=== PATIENT | female | born 1945 | race Caucasian/White ===

== ENCOUNTER 2017-09-08 17:39 | Emergency (ER) | payer MEDICARE, BC ==
[2017-09-08] MEDS ORDERED: Sodium Chloride 0.9% 1,000 ML IV SCH (21:00)
--- NOTE | 2017-09-10 09:19 | ER ---
DATE SEEN: 09/08/2017 TIME SEEN: 2015 hours. CHIEF COMPLAINT: Ataxia. HISTORY OF PRESENT ILLNESS: This is a 72-year-old female complaining of dizziness, weakness, and speech disturbance that started few days ago. She fell twice in the last week and today, was unable to get up by herself. The sons noted that her speech was not making sense and she had some dysarthria. She also complains of mild headache. No difficulty swallowing, shortness of breath, or chest pain. PAST MEDICAL HISTORY: Dementia, depression, type 2 diabetes, hypertension, hyperlipidemia. ALLERGIES: Please see the nurse's notes. Amoxicillin, statins, sulfa. SOCIAL HISTORY: Does not smoke. Lives in an independent living facility, [facility]. PHYSICAL EXAMINATION: VITAL SIGNS: Her blood pressure is 114/60, temperature 98.0. GENERAL: She is not in distress. NECK: Supple. CHEST: Clear. HEENT: Eyes: Normal. Speech: Dysarthria. NEUROLOGIC: No other focal findings. EXTREMITIES: Normal strength on all 4 extremities. LABORATORY DATA: Potassium 3.0. Electrolytes: The other electrolytes are normal. BNP 494. Magnesium 1.8. Urine drug screen negative. CT head showed an indeterminate age lacunar infarct. IMPRESSION: 1. Lacunar infarct. 2. Dementia. PLAN: Start IV fluids. I spoke with Neurology. The patient will be sent to [facility] for further care. /[id number] JAYDA/MELISSAL
--- NOTE | 2017-09-11 15:04 | ER ---
DATE SEEN: 09/08/2017 The patient was seen at 1755 hours. Viviana is a 72-year-old woman who lives in [facility]. The patient has past medical history of diabetes and is not on insulin, has hypertension. There has been a change in medicines. She was started on Exelon for Parkinson's which replaced Aricept. 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 Before this, she was alert and talking, went to breakfast with her son a week ago and was very alert. She has chronic pain in her lower back, and that has not changed. She has urinary tract medicine, Detrol LA, for incontinence, which was discontinued a week ago and she has been slightly dizzy today. She has documented GERD, depression, obesity, Exelon to treat Parkinson's, and discontinued Detrol for urinary incontinence. She has incontinence of urine and stool. The patient is a fair historian. REVIEW OF SYSTEMS: Poor. This was obtained secondarily through the sons. MEDICATIONS: 1. Bupropion. 2. Insulin. 3. Cyanocobalamin. 4. Simvastatin. 5. Namenda. 6. Metformin. 7. Gabapentin. 8. Rivastigmine-Exelon. 9. Aspirin. 10.Losartan/hydrochlorothiazide. 11.Insulin. 12.Sertraline. ALLERGIES: Amoxil, fluvastatin, sulfa, and trimethoprim. PHYSICAL EXAMINATION: VITAL SIGNS: Blood pressure 149/60, heart rate 81, respirations 20, oxygen saturation 95%, temperature 36.7 degrees centigrade. HEENT: Alert woman, slight slurred speech. No facial asymmetry. Eyegrounds appropriate. Hearing slightly decreased. NECK: No bruits in the neck. Pharynx negative. Gag in place. No thyromegaly. No tracheal tug. LUNGS: Clear without rales or rhonchi. HEART: S1, S2. No irregular rate and rhythm. No S3, no S4. No murmur. ABDOMEN: Soft. No guarding. No abdominal discomfort. Hypoactive bowel sounds. EXTREMITIES: Without abnormality. No pain in upper and lower extremities. NEURO: Deep tendon reflexes hypoactive, upper and lower extremities. Cranial nerves 2 through 12 intact. Oriented x3. Speech appropriate. At this point, I do not discern slurred speech, but the family feels it is different than usual and I defer to their thoughts. 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 Dorsiflexors of her ankles are good, I can pull her down the gurney with this, there is no give-way. Right lower extremity strength is good. Left lower extremity strength is good, with straight leg extension and active resistance. LABORATORY FINDINGS: Potassium is 3.0, BUN slightly elevated at 20, creatinine is 0.9, BUN and creatinine ratio is 22, slightly suggesting mild dehydration. GFR is greater than 60. Troponin is less than 0.017, and BNP is 494. Catheterized urinalysis: Few bacteria, small bilirubin, moderate occult blood in bladder from catheterization. Urine drug screen is negative. ASSESSMENT: 1. Suggestion of slurred speech. The family notes a different patient status. CAT scan is pending. 2. Hypokalemia. 3. No evidence for urinary tract infections. Blood culture was not obtained. She has not had a fever. No neutrophilic leukocytosis, and mild glucose elevations, but fairly well controlled diabetes at 7.7 hemoglobin A1c - is trace elevated, but still reasonable for her age. PLAN: Admit. Dr. Greer to write the orders. /[id number] DARY/JOANA
== END 2017-09-08 22:00 ==
LOC: FB.ED 17:39
DX: I63.9 Cerebral infarction, unspecified (principal); R47.1 Dysarthria and anarthria; G20 Parkinson's disease; F02.80 Dementia in other diseases classified elsewhere, unspecified severity, without behavioral disturbance, psychotic disturbance, mood disturbance, and anxiety; I10 Essential (primary) hypertension; F32.9 Major depressive disorder, single episode, unspecified; E11.9 Type 2 diabetes mellitus without complications; E78.5 Hyperlipidemia, unspecified; Z88.1 Allergy status to other antibiotic agents; Z88.2 Allergy status to sulfonamides; Z88.8 Allergy status to other drugs, medicaments and biological substances; Z79.4 Long term (current) use of insulin; Z79.899 Other long term (current) drug therapy
CPT/HCPCS: 36415; 51701; 70450; 80053; 80305; 81001; 83036; 83735; 83880; 84484; 85025; 93005; 99285; J7040

== ENCOUNTER 2017-09-28 10:49 | Inpatient (IN) | payer MEDICARE, BC ==
[2017-09-28] MEDS: Insulin Aspart 100 Units/ML 3 ML Pen SUBCUT SCH (17:45)
[2017-09-28] MEDS: Memantine 10 MG Tab PO SCH (20:27)
[2017-09-28] MEDS: Gabapentin 300 MG Cap PO SCH (20:27)
[2017-09-28] MEDS: metFORMIN 500 MG Tab.ER PO SCH (20:28)
[2017-09-28] MEDS: Docusate Sodium 100 MG Cap PO SCH (20:28)
--- NOTE | 2017-09-29 08:27 | PCM.HP ---
H&P History of Present Illness - General Date of Service: 09/29/17 Admit Problem/Dx: Admission Diagnosis/Problem Admission Diagnosis/Problem CVA, Cerebrovascular accident Source of Information: Patient, Old Records - History of Present Illness Initial Comments - Free Text/Narative: Viviana is a 72-year-old female admitted to swing bed because of gait instability , weakness right-sided, after recent left pontine CVA. She was admitted at [facility] for 2 .5 weeks. She came from inpatient rehabilitation. She's had gait instability, weakness and ataxia related to the sequelae of the stroke. She has a history of type 2 diabetes stable with an A1c of 7.52 weeks ago, stable hypertension, restless leg syndrome, SCOTT,cognitive dysfunction, and she status post nasopharyngeal carcinoma 5 years ago. Viviana previously lived at [facility]. Apart from feeling weak she has no other complaints this morning. - Related Data Allergies/Adverse Reactions: Allergies Allergy/AdvReac Type Severity Reaction Status Date / Time amoxicillin [Amoxicillin] Allergy Nausea and Verified 09/28/17 14:52 Vomiting fluvastatin Allergy Nausea and Verified 09/28/17 14:52 Vomiting Sulfa (Sulfonamide Allergy Diarrhea Verified 09/28/17 14:52 Antibiotics) sulfamethoxazole Allergy Nausea and Verified 09/28/17 14:52 [From Bactrim] Vomiting trimethoprim [From Bactrim] Allergy Nausea and Verified 09/28/17 14:52 Vomiting Home Medications: Home Meds Sertraline HCl 150 mg PO DAILY 06/28/13 [History] Cyanocobalamin (Vitamin B-12) [Vitamin B-12] 1,000 mcg PO DAILY 09/08/17 [ History] Gabapentin [Neurontin] 300 mg PO BEDTIME 09/08/17 [History] Insulin Aspart [NovoLOG] 10 unit SQ 1200,1700 09/08/17 [History] Insulin Glargine,Hum.Rec.Anlog [Toujeo Solostar] 45 unit SQ DAILY 09/08/17 [ History] Memantine HCl [Namenda] 10 mg PO BID 09/08/17 [History] Rivastigmine [Exelon] 9.5 mg TRDERM DAILY 09/08/17 [History] buPROPion [buPROPion XL] 150 mg PO DAILY 09/08/17 [History] metFORMIN HCl [Metformin HCl ER] 500 mg PO BID 09/08/17 [History] Aspirin [Ecotrin] 325 mg PO DAILY 09/28/17 [History] Cholecalciferol (Vitamin D3) [Vitamin D3] 2,000 units PO DAILY 09/28/17 [History ] Clopidogrel [Plavix] 75 mg PO DAILY 09/28/17 [History] Docusate Sodium [Colace] 100 mg PO BID 09/28/17 [History] Losartan [Cozaar] 50 mg PO DAILY 09/28/17 [History] Multivits,Th w-Fe,Other Min [Therems-M] 1 each PO DAILY 09/28/17 [History] amLODIPine Besylate [Amlodipine Besylate] 10 mg PO DAILY 09/28/17 [History] atorvaSTATin [Lipitor] 40 mg PO BEDTIME 09/28/17 [History] Past Medical History HEENT History: Reports: Cataract, Hard of Hearing, Impaired Vision Other HEENT History: legally blind L eye, hx nonHodgkins lymphoma, 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, retinopathy Cardiovascular History: Reports: High Cholesterol, Hypertension Respiratory History: Reports: Sleep Apnea Other Respiratory History: uses cpap Gastrointestinal History: Reports: None Genitourinary History: Reports: Urinary Incontinence 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 Endocrine/Metabolic History: Reports: Diabetes, Type II, Obesity/BMI 30+ Hematologic History: Reports: Blood Transfusion(s) Oncologic (Cancer) History: Reports: Non-Hodgkin's Lymphoma - Infectious Disease History Infectious Disease History: Reports: Chicken Pox, Measles, Mumps, Shingles - Past Surgical History Head Surgeries/Procedures: Reports: None HEENT Surgical History: Reports: Adenoidectomy, Oral Surgery, Tonsillectomy, Other (See Below) Other HEENT Surgeries/Procedures: bleeding in vein in L eye GI Surgical History: Reports: Cholecystectomy, Colonoscopy Female Surgical History: Reports: Hysterectomy, Salpingo-Oophorectomy Musculoskeletal Surgical History: Reports: Knee Replacement Other Musculoskeletal Surgeries/Procedures:: bilat knee replacements Social & Family History - Family History Family Medical History: Noncontributory - Tobacco Use Smoking Status *Q: Never Smoker - Caffeine Use Caffeine Use: Reports: Coffee - Alcohol Use Days Per Week of Alcohol Use: 0 - Recreational Drug Use Recreational Drug Use: No H&P Review of Systems - Review of Systems: Review Of Systems: ROS reveals no pertinent complaints other than HPI. Exam - Exam Exam: See Below - Vital Signs Vital Signs: Last Vital Signs Temp 98.3 F 09/29/17 07:52 Pulse 61 09/28/17 20:05 Resp 18 09/29/17 07:52 BP 113/48 L 09/29/17 07:52 Pulse Ox 95 09/29/17 07:52 Weight: 98.203 kg - Exam General: Alert, Oriented, 4 HEENT: PERRLA, Hearing Intact, Mucosa Moist & [place], Nares Patent, Normal Nasal Septum, Posterior Pharynx Clear, Conjunctiva Clear, EOMI, EACs Clear, TMs Clear Neck: Supple, Trachea Midline, 2 Lungs: Clear to Auscultation, Normal Respiratory Effort Cardiovascular: Regular Rate, Regular Rhythm GI/Abdominal Exam: Normal Bowel Sounds, Soft, Non-Tender, No Organomegaly, No Distention, No Abnormal Bruit, No Mass, Pelvis Stable (Female) Exam: Deferred Rectal (Female) Exam: Deferred Back Exam: Normal Inspection, Full Range of Motion, NT Extremities: Normal Inspection, Normal Range of Motion, Non-Tender, No Pedal Edema, Normal Capillary Refill Skin: Warm, Dry, Intact Neurological: Cranial Nerves Intact, Reflexes Equal Bilateral Neuro Extensive - Mental Status: Alert, Oriented x3, Normal Mood/Affect, Normal Cognition Neuro Extensive - Motor, Sensory, Reflexes: Abnormal Motor (Decreased stregth,R side) Psychiatric: Alert - Patient Data Lab Results Last 24 hrs: Laboratory Results - last 24 hr 09/28/17 09/28/17 09/29/17 Range/Units 17:45 21:17 04:29 POC Glucose 133 H 85 90 (80-116) mg/dL 09/29/17 Range/Units 07:44 POC Glucose 89 (80-116) mg/dL *Q Meaningful Use (ADM) - VTE *Q VTE Criteria *Q: - Stroke *Q Stroke Criteria *Q: - AMI *Q AMI Criteria *Q: - Problem List (1) 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 SNOMED Code(s): 516291429 ICD Code: Z86.73 - PRSNL HX OF TIA (TIA), AND CEREB INFRC W/O RESID DEFICITS Status: Acute Current Visit: Yes (2) DM2 (diabetes mellitus, type 2) SNOMED Code(s): 39374680 ICD Code: E11.9 - TYPE 2 DIABETES MELLITUS WITHOUT COMPLICATIONS Status: Acute Current Visit: Yes Qualifiers: Diabetes mellitus complication status: without complication Diabetes mellitus buttermaker helper insulin use: with group home use Qualified Code(s): E11.9 - Type 2 diabetes mellitus without complications; Z79.4 - terminal press operator (current) use of insulin; Z79.4 - MCC (current) use of insulin; Z79.4 - MCC ( current) use of insulin; Z79.4 - terminal press operator (current) use of insulin (3) RLS (restless legs syndrome) SNOMED Code(s): 11424365 ICD Code: G25.81 - RESTLESS LEGS SYNDROME Status: Chronic Current Visit: Yes (4) HTN (hypertension) SNOMED Code(s): 61967516 ICD Code: I10 - ESSENTIAL (PRIMARY) HYPERTENSION Status: Chronic Current Visit: Yes Qualifiers: Hypertension type: essential hypertension Qualified Code(s): I10 - Essential (primary) hypertension (5) Cognitive dysfunction SNOMED Code(s): 191074566 ICD Code: F09 - UNSP MENTAL DISORDER DUE TO KNOWN PHYSIOLOGICAL CONDITION Status: Acute Current Visit: Yes (6) Parkinson disease SNOMED Code(s): 46344464 ICD Code: G20 - PARKINSON'S DISEASE Status: Chronic Current Visit: Yes (7) HLD (hyperlipidemia) SNOMED Code(s): 92830624 ICD Code: E78.5 - HYPERLIPIDEMIA, UNSPECIFIED Status: Chronic Current Visit: Yes (8) SCOTT (obstructive sleep apnea) SNOMED Code(s): 13855097 ICD Code: G47.33 - OBSTRUCTIVE SLEEP APNEA (ADULT) (PEDIATRIC) Status: Chronic Current Visit: Yes (9) Ataxia SNOMED Code(s): 60404209 ICD Code: R27.0 - ATAXIA, UNSPECIFIED Status: Chronic Current Visit: Yes (10) MDD (major depressive disorder) SNOMED Code(s): 722061969 ICD Code: F32.9 - MAJOR DEPRESSIVE DISORDER, SINGLE EPISODE, UNSPECIFIED Status: Chronic Current Visit: Yes Qualifiers: Major depression recurrence: recurrent Psychotic features: without psychotic features Problem List Initiated/Reviewed/Updated: Yes Orders Last 24hrs: Active Orders 24 hr Category Date Time Status Patient Status [ADT] Routine ADT 09/28/17 14:32 Active Accu Check [Blood Glucose Check, Bedside] [RC] Care 09/28/17 14:37 Active QIDACANDBED Activity as Tolerated [RC] .Routine Care 09/28/17 14:32 Active Weight [Height and Weight] [RC] .qMon Care 09/28/17 17:41 Active OT Evaluation and Treatment [CONS] Routine Cons 09/28/17 14:32 Active PT Evaluation and Treatment [CONS] Routine Cons 09/28/17 14:32 Active CARE ASSOCIATE Evaluation and Treatment [CONS] Routine Cons 09/28/17 14:32 Active Consistent Carbohydrate Diet [DIET] Diet 09/28/17 Dinner Active Aspirin [Ecotrin] Med 09/29/17 09:00 Active 325 mg PO DAILY Cholecalciferol (Vitamin D3) [Vitamin D3] Med 09/29/17 09:00 Active 2,000 units PO DAILY Clopidogrel [Plavix] Med 09/29/17 09:00 Active 75 mg PO DAILY Cyanocobalamin (Vitamin B12) [Vitamin B12] Med 09/29/17 09:00 Active 1,000 mcg PO DAILY Docusate Sodium [Colace] Med 09/28/17 21:00 Active 100 mg PO BID Gabapentin [Neurontin] Med 09/28/17 21:00 Active 300 mg PO BEDTIME Insulin Aspart [NovoLOG] Med 09/28/17 17:00 Active 10 unit SUBCUT 1200,1700 Insulin Detemir [Levemir] Med 09/29/17 09:00 Active 23 unit SUBCUT BID Losartan [Cozaar] Med 09/29/17 09:00 Active 50 mg PO DAILY Memantine [Namenda] Med 09/28/17 21:00 Active 10 mg PO BID Multivitamins,Therapeutic [Thera] Med 09/29/17 09:00 Active 1 each PO DAILY Rivastigmine [Exelon] Med 09/29/17 09:00 Active 9.5 mg TRDERM DAILY Sertraline [Zoloft] Med 09/29/17 09:00 Active 150 mg PO DAILY amLODIPine [Norvasc] Med 09/29/17 09:00 Active 10 mg PO DAILY atorvaSTATin [Lipitor] Med 09/29/17 09:00 Active 40 mg PO DAILY buPROPion [Wellbutrin XL] Med 09/29/17 09:00 Active 150 mg PO DAILY metFORMIN [Glucophage XR] Med 09/28/17 21:00 Active 500 mg PO BID Resuscitation Status Routine Resus Stat 09/28/17 13:22 Ordered Medication Orders Amlodipine Besylate (Norvasc) 10 mg PO DAILY [facility] Aspirin (Ecotrin) 325 mg PO DAILY [facility] Atorvastatin Calcium (Lipitor) 40 mg PO DAILY [facility] Bupropion HCl (Wellbutrin Xl) 150 mg PO DAILY [facility] Cholecalciferol (Vitamin D3) 2,000 units PO DAILY [facility] Clopidogrel Bisulfate (Plavix) 75 mg PO DAILY [facility] Cyanocobalamin (Vitamin B12) 1,000 mcg PO DAILY [facility] Docusate Sodium (Colace) 100 mg PO BID [facility] Last Admin: 09/28/17 20:28 Dose: 100 mg Gabapentin (Neurontin) 300 mg PO BEDTIME [facility] Last Admin: 09/28/17 20:27 Dose: 300 mg Insulin Aspart (Novolog) 10 unit SUBCUT 1200,1700 [facility] Last Admin: 09/28/17 17:45 Dose: 10 units Insulin Detemir (Levemir) 23 unit SUBCUT BID [facility] Losartan Potassium (Cozaar) 50 mg PO DAILY [facility] Memantine (Namenda) 10 mg PO BID [facility] Last Admin: 09/28/17 20:27 Dose: 10 mg Metformin HCl (Glucophage Xr) 500 mg PO BID [facility] Last Admin: 09/28/17 20:28 Dose: 500 mg Multivitamins (Thera) 1 each PO DAILY [facility] Rivastigmine (Exelon) 9.5 mg TRDERM DAILY [facility] Sertraline HCl (Zoloft) 150 mg PO DAILY [facility] Assessment/Plan Comment:: We'll resume medications as prescribed at discharge from [facility]. It's recommended to do both aspirin and Plavix for 3 months and thereafter aspirin alone. We've consulted physical and occupational therapy for rehabilitation. Routine orders for sitting bed admission were made.
[2017-09-29] MEDS: Docusate Sodium 100 MG Cap PO SCH ×2 (10:05→20:31)
[2017-09-29] MEDS: Losartan 50 MG Tab PO SCH (10:05)
[2017-09-29] MEDS: Aspirin 325 MG Tab.EC PO SCH (10:05)
[2017-09-29] MEDS: Cyanocobalamin (Vitamin B12) 1,000 MCG Tab PO SCH (10:10)
[2017-09-29] MEDS: Memantine 10 MG Tab PO SCH ×2 (10:10→20:34)
[2017-09-29] MEDS: Clopidogrel 75 MG Tab PO SCH (10:10)
[2017-09-29] MEDS: Multivitamins,Therapeutic Tab PO SCH (10:10)
[2017-09-29] MEDS: amLODIPine 10 MG Tab PO SCH (10:10)
[2017-09-29] MEDS: atorvaSTATin 40 MG Tab PO SCH (10:10)
[2017-09-29] MEDS: metFORMIN 500 MG Tab.ER PO SCH ×2 (10:10→20:32)
[2017-09-29] MEDS: Rivastigmine 9.5 MG/24 HR Transdermal Patch TRDERM SCH (10:23)
[2017-09-29] MEDS: Cholecalciferol (Vitamin D3) 1,000 Unit Tab PO SCH (10:32)
[2017-09-29] MEDS: buPROPion 150 MG Tab.ER PO SCH (10:33)
[2017-09-29] MEDS: Sertraline 50 MG Tab PO SCH (10:33)
[2017-09-29] MEDS: Insulin Detemir 100 Units/ML 3 ML Pen SUBCUT SCH ×2 (10:37→20:32)
[2017-09-29] MEDS: Insulin Aspart 100 Units/ML 3 ML Pen SUBCUT SCH ×2 (11:48→17:31)
[2017-09-29] MEDS: Gabapentin 300 MG Cap PO SCH (20:34)
[2017-09-30] MEDS: Docusate Sodium 100 MG Cap PO SCH ×2 (08:08→20:41)
[2017-09-30] MEDS: Aspirin 325 MG Tab.EC PO SCH (08:09)
[2017-09-30] MEDS: metFORMIN 500 MG Tab.ER PO SCH ×2 (08:09→20:41)
[2017-09-30] MEDS: Losartan 50 MG Tab PO SCH (08:09)
[2017-09-30] MEDS: Rivastigmine 9.5 MG/24 HR Transdermal Patch TRDERM SCH (08:09)
[2017-09-30] MEDS: Insulin Detemir 100 Units/ML 3 ML Pen SUBCUT SCH ×2 (08:10→20:41)
[2017-09-30] MEDS: Memantine 10 MG Tab PO SCH ×2 (08:11→20:41)
[2017-09-30] MEDS: amLODIPine 10 MG Tab PO SCH (08:11)
[2017-09-30] MEDS: atorvaSTATin 40 MG Tab PO SCH (08:11)
[2017-09-30] MEDS: Cyanocobalamin (Vitamin B12) 1,000 MCG Tab PO SCH (08:12)
[2017-09-30] MEDS: Cholecalciferol (Vitamin D3) 1,000 Unit Tab PO SCH (08:12)
[2017-09-30] MEDS: Multivitamins,Therapeutic Tab PO SCH (08:12)
[2017-09-30] MEDS: Clopidogrel 75 MG Tab PO SCH (08:12)
[2017-09-30] MEDS: Sertraline 50 MG Tab PO SCH (08:13)
[2017-09-30] MEDS: buPROPion 150 MG Tab.ER PO SCH (08:13)
[2017-09-30] MEDS: Insulin Aspart 100 Units/ML 3 ML Pen SUBCUT SCH ×2 (11:53→17:26)
[2017-09-30] MEDS: Gabapentin 300 MG Cap PO SCH (20:41)
[2017-10-01] MEDS: Docusate Sodium 100 MG Cap PO SCH ×2 (09:11→21:37)
[2017-10-01] MEDS: Rivastigmine 9.5 MG/24 HR Transdermal Patch TRDERM SCH (09:11)
[2017-10-01] MEDS: Losartan 50 MG Tab PO SCH (09:11)
[2017-10-01] MEDS: Aspirin 325 MG Tab.EC PO SCH (09:11)
[2017-10-01] MEDS: Insulin Detemir 100 Units/ML 3 ML Pen SUBCUT SCH ×2 (09:12→21:37)
[2017-10-01] MEDS: metFORMIN 500 MG Tab.ER PO SCH ×2 (09:12→21:37)
[2017-10-01] MEDS: Cyanocobalamin (Vitamin B12) 1,000 MCG Tab PO SCH (09:13)
[2017-10-01] MEDS: atorvaSTATin 40 MG Tab PO SCH (09:13)
[2017-10-01] MEDS: Multivitamins,Therapeutic Tab PO SCH (09:13)
[2017-10-01] MEDS: Memantine 10 MG Tab PO SCH ×2 (09:13→21:38)
[2017-10-01] MEDS: amLODIPine 10 MG Tab PO SCH (09:13)
[2017-10-01] MEDS: Clopidogrel 75 MG Tab PO SCH (09:13)
[2017-10-01] MEDS: buPROPion 150 MG Tab.ER PO SCH (09:14)
[2017-10-01] MEDS: Cholecalciferol (Vitamin D3) 1,000 Unit Tab PO SCH (09:14)
[2017-10-01] MEDS: Sertraline 50 MG Tab PO SCH (09:14)
[2017-10-01] MEDS: Insulin Aspart 100 Units/ML 3 ML Pen SUBCUT SCH ×2 (13:17→17:37)
[2017-10-01] MEDS: Gabapentin 300 MG Cap PO SCH (21:39)
[2017-10-02] MEDS: Docusate Sodium 100 MG Cap PO SCH ×2 (09:21→21:19)
[2017-10-02] MEDS: Losartan 50 MG Tab PO SCH (09:22)
[2017-10-02] MEDS: Multivitamins,Therapeutic Tab PO SCH (09:22)
[2017-10-02] MEDS: Clopidogrel 75 MG Tab PO SCH (09:22)
[2017-10-02] MEDS: Cyanocobalamin (Vitamin B12) 1,000 MCG Tab PO SCH (09:23)
[2017-10-02] MEDS: amLODIPine 10 MG Tab PO SCH (09:23)
[2017-10-02] MEDS: atorvaSTATin 40 MG Tab PO SCH (09:23)
[2017-10-02] MEDS: buPROPion 150 MG Tab.ER PO SCH (09:23)
[2017-10-02] MEDS: Memantine 10 MG Tab PO SCH ×2 (09:23→21:21)
[2017-10-02] MEDS: Cholecalciferol (Vitamin D3) 1,000 Unit Tab PO SCH (09:23)
[2017-10-02] MEDS: Aspirin 325 MG Tab.EC PO SCH (09:23)
[2017-10-02] MEDS: metFORMIN 500 MG Tab.ER PO SCH ×2 (09:23→21:21)
[2017-10-02] MEDS: Sertraline 50 MG Tab PO SCH (09:24)
[2017-10-02] MEDS: Rivastigmine 9.5 MG/24 HR Transdermal Patch TRDERM SCH (09:24)
[2017-10-02] MEDS: Insulin Detemir 100 Units/ML 3 ML Pen SUBCUT SCH ×2 (09:30→21:19)
[2017-10-02] MEDS: Insulin Aspart 100 Units/ML 3 ML Pen SUBCUT SCH ×2 (12:52→18:18)
[2017-10-02] MEDS: Gabapentin 300 MG Cap PO SCH (21:21)
[2017-10-03] MEDS: Docusate Sodium 100 MG Cap PO SCH ×2 (08:30→21:05)
[2017-10-03] MEDS: Losartan 50 MG Tab PO SCH (08:30)
[2017-10-03] MEDS: Memantine 10 MG Tab PO SCH ×2 (08:31→21:12)
[2017-10-03] MEDS: Clopidogrel 75 MG Tab PO SCH (08:31)
[2017-10-03] MEDS: metFORMIN 500 MG Tab.ER PO SCH ×2 (08:31→21:12)
[2017-10-03] MEDS: amLODIPine 10 MG Tab PO SCH (08:31)
[2017-10-03] MEDS: Rivastigmine 9.5 MG/24 HR Transdermal Patch TRDERM SCH (08:31)
[2017-10-03] MEDS: atorvaSTATin 40 MG Tab PO SCH (08:31)
[2017-10-03] MEDS: Sertraline 50 MG Tab PO SCH (08:31)
[2017-10-03] MEDS: Cyanocobalamin (Vitamin B12) 1,000 MCG Tab PO SCH (08:31)
[2017-10-03] MEDS: Cholecalciferol (Vitamin D3) 1,000 Unit Tab PO SCH (08:31)
[2017-10-03] MEDS: Aspirin 325 MG Tab.EC PO SCH (08:31)
[2017-10-03] MEDS: Multivitamins,Therapeutic Tab PO SCH (08:31)
[2017-10-03] MEDS: buPROPion 150 MG Tab.ER PO SCH (08:31)
[2017-10-03] MEDS: Insulin Detemir 100 Units/ML 3 ML Pen SUBCUT SCH ×2 (08:32→21:16)
[2017-10-03] MEDS: Insulin Aspart 100 Units/ML 3 ML Pen SUBCUT SCH ×2 (12:19→17:53)
[2017-10-03] MEDS: Gabapentin 300 MG Cap PO SCH (21:12)
[2017-10-04] MEDS: Multivitamins,Therapeutic Tab PO SCH (08:51)
[2017-10-04] MEDS: Sertraline 50 MG Tab PO SCH (08:51)
[2017-10-04] MEDS: buPROPion 150 MG Tab.ER PO SCH (08:51)
[2017-10-04] MEDS: Cyanocobalamin (Vitamin B12) 1,000 MCG Tab PO SCH (08:52)
[2017-10-04] MEDS: Cholecalciferol (Vitamin D3) 1,000 Unit Tab PO SCH (08:52)
[2017-10-04] MEDS: Losartan 50 MG Tab PO SCH (08:52)
[2017-10-04] MEDS: Memantine 10 MG Tab PO SCH (08:52)
[2017-10-04] MEDS: Aspirin 325 MG Tab.EC PO SCH (08:52)
[2017-10-04] MEDS: metFORMIN 500 MG Tab.ER PO SCH (08:52)
[2017-10-04] MEDS: atorvaSTATin 40 MG Tab PO SCH (08:52)
[2017-10-04] MEDS: amLODIPine 10 MG Tab PO SCH (08:53)
[2017-10-04] MEDS: Rivastigmine 9.5 MG/24 HR Transdermal Patch TRDERM SCH (08:53)
[2017-10-04] MEDS: Insulin Detemir 100 Units/ML 3 ML Pen SUBCUT SCH (08:54)
[2017-10-04] MEDS: Docusate Sodium 100 MG Cap PO SCH (09:01)
[2017-10-04] MEDS: Clopidogrel 75 MG Tab PO SCH (09:01)
--- NOTE | 2017-10-04 14:33 | DISCH ---
DISCHARGE DATE: 10/04/2017 REASON FOR ADMISSION: Gait disturbance, CVA, type 2 diabetes, hypertension, Parkinson's disease, cognitive dysfunction, hyperlipidemia, obstructive sleep apnea, major depression. DISCHARGE DIAGNOSES: Gait disturbance, cerebrovascular accident, type 2 diabetes, hypertension, Parkinson's disease, cognitive dysfunction, hyperlipidemia, obstructive sleep apnea, major depression.. BRIEF HISTORY AND HOSPITAL COURSE: This is a 72-year-old female admitted from [facility] after a stroke. She had been there for about 2-1/2 weeks with a left pontine stroke. This had resulted in ataxia, gait instability, generalized weakness, deconditioning, and mild speech disturbance. She has a history of chronic kidney disease, hypertension, restless legs syndrome, major depression, type 2 diabetes, and Parkinson's disease. She has also had early-onset Alzheimer's dementia with hallucinations. She improved after physical rehab and occupational therapy here in the hospital for 5 days. Sugars were stable on the new dose of Toujeo, and she was deemed ready to go back home to [facility] with Home Health to help with medications and to continue physical therapy. She was discharged on 10/04/2017 on the following medications: 1. Amlodipine 10 mg a day. 2. Aspirin 325 mg a day. 3. Lipitor 40 mg a day. 4. Wellbutrin 150 mg a day. 5. Cholecalciferol 2000 units daily. 6. Plavix 75 mg a day. 7. Cyanocobalamin 1000 mcg daily. 8. Docusate 100 mg b.i.d. 9. Gabapentin 300 mg at bedtime. 10.NovoLog 10 units with every meal. 11.Toujeo 45 units a day. 12.Losartan 50 mg daily. 13.Namenda 10 mg b.i.d. 14.Metformin 1000 mg b.i.d. 15.One multivitamin a day. 16.Exelon 9.5 mg transdermally daily. 17.Zoloft 150 mg a day. FOLLOWUP: She will be seen in the office after 1 week of discharge and will continue with Home Health at the [facility]. Please note that I spent more than 35 minutes in the discharge of this patient. /[id number] JAYDA/JOANA
== END 2017-10-04 10:27 | disposition home health service (06) | DRG 948 ==
LOC: FB.MS 12:58
PROVIDERS: ADMIT Family Medicine; ATTEND Family Medicine
DX: R53.1 Weakness (principal); I69.951 Hemiplegia and hemiparesis following unspecified cerebrovascular disease affecting right dominant side; F02.80 Dementia in other diseases classified elsewhere, unspecified severity, without behavioral disturbance, psychotic disturbance, mood disturbance, and anxiety; G30.0 Alzheimer's disease with early onset; I69.993 Ataxia following unspecified cerebrovascular disease; I69.928 Other speech and language deficits following unspecified cerebrovascular disease; E11.22 Type 2 diabetes mellitus with diabetic chronic kidney disease; E11.319 Type 2 diabetes mellitus with unspecified diabetic retinopathy without macular edema; E11.40 Type 2 diabetes mellitus with diabetic neuropathy, unspecified; I12.9 Hypertensive chronic kidney disease with stage 1 through stage 4 chronic kidney disease, or unspecified chronic kidney disease; N18.9 Chronic kidney disease, unspecified; Z79.4 Long term (current) use of insulin; G25.81 Restless legs syndrome; G47.33 Obstructive sleep apnea (adult) (pediatric); F09 Unspecified mental disorder due to known physiological condition; E78.5 Hyperlipidemia, unspecified; F32.9 Major depressive disorder, single episode, unspecified; F41.9 Anxiety disorder, unspecified; Z85.72 Personal history of non-Hodgkin lymphomas; Z85.89 Personal history of malignant neoplasm of other organs and systems; M19.90 Unspecified osteoarthritis, unspecified site; H91.90 Unspecified hearing loss, unspecified ear; H54.40 Blindness, one eye, unspecified eye; Z79.82 Long term (current) use of aspirin; Z88.1 Allergy status to other antibiotic agents; Z88.2 Allergy status to sulfonamides; Z88.8 Allergy status to other drugs, medicaments and biological substances; Z96.653 Presence of artificial knee joint, bilateral
CPT/HCPCS: 82962; 96125-GN; 97110-GP; 97116-GP; 97140-GP; 97161-GP; 97165-GO; 97530-GO; 97535-GO; A9270-GY

== ENCOUNTER 2020-10-26 16:28 | Inpatient (IN) | payer MEDICARE ==
[2020-10-26] MEDS ORDERED: Nitroglycerin 0.4 MG Tab.SL SL PRN (17:27)
[2020-10-26] MEDS ORDERED: Aspirin 81 MG Tab.Chew PO STA (17:28)
[2020-10-26] MEDS ORDERED: Sodium Chloride 0.9% 1,000 ML IV SCH (17:30)
[2020-10-26] MEDS ORDERED: cefTRIAXone 1 GM Vial IVPUSH STA (19:00)
[2020-10-26] MEDS: Sodium Chloride 0.9% 1,000 ML IV SCH (19:27)
[2020-10-26] MEDS ORDERED: Zolpidem 5 MG Tab PO PRN (19:45)
[2020-10-26] MEDS ORDERED: Ondansetron 4 MG/2 ML SDV IV PRN (19:45)
[2020-10-26] MEDS ORDERED: Cyclobenzaprine 10 MG Tab PO STA (20:02)
[2020-10-26] MEDS ORDERED: Acetaminophen/oxyCODONE 325-5 MG Tab PO STA (20:02)
[2020-10-26] MEDS ORDERED: atorvaSTATin 40 MG Tab PO SCH (21:00)
[2020-10-26] MEDS ORDERED: Gabapentin 300 MG Cap PO SCH (21:00)
[2020-10-26] MEDS ORDERED: Docusate Sodium 100 MG Cap PO SCH (21:00)
[2020-10-26] MEDS ORDERED: Memantine 10 MG Tab PO SCH (21:00)
[2020-10-26] MEDS ORDERED: Non-Formulary Medication 1 Each (Metformin Hcl [Metformin Er Osmotic] 500 MG Tab.Er.24) PO SCH (21:00)
--- NOTE | 2020-10-26 22:03 | CR ---
INDICATION: Cough, dyspnea, hypoxemia. CHEST, ONE VIEW: An AP upright portable view of the chest 10/26/20 - no comparisons. Evidence of exogenous obesity is noted. The heart appears enlarged. The aorta is calcified in the arch area. Overlying EKG leads are noted. Upper lung field pulmonary vasculature is minimally prominent, raising question of mild or early CHF. Interstitial markings raise question of fibrosis or minimal interstitial lung edema. No consolidating pneumonia or effusion was seen. IMPRESSION: 1. ASHD with cardiomegaly, possible mild CHF and minimal interstitial lung edema. 2. Exogenous obesity. 3. Poor inspiration emphasizes markings making it difficult to entirely excluded minimal patchy bronchopneumonia - correlate clinically - full inspiration PA and lateral views of the chest are suggested when clinically possible for further evaluation. MTDD
--- NOTE | 2020-10-26 22:11 | CT ---
INDICATION: Weakness. History of CVA with increasing weakness right side over the last [address] HEAD WITHOUT CONTRAST: Spiral 3.75 mm axial sections were obtained through the brain without contrast with axial, sagittal and coronal reconstructions 10/26/20 and compared with 12/24/18. Total exam DLP was 1322.30 mGy-cm. There is again noted opacification of the left frontal air cell with the paranasal sinuses otherwise fairly well aerated. There is also again noted what appears to be a retention cyst in the left sphenoidal air cell. Mastoid air cells appear to be well aerated. No definite cranial abnormality was seen. The orbits appears to be intact. Prominent calcifications are noted in the vertebral and internal carotid arteries. Low-density abnormality in the left selene on the previous study is barely visible on today's examination. However slightly more cranially, there is a midline low-density area in the selene posteriorly somewhat which appears to be slightly better visualized than on the previous examination and may represent an area of previous ischemia with moderate encephalomalacia in that area. Patchy areas of decreased density are noted throughout the white matter, compatible with moderate microvascular disease and appears slightly progressive. No shift of midline structures or significant-appearing ventricular abnormalities were identified. No definite acute intracranial abnormality was seen - no bleeding site or hematoma was noted. The possibility of an evolving thrombotic CVA is difficult to exclude with areas of decreased density noted in the white matter, which more likely represent microvascular disease-type changes. Follow up may be warranted, such as repeat CT in 3-5 days or possibly MRI. IMPRESSION: 1. No definite acute intracranial abnormality. 2. Progressive cerebrovascular disease with vertebral, internal carotid and basilar artery calcifications and white matter changes, compatible with slightly progressive moderate microvascular disease. 3. Suggest repeat examination 3-5 days or possibly MRI as felt to be clinically necessary. 4. Areas of abnormal density suggested in the selene which may represent areas of previous ischemia with mild degree of encephalomalacia - correlate clinically. Report was called to Dr. Cheema at 1744 hours. [facility]
[2020-10-27] MEDS: Sodium Chloride 0.9% 1,000 ML IV SCH ×2 (02:52→11:39)
--- NOTE | 2020-10-27 06:07 | EDM.PDOC ---
ED HPI GENERAL MEDICAL PROBLEM - General Chief Complaint: General Stated Complaint: WEAKNESS Time Seen by Provider: 10/26/20 16:30 Source of Information: Reports: Patient History Limitations: Reports: No Limitations - History of Present Illness INITIAL COMMENTS - FREE TEXT/NARRATIVE: Patient presented to the ED because of increasing weakness for 1 week which got worse yesterday. She described it as generalized body weakness and fatigue. There is no associated fever, chills, cough or cold symptoms. No N/V/D. She denies having any chest pain, dyspnea, edema. She however has a poor appetite and important to note, her Hb in 12/2018 was 11.6 down to 8.7 today. She denies having any abdominal pain, melanotic stools or hematochezia. - Related Data Allergies Allergy/AdvReac Type Severity Reaction Status Date / Time amoxicillin [Amoxicillin] Allergy Nausea and Verified 07/06/18 13:22 Vomiting fluvastatin Allergy Nausea and Verified 07/06/18 13:22 Vomiting Sulfa (Sulfonamide Allergy Diarrhea Verified 07/06/18 13:22 Antibiotics) sulfamethoxazole Allergy Nausea and Verified 07/06/18 13:22 [From Bactrim] Vomiting trimethoprim [From Bactrim] Allergy Nausea and Verified 07/06/18 13:22 Vomiting Home Meds: Home Meds Sertraline HCl 150 mg PO DAILY 06/28/13 [History] Memantine HCl [Namenda] 10 mg PO BID 09/08/17 [History] metFORMIN HCl [Metformin ER Osmotic] 500 mg PO BID 09/08/17 [History] Aspirin [Ecotrin EC] 325 mg PO DAILY 09/28/17 [History] Cholecalciferol (Vitamin D3) [Vitamin D3] 2,000 units PO DAILY #30 cap 10/04/17 [Rx] Insulin Glargine,Hum.Rec.Anlog [Toujeo Solostar] 45 unit SQ DAILY #100 ml 10/04/17 [Rx] Losartan [Cozaar] 50 mg PO DAILY #30 tablet 10/04/17 [Rx] atorvaSTATin [Lipitor] 40 mg PO BEDTIME #30 tablet 10/04/17 [Rx] Potassium Chloride 20 meq PO DAILY #5 tablet.er 07/06/18 [Rx] Acetaminophen [Tylenol Extra Strength] 1,000 mg PO TID PRN 10/26/20 [History] Betamethasone/Clotrimazole [Lotrisone] 1 applic TOP BID 10/26/20 [History] Bumetanide [Bumex] 1 mg PO DAILY 10/26/20 [History] Carboxymethylcellulose Sodium [Refresh Tears 0.5%] 1 drop EYEBOTH BID 10/26/20 [History] Cholestyramine (With Sugar) [Questran Powder] 4 gm PO 17 10/26/20 [History] Cyanocobalamin (Vitamin B-12) [Vitamin B-12] 1,000 mcg PO DAILY 10/26/20 [History] Gabapentin [Neurontin] 300 mg PO 08,15 10/26/20 [History] Insulin Lispro [HumaLOG] 10 unit SQ 08,11,17 10/26/20 [History] Loperamide [Imodium] 2 mg PO BID PRN 10/26/20 [History] Loratadine 10 mg PO DAILY PRN 10/26/20 [History] QUEtiapine [SEROquel] 25 mg PO BEDTIME 10/26/20 [History] QUEtiapine [SEROquel] 50 mg PO 1500 10/26/20 [History] Rivastigmine Tartrate [Rivastigmine] 6 mg PO BID 10/26/20 [History] Timolol [Betimol 0.5% Ophth Soln] 1 drop EYELF BID 10/26/20 [History] buPROPion [Wellbutrin] 75 mg PO DAILY 10/26/20 [History] polyethylene glycoL 3350 [MiraLAX] 17 gm PO DAILY PRN 10/26/20 [History] risperiDONE [Risperdal] 1 mg PO 14 10/26/20 [History] Past Medical History HEENT History: Reports: Cataract, Hard of Hearing, Impaired Vision Other HEENT History: legally blind L eye, hx nonHodgkins lymphoma, 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, retinopathy Cardiovascular History: Reports: High Cholesterol, Hypertension Respiratory History: Reports: Sleep Apnea Other Respiratory History: uses cpap Gastrointestinal History: Reports: None Genitourinary History: Reports: Urinary Incontinence INSTITUTIONAL NUTRITION CONSULTANT History: Reports: Other INSTITUTIONAL NUTRITION CONSULTANT History: Musculoskeletal History: Reports: Arthritis, Fibromyalgia, Neck Pain, Chronic, Other (See Below) Other Musculoskeletal History: diabetic polyneuropathy, 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 Endocrine/Metabolic History: Reports: Diabetes, Type II, Obesity/BMI 30+ Hematologic History: Reports: Blood Transfusion(s) Oncologic (Cancer) History: Reports: Lymphoma, Non-Hodgkin's Lymphoma - Infectious Disease History Infectious Disease History: Reports: Chicken Pox, Measles, Mumps, Shingles - Past Surgical History Head Surgeries/Procedures: Reports: None HEENT Surgical History: Reports: Adenoidectomy, Oral Surgery, Tonsillectomy, Other (See Below) Other HEENT Surgeries/Procedures: bleeding in vein in L eye GI Surgical History: Reports: Cholecystectomy, Colonoscopy Female Surgical History: Reports: Hysterectomy, Salpingo-Oophorectomy Musculoskeletal Surgical History: Reports: Knee Replacement Other Musculoskeletal Surgeries/Procedures:: bilat knee replacements Social & Family History - Family History Family Medical History: No Pertinent Family History - Tobacco Use Tobacco Use Status *Q: Never Tobacco User - Caffeine Use Caffeine Use: Reports: Coffee - Recreational Drug Use Recreational Drug Use: No ED ROS GENERAL - Review of Systems Review Of Systems: See Below Constitutional: Reports: Weakness, Fatigue HEENT: Reports: No Symptoms Respiratory: Reports: No Symptoms Cardiovascular: Reports: No Symptoms Endocrine: Reports: No Symptoms GI/Abdominal: Reports: No Symptoms : Reports: No Symptoms Musculoskeletal: Reports: No Symptoms Skin: Reports: No Symptoms Neurological: Reports: No Symptoms Psychiatric: Reports: No Symptoms Hematologic/Lymphatic: Reports: No Symptoms Immunologic: Reports: No Symptoms ED EXAM, GENERAL - Physical Exam Exam: See Below Exam Limited By: No Limitations General Appearance: Alert Eye Exam: Bilateral Eye: PERRL, Other (pale conjuctiva) Ears: Normal External Exam, Normal Canal Nose: Normal Inspection, Normal Mucosa, No Blood Throat/Mouth: Normal Inspection, Other (dry mouth and lips) Head: Atraumatic Neck: Normal Inspection Respiratory/Chest: No Respiratory Distress, Lungs Clear, Normal Breath Sounds, No Accessory Muscle Use, Chest Non-Tender Cardiovascular: Normal Peripheral Pulses, Regular Rate, Rhythm, No Edema, No Gallop, No JVD, No Murmur, No Rub GI/Abdominal: Normal Bowel Sounds, Soft, Non-Tender, No Organomegaly Back Exam: Normal Inspection, Full Range of Motion Extremities: Normal Inspection, Normal Range of Motion, Non-Tender Neurological: Alert, Oriented, CN II-XII Intact, Normal Cognition, Normal Gait, Normal Reflexes, No Motor/Sensory Deficits Psychiatric: Normal Affect, Normal Mood Skin Exam: Warm, Intact, Normal Color #1 Interpretation EKG Date: 10/26/20 Time: 16:57 Rhythm: NSR Rate (Beats/Min): 62 [place]: Normal P-Wave: Present QRS: LBBB ST-T: Normal QT: Normal OK/PQ Interval: prolnged Comparison: NA - No Prior EKG (NSR LBBB) Course - Vital Signs Text/Narrative:: Lab/EKG/CXR result was discussed with patient and his son NS @ 125 ml/hr Rocephin 1gm IV Anemia probably from chronic GI loss Last Recorded V/S: Last Vital Signs Temp 37.1 C 10/27/20 04:00 Pulse 62 10/27/20 04:00 Resp 16 10/27/20 04:00 BP 147/70 H 10/27/20 04:00 Pulse Ox 92 L 10/27/20 04:00 - Orders/Labs/Meds Orders: Active Orders 24 hr Category Date Time Status Patient Status [ADT] Routine ADT 10/26/20 19:45 Active Accu Check [Blood Glucose Check, Bedside] [RC] 07,11,17 Care 10/26/20 20:01 Active Antiembolic Devices [RC] .Routine Care 10/26/20 19:45 Active Oxygen Therapy [RC] PRN Care 10/26/20 19:45 Active Pulse Oximetry [RC] PRN Care 10/26/20 19:49 Active VTE/DVT Education [RC] Per Unit Routine Care 10/26/20 19:45 Active Vital Signs [RC] 08,12,16,20,00,04 Care 10/26/20 19:45 Active Heart Healthy Diet [DIET] Diet 10/27/20 Breakfast Ordered BASIC METABOLIC PANEL,BMP [CHEM] AM Lab 10/27/20 05:11 Ordered CBC WITH AUTO DIFF [HEME] AM Lab 10/27/20 05:11 Ordered Docusate Sodium/Sennosides [Senna Plus] Med 10/26/20 19:45 Active 1 tab PO BID PRN Ondansetron [Zofran] Med 10/26/20 19:45 Active 4 mg IV Q4H PRN Sodium Chloride 0.9% [Normal Saline] 1,000 ml Med 10/26/20 17:45 Active IV ASDIRECTED Sodium Chloride 0.9% [Saline Flush] Med 10/26/20 16:31 Active 10 ml FLUSH ASDIRECTED PRN Zolpidem [Ambien] Med 10/26/20 19:45 Active 5 mg PO BEDTIME PRN Saline Lock Insert [OM.PC] Routine Oth 10/26/20 16:31 Ordered Sequential Compression Device [OM.PC] Per Unit Routine Oth 10/26/20 19:49 Ordered EKG 12 Lead [EK] Routine Ther 10/26/20 16:31 Ordered Medication Orders Sodium Chloride (Normal Saline) 1,000 mls @ 125 mls/hr IV ASDIRECTED JEANA Last Admin: 10/27/20 02:52 Dose: 125 mls/hr Documented by: Infusion: 10/27/20 02:52 Dose: 125 mls/hr Documented by: Admin: 10/26/20 19:27 Dose: 125 mls/hr Documented by: LAUREN Ondansetron HCl (Ondansetron 4 Mg/2 Ml Sdv) 4 mg IV Q4H PRN PRN Reason: Nausea/Vomiting Senna/Docusate Sodium (Docusate Sodium/Sennosides 50-8.6 Mg Tab) 1 tab PO BID PRN PRN Reason: Constipation Sodium Chloride (Sodium Chloride 0.9% 10 Ml Syringe) 10 ml FLUSH ASDIRECTED PRN PRN Reason: Keep Vein Open Zolpidem Tartrate (Zolpidem 5 Mg Tab) 5 mg PO BEDTIME PRN PRN Reason: Sleep Labs: Laboratory Tests 10/26/20 10/26/20 10/26/20 Range/Units 16:32 16:40 16:40 WBC 5.0 (3.0-10.3) x10-3/uL RBC 3.05 L (3.60-5.20) x10(6)uL Hgb 8.7 L (11.4-15.5) g/dL Hct 26.9 L (34.2-48.2) % MCV 88.1 (76.7-100.5) fL MCH 28.4 (23.9-33.9) pg MCHC 32.2 (31.9-34.8) g/dL RDW 16.9 H (12.3-16.5) % Plt Count 78 L (151-488) x10(3)uL MPV 9.7 (7.1-12.4) fL Neut % (Auto) 55.4 (30.8-76.2) % Lymph % (Auto) 18.8 (18.4-52.1) % [place] % (Auto) 19.0 H (4.4-15.7) % Eos % (Auto) 5.6 (0.6-8.1) % Baso % (Auto) 1.2 (0.2-1.5) % Neut # (Auto) 2.8 (1.5-6.3) x10-3/uL Lymph # (Auto) 0.9 L (1.0-4.4) x10-3/uL [place] # (Auto) 0.9 (0.3-1.0) x10-3/uL Eos # (Auto) 0.3 (0.0-0.8) x10-3/uL Baso # (Auto) 0.1 (0.0-0.1) x10-3/uL Sodium 141 (135-145) mmol/L Potassium 4.7 D (3.5-5.3) mmol/L Chloride 100 D (100-110) mmol/L Carbon Dioxide 27 (21-32) mmol/L BUN 32 H D (7-18) mg/dL Creatinine 1.5 H (0.55-1.02) mg/dL Est Cr Clr Drug Dosing TNP Estimated GFR (MDRD) 34 L (>60) BUN/Creatinine Ratio 21.3 H (9-20) Glucose 188 H (80-116) mg/dL POC Glucose 176 H (74-100) mg/dL Lactic Acid (0.4-2.0) mmol/L Calcium 7.9 L (8.6-10.2) mg/dL Total Bilirubin 0.7 (0.1-1.3) mg/dL AST 20 (5-25) IU/L ALT 13 D (12-36) U/L Alkaline Phosphatase 90 (56-112) IU/L Troponin I (4.0-60.3) pg/mL C-Reactive Protein (0.5-0.9) mg/dL NT-Pro-B Natriuret Pep (<=450) pg/mL Total Protein 6.5 (6.0-8.0) g/dL Albumin 3.0 L (3.2-4.6) g/dL Globulin 3.5 g/dL Albumin/Globulin Ratio 0.9 Urine Color (YELLOW) Urine Appearance (CLEAR) Urine pH (5.0-6.5) Ur Specific [place] (1.010-1.025) Urine Protein (NEGATIVE) mg/dL Urine Glucose (UA) (NORMAL) mg/dL Urine Ketones (NEGATIVE) mg/dL Urine Occult Blood (NEGATIVE) Urine Nitrite (NEGATIVE) Urine Bilirubin (NEGATIVE) Urine Urobilinogen (NEGATIVE) mg/dL Ur Leukocyte Esterase (NEGATIVE) Urine RBC (0-5) Urine WBC (0-5) Ur Squamous Epith Cells (NS,R,O) Urine Bacteria (NS) SARS-CoV-2 RNA (JILLIAN) (NEGATIVE) 10/26/20 10/26/20 10/26/20 Range/Units 16:40 16:40 16:40 WBC (3.0-10.3) x10-3/uL RBC (3.60-5.20) x10(6)uL Hgb (11.4-15.5) g/dL Hct (34.2-48.2) % MCV (76.7-100.5) fL MCH (23.9-33.9) pg MCHC (31.9-34.8) g/dL RDW (12.3-16.5) % Plt Count (151-488) x10(3)uL MPV (7.1-12.4) fL Neut % (Auto) (30.8-76.2) % Lymph % (Auto) (18.4-52.1) % [place] % (Auto) (4.4-15.7) % Eos % (Auto) (0.6-8.1) % Baso % (Auto) (0.2-1.5) % Neut # (Auto) (1.5-6.3) x10-3/uL Lymph # (Auto) (1.0-4.4) x10-3/uL [place] # (Auto) (0.3-1.0) x10-3/uL Eos # (Auto) (0.0-0.8) x10-3/uL Baso # (Auto) (0.0-0.1) x10-3/uL Sodium (135-145) mmol/L Potassium (3.5-5.3) mmol/L Chloride (100-110) mmol/L Carbon Dioxide (21-32) mmol/L BUN (7-18) mg/dL Creatinine (0.55-1.02) mg/dL Est Cr Clr Drug Dosing Estimated GFR (MDRD) (>60) BUN/Creatinine Ratio (9-20) Glucose (80-116) mg/dL POC Glucose (74-100) mg/dL Lactic Acid (0.4-2.0) mmol/L Calcium (8.6-10.2) mg/dL Total Bilirubin (0.1-1.3) mg/dL AST (5-25) IU/L ALT (12-36) U/L Alkaline Phosphatase (56-112) IU/L Troponin I 6.4 (4.0-60.3) pg/mL C-Reactive Protein 2.1 H (0.5-0.9) mg/dL NT-Pro-B Natriuret Pep 328 (<=450) pg/mL Total Protein (6.0-8.0) g/dL Albumin (3.2-4.6) g/dL Globulin g/dL Albumin/Globulin Ratio Urine Color (YELLOW) Urine Appearance (CLEAR) Urine pH (5.0-6.5) Ur Specific [place] (1.010-1.025) Urine Protein (NEGATIVE) mg/dL Urine Glucose (UA) (NORMAL) mg/dL Urine Ketones (NEGATIVE) mg/dL Urine Occult Blood (NEGATIVE) Urine Nitrite (NEGATIVE) Urine Bilirubin (NEGATIVE) Urine Urobilinogen (NEGATIVE) mg/dL Ur Leukocyte Esterase (NEGATIVE) Urine RBC (0-5) Urine WBC (0-5) Ur Squamous Epith Cells (NS,R,O) Urine Bacteria (NS) SARS-CoV-2 RNA (JILLIAN) (NEGATIVE) 10/26/20 10/26/20 10/26/20 Range/Units 17:10 19:15 20:06 WBC (3.0-10.3) x10-3/uL RBC (3.60-5.20) x10(6)uL Hgb (11.4-15.5) g/dL Hct (34.2-48.2) % MCV (76.7-100.5) fL MCH (23.9-33.9) pg MCHC (31.9-34.8) g/dL RDW (12.3-16.5) % Plt Count (151-488) x10(3)uL MPV (7.1-12.4) fL Neut % (Auto) (30.8-76.2) % Lymph % (Auto) (18.4-52.1) % [place] % (Auto) (4.4-15.7) % Eos % (Auto) (0.6-8.1) % Baso % (Auto) (0.2-1.5) % Neut # (Auto) (1.5-6.3) x10-3/uL Lymph # (Auto) (1.0-4.4) x10-3/uL [place] # (Auto) (0.3-1.0) x10-3/uL Eos # (Auto) (0.0-0.8) x10-3/uL Baso # (Auto) (0.0-0.1) x10-3/uL Sodium (135-145) mmol/L Potassium (3.5-5.3) mmol/L Chloride (100-110) mmol/L Carbon Dioxide (21-32) mmol/L BUN (7-18) mg/dL Creatinine (0.55-1.02) mg/dL Est Cr Clr Drug Dosing Estimated GFR (MDRD) (>60) BUN/Creatinine Ratio (9-20) Glucose (80-116) mg/dL POC Glucose (74-100) mg/dL Lactic Acid 2.2 H* (0.4-2.0) mmol/L Calcium (8.6-10.2) mg/dL Total Bilirubin (0.1-1.3) mg/dL AST (5-25) IU/L ALT (12-36) U/L Alkaline Phosphatase (56-112) IU/L Troponin I (4.0-60.3) pg/mL C-Reactive Protein (0.5-0.9) mg/dL NT-Pro-B Natriuret Pep (<=450) pg/mL Total Protein (6.0-8.0) g/dL Albumin (3.2-4.6) g/dL Globulin g/dL Albumin/Globulin Ratio Urine Color Yellow (YELLOW) Urine Appearance Clear (CLEAR) Urine pH 5.0 (5.0-6.5) Ur Specific [place] 1.015 (1.010-1.025) Urine Protein Negative (NEGATIVE) mg/dL Urine Glucose (UA) Normal (NORMAL) mg/dL Urine Ketones Negative (NEGATIVE) mg/dL Urine Occult Blood Negative (NEGATIVE) Urine Nitrite Negative (NEGATIVE) Urine Bilirubin Negative (NEGATIVE) Urine Urobilinogen Normal (NEGATIVE) mg/dL Ur Leukocyte Esterase Negative (NEGATIVE) Urine RBC 0-5 (0-5) Urine WBC 0-5 (0-5) Ur Squamous Epith Cells Rare (NS,R,O) Urine Bacteria Few H (NS) SARS-CoV-2 RNA (JILLIAN) Negative (NEGATIVE) 10/26/20 Range/Units 20:27 WBC (3.0-10.3) x10-3/uL RBC (3.60-5.20) x10(6)uL Hgb (11.4-15.5) g/dL Hct (34.2-48.2) % MCV (76.7-100.5) fL MCH (23.9-33.9) pg MCHC (31.9-34.8) g/dL RDW (12.3-16.5) % Plt Count (151-488) x10(3)uL MPV (7.1-12.4) fL Neut % (Auto) (30.8-76.2) % Lymph % (Auto) (18.4-52.1) % [place] % (Auto) (4.4-15.7) % Eos % (Auto) (0.6-8.1) % Baso % (Auto) (0.2-1.5) % Neut # (Auto) (1.5-6.3) x10-3/uL Lymph # (Auto) (1.0-4.4) x10-3/uL [place] # (Auto) (0.3-1.0) x10-3/uL Eos # (Auto) (0.0-0.8) x10-3/uL Baso # (Auto) (0.0-0.1) x10-3/uL Sodium (135-145) mmol/L Potassium (3.5-5.3) mmol/L Chloride (100-110) mmol/L Carbon Dioxide (21-32) mmol/L BUN (7-18) mg/dL Creatinine (0.55-1.02) mg/dL Est Cr Clr Drug Dosing Estimated GFR (MDRD) (>60) BUN/Creatinine Ratio (9-20) Glucose (80-116) mg/dL POC Glucose (74-100) mg/dL Lactic Acid 1.6 (0.4-2.0) mmol/L Calcium (8.6-10.2) mg/dL Total Bilirubin (0.1-1.3) mg/dL AST (5-25) IU/L ALT (12-36) U/L Alkaline Phosphatase (56-112) IU/L Troponin I (4.0-60.3) pg/mL C-Reactive Protein (0.5-0.9) mg/dL NT-Pro-B Natriuret Pep (<=450) pg/mL Total Protein (6.0-8.0) g/dL Albumin (3.2-4.6) g/dL Globulin g/dL Albumin/Globulin Ratio Urine Color (YELLOW) Urine Appearance (CLEAR) Urine pH (5.0-6.5) Ur Specific [place] (1.010-1.025) Urine Protein (NEGATIVE) mg/dL Urine Glucose (UA) (NORMAL) mg/dL Urine Ketones (NEGATIVE) mg/dL Urine Occult Blood (NEGATIVE) Urine Nitrite (NEGATIVE) Urine Bilirubin (NEGATIVE) Urine Urobilinogen (NEGATIVE) mg/dL Ur Leukocyte Esterase (NEGATIVE) Urine RBC (0-5) Urine WBC (0-5) Ur Squamous Epith Cells (NS,R,O) Urine Bacteria (NS) SARS-CoV-2 RNA (JILLIAN) (NEGATIVE) Meds: Medications Generic Name Dose Route Start Last Admin Trade Name Freq PRN Reason Stop Dose Admin Sodium Chloride 1,000 mls @ 125 mls/hr 10/26/20 17:45 10/27/20 02:52 Normal Saline IV 125 mls/hr ASDIRECTED JEANA Administration Ondansetron HCl 4 mg 10/26/20 19:45 Ondansetron 4 Mg/2 Ml Sdv IV Q4H PRN Nausea/Vomiting Senna/Docusate Sodium 1 tab 10/26/20 19:45 Docusate Sodium/Sennosides 50-8.6 Mg Tab PO BID PRN Constipation Sodium Chloride 10 ml 10/26/20 16:31 Sodium Chloride 0.9% 10 Ml Syringe FLUSH ASDIRECTED PRN Keep Vein Open Zolpidem Tartrate 5 mg 10/26/20 19:45 Zolpidem 5 Mg Tab PO BEDTIME PRN Sleep Discontinued Medications Generic Name Dose Route Start Last Admin Trade Name Freq PRN Reason Stop Dose Admin Aspirin 324 mg 10/26/20 17:28 10/26/20 19:27 Aspirin 81 Mg Tab.Chew PO 10/26/20 17:29 Not Given NOW STA Ceftriaxone Sodium 1 gm 10/26/20 19:00 10/26/20 19:18 Ceftriaxone 1 Gm Vial IVPUSH 10/26/20 19:01 1 gm NOW STA Administration Cyclobenzaprine HCl 10 mg 10/26/20 20:02 10/26/20 22:51 Cyclobenzaprine 10 Mg Tab PO 10/26/20 20:03 Not Given NOW STA Sodium Chloride 1,000 mls @ 999 mls/hr 10/26/20 17:30 Normal Saline IV ASDIRECTED JAENA Nitroglycerin 0.4 mg 10/26/20 17:27 Nitroglycerin 0.4 Mg Tab.Sl SL Q5M PRN Chest Pain Oxycodone/Acetaminophen 2 tab 10/26/20 20:02 10/26/20 22:51 Acetaminophen/Oxycodone 325-5 Mg Tab PO 10/26/20 20:03 Not Given NOW STA Departure - Departure Time of Disposition: 17:00 Disposition: Refer to Observation Condition: Good Clinical Impression: Anemia, Weakness, Dehydration, HAO (acute kidney injury) - Discharge Information Sepsis Event Note (ED) - Evaluation Sepsis Screening Result: No Definite Risk - My Orders Last 24 Hours: My Active Orders 10/26/20 16:31 Sodium Chloride 0.9% [Saline Flush] 10 ml FLUSH ASDIRECTED PRN Saline Lock Insert [OM.PC] Routine EKG 12 Lead [EK] Routine 10/26/20 17:45 Sodium Chloride 0.9% [Normal Saline] 1,000 ml IV ASDIRECTED 10/26/20 19:45 Patient Status [ADT] Routine Antiembolic Devices [RC] .Routine Oxygen Therapy [RC] PRN VTE/DVT Education [RC] Per Unit Routine Vital Signs [RC] 08,12,16,20,00,04 Docusate Sodium/Sennosides [Senna Plus] 1 tab PO BID PRN Ondansetron [Zofran] 4 mg IV Q4H PRN Zolpidem [Ambien] 5 mg PO BEDTIME PRN 10/26/20 19:49 Pulse Oximetry [RC] PRN Sequential Compression Device [OM.PC] Per Unit Routine 10/26/20 20:01 Accu Check [Blood Glucose Check, Bedside] [RC] 07,,17 10/27/20 05:11 BASIC METABOLIC PANEL,BMP [CHEM] AM CBC WITH AUTO DIFF [HEME] AM 10/27/20 Breakfast Heart Healthy Diet [DIET] - Assessment/Plan Last 24 Hours: My Active Orders 10/26/20 16:31 Sodium Chloride 0.9% [Saline Flush] 10 ml FLUSH ASDIRECTED PRN Saline Lock Insert [OM.PC] Routine EKG 12 Lead [EK] Routine 10/26/20 17:45 Sodium Chloride 0.9% [Normal Saline] 1,000 ml IV ASDIRECTED 10/26/20 19:45 Patient Status [ADT] Routine Antiembolic Devices [RC] .Routine Oxygen Therapy [RC] PRN VTE/DVT Education [RC] Per Unit Routine Vital Signs [RC] 08,12,16,20,00,04 Docusate Sodium/Sennosides [Senna Plus] 1 tab PO BID PRN Ondansetron [Zofran] 4 mg IV Q4H PRN Zolpidem [Ambien] 5 mg PO BEDTIME PRN 10/26/20 19:49 Pulse Oximetry [RC] PRN Sequential Compression Device [OM.PC] Per Unit Routine 10/26/20 20:01 Accu Check [Blood Glucose Check, Bedside] [RC] 07,11,17 10/27/20 05:11 BASIC METABOLIC PANEL,BMP [CHEM] AM CBC WITH AUTO DIFF [HEME] AM 10/27/20 Breakfast Heart Healthy Diet [DIET]
[2020-10-27] MEDS ORDERED: Multivitamin Tab PO SCH (09:00)
[2020-10-27] MEDS ORDERED: buPROPion 150 MG Tab.ER PO SCH (09:00)
[2020-10-27] MEDS ORDERED: amLODIPine 10 MG Tab PO SCH (09:00)
[2020-10-27] MEDS ORDERED: RIVASTIGMINE 9.5 MG TRDERM SCH (09:00)
[2020-10-27] MEDS ORDERED: Cyanocobalamin (Vitamin B12) 1,000 MCG Tab PO SCH (09:00)
[2020-10-27] MEDS ORDERED: [UNRECOGNIZED DRUG - OTHER] PO SCH (09:00)
[2020-10-27] MEDS ORDERED: Losartan 50 MG Tab PO SCH (09:00)
[2020-10-27] MEDS ORDERED: Non-Formulary Medication 1 Each (Cholecalciferol (Vitamin D3) [Vitamin D3] 2,000 UNIT Cap) PO SCH (09:00)
[2020-10-27] MEDS ORDERED: Sertraline 100 MG Tab PO SCH (09:00)
[2020-10-27] MEDS ORDERED: MULTIVIT TX WITH IRON MINERALS PO SCH (09:00)
[2020-10-27] MEDS ORDERED: Non-Formulary Medication 1 Each (Potassium Chloride [Potassium Chloride] 20 MEQ Tablet.Er) PO SCH (09:00)
[2020-10-27] MEDS ORDERED: Non-Formulary Medication 1 Each (Insulin Glargine,Hum.Rec.Anlog [Toujeo Solostar] 300 UNIT SQ SCH (09:00)
[2020-10-27] MEDS ORDERED: Acetaminophen 325 MG Tab PO PRN (10:07)
[2020-10-27] MEDS ORDERED: Acetaminophen 500 MG Tab PO PRN (10:15)
[2020-10-27] MEDS ORDERED: Loperamide 2 MG Cap PO PRN (10:16)
[2020-10-27] MEDS ORDERED: Loratadine 10 MG Tab PO PRN (10:16)
--- NOTE | 2020-10-27 10:25 | PCM.HP.2 ---
H&P History of Present Illness - General Date of Service: 10/27/20 Admit Problem/Dx: Admission Diagnosis/Problem Admission Diagnosis/Problem Anemia due to chronic blood loss Source of Information: Patient, Old Records History Limitations: Reports: No Limitations - History of Present Illness Initial Comments - Free Text/Narative: This is a 75-year-old female patient that's a resident at [facility] said 1 week history of weakness is getting worse. She has poor appetite and her hemoglobin had dropped. She denies fevers, chills, sore throat, hematochezia, melena, hematuria. She has a little runny nose and slight cough she states. Son is here says it's very pasty. The staff at [facility] states she's been put on Bumex for edema and that's helped but since then she's been deteriorating. She has a history of lymphoma and sees oncology. Looked up her last hemoglobin it was 9.9 in July. Takes she's had a colonoscopy in the past in [place]. - Related Data Allergies/Adverse Reactions: Allergies Allergy/AdvReac Type Severity Reaction Status Date / Time amoxicillin [Amoxicillin] Allergy Nausea and Verified 07/06/18 13:22 Vomiting fluvastatin Allergy Nausea and Verified 07/06/18 13:22 Vomiting Sulfa (Sulfonamide Allergy Diarrhea Verified 07/06/18 13:22 Antibiotics) sulfamethoxazole Allergy Nausea and Verified 07/06/18 13:22 [From Bactrim] Vomiting trimethoprim [From Bactrim] Allergy Nausea and Verified 07/06/18 13:22 Vomiting Home Medications: Home Meds Sertraline HCl 150 mg PO DAILY 06/28/13 [History] Memantine HCl [Namenda] 10 mg PO BID 09/08/17 [History] metFORMIN HCl [Metformin ER Osmotic] 500 mg PO BID 09/08/17 [History] Aspirin [Ecotrin EC] 325 mg PO DAILY 09/28/17 [History] Cholecalciferol (Vitamin D3) [Vitamin D3] 2,000 units PO DAILY #30 cap 10/04/17 [Rx] Insulin Glargine,Hum.Rec.Anlog [Toujeo Solostar] 45 unit SQ DAILY #100 ml 10/04/17 [Rx] Losartan [Cozaar] 50 mg PO DAILY #30 tablet 10/04/17 [Rx] atorvaSTATin [Lipitor] 40 mg PO BEDTIME #30 tablet 10/04/17 [Rx] Potassium Chloride 20 meq PO DAILY #5 tablet.er 07/06/18 [Rx] Acetaminophen [Tylenol Extra Strength] 1,000 mg PO TID PRN 10/26/20 [History] Betamethasone/Clotrimazole [Lotrisone] 1 applic TOP BID 10/26/20 [History] Bumetanide [Bumex] 1 mg PO DAILY 10/26/20 [History] Carboxymethylcellulose Sodium [Refresh Tears 0.5%] 1 drop EYEBOTH BID 10/26/20 [History] Cholestyramine (With Sugar) [Questran Powder] 4 gm PO 17 10/26/20 [History] Cyanocobalamin (Vitamin B-12) [Vitamin B-12] 1,000 mcg PO DAILY 10/26/20 [History] Gabapentin [Neurontin] 300 mg PO 08,15 10/26/20 [History] Insulin Lispro [HumaLOG] 10 unit SQ 08,11,17 10/26/20 [History] Loperamide [Imodium] 2 mg PO BID PRN 10/26/20 [History] Loratadine 10 mg PO DAILY PRN 10/26/20 [History] QUEtiapine [SEROquel] 25 mg PO BEDTIME 10/26/20 [History] QUEtiapine [SEROquel] 50 mg PO 1500 10/26/20 [History] Rivastigmine Tartrate [Rivastigmine] 6 mg PO BID 10/26/20 [History] Timolol [Betimol 0.5% Ophth Soln] 1 drop EYELF BID 10/26/20 [History] buPROPion [Wellbutrin] 75 mg PO DAILY 10/26/20 [History] polyethylene glycoL 3350 [MiraLAX] 17 gm PO DAILY PRN 10/26/20 [History] risperiDONE [Risperdal] 1 mg PO 14 10/26/20 [History] Past Medical History HEENT History: Reports: Cataract, Hard of Hearing, Impaired Vision Other HEENT History: legally blind L eye, hx nonHodgkins lymphoma, 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, retinopathy Cardiovascular History: Reports: High Cholesterol, Hypertension Respiratory History: Reports: Sleep Apnea Other Respiratory History: uses cpap Gastrointestinal History: Reports: None Genitourinary History: Reports: Urinary Incontinence [employer]LEGE INTERN History: Reports: Other OB/BYN History: Musculoskeletal History: Reports: Arthritis, Fibromyalgia, Neck Pain, Chronic, Other (See Below) Other Musculoskeletal History: diabetic polyneuropathy, 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 Endocrine/Metabolic History: Reports: Diabetes, Type II, Obesity/BMI 30+ Hematologic History: Reports: Blood Transfusion(s) Oncologic (Cancer) History: Reports: Lymphoma, Non-Hodgkin's Lymphoma - Infectious Disease History Infectious Disease History: Reports: Chicken Pox, Measles, Mumps, Shingles - Past Surgical History Head Surgeries/Procedures: Reports: None HEENT Surgical History: Reports: Adenoidectomy, Oral Surgery, Tonsillectomy, Other (See Below) Other HEENT Surgeries/Procedures: bleeding in vein in L eye GI Surgical History: Reports: Cholecystectomy, Colonoscopy Female Surgical History: Reports: Hysterectomy, Salpingo-Oophorectomy Musculoskeletal Surgical History: Reports: Knee Replacement Other Musculoskeletal Surgeries/Procedures:: bilat knee replacements Social & Family History - Family History Family Medical History: No Pertinent Family History - Tobacco Use Tobacco Use Status *Q: Never Tobacco User - Caffeine Use Caffeine Use: Reports: Coffee - Recreational Drug Use Recreational Drug Use: No H&P Review of Systems - Review of Systems: Review Of Systems: See Below General: Reports: Malaise, Weakness, Fatigue, Decreased Appetite. Denies: Fever, Chills HEENT: Reports: Rhinitis Pulmonary: Reports: Cough. Denies: Shortness of Breath, Wheezing, Pleuritic Chest Pain, Sputum, Hemoptysis Cardiovascular: Reports: No Symptoms Gastrointestinal: Reports: No Symptoms Genitourinary: Reports: No Symptoms Musculoskeletal: Reports: No Symptoms Skin: Reports: No Symptoms Psychiatric: Reports: No Symptoms Neurological: Reports: Other (History Parkinson's disease. She walks with a walker she states.) Hematologic/Lymphatic: Reports: Anemia Immunologic: Reports: No Symptoms Exam - Exam Exam: See Below - Vital Signs Vital Signs: Last Vital Signs Temp 98.8 F 10/27/20 04:00 Pulse 62 10/27/20 04:00 Resp 16 10/27/20 04:00 BP 147/70 H 10/27/20 04:00 Pulse Ox 92 L 10/27/20 04:00 Weight: 221 lb 1.6 oz - Exam General: Alert, Oriented, Cooperative HEENT: Hearing Intact, Posterior Pharynx Clear, TMs Clear Neck: Supple, Trachea Midline Lungs: Clear to Auscultation, Normal Respiratory Effort Cardiovascular: Regular Rate, Regular Rhythm GI/Abdominal Exam: Normal Bowel Sounds, Non-Tender, No Organomegaly, No Distention Extremities: Normal Inspection, Non-Tender, No Pedal Edema Skin: Warm, Dry, Intact, Other (She doesn't look pasty white.) Neurological: Normal Speech, Normal Tone Neuro Extensive - Mental Status: Alert, Oriented x3, Normal Mood/Affect, Normal Cognition Psychiatric: Alert, Normal Affect, Normal Mood - Patient Data Lab Results Last 24 hrs: Laboratory Results - last 24 hr 10/26/20 10/26/20 10/26/20 Range/Units 16:32 16:40 16:40 WBC 5.0 (3.0-10.3) x10-3/uL RBC 3.05 L (3.60-5.20) x10(6)uL Hgb 8.7 L (11.4-15.5) g/dL Hct 26.9 L (34.2-48.2) % MCV 88.1 (76.7-100.5) fL MCH 28.4 (23.9-33.9) pg MCHC 32.2 (31.9-34.8) g/dL RDW 16.9 H (12.3-16.5) % Plt Count 78 L (151-488) x10(3)uL MPV 9.7 (7.1-12.4) fL Neut % (Auto) 55.4 (30.8-76.2) % Lymph % (Auto) 18.8 (18.4-52.1) % Jones % (Auto) 19.0 H (4.4-15.7) % Eos % (Auto) 5.6 (0.6-8.1) % Baso % (Auto) 1.2 (0.2-1.5) % Neut # (Auto) 2.8 (1.5-6.3) x10-3/uL Lymph # (Auto) 0.9 L (1.0-4.4) x10-3/uL Jones # (Auto) 0.9 (0.3-1.0) x10-3/uL Eos # (Auto) 0.3 (0.0-0.8) x10-3/uL Baso # (Auto) 0.1 (0.0-0.1) x10-3/uL Sodium 141 (135-145) mmol/L Potassium 4.7 D (3.5-5.3) mmol/L Chloride 100 D (100-110) mmol/L Carbon Dioxide 27 (21-32) mmol/L BUN 32 H D (7-18) mg/dL Creatinine 1.5 H (0.55-1.02) mg/dL Est Cr Clr Drug Dosing TNP Estimated GFR (MDRD) 34 L (>60) BUN/Creatinine Ratio 21.3 H (9-20) Glucose 188 H (80-116) mg/dL POC Glucose 176 H (74-100) mg/dL Lactic Acid (0.4-2.0) mmol/L Calcium 7.9 L (8.6-10.2) mg/dL Total Bilirubin 0.7 (0.1-1.3) mg/dL AST 20 (5-25) IU/L ALT 13 D (12-36) U/L Alkaline Phosphatase 90 (56-112) IU/L Troponin I (4.0-60.3) pg/mL C-Reactive Protein (0.5-0.9) mg/dL NT-Pro-B Natriuret Pep (<=450) pg/mL Total Protein 6.5 (6.0-8.0) g/dL Albumin 3.0 L (3.2-4.6) g/dL Globulin 3.5 g/dL Albumin/Globulin Ratio 0.9 Urine Color (YELLOW) Urine Appearance (CLEAR) Urine pH (5.0-6.5) Ur Specific [place] (1.010-1.025) Urine Protein (NEGATIVE) mg/dL Urine Glucose (UA) (NORMAL) mg/dL Urine Ketones (NEGATIVE) mg/dL Urine Occult Blood (NEGATIVE) Urine Nitrite (NEGATIVE) Urine Bilirubin (NEGATIVE) Urine Urobilinogen (NEGATIVE) mg/dL Ur Leukocyte Esterase (NEGATIVE) Urine RBC (0-5) Urine WBC (0-5) Ur Squamous Epith Cells (NS,R,O) Urine Bacteria (NS) SARS-CoV-2 RNA (JILLIAN) (NEGATIVE) 10/26/20 10/26/20 10/26/20 Range/Units 16:40 16:40 16:40 WBC (3.0-10.3) x10-3/uL RBC (3.60-5.20) x10(6)uL Hgb (11.4-15.5) g/dL Hct (34.2-48.2) % MCV (76.7-100.5) fL MCH (23.9-33.9) pg MCHC (31.9-34.8) g/dL RDW (12.3-16.5) % Plt Count (151-488) x10(3)uL MPV (7.1-12.4) fL Neut % (Auto) (30.8-76.2) % Lymph % (Auto) (18.4-52.1) % Jones % (Auto) (4.4-15.7) % Eos % (Auto) (0.6-8.1) % Baso % (Auto) (0.2-1.5) % Neut # (Auto) (1.5-6.3) x10-3/uL Lymph # (Auto) (1.0-4.4) x10-3/uL Jones # (Auto) (0.3-1.0) x10-3/uL Eos # (Auto) (0.0-0.8) x10-3/uL Baso # (Auto) (0.0-0.1) x10-3/uL Sodium (135-145) mmol/L Potassium (3.5-5.3) mmol/L Chloride (100-110) mmol/L Carbon Dioxide (21-32) mmol/L BUN (7-18) mg/dL Creatinine (0.55-1.02) mg/dL Est Cr Clr Drug Dosing Estimated GFR (MDRD) (>60) BUN/Creatinine Ratio (9-20) Glucose (80-116) mg/dL POC Glucose (74-100) mg/dL Lactic Acid (0.4-2.0) mmol/L Calcium (8.6-10.2) mg/dL Total Bilirubin (0.1-1.3) mg/dL AST (5-25) IU/L ALT (12-36) U/L Alkaline Phosphatase (56-112) IU/L Troponin I 6.4 (4.0-60.3) pg/mL C-Reactive Protein 2.1 H (0.5-0.9) mg/dL NT-Pro-B Natriuret Pep 328 (<=450) pg/mL Total Protein (6.0-8.0) g/dL Albumin (3.2-4.6) g/dL Globulin g/dL Albumin/Globulin Ratio Urine Color (YELLOW) Urine Appearance (CLEAR) Urine pH (5.0-6.5) Ur Specific [place] (1.010-1.025) Urine Protein (NEGATIVE) mg/dL Urine Glucose (UA) (NORMAL) mg/dL Urine Ketones (NEGATIVE) mg/dL Urine Occult Blood (NEGATIVE) Urine Nitrite (NEGATIVE) Urine Bilirubin (NEGATIVE) Urine Urobilinogen (NEGATIVE) mg/dL Ur Leukocyte Esterase (NEGATIVE) Urine RBC (0-5) Urine WBC (0-5) Ur Squamous Epith Cells (NS,R,O) Urine Bacteria (NS) SARS-CoV-2 RNA (JILLIAN) (NEGATIVE) 10/26/20 10/26/20 10/26/20 Range/Units 17:10 19:15 20:06 WBC (3.0-10.3) x10-3/uL RBC (3.60-5.20) x10(6)uL Hgb (11.4-15.5) g/dL Hct (34.2-48.2) % MCV (76.7-100.5) fL MCH (23.9-33.9) pg MCHC (31.9-34.8) g/dL RDW (12.3-16.5) % Plt Count (151-488) x10(3)uL MPV (7.1-12.4) fL Neut % (Auto) (30.8-76.2) % Lymph % (Auto) (18.4-52.1) % Jones % (Auto) (4.4-15.7) % Eos % (Auto) (0.6-8.1) % Baso % (Auto) (0.2-1.5) % Neut # (Auto) (1.5-6.3) x10-3/uL Lymph # (Auto) (1.0-4.4) x10-3/uL Jones # (Auto) (0.3-1.0) x10-3/uL Eos # (Auto) (0.0-0.8) x10-3/uL Baso # (Auto) (0.0-0.1) x10-3/uL Sodium (135-145) mmol/L Potassium (3.5-5.3) mmol/L Chloride (100-110) mmol/L Carbon Dioxide (21-32) mmol/L BUN (7-18) mg/dL Creatinine (0.55-1.02) mg/dL Est Cr Clr Drug Dosing Estimated GFR (MDRD) (>60) BUN/Creatinine Ratio (9-20) Glucose (80-116) mg/dL POC Glucose (74-100) mg/dL Lactic Acid 2.2 H* (0.4-2.0) mmol/L Calcium (8.6-10.2) mg/dL Total Bilirubin (0.1-1.3) mg/dL AST (5-25) IU/L ALT (12-36) U/L Alkaline Phosphatase (56-112) IU/L Troponin I (4.0-60.3) pg/mL C-Reactive Protein (0.5-0.9) mg/dL NT-Pro-B Natriuret Pep (<=450) pg/mL Total Protein (6.0-8.0) g/dL Albumin (3.2-4.6) g/dL Globulin g/dL Albumin/Globulin Ratio Urine Color Yellow (YELLOW) Urine Appearance Clear (CLEAR) Urine pH 5.0 (5.0-6.5) Ur Specific [place] 1.015 (1.010-1.025) Urine Protein Negative (NEGATIVE) mg/dL Urine Glucose (UA) Normal (NORMAL) mg/dL Urine Ketones Negative (NEGATIVE) mg/dL Urine Occult Blood Negative (NEGATIVE) Urine Nitrite Negative (NEGATIVE) Urine Bilirubin Negative (NEGATIVE) Urine Urobilinogen Normal (NEGATIVE) mg/dL Ur Leukocyte Esterase Negative (NEGATIVE) Urine RBC 0-5 (0-5) Urine WBC 0-5 (0-5) Ur Squamous Epith Cells Rare (NS,R,O) Urine Bacteria Few H (NS) SARS-CoV-2 RNA (JILLIAN) Negative (NEGATIVE) 10/26/20 10/26/20 10/27/20 Range/Units 20:27 22:56 05:58 WBC (3.0-10.3) x10-3/uL RBC (3.60-5.20) x10(6)uL Hgb (11.4-15.5) g/dL Hct (34.2-48.2) % MCV (76.7-100.5) fL MCH (23.9-33.9) pg MCHC (31.9-34.8) g/dL RDW (12.3-16.5) % Plt Count (151-488) x10(3)uL MPV (7.1-12.4) fL Neut % (Auto) (30.8-76.2) % Lymph % (Auto) (18.4-52.1) % Jones % (Auto) (4.4-15.7) % Eos % (Auto) (0.6-8.1) % Baso % (Auto) (0.2-1.5) % Neut # (Auto) (1.5-6.3) x10-3/uL Lymph # (Auto) (1.0-4.4) x10-3/uL Jones # (Auto) (0.3-1.0) x10-3/uL Eos # (Auto) (0.0-0.8) x10-3/uL Baso # (Auto) (0.0-0.1) x10-3/uL Sodium (135-145) mmol/L Potassium (3.5-5.3) mmol/L Chloride (100-110) mmol/L Carbon Dioxide (21-32) mmol/L BUN (7-18) mg/dL Creatinine (0.55-1.02) mg/dL Est Cr Clr Drug Dosing Estimated GFR (MDRD) (>60) BUN/Creatinine Ratio (9-20) Glucose (80-116) mg/dL POC Glucose 114 H 101 H (74-100) mg/dL Lactic Acid 1.6 (0.4-2.0) mmol/L Calcium (8.6-10.2) mg/dL Total Bilirubin (0.1-1.3) mg/dL AST (5-25) IU/L ALT (12-36) U/L Alkaline Phosphatase (56-112) IU/L Troponin I (4.0-60.3) pg/mL C-Reactive Protein (0.5-0.9) mg/dL NT-Pro-B Natriuret Pep (<=450) pg/mL Total Protein (6.0-8.0) g/dL Albumin (3.2-4.6) g/dL Globulin g/dL Albumin/Globulin Ratio Urine Color (YELLOW) Urine Appearance (CLEAR) Urine pH (5.0-6.5) Ur Specific [place] (1.010-1.025) Urine Protein (NEGATIVE) mg/dL Urine Glucose (UA) (NORMAL) mg/dL Urine Ketones (NEGATIVE) mg/dL Urine Occult Blood (NEGATIVE) Urine Nitrite (NEGATIVE) Urine Bilirubin (NEGATIVE) Urine Urobilinogen (NEGATIVE) mg/dL Ur Leukocyte Esterase (NEGATIVE) Urine RBC (0-5) Urine WBC (0-5) Ur Squamous Epith Cells (NS,R,O) Urine Bacteria (NS) SARS-CoV-2 RNA (JILLIAN) (NEGATIVE) 10/27/20 10/27/20 10/27/20 Range/Units 06:35 06:35 06:35 WBC 4.6 (3.0-10.3) x10-3/uL RBC 2.68 L (3.60-5.20) x10(6)uL Hgb 7.7 L (11.4-15.5) g/dL Hct 23.8 L (34.2-48.2) % MCV 88.7 (76.7-100.5) fL MCH 28.6 (23.9-33.9) pg MCHC 32.2 (31.9-34.8) g/dL RDW 17.0 H (12.3-16.5) % Plt Count 75 L (151-488) x10(3)uL MPV 9.8 (7.1-12.4) fL Neut % (Auto) 56.0 (30.8-76.2) % Lymph % (Auto) 15.4 L (18.4-52.1) % Jones % (Auto) 21.5 H (4.4-15.7) % Eos % (Auto) 6.0 (0.6-8.1) % Baso % (Auto) 1.1 (0.2-1.5) % Neut # (Auto) 2.6 (1.5-6.3) x10-3/uL Lymph # (Auto) 0.7 L (1.0-4.4) x10-3/uL Jones # (Auto) 1.0 (0.3-1.0) x10-3/uL Eos # (Auto) 0.3 (0.0-0.8) x10-3/uL Baso # (Auto) 0.1 (0.0-0.1) x10-3/uL Sodium 144 (135-145) mmol/L Potassium 4.2 (3.5-5.3) mmol/L Chloride 105 D (100-110) mmol/L Carbon Dioxide 28 (21-32) mmol/L BUN 28 H (7-18) mg/dL Creatinine 1.2 H (0.55-1.02) mg/dL Est Cr Clr Drug Dosing 33.90 Estimated GFR (MDRD) 44 L (>60) BUN/Creatinine Ratio 23.3 H (9-20) Glucose 94 D (80-116) mg/dL POC Glucose (74-100) mg/dL Lactic Acid (0.4-2.0) mmol/L Calcium 7.8 L (8.6-10.2) mg/dL Total Bilirubin (0.1-1.3) mg/dL AST (5-25) IU/L ALT (12-36) U/L Alkaline Phosphatase (56-112) IU/L Troponin I 8.3 (4.0-60.3) pg/mL C-Reactive Protein (0.5-0.9) mg/dL NT-Pro-B Natriuret Pep (<=450) pg/mL Total Protein (6.0-8.0) g/dL Albumin (3.2-4.6) g/dL Globulin g/dL Albumin/Globulin Ratio Urine Color (YELLOW) Urine Appearance (CLEAR) Urine pH (5.0-6.5) Ur Specific [place] (1.010-1.025) Urine Protein (NEGATIVE) mg/dL Urine Glucose (UA) (NORMAL) mg/dL Urine Ketones (NEGATIVE) mg/dL Urine Occult Blood (NEGATIVE) Urine Nitrite (NEGATIVE) Urine Bilirubin (NEGATIVE) Urine Urobilinogen (NEGATIVE) mg/dL Ur Leukocyte Esterase (NEGATIVE) Urine RBC (0-5) Urine WBC (0-5) Ur Squamous Epith Cells (NS,R,O) Urine Bacteria (NS) SARS-CoV-2 RNA (JILLIAN) (NEGATIVE) Result Diagrams: 10/27/20 06:35 10/27/20 06:35 Sepsis Event Note - Evaluation Sepsis Screening Result: No Definite Risk - Focused Exam Vital Signs: Vital Signs Temp Pulse Resp BP Pulse Ox 10/27/20 04:00 98.8 F 62 16 147/70 H 92 L 10/27/20 01:00 98.6 F 65 16 140/56 L 92 L - Problem List (1) Cough SNOMED Code(s): 96408376 ICD Code: R05 - COUGH Status: Acute Current Visit: Yes (2) Palliative care status SNOMED Code(s): 415751324 ICD Code: Z51.5 - ENCOUNTER FOR PALLIATIVE CARE Status: Acute Current Visit: Yes (3) HAO (acute kidney injury) SNOMED Code(s): 63655796, 75695890 ICD Code: N17.9 - ACUTE KIDNEY FAILURE, UNSPECIFIED Status: Acute Current Visit: Yes (4) Anemia SNOMED Code(s): 539963581 ICD Code: D64.9 - ANEMIA, UNSPECIFIED Status: Acute Current Visit: Yes (5) Weakness SNOMED Code(s): 49970952 ICD Code: R53.1 - WEAKNESS Status: Acute Current Visit: Yes (6) DM2 (diabetes mellitus, type 2) SNOMED Code(s): 68360899 ICD Code: E11.9 - TYPE 2 DIABETES MELLITUS WITHOUT COMPLICATIONS Status: Acute Current Visit: No Qualifiers: Diabetes mellitus intermediate manager insulin use: with intermediate manager use Diabetes mellitus complication status: without complication Qualified Code(s): E11.9 - Type 2 diabetes mellitus without complications; Z79.4 - intermediate (current) use of insulin; Z79.4 - intermediate (current) use of insulin; Z79.4 - manager terminal (current) use of insulin; Z79.4 - manager terminal (current) use of insulin (7) Parkinson disease SNOMED Code(s): 77610496 ICD Code: G20 - PARKINSON'S DISEASE Status: Chronic Current Visit: No Problem List Initiated/Reviewed/Updated: Yes Orders Last 24hrs: Active Orders 24 hr Category Date Time Status Patient Status [ADT] Routine ADT 10/26/20 19:45 Active Accu Check [Blood Glucose Check, Bedside] [RC] 07,11,17 Care 10/26/20 20:01 Active Antiembolic Devices [RC] .Routine Care 10/26/20 19:45 Active Oxygen Therapy [RC] PRN Care 10/26/20 19:45 Active Pulse Oximetry [RC] PRN Care 10/26/20 19:49 Active VTE/DVT Education [RC] Per Unit Routine Care 10/26/20 19:45 Active Vital Signs [RC] 08,12,16,20,00,04 Care 10/26/20 19:45 Active Consult to Occupational Therapy [OT Evaluation and Cons 10/27/20 10:15 Ordered Treatment] [CONS] Routine Consult to Physical Therapy [PT Evaluation and Cons 10/27/20 10:15 Ordered Treatment] [CONS] Routine Consistent Carbohydrate Diet [DIET] Diet 10/27/20 Lunch Active Heart Healthy Diet [DIET] Diet 10/27/20 Breakfast Active Brain wo Cont [MR] Routine Exams 10/27/20 10:14 Ordered FERRITIN, SERUM Routine Lab 10/27/20 10:18 Ordered IRON AND TIBC Routine Lab 10/27/20 10:18 Ordered OCCULT BLOOD DIAGNOSTIC [OP] Routine Lab 10/27/20 10:13 Ordered RETICULOCYTE COUNT Routine Lab 10/27/20 10:18 Ordered Acetaminophen [TylenoL] Med 10/27/20 10:07 Ordered 650 mg PO Q6H PRN Acetaminophen [Tylenol Extra Strength] Med 10/27/20 10:15 Ordered 1,000 mg PO TID PRN Betamethasone/Clotrimazole [Lotrisone] Med 10/27/20 21:00 Ordered 1 applic TOP BID Carboxymethylcellulose Sodium [Refresh Tears 0.5%] Med 10/27/20 21:00 Ordered 1 drop EYEBOTH BID Cholestyramine (With Sugar) [Questran Powder] Med 10/27/20 17:00 Ordered 4 gm PO 17 Cyanocobalamin (Vitamin B12) [Vitamin B12] Med 10/28/20 09:00 Ordered 1,000 mcg PO DAILY Docusate Sodium/Sennosides [Senna Plus] Med 10/26/20 19:45 Active 1 tab PO BID PRN Gabapentin [Neurontin] Med 10/27/20 15:00 Ordered 300 mg PO 08,15 Loperamide [Imodium] Med 10/27/20 10:16 Ordered 2 mg PO BID PRN Loratadine [Claritin] Med 10/27/20 10:16 Ordered 10 mg PO DAILY PRN Ondansetron [Zofran] Med 10/26/20 19:45 Active 4 mg IV Q4H PRN QUEtiapine [SEROqueL] Med 10/27/20 21:00 Ordered 25 mg PO BEDTIME QUEtiapine [SEROquel] Med 10/27/20 15:00 Ordered 50 mg PO 1500 Rivastigmine Tartrate [Rivastigmine] Med 10/27/20 21:00 Ordered 6 mg PO BID Sodium Chloride 0.9% [Normal Saline] 1,000 ml Med 10/26/20 17:45 Active IV ASDIRECTED Sodium Chloride 0.9% [Saline Flush] Med 10/26/20 16:31 Active 10 ml FLUSH ASDIRECTED PRN Timolol [Betimol 0.5% Ophth Soln] Med 10/27/20 21:00 Ordered 1 drop EYELF BID Zolpidem [Ambien] Med 10/26/20 19:45 Active 5 mg PO BEDTIME PRN buPROPion [Wellbutrin] Med 10/28/20 09:00 Ordered 75 mg PO DAILY risperiDONE [RisperiDAL] Med 10/27/20 14:00 Ordered 1 mg PO 14 Saline Lock Insert [OM.PC] Routine Oth 10/26/20 16:31 Ordered Sequential Compression Device [OM.PC] Per Unit Routine Oth 10/26/20 19:49 Ordered Resuscitation Status Routine Resus Stat 10/26/20 22:45 Ordered EKG 12 Lead [EK] Routine Ther 10/26/20 16:31 Ordered Medication Orders Acetaminophen (Acetaminophen 325 Mg Tab) 650 mg PO Q6H PRN PRN Reason: Fever Acetaminophen (Acetaminophen 500 Mg Tab) 1,000 mg PO TID PRN PRN Reason: Pain Artificial Tears (Carboxymethylcellulose Sodium 0.5% Ophth Soln 15 Ml Bottle) ml EYEBOTH BID JEANA Betamethasone/Clotrimazole (Betamethasone Dipropionate/Clotrimazole 0.05-1% Crm 15 Gm Tube) gm TOP BID JEANA Bupropion HCl (Bupropion 75 Mg Tab) 75 mg PO DAILY [facility] Cyanocobalamin (Cyanocobalamin (Vitamin B12) 1,000 Mcg Tab) 1,000 mcg PO DAILY [facility] Gabapentin (Gabapentin 300 Mg Cap) 300 mg PO 08,15 [facility] Sodium Chloride (Normal Saline) 1,000 mls @ 125 mls/hr IV ASDIRECTED [facility] Last Admin: 10/27/20 02:52 Dose: 125 mls/hr Documented by: Infusion: 10/27/20 02:52 Dose: 125 mls/hr Documented by: Admin: 10/26/20 19:27 Dose: 125 mls/hr Documented by: LAUREN Loperamide HCl (Loperamide 2 Mg Cap) 2 mg PO BID PRN PRN Reason: Diarrhea Loratadine (Loratadine 10 Mg Tab) 10 mg PO DAILY PRN PRN Reason: Rash Non-Formulary Medication (Cholestyramine (With Sugar) [Questran Powder]) 4 gm PO 17 [facility]EANA Non-Formulary Medication (Timolol [Betimol 0.5% Ophth Soln]) 1 drop EYELF BID [facility] Non-Formulary Medication (Rivastigmine Tartrate [Rivastigmine]) 6 mg PO BID JEANA Ondansetron HCl (Ondansetron 4 Mg/2 Ml Sdv) 4 mg IV Q4H PRN PRN Reason: Nausea/Vomiting Quetiapine Fumarate (Quetiapine 25 Mg Tab) 25 mg PO BEDTIME [facility] Quetiapine Fumarate (Quetiapine 50 Mg Tab) 50 mg PO 1500 [facility] Risperidone (Risperidone 1 Mg Tab) 1 mg PO 14 [facility]EANA Senna/Docusate Sodium (Docusate Sodium/Sennosides 50-8.6 Mg Tab) 1 tab PO BID PRN PRN Reason: Constipation Sodium Chloride (Sodium Chloride 0.9% 10 Ml Syringe) 10 ml FLUSH ASDIRECTED PRN PRN Reason: Keep Vein Open Zolpidem Tartrate (Zolpidem 5 Mg Tab) 5 mg PO BEDTIME PRN PRN Reason: Sleep Assessment/Plan Comment:: 1. Admit to inpatient. 2. The CT scan some changes they recommended MRI which I will do on the head. 3. It doesn't look like she has infectious process going on at this time so no antibiotics given. 4. Patient wants to be a DNR. 5. Check ferritin, reticulocyte count and iron. After that stent given 1 unit of RBCs. 6. Diabetic diet and Accu-Cheks twice a day. Continue long-acting insulin hold short acting insulin. 7. up with assist. 8.VTE prophylaxis 9. DM diet - Mortality Measure Prognosis:: Good
[2020-10-27] MEDS: Betamethasone Dipropionate/Clotrimazole 0.05-1% Crm 15 GM Tube TOP SCH ×2 (11:39→20:07)
[2020-10-27] MEDS: Gabapentin 300 MG Cap PO SCH ×2 (11:39→17:31)
[2020-10-27] MEDS: RIVASTIGMINE 3 MG PO SCH ×2 (11:40→20:07)
[2020-10-27] MEDS: Cyanocobalamin (Vitamin B12) 1,000 MCG Tab PO SCH (11:40)
[2020-10-27] MEDS: Carboxymethylcellulose Sodium 0.5% Ophth Soln 15 ML Bottle EYEBOTH SCH ×2 (11:41→20:08)
[2020-10-27] MEDS: Timolol Maleate 0.5% Ophth Soln 5 ML Bottle EYELF SCH ×2 (11:41→20:09)
[2020-10-27] MEDS ORDERED: Non-Formulary Medication 1 Each (Insulin Aspart [Novolog] 100 UNIT/ML Vial) SQ SCH (12:00)
--- NOTE | 2020-10-27 12:31 | PCM.SN.2 ---
- Free Text/Narrative Note: Because the patient is weak and pasty and her hemoglobin dropped to 7.7. [place] a good idea to give her 1 unit RBCs. I talked to her and her son who is the power of gis administrator for medical about risks and palpitations for blood transfusions. They understand the risks and want to go ahead and get the blood.
[2020-10-27] MEDS ORDERED: Sodium Chloride 0.9% 250 ML IV SCH (12:45)
[2020-10-27] MEDS: risperiDONE 1 MG Tab PO SCH (14:22)
[2020-10-27] MEDS: Cholestyramine/Sucrose Powder 4 GM Packet PO SCH (17:31)
[2020-10-27] MEDS: QUEtiapine 25 MG Tab PO SCH (20:12)
[2020-10-28 08:12] LABS: IRON BIND.CAP.(TIBC) 239 ug/dL (250-450); IRON SATURATION 15 % (15-55); IRON, SERUM 37 ug/dL (27-139); UIBC 202 ug/dL (118-369)
[2020-10-28] MEDS: RIVASTIGMINE 3 MG PO SCH ×2 (08:18→20:39)
[2020-10-28] MEDS: Betamethasone Dipropionate/Clotrimazole 0.05-1% Crm 15 GM Tube TOP SCH ×2 (08:20→20:39)
[2020-10-28] MEDS: Timolol Maleate 0.5% Ophth Soln 5 ML Bottle EYELF SCH ×2 (08:22→20:40)
[2020-10-28] MEDS: Carboxymethylcellulose Sodium 0.5% Ophth Soln 15 ML Bottle EYEBOTH SCH ×2 (08:22→20:39)
[2020-10-28] MEDS: Cyanocobalamin (Vitamin B12) 1,000 MCG Tab PO SCH (08:24)
--- NOTE | 2020-10-28 08:30 | PCM.PN ---
- General Info Date of Service: 10/28/20 Admission Dx/Problem (Free Text): Patient states she feels a little stronger today. She still some nasal congestion and little bit of cough. No fevers, chills, chest pain, leg swelling. - Patient Data Vitals - Most Recent: Last Vital Signs Temp 97.6 F 10/28/20 05:30 Pulse 62 10/28/20 05:30 Resp 16 10/28/20 05:30 BP 148/61 H 10/28/20 05:30 Pulse Ox 93 L 10/28/20 05:30 Weight - Most Recent: 221 lb 1.6 oz I&O - Last 24 Hours: Intake & Output 10/27/20 10/28/20 10/28/20 22:59 06:59 14:59 Intake Total 376 Balance 376 Lab Results Last 24 Hours: Laboratory Results - last 24 hr 10/27/20 10/27/20 10/27/20 Range/Units 06:35 10:38 10:38 WBC (3.0-10.3) x10-3/uL RBC (3.60-5.20) x10(6)uL Hgb (11.4-15.5) g/dL Hct (34.2-48.2) % MCV (76.7-100.5) fL MCH (23.9-33.9) pg MCHC (31.9-34.8) g/dL RDW (12.3-16.5) % Plt Count (151-488) x10(3)uL MPV (7.1-12.4) fL Add Manual Diff Neutrophils % (Manual) (46-82) % Band Neutrophils % (0-6) % Lymphocytes % (Manual) (13-37) % Monocytes % (Manual) (4-12) % Eosinophils % (Manual) (0-5) % Anisocytosis POC Glucose (74-100) mg/dL Iron 37 (27-139) ug/dL TIBC 239 L (250-450) ug/dL Iron Saturation 15 (15-55) % Unsaturated IBC 202 (118-369) ug/dL Ferritin 584 H (15-150) ng/mL Blood Type B POSITIVE Gel Antibody Screen Negative Crossmatch See Detail 10/27/20 10/27/20 10/28/20 Range/Units 11:46 17:27 05:45 WBC (3.0-10.3) x10-3/uL RBC (3.60-5.20) x10(6)uL Hgb (11.4-15.5) g/dL Hct (34.2-48.2) % MCV (76.7-100.5) fL MCH (23.9-33.9) pg MCHC (31.9-34.8) g/dL RDW (12.3-16.5) % Plt Count (151-488) x10(3)uL MPV (7.1-12.4) fL Add Manual Diff Neutrophils % (Manual) (46-82) % Band Neutrophils % (0-6) % Lymphocytes % (Manual) (13-37) % Monocytes % (Manual) (4-12) % Eosinophils % (Manual) (0-5) % Anisocytosis POC Glucose 166 H 188 H 216 H (74-100) mg/dL Iron (27-139) ug/dL TIBC (250-450) ug/dL Iron Saturation (15-55) % Unsaturated IBC (118-369) ug/dL Ferritin (15-150) ng/mL Blood Type Gel Antibody Screen Crossmatch 10/28/20 Range/Units 06:35 WBC 3.9 (3.0-10.3) x10-3/uL RBC 3.04 L (3.60-5.20) x10(6)uL Hgb 8.7 L (11.4-15.5) g/dL Hct 26.8 L (34.2-48.2) % MCV 88.2 (76.7-100.5) fL MCH 28.6 (23.9-33.9) pg MCHC 32.5 (31.9-34.8) g/dL RDW 16.6 H (12.3-16.5) % Plt Count 67 L (151-488) x10(3)uL MPV 9.8 (7.1-12.4) fL Add Manual Diff Yes Neutrophils % (Manual) 62 (46-82) % Band Neutrophils % 2 (0-6) % Lymphocytes % (Manual) 12 L (13-37) % Monocytes % (Manual) 17 H (4-12) % Eosinophils % (Manual) 7 H (0-5) % Anisocytosis Moderate H POC Glucose (74-100) mg/dL Iron (27-139) ug/dL TIBC (250-450) ug/dL Iron Saturation (15-55) % Unsaturated IBC (118-369) ug/dL Ferritin (15-150) ng/mL Blood Type Gel Antibody Screen Crossmatch Madhu Results Last 24 Hours: Microbiology 10/27/20 15:00 Stool Occult Blood (MADHU) - Final Stool / Feces Med Orders - Current: Current Medications Acetaminophen (Acetaminophen 500 Mg Tab) 1,000 mg PO TID PRN PRN Reason: Pain Last Admin: 10/27/20 11:39 Dose: 1,000 mg Documented by: Artificial Tears (Carboxymethylcellulose Sodium 0.5% Ophth Soln 15 Ml Bottle) 0 ml EYEBOTH BID [facility] Last Admin: 10/27/20 20:08 Dose: 1 drop Documented by: Betamethasone/Clotrimazole (Betamethasone Dipropionate/Clotrimazole 0.05-1% Crm 15 Gm Tube) 0 gm TOP BID [facility] Last Admin: 10/27/20 20:07 Dose: 1 gm Documented by: Bupropion HCl (Bupropion 75 Mg Tab) 75 mg PO DAILY [facility] Last Admin: 10/27/20 11:40 Dose: 75 mg Documented by: Cholestyramine Resin (Cholestyramine/Sucrose Powder 4 Gm Packet) 4 gm PO 17 [facility] Last Admin: 10/27/20 17:31 Dose: 4 gm Documented by: Cyanocobalamin (Cyanocobalamin (Vitamin B12) 1,000 Mcg Tab) 1,000 mcg PO DAILY [facility] Last Admin: 10/27/20 11:40 Dose: 1,000 mcg Documented by: Gabapentin (Gabapentin 300 Mg Cap) 300 mg PO 0900,1600 [facility] Last Admin: 10/27/20 17:31 Dose: 300 mg Documented by: Sodium Chloride (Normal Saline) 250 mls @ 100 mls/hr IV ASDIRECTED [facility] Last Admin: 10/27/20 16:25 Dose: 100 mls/hr Documented by: Loperamide HCl (Loperamide 2 Mg Cap) 2 mg PO BID PRN PRN Reason: Diarrhea Loratadine (Loratadine 10 Mg Tab) 10 mg PO DAILY PRN PRN Reason: Rash Ondansetron HCl (Ondansetron 4 Mg/2 Ml Sdv) 4 mg IV Q4H PRN PRN Reason: Nausea/Vomiting Quetiapine Fumarate (Quetiapine 25 Mg Tab) 25 mg PO BEDTIME [facility] Last Admin: 10/27/20 20:12 Dose: 25 mg Documented by: Quetiapine Fumarate (Quetiapine 50 Mg Tab) 50 mg PO 1600 [facility] Last Admin: 10/27/20 17:32 Dose: 50 mg Documented by: Risperidone (Risperidone 1 Mg Tab) 1 mg PO 14 [facility] Last Admin: 10/27/20 14:22 Dose: 1 mg Documented by: Rivastigmine (Rivastigmine 3 Mg Cap) 6 mg PO BID [facility] Last Admin: 10/27/20 20:07 Dose: 6 mg Documented by: Senna/Docusate Sodium (Docusate Sodium/Sennosides 50-8.6 Mg Tab) 1 tab PO BID PRN PRN Reason: Constipation Sodium Chloride (Sodium Chloride 0.9% 10 Ml Syringe) 10 ml FLUSH ASDIRECTED PRN PRN Reason: Keep Vein Open Timolol Maleate (Timolol Maleate 0.5% Ophth Soln 5 Ml Bottle) 0 ml EYELF BID [facility] Last Admin: 10/27/20 20:09 Dose: 1 drop Documented by: Zolpidem Tartrate (Zolpidem 5 Mg Tab) 5 mg PO BEDTIME PRN PRN Reason: Sleep Discontinued Medications Acetaminophen (Acetaminophen 325 Mg Tab) 650 mg PO Q6H PRN PRN Reason: Fever Aspirin (Aspirin 81 Mg Tab.Chew) 324 mg PO NOW STA Stop: 10/26/20 17:29 Last Admin: 10/26/20 19:27 Dose: Not Given Documented by: Ceftriaxone Sodium (Ceftriaxone 1 Gm Vial) 1 gm IVPUSH NOW STA Stop: 10/26/20 19:01 Last Admin: 10/26/20 19:18 Dose: 1 gm Documented by: Cyclobenzaprine HCl (Cyclobenzaprine 10 Mg Tab) 10 mg PO NOW STA Stop: 10/26/20 20:03 Last Admin: 10/26/20 22:51 Dose: Not Given Documented by: Sodium Chloride (Normal Saline) 1,000 mls @ 999 mls/hr IV ASDIRECTED [facility] Sodium Chloride (Normal Saline) 1,000 mls @ 125 mls/hr IV ASDIRECTED [facility] Last Admin: 10/27/20 11:39 Dose: 125 mls/hr Documented by: Nitroglycerin (Nitroglycerin 0.4 Mg Tab.Sl) 0.4 mg SL Q5M PRN PRN Reason: Chest Pain Oxycodone/Acetaminophen (Acetaminophen/Oxycodone 325-5 Mg Tab) 2 tab PO NOW STA Stop: 10/26/20 20:03 Last Admin: 10/26/20 22:51 Dose: Not Given Documented by: - Exam General: Alert, Oriented, Cooperative Lungs: Clear to Auscultation, Normal Respiratory Effort Cardiovascular: Regular Rate, Regular Rhythm, No Murmurs Extremities: No Pedal Edema - Patient Data Lab Results Last 24 hrs: Laboratory Results - last 24 hr 10/27/20 10/27/20 10/27/20 Range/Units 06:35 10:38 10:38 WBC (3.0-10.3) x10-3/uL RBC (3.60-5.20) x10(6)uL Hgb (11.4-15.5) g/dL Hct (34.2-48.2) % MCV (76.7-100.5) fL MCH (23.9-33.9) pg MCHC (31.9-34.8) g/dL RDW (12.3-16.5) % Plt Count (151-488) x10(3)uL MPV (7.1-12.4) fL Add Manual Diff Neutrophils % (Manual) (46-82) % Band Neutrophils % (0-6) % Lymphocytes % (Manual) (13-37) % Monocytes % (Manual) (4-12) % Eosinophils % (Manual) (0-5) % Anisocytosis POC Glucose (74-100) mg/dL Iron 37 (27-139) ug/dL TIBC 239 L (250-450) ug/dL Iron Saturation 15 (15-55) % Unsaturated IBC 202 (118-369) ug/dL Ferritin 584 H (15-150) ng/mL Blood Type B POSITIVE Gel Antibody Screen Negative Crossmatch See Detail 10/27/20 10/27/20 10/28/20 Range/Units 11:46 17:27 05:45 WBC (3.0-10.3) x10-3/uL RBC (3.60-5.20) x10(6)uL Hgb (11.4-15.5) g/dL Hct (34.2-48.2) % MCV (76.7-100.5) fL MCH (23.9-33.9) pg MCHC (31.9-34.8) g/dL RDW (12.3-16.5) % Plt Count (151-488) x10(3)uL MPV (7.1-12.4) fL Add Manual Diff Neutrophils % (Manual) (46-82) % Band Neutrophils % (0-6) % Lymphocytes % (Manual) (13-37) % Monocytes % (Manual) (4-12) % Eosinophils % (Manual) (0-5) % Anisocytosis POC Glucose 166 H 188 H 216 H (74-100) mg/dL Iron (27-139) ug/dL TIBC (250-450) ug/dL Iron Saturation (15-55) % Unsaturated IBC (118-369) ug/dL Ferritin (15-150) ng/mL Blood Type Gel Antibody Screen Crossmatch 10/28/20 Range/Units 06:35 WBC 3.9 (3.0-10.3) x10-3/uL RBC 3.04 L (3.60-5.20) x10(6)uL Hgb 8.7 L (11.4-15.5) g/dL Hct 26.8 L (34.2-48.2) % MCV 88.2 (76.7-100.5) fL MCH 28.6 (23.9-33.9) pg MCHC 32.5 (31.9-34.8) g/dL RDW 16.6 H (12.3-16.5) % Plt Count 67 L (151-488) x10(3)uL MPV 9.8 (7.1-12.4) fL Add Manual Diff Yes Neutrophils % (Manual) 62 (46-82) % Band Neutrophils % 2 (0-6) % Lymphocytes % (Manual) 12 L (13-37) % Monocytes % (Manual) 17 H (4-12) % Eosinophils % (Manual) 7 H (0-5) % Anisocytosis Moderate H POC Glucose (74-100) mg/dL Iron (27-139) ug/dL TIBC (250-450) ug/dL Iron Saturation (15-55) % Unsaturated IBC (118-369) ug/dL Ferritin (15-150) ng/mL Blood Type Gel Antibody Screen Crossmatch Result Diagrams: 10/28/20 06:35 10/27/20 06:35 Madhu Results Last 24 hrs: Microbiology 10/27/20 15:00 Stool Occult Blood (MADHU) - Final Stool / Feces Sepsis Event Note - Evaluation Sepsis Screening Result: No Definite Risk - Focused Exam Vital Signs: Vital Signs Temp Pulse Resp BP Pulse Ox 10/28/20 05:30 97.6 F 62 16 148/61 H 93 L 10/27/20 23:07 98.0 F 54 L 16 157/70 H 96 - Problem List & Annotations (1) Palliative care status SNOMED Code(s): 138717491 Code(s): Z51.5 - ENCOUNTER FOR PALLIATIVE CARE Status: Acute Current Visit: Yes (2) HAO (acute kidney injury) SNOMED Code(s): 97170202, 93317829 Code(s): N17.9 - ACUTE KIDNEY FAILURE, UNSPECIFIED Status: Acute Current Visit: Yes (3) Anemia SNOMED Code(s): 865421794 Code(s): D64.9 - ANEMIA, UNSPECIFIED Status: Acute Current Visit: Yes (4) Weakness SNOMED Code(s): 56716921 Code(s): R53.1 - WEAKNESS Status: Acute Current Visit: Yes (5) DM2 (diabetes mellitus, type 2) SNOMED Code(s): 61412277 Code(s): E11.9 - TYPE 2 DIABETES MELLITUS WITHOUT COMPLICATIONS Status: Acute Current Visit: No Qualifiers: Diabetes mellitus fpc insulin use: 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 Diabetes mellitus complication status: without complication Qualified Code(s): E11.9 - Type 2 diabetes mellitus without complications; Z79.4 - FPC (current) use of insulin; Z79.4 - termite treater (current) use of insulin; Z79.4 - termite treater (current) use of insulin; Z79.4 - FPC (current) use of insulin (6) Parkinson disease SNOMED Code(s): 39895975 Code(s): G20 - PARKINSON'S DISEASE Status: Chronic Current Visit: No (7) Acute sinusitis SNOMED Code(s): 73803035 Code(s): J01.90 - ACUTE SINUSITIS, UNSPECIFIED Status: Acute Current Visit: Yes - Problem List Review Problem List Initiated/Reviewed/Updated: Yes - My Orders Last 24 Hours: My Active Orders 10/27/20 10:14 Brain wo Cont [MR] Routine 10/27/20 10:15 Consult to Occupational Therapy [OT Evaluation and Treatment] [CONS] Routine Consult to Physical Therapy [PT Evaluation and Treatment] [CONS] Routine Acetaminophen [Tylenol Extra Strength] 1,000 mg PO TID PRN 10/27/20 10:16 Loperamide [Imodium] 2 mg PO BID PRN Loratadine [Claritin] 10 mg PO DAILY PRN 10/27/20 10:26 Patient Status [ADT] Routine 10/27/20 10:27 Resuscitation Status Routine 10/27/20 10:30 Betamethasone/Clotrimazole [Lotrisone] 0 gm TOP BID Carboxymethylcellulose Sodium [Refresh Tears 0.5%] 0 ml EYEBOTH BID Cyanocobalamin (Vitamin B12) [Vitamin B12] 1,000 mcg PO DAILY Gabapentin [Neurontin] 300 mg PO 0900,1600 Rivastigmine [Exelon] 6 mg PO BID buPROPion [Wellbutrin] 75 mg PO DAILY timoloL maleate [Timoptic 0.5% Ophth Soln] 0 ml EYELF BID 10/27/20 10:38 RETICULOCYTE COUNT Routine 10/27/20 12:40 Transfuse RBC [Transfuse Red Blood Cells] [COMM] Routine 10/27/20 12:45 Sodium Chloride 0.9% [Normal Saline] 250 ml IV ASDIRECTED 10/27/20 14:00 risperiDONE [RisperiDAL] 1 mg PO 14 10/27/20 16:00 QUEtiapine [SEROquel] 50 mg PO 1600 10/27/20 17:00 Cholestyramine/Sucrose [Cholestyramine Packet] 4 gm PO 17 10/27/20 17:12 OCCULT BLOOD DIAGNOSTIC [OP] Routine 10/27/20 21:00 QUEtiapine [SEROqueL] 25 mg PO BEDTIME - Assessment Assessment:: 1. Consult surgery to see if she is a candidate for scoping to look for causes of anemia. 2. Start antibiotic most likely doxycycline by mouth for sinusitis. 3. Continue to watch for leg swelling and edema. I'm holding her diuretic at this time. 4. Continue PT/OT. And see how she's doing and when she can go home brother's perspective. - Plan Plan:: 1. Admit to inpatient. 2. The CT scan some changes they recommended MRI which I will do on the head. 3. It doesn't look like she has infectious process going on at this time so no antibiotics given. 4. Patient wants to be a DNR. 5. Check ferritin, reticulocyte count and iron. After that stent given 1 unit of RBCs. 6. Diabetic diet and Accu-Cheks twice a day. Continue long-acting insulin hold short acting insulin. 7. up with assist. 8.VTE prophylaxis 9. DM diet
[2020-10-28] MEDS: Gabapentin 300 MG Cap PO SCH ×2 (08:35→16:28)
[2020-10-28] MEDS: Doxycycline 100 MG Tab PO SCH ×2 (09:11→20:41)
[2020-10-28] MEDS: metFORMIN 500 MG Tab.ER PO SCH ×2 (09:31→17:51)
--- NOTE | 2020-10-28 09:55 | PCM.CONS ---
H&P History of Present Illness - General Date of Service: 10/28/20 Admit Problem/Dx: Patient states she feels a little stronger today. She still some nasal congestion and little bit of cough. No fevers, chills, chest pain, leg swelling. Source of Information: Patient, Old Records (including [place] ) - History of Present Illness Initial Comments - Free Text/Narative: Pt was admitted from the ED last pm with a complaint of weakness. Subsequent workup revealed an anemia that appears to be FE def. She usually runs 9.9. She was guaiac negative and denies any significant abd pain, nausea, vomiting, hematemesis, black or bloody stools. Did have a c scope in [place] and it was noted to be difficult due to a stiff sigmoid colon. Has a hx of lymphoma that was treated in the past. - Related Data Allergies/Adverse Reactions: Allergies Allergy/AdvReac Type Severity Reaction Status Date / Time amoxicillin [Amoxicillin] Allergy Nausea and Verified 07/06/18 13:22 Vomiting fluvastatin Allergy Nausea and Verified 07/06/18 13:22 Vomiting Sulfa (Sulfonamide Allergy Diarrhea Verified 07/06/18 13:22 Antibiotics) sulfamethoxazole Allergy Nausea and Verified 07/06/18 13:22 [From Bactrim] Vomiting trimethoprim [From Bactrim] Allergy Nausea and Verified 07/06/18 13:22 Vomiting Home Medications: Home Meds Sertraline HCl 150 mg PO DAILY 06/28/13 [History] Memantine HCl [Namenda] 10 mg PO BID 09/08/17 [History] metFORMIN HCl [Metformin ER Osmotic] 500 mg PO BIDMEALS 09/08/17 [History] Aspirin [Ecotrin EC] 325 mg PO DAILY 09/28/17 [History] Cholecalciferol (Vitamin D3) [Vitamin D3] 2,000 units PO DAILY #30 cap 10/04/17 [Rx] Insulin Glargine,Hum.Rec.Anlog [[place] Solostar] 45 unit SQ DAILY #100 ml 10/04/17 [Rx] Losartan [Cozaar] 50 mg PO DAILY #30 tablet 10/04/17 [Rx] atorvaSTATin [Lipitor] 40 mg PO BEDTIME #30 tablet 10/04/17 [Rx] Potassium Chloride 20 meq PO DAILY #5 tablet.er 07/06/18 [Rx] Acetaminophen [Tylenol Extra Strength] 1,000 mg PO TID PRN 10/26/20 [History] Betamethasone/Clotrimazole [Lotrisone] 1 applic TOP BID 10/26/20 [History] Bumetanide [Bumex] 1 mg PO DAILY 10/26/20 [History] Carboxymethylcellulose Sodium [Refresh Tears 0.5%] 1 drop EYEBOTH BID 10/26/20 [History] Cholestyramine (With Sugar) [Questran Powder] 4 gm PO 17 10/26/20 [History] Cyanocobalamin (Vitamin B-12) [Vitamin B-12] 1,000 mcg PO DAILY 10/26/20 [History] Gabapentin [Neurontin] 300 mg PO 08,15 10/26/20 [History] Insulin Lispro [HumaLOG] 10 unit SQ 08,11,17 10/26/20 [History] Loperamide [Imodium] 2 mg PO BID PRN 10/26/20 [History] Loratadine 10 mg PO DAILY PRN 10/26/20 [History] QUEtiapine [SEROquel] 25 mg PO BEDTIME 10/26/20 [History] QUEtiapine [SEROquel] 50 mg PO 1500 10/26/20 [History] Rivastigmine Tartrate [Rivastigmine] 6 mg PO BID 10/26/20 [History] Timolol [Betimol 0.5% Ophth Soln] 1 drop EYELF BID 10/26/20 [History] buPROPion [Wellbutrin] 75 mg PO DAILY 10/26/20 [History] polyethylene glycoL 3350 [MiraLAX] 17 gm PO DAILY PRN 10/26/20 [History] risperiDONE [Risperdal] 1 mg PO 14 10/26/20 [History] Past Medical History HEENT History: Reports: Cataract, Hard of Hearing, Impaired Vision Other HEENT History: legally blind L eye, hx nonHodgkins lymphoma, 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, retinopathy Cardiovascular History: Reports: High Cholesterol, Hypertension Respiratory History: Reports: Sleep Apnea Other Respiratory History: uses cpap Gastrointestinal History: Reports: None Genitourinary History: Reports: Urinary Incontinence 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 Endocrine/Metabolic History: Reports: Diabetes, Type II, Obesity/BMI 30+ Hematologic History: Reports: Blood Transfusion(s) Oncologic (Cancer) History: Reports: Lymphoma, Non-Hodgkin's Lymphoma - Infectious Disease History Infectious Disease History: Reports: Chicken Pox, Measles, Mumps, Shingles - Past Surgical History Head Surgeries/Procedures: Reports: None HEENT Surgical History: Reports: Adenoidectomy, Oral Surgery, Tonsillectomy, Other (See Below) Other HEENT Surgeries/Procedures: bleeding in vein in L eye GI Surgical History: Reports: Cholecystectomy, Colonoscopy Female Surgical History: Reports: Hysterectomy, Salpingo-Oophorectomy Musculoskeletal Surgical History: Reports: Knee Replacement Other Musculoskeletal Surgeries/Procedures:: bilat knee replacements Social & Family History - Family History Family Medical History: No Pertinent Family History - Tobacco Use Tobacco Use Status *Q: Never Tobacco User - Caffeine Use Caffeine Use: Reports: Coffee - Recreational Drug Use Recreational Drug Use: No H&P Review of Systems - Review of Systems: Review Of Systems: See Below HEENT: Reports: No Symptoms Pulmonary: Reports: No Symptoms Cardiovascular: Reports: No Symptoms Gastrointestinal: Reports: No Symptoms Musculoskeletal: Reports: Leg Pain Skin: Reports: No Symptoms Neurological: Reports: Tremors Exam - Exam Exam: See Below - Vital Signs Vital Signs: Last Vital Signs Temp 97.6 F 10/28/20 05:30 Pulse 62 10/28/20 05:30 Resp 16 10/28/20 05:30 BP 148/61 H 10/28/20 05:30 Pulse Ox 93 L 10/28/20 05:30 Weight: 100.289 kg - Patient Data Lab Results Last 24 hrs: Laboratory Results - last 24 hr 10/27/20 10/27/20 10/27/20 Range/Units 06:35 10:38 10:38 WBC (3.0-10.3) x10-3/uL RBC (3.60-5.20) x10(6)uL Hgb (11.4-15.5) g/dL Hct (34.2-48.2) % MCV (76.7-100.5) fL MCH (23.9-33.9) pg MCHC (31.9-34.8) g/dL RDW (12.3-16.5) % Plt Count (151-488) x10(3)uL MPV (7.1-12.4) fL Add Manual Diff Neutrophils % (Manual) (46-82) % Band Neutrophils % (0-6) % Lymphocytes % (Manual) (13-37) % Monocytes % (Manual) (4-12) % Eosinophils % (Manual) (0-5) % Anisocytosis Retic Count (0.6-2.6) % POC Glucose (74-100) mg/dL Iron 37 (27-139) ug/dL TIBC 239 L (250-450) ug/dL Iron Saturation 15 (15-55) % Unsaturated IBC 202 (118-369) ug/dL Ferritin 584 H (15-150) ng/mL Blood Type B POSITIVE Gel Antibody Screen Negative Crossmatch See Detail 10/27/20 10/27/20 10/27/20 Range/Units 10:38 11:46 17:27 WBC (3.0-10.3) x10-3/uL RBC (3.60-5.20) x10(6)uL Hgb (11.4-15.5) g/dL Hct (34.2-48.2) % MCV (76.7-100.5) fL MCH (23.9-33.9) pg MCHC (31.9-34.8) g/dL RDW (12.3-16.5) % Plt Count (151-488) x10(3)uL MPV (7.1-12.4) fL Add Manual Diff Neutrophils % (Manual) (46-82) % Band Neutrophils % (0-6) % Lymphocytes % (Manual) (13-37) % Monocytes % (Manual) (4-12) % Eosinophils % (Manual) (0-5) % Anisocytosis Retic Count 3.8 H (0.6-2.6) % POC Glucose 166 H 188 H (74-100) mg/dL Iron (27-139) ug/dL TIBC (250-450) ug/dL Iron Saturation (15-55) % Unsaturated IBC (118-369) ug/dL Ferritin (15-150) ng/mL Blood Type Gel Antibody Screen Crossmatch 10/28/20 10/28/20 Range/Units 05:45 06:35 WBC 3.9 (3.0-10.3) x10-3/uL RBC 3.04 L (3.60-5.20) x10(6)uL Hgb 8.7 L (11.4-15.5) g/dL Hct 26.8 L (34.2-48.2) % MCV 88.2 (76.7-100.5) fL MCH 28.6 (23.9-33.9) pg MCHC 32.5 (31.9-34.8) g/dL RDW 16.6 H (12.3-16.5) % Plt Count 67 L (151-488) x10(3)uL MPV 9.8 (7.1-12.4) fL Add Manual Diff Yes Neutrophils % (Manual) 62 (46-82) % Band Neutrophils % 2 (0-6) % Lymphocytes % (Manual) 12 L (13-37) % Monocytes % (Manual) 17 H (4-12) % Eosinophils % (Manual) 7 H (0-5) % Anisocytosis Moderate H Retic Count (0.6-2.6) % POC Glucose 216 H (74-100) mg/dL Iron (27-139) ug/dL TIBC (250-450) ug/dL Iron Saturation (15-55) % Unsaturated IBC (118-369) ug/dL Ferritin (15-150) ng/mL Blood Type Gel Antibody Screen Crossmatch Result Diagrams: 10/28/20 06:35 10/27/20 06:35 Madhu Results Last 24 hrs: Microbiology 10/27/20 15:00 Stool Occult Blood (MADHU) - Final Stool / Feces Sepsis Event Note - Evaluation Sepsis Screening Result: No Definite Risk - Focused Exam Vital Signs: Vital Signs Temp Pulse Resp BP Pulse Ox 10/28/20 05:30 97.6 F 62 16 148/61 H 93 L 10/27/20 23:07 98.0 F 54 L 16 157/70 H 96 Consult PN Assessment/Plan Procedures: Procedures ASSAY IGA/IGD/IGG/IGM EACH (12/24/18) ASSAY OF MAGNESIUM (09/08/17) ASSAY OF NATRIURETIC PEPTIDE (09/08/17) ASSAY OF TROPONIN QUANT (07/06/18) COMPLETE CBC W/AUTO DIFF WBC (12/24/18) COMPREHEN METABOLIC PANEL (12/24/18) CT HEAD/BRAIN W/DYE (12/24/18) CT HEAD/BRAIN W/O DYE (09/08/17) CT SOFT TISSUE NECK W/DYE (03/09/20) DRUG TEST PRSMV DIR OPT OBS (09/08/17) ELECTROCARDIOGRAM TRACING (09/08/17) EMERGENCY DEPT VISIT (07/06/18) GLUCOSE BLOOD TEST (07/06/18) GLYCOSYLATED HEMOGLOBIN TEST (07/06/18) INSERT BLADDER CATHETER (09/08/17) LACTATE (LD) (LDH) ENZYME (12/24/18) MULTIPLE SLEEP LATENCY TEST (09/27/16) PROTEIN E-PHORESIS SERUM (12/24/18) REAGENT STRIP/BLOOD GLUCOSE (02/11/14) ROUTINE VENIPUNCTURE (07/06/18) SIGMOIDOSCOPY AND BIOPSY (02/11/14) THER/PROPH/DIAG INJ IV PUSH (07/06/18) THER/PROPH/DIAG INJ SC/IM (07/06/18) TX/PRO/DX INJ NEW DRUG ADDON (07/06/18) TX/PRO/DX INJ SAME DRUG HOSPICE VOLUNTEER (07/06/18) URINALYSIS AUTO W/SCOPE (07/06/18) (1) Anemia SNOMED Code(s): 267820913 Code(s): D64.9 - ANEMIA, UNSPECIFIED Current Visit: Yes Qualifiers: Anemia type: iron deficiency Problem List Initiated/Reviewed/Updated: Yes Plan: Feel that an egd, colonoscopy would be reasonable. The pt on discussing the risks does not want to undergo the procedure. Her son has been contacted and will talk to the patient. Will await the results of this discussion.
[2020-10-28] MEDS: risperiDONE 1 MG Tab PO SCH (14:29)
[2020-10-28] MEDS: Cholestyramine/Sucrose Powder 4 GM Packet PO SCH (16:29)
[2020-10-28] MEDS: Sodium Chloride 0.9% 10 ML Syringe FLUSH PRN (16:34)
[2020-10-28] MEDS ORDERED: 50% Dextrose in Water 50 ML Syringe IVPUSH PRN (17:32)
[2020-10-28] MEDS ORDERED: Glucagon,Human Recombinant 1 MG Vial IM PRN (17:32)
[2020-10-28] MEDS ORDERED: Insulin Glargine,Human Rec. Analog 100 Units/ML 3 ML Pen SUBCUT ONE (20:44)
[2020-10-28] MEDS: QUEtiapine 25 MG Tab PO SCH (20:45)
[2020-10-28] MEDS: Insulin Glargine,Human Rec. Analog 100 Units/ML 3 ML Pen SUBCUT SCH (20:53)
--- NOTE | 2020-10-29 07:57 | PCM.SURGPN ---
- General Info Date of Service: 10/29/20 POD#: 0 Functional Status: Denies: New Symptoms - Patient Data Vitals - Most Recent: Last Vital Signs Temp 98.9 F 10/29/20 05:30 Pulse 58 L 10/29/20 05:30 Resp 16 10/29/20 05:30 BP 133/63 10/29/20 05:30 Pulse Ox 93 L 10/29/20 05:30 Weight - Most Recent: 100.289 kg Lab Results Last 24 Hrs: Laboratory Results - last 24 hr 10/27/20 10/27/20 10/27/20 Range/Units 10:38 10:38 10:38 Retic Count 3.8 H (0.6-2.6) % POC Glucose (74-100) mg/dL Iron 37 (27-139) ug/dL TIBC 239 L (250-450) ug/dL Iron Saturation 15 (15-55) % Unsaturated IBC 202 (118-369) ug/dL Ferritin 584 H (15-150) ng/mL 10/28/20 10/28/20 10/28/20 Range/Units 12:54 16:53 20:52 Retic Count (0.6-2.6) % POC Glucose 326 H 293 H 341 H (74-100) mg/dL Iron (27-139) ug/dL TIBC (250-450) ug/dL Iron Saturation (15-55) % Unsaturated IBC (118-369) ug/dL Ferritin (15-150) ng/mL 10/29/20 Range/Units 05:41 Retic Count (0.6-2.6) % POC Glucose 237 H (74-100) mg/dL Iron (27-139) ug/dL TIBC (250-450) ug/dL Iron Saturation (15-55) % Unsaturated IBC (118-369) ug/dL Ferritin (15-150) ng/mL Madhu Results Last 24 Hrs: Microbiology 10/28/20 12:35 Stool Occult Blood (MADHU) - Final Stool / Feces Med Orders - Current: Current Medications Acetaminophen (Acetaminophen 500 Mg Tab) 1,000 mg PO TID PRN PRN Reason: Pain Last Admin: 10/27/20 11:39 Dose: 1,000 mg Documented by: Artificial Tears (Carboxymethylcellulose Sodium 0.5% Ophth Soln 15 Ml Bottle) 0 ml EYEBOTH BID JEANA Last Admin: 10/28/20 20:39 Dose: 1 drop Documented by: Betamethasone/Clotrimazole (Betamethasone Dipropionate/Clotrimazole 0.05-1% Crm 15 Gm Tube) 0 gm TOP BID [facility] Last Admin: 10/28/20 20:39 Dose: 1 gm Documented by: Bupropion HCl (Bupropion 75 Mg Tab) 75 mg PO DAILY [facility] Last Admin: 10/28/20 08:26 Dose: 75 mg Documented by: Cholestyramine Resin (Cholestyramine/Sucrose Powder 4 Gm Packet) 4 gm PO 17 [facility] Last Admin: 10/28/20 16:29 Dose: 4 gm Documented by: Cyanocobalamin (Cyanocobalamin (Vitamin B12) 1,000 Mcg Tab) 1,000 mcg PO DAILY [facility] Last Admin: 10/28/20 08:24 Dose: 1,000 mcg Documented by: Dextrose/Water (50% Dextrose In Water 50 Ml Syringe) 50 ml IVPUSH ASDIRECTED PRN PRN Reason: Hypoglycemia Doxycycline Hyclate (Doxycycline 100 Mg Tab) 100 mg PO BID [facility] Last Admin: 10/28/20 20:41 Dose: 100 mg Documented by: Gabapentin (Gabapentin 300 Mg Cap) 300 mg PO 0900,1600 [facility] Last Admin: 10/28/20 16:28 Dose: 300 mg Documented by: Glucagon (Glucagon,Human Recombinant 1 Mg Vial) 1 mg IM ASDIRECTED PRN PRN Reason: Hypoglycemia Sodium Chloride (Normal Saline) 250 mls @ 100 mls/hr IV ASDIRECTED [facility] Last Admin: 10/27/20 16:25 Dose: 100 mls/hr Documented by: Insulin Glargine (Insulin Glargine,Human Rec. Analog 100 Units/Ml 3 Ml Pen) 20 units SUBCUT 2100 [facility] Last Admin: 10/28/20 20:53 Dose: 20 units Documented by: Loperamide HCl (Loperamide 2 Mg Cap) 2 mg PO BID PRN PRN Reason: Diarrhea Loratadine (Loratadine 10 Mg Tab) 10 mg PO DAILY PRN PRN Reason: Rash Metformin HCl (Metformin 500 Mg Tab.Er) 500 mg PO BIDMEALS [facility] Last Admin: 10/28/20 17:51 Dose: 500 mg Documented by: Ondansetron HCl (Ondansetron 4 Mg/2 Ml Sdv) 4 mg IV Q4H PRN PRN Reason: Nausea/Vomiting Polyethylene Glycol (Polyethylene Glycol 3350 Powder 238 Gm Bot) 238 gm PO ONETIME ONE Stop: 10/29/20 07:54 Quetiapine Fumarate (Quetiapine 25 Mg Tab) 25 mg PO BEDTIME [facility] Last Admin: 10/28/20 20:45 Dose: 25 mg Documented by: Quetiapine Fumarate (Quetiapine 50 Mg Tab) 50 mg PO 1600 [facility] Last Admin: 10/28/20 16:29 Dose: 50 mg Documented by: Risperidone (Risperidone 1 Mg Tab) 1 mg PO 14 [facility] Last Admin: 10/28/20 14:29 Dose: 1 mg Documented by: Rivastigmine (Rivastigmine 3 Mg Cap) 6 mg PO BID [facility] Last Admin: 10/28/20 20:39 Dose: 6 mg Documented by: Senna/Docusate Sodium (Docusate Sodium/Sennosides 50-8.6 Mg Tab) 1 tab PO BID PRN PRN Reason: Constipation Sodium Chloride (Sodium Chloride 0.9% 10 Ml Syringe) 10 ml FLUSH ASDIRECTED PRN PRN Reason: Keep Vein Open Last Admin: 10/28/20 16:34 Dose: 10 ml Documented by: Timolol Maleate (Timolol Maleate 0.5% Ophth Soln 5 Ml Bottle) 0 ml EYELF BID [facility] Last Admin: 10/28/20 20:40 Dose: 1 drop Documented by: Zolpidem Tartrate (Zolpidem 5 Mg Tab) 5 mg PO BEDTIME PRN PRN Reason: Sleep Discontinued Medications Acetaminophen (Acetaminophen 325 Mg Tab) 650 mg PO Q6H PRN PRN Reason: Fever Aspirin (Aspirin 81 Mg Tab.Chew) 324 mg PO NOW STA Stop: 10/26/20 17:29 Last Admin: 10/26/20 19:27 Dose: Not Given Documented by: Ceftriaxone Sodium (Ceftriaxone 1 Gm Vial) 1 gm IVPUSH NOW STA Stop: 10/26/20 19:01 Last Admin: 10/26/20 19:18 Dose: 1 gm Documented by: Cyclobenzaprine HCl (Cyclobenzaprine 10 Mg Tab) 10 mg PO NOW STA Stop: 10/26/20 20:03 Last Admin: 10/26/20 22:51 Dose: Not Given Documented by: Sodium Chloride (Normal Saline) 1,000 mls @ 999 mls/hr IV ASDIRECTED JEANA Sodium Chloride (Normal Saline) 1,000 mls @ 125 mls/hr IV ASDIRECTED JEANA Last Admin: 10/27/20 11:39 Dose: 125 mls/hr Documented by: Nitroglycerin (Nitroglycerin 0.4 Mg Tab.Sl) 0.4 mg SL Q5M PRN PRN Reason: Chest Pain Oxycodone/Acetaminophen (Acetaminophen/Oxycodone 325-5 Mg Tab) 2 tab PO NOW STA Stop: 10/26/20 20:03 Last Admin: 10/26/20 22:51 Dose: Not Given Documented by: - Exam General: Alert Lungs: Clear to Auscultation, Normal Respiratory Effort Cardiovascular: Regular Rate, Regular Rhythm GI/Abdominal Exam: Normal Bowel Sounds, Soft Sepsis Event Note - Evaluation Sepsis Screening Result: No Definite Risk - Focused Exam Vital Signs: Vital Signs Temp Pulse Resp BP BP BP Pulse Ox 10/29/20 05:30 98.9 F 58 L 16 133/63 93 L 10/29/20 02:00 97.7 F 50 L 16 141/60 H 94 L 10/29/20 00:00 16 10/28/20 21:00 97 10/28/20 20:00 97.6 F 58 L 16 163/64 H 97 - Problem List & Annotations (1) Anemia SNOMED Code(s): 586421010 Code(s): D64.9 - ANEMIA, UNSPECIFIED Status: Acute Current Visit: Yes Qualifiers: Anemia type: iron deficiency - Problem List Review Problem List Initiated/Reviewed/Updated: Yes - My Orders Last 24 Hours: Active Orders 24 hr Category Date Time Status Notify Provider Consults [RC] ASDIRECTED Care 10/28/20 08:31 Active Verify Patient Consent Obtain [RC] ASDIRECTED Care 10/29/20 07:50 Ordered Consult to Physician [CONS] Routine Cons 10/28/20 08:30 Ordered Clear Liquid Diet [DIET] Diet 10/29/20 Breakfast Active NPO After Midnight [Nothing per Oral After Midnight Diet 10/29/20 Lunch Ordered Diet] [DIET] Dextrose 50% in Water Med 10/28/20 17:32 Active 50 ml IVPUSH ASDIRECTED PRN Doxycycline [Vibra-Tabs] Med 10/28/20 09:00 Active 100 mg PO BID Glucagon,Human Recombinant [GlucaGen] Med 10/28/20 17:32 Active 1 mg IM ASDIRECTED PRN Insulin Glarg,Human.Rec.Analog [LantUS Solostar] Med 10/28/20 21:00 Active 20 units SUBCUT 2100 metFORMIN [Glucophage XR] Med 10/28/20 09:30 Active 500 mg PO BIDMEALS polyethylene glycoL 3350 [MiraLAX] Med 10/29/20 07:53 Once 238 gm PO ONETIME ONE Medication Orders Acetaminophen (Acetaminophen 500 Mg Tab) 1,000 mg PO TID PRN PRN Reason: Pain Last Admin: 10/27/20 11:39 Dose: 1,000 mg Documented by: [email or web address] Artificial Tears (Carboxymethylcellulose Sodium 0.5% Ophth Soln 15 Ml Bottle) 0 ml EYEBOTH BID [facility] Last Admin: 10/28/20 20:39 Dose: 1 drop Documented by: Admin: 10/28/20 08:22 Dose: 1 drop Documented by: Admin: 10/27/20 20:08 Dose: 1 drop Documented by: Admin: 10/27/20 11:41 Dose: 1 drop Documented by: MANJU Betamethasone/Clotrimazole (Betamethasone Dipropionate/Clotrimazole 0.05-1% Crm 15 Gm Tube) 0 gm TOP BID [facility] Last Admin: 10/28/20 20:39 Dose: 1 gm Documented by: Admin: 10/28/20 08:20 Dose: 1 gm Documented by: Admin: 10/27/20 20:07 Dose: 1 gm Documented by: Admin: 10/27/20 11:39 Dose: 15 gm Documented by: MANJU Bupropion HCl (Bupropion 75 Mg Tab) 75 mg PO DAILY [facility] Last Admin: 10/28/20 08:26 Dose: 75 mg Documented by: Admin: 10/27/20 11:40 Dose: 75 mg Documented by: MANJU Cholestyramine Resin (Cholestyramine/Sucrose Powder 4 Gm Packet) 4 gm PO 17 [facility] Last Admin: 10/28/20 16:29 Dose: 4 gm Documented by: Admin: 10/27/20 17:31 Dose: 4 gm Documented by: MANJU Cyanocobalamin (Cyanocobalamin (Vitamin B12) 1,000 Mcg Tab) 1,000 mcg PO DAILY [facility] Last Admin: 10/28/20 08:24 Dose: 1,000 mcg Documented by: Admin: 10/27/20 11:40 Dose: 1,000 mcg Documented by: MANJU Dextrose/Water (50% Dextrose In Water 50 Ml Syringe) 50 ml IVPUSH ASDIRECTED PRN PRN Reason: Hypoglycemia Doxycycline Hyclate (Doxycycline 100 Mg Tab) 100 mg PO BID [facility] Last Admin: 10/28/20 20:41 Dose: 100 mg Documented by: Admin: 10/28/20 09:11 Dose: 100 mg Documented by: ORESTES Gabapentin (Gabapentin 300 Mg Cap) 300 mg PO 0900,1600 [facility] Last Admin: 10/28/20 16:28 Dose: 300 mg Documented by: Admin: 10/28/20 08:35 Dose: 300 mg Documented by: Admin: 10/27/20 17:31 Dose: 300 mg Documented by: Admin: 10/27/20 11:39 Dose: 300 mg Documented by: MANJU Glucagon (Glucagon,Human Recombinant 1 Mg Vial) 1 mg IM ASDIRECTED PRN PRN Reason: Hypoglycemia Sodium Chloride (Normal Saline) 250 mls @ 100 mls/hr IV ASDIRECTED [facility] Last Admin: 10/27/20 16:25 Dose: 100 mls/hr Documented by: MANJU Insulin Glargine (Insulin Glargine,Human Rec. Analog 100 Units/Ml 3 Ml Pen) 20 units SUBCUT 2100 [facility] Last Admin: 10/28/20 20:53 Dose: 20 units Documented by: KOFI Cosigned by: JOSSELYN Loperamide HCl (Loperamide 2 Mg Cap) 2 mg PO BID PRN PRN Reason: Diarrhea Loratadine (Loratadine 10 Mg Tab) 10 mg PO DAILY PRN PRN Reason: Rash Metformin HCl (Metformin 500 Mg Tab.Er) 500 mg PO BIDMEALS [facility] Last Admin: 10/28/20 17:51 Dose: 500 mg Documented by: Admin: 10/28/20 09:31 Dose: 500 mg Documented by: ORESTES Ondansetron HCl (Ondansetron 4 Mg/2 Ml Sdv) 4 mg IV Q4H PRN PRN Reason: Nausea/Vomiting Polyethylene Glycol (Polyethylene Glycol 3350 Powder 238 Gm Bot) 238 gm PO ONE TIME ONE Stop: 10/29/20 07:54 Quetiapine Fumarate (Quetiapine 25 Mg Tab) 25 mg PO BEDTIME [facility] Last Admin: 10/28/20 20:45 Dose: 25 mg Documented by: Admin: 10/27/20 20:12 Dose: 25 mg Documented by: KOFI Quetiapine Fumarate (Quetiapine 50 Mg Tab) 50 mg PO 1600 [facility] Last Admin: 10/28/20 16:29 Dose: 50 mg Documented by: Admin: 10/27/20 17:32 Dose: 50 mg Documented by: MANJU Risperidone (Risperidone 1 Mg Tab) 1 mg PO 14 [facility] Last Admin: 10/28/20 14:29 Dose: 1 mg Documented by: Admin: 10/27/20 14:22 Dose: 1 mg Documented by: MANJU Rivastigmine (Rivastigmine 3 Mg Cap) 6 mg PO BID [facility] Last Admin: 10/28/20 20:39 Dose: 6 mg Documented by: Admin: 10/28/20 08:18 Dose: 6 mg Documented by: Admin: 10/27/20 20:07 Dose: 6 mg Documented by: Admin: 10/27/20 11:40 Dose: 6 mg Documented by: MANJU Senna/Docusate Sodium (Docusate Sodium/Sennosides 50-8.6 Mg Tab) 1 tab PO BID PRN PRN Reason: Constipation Sodium Chloride (Sodium Chloride 0.9% 10 Ml Syringe) 10 ml FLUSH ASDIRECTED PRN PRN Reason: Keep Vein Open Last Admin: 10/28/20 16:34 Dose: 10 ml Documented by: ORESTES Timolol Maleate (Timolol Maleate 0.5% Oph Sol 5 Ml Bottle) 0 ml EYELF BID [facility] Last Admin: 10/28/20 20:40 Dose: 1 drop Documented by: Admin: 10/28/20 08:22 Dose: 1 drop Documented by: Admin: 10/27/20 20:09 Dose: 1 drop Documented by: Admin: 10/27/20 11:41 Dose: 1 drop Documented by: [id number] Zolpidem Tartrate (Zolpidem 5 Mg Tab) 5 mg PO BEDTIME PRN PRN Reason: Sleep - Assessment Assessment (Free Text/Narrative):: Pt after discussing the situation with son would like to proceed with egd/colonoscope. She is currently on a clear liquid diet. Miralax prep later today.
[2020-10-29] MEDS: Carboxymethylcellulose Sodium 0.5% Ophth Soln 15 ML Bottle EYEBOTH SCH ×2 (08:14→20:56)
[2020-10-29] MEDS: Timolol Maleate 0.5% Ophth Soln 5 ML Bottle EYELF SCH ×2 (08:14→20:56)
[2020-10-29] MEDS: Cyanocobalamin (Vitamin B12) 1,000 MCG Tab PO SCH (08:15)
[2020-10-29] MEDS: RIVASTIGMINE 3 MG PO SCH ×2 (08:18→20:55)
[2020-10-29] MEDS: metFORMIN 500 MG Tab.ER PO SCH ×2 (08:19→17:59)
[2020-10-29] MEDS: Doxycycline 100 MG Tab PO SCH ×2 (08:20→20:55)
[2020-10-29] MEDS: Betamethasone Dipropionate/Clotrimazole 0.05-1% Crm 15 GM Tube TOP SCH ×2 (08:22→20:55)
[2020-10-29] MEDS: Gabapentin 300 MG Cap PO SCH ×2 (09:24→15:52)
--- NOTE | 2020-10-29 10:04 | PCM.PN ---
- General Info Date of Service: 10/29/20 Admission Dx/Problem (Free Text): She is a resident at [facility]. She had a history of approximately 1 week of increasing weakness, poor appetite, and her hemoglobin was found to be lower than normal. She was admitted to the hospital for further evaluation and treatment. Note that she does have a history of lymphoma. Her hemoglobin in July 2020 was 9.9. Subjective Update: Patient states that she feels well and did not identify any complaints Functional Status: Reports: Pain Controlled, Tolerating Diet. Denies: Ambulating - Review of Systems General: Reports: Weakness, Fatigue HEENT: Reports: Other (Chronic significantly reduced vision from the left eye) Pulmonary: Reports: No Symptoms Cardiovascular: Reports: No Symptoms Gastrointestinal: Reports: No Symptoms Genitourinary: Reports: No Symptoms Musculoskeletal: Reports: No Symptoms Skin: Reports: No Symptoms Neurological: Reports: Confusion Psychiatric: Reports: Confusion - Patient Data Vitals - Most Recent: Last Vital Signs Temp 37.2 C 10/29/20 05:30 Pulse 58 L 10/29/20 05:30 Resp 16 10/29/20 05:30 BP 133/63 10/29/20 05:30 Pulse Ox 93 L 10/29/20 05:30 Weight - Most Recent: 100.289 kg Lab Results Last 24 Hours: Laboratory Results - last 24 hr 10/28/20 10/28/20 10/28/20 Range/Units 12:54 16:53 20:52 POC Glucose 326 H 293 H 341 H (74-100) mg/dL 10/29/20 Range/Units 05:41 POC Glucose 237 H (74-100) mg/dL Madhu Results Last 24 Hours: Microbiology 10/28/20 12:35 Stool Occult Blood (MADHU) - Final Stool / Feces Med Orders - Current: Current Medications Acetaminophen (Acetaminophen 500 Mg Tab) 1,000 mg PO TID PRN PRN Reason: Pain Last Admin: 10/27/20 11:39 Dose: 1,000 mg Documented by: Artificial Tears (Carboxymethylcellulose Sodium 0.5% Ophth Soln 15 Ml Bottle) 0 ml EYEBOTH BID JEANA Last Admin: 10/29/20 08:14 Dose: 1 drop Documented by: Betamethasone/Clotrimazole (Betamethasone Dipropionate/Clotrimazole 0.05-1% Crm 15 Gm Tube) 0 gm TOP BID [facility] Last Admin: 10/29/20 08:22 Dose: 1 gm Documented by: Bupropion HCl (Bupropion 75 Mg Tab) 75 mg PO DAILY [facility] Last Admin: 10/29/20 08:17 Dose: 75 mg Documented by: Cholestyramine Resin (Cholestyramine/Sucrose Powder 4 Gm Packet) 4 gm PO 17 [facility] Last Admin: 10/28/20 16:29 Dose: 4 gm Documented by: Cyanocobalamin (Cyanocobalamin (Vitamin B12) 1,000 Mcg Tab) 1,000 mcg PO DAILY [facility] Last Admin: 10/29/20 08:15 Dose: 1,000 mcg Documented by: Dextrose/Water (50% Dextrose In Water 50 Ml Syringe) 50 ml IVPUSH ASDIRECTED PRN PRN Reason: Hypoglycemia Doxycycline Hyclate (Doxycycline 100 Mg Tab) 100 mg PO BID [facility] Last Admin: 10/29/20 08:20 Dose: 100 mg Documented by: Gabapentin (Gabapentin 300 Mg Cap) 300 mg PO 0900,1600 [facility] Last Admin: 10/29/20 09:24 Dose: 300 mg Documented by: Glucagon (Glucagon,Human Recombinant 1 Mg Vial) 1 mg IM ASDIRECTED PRN PRN Reason: Hypoglycemia Sodium Chloride (Normal Saline) 250 mls @ 100 mls/hr IV ASDIRECTED [facility] Last Admin: 10/27/20 16:25 Dose: 100 mls/hr Documented by: Insulin Glargine (Insulin Glargine,Human Rec. Analog 100 Units/Ml 3 Ml Pen) 20 units SUBCUT 2100 [facility] Last Admin: 10/28/20 20:53 Dose: 20 units Documented by: Loperamide HCl (Loperamide 2 Mg Cap) 2 mg PO BID PRN PRN Reason: Diarrhea Loratadine (Loratadine 10 Mg Tab) 10 mg PO DAILY PRN PRN Reason: Rash Metformin HCl (Metformin 500 Mg Tab.Er) 500 mg PO BIDMEALS [facility] Last Admin: 10/29/20 08:19 Dose: 500 mg Documented by: Ondansetron HCl (Ondansetron 4 Mg/2 Ml Sdv) 4 mg IV Q4H PRN PRN Reason: Nausea/Vomiting Polyethylene Glycol (Polyethylene Glycol 3350 Powder 238 Gm Bot) 238 gm PO ONETIME ONE Stop: 10/29/20 14:01 Quetiapine Fumarate (Quetiapine 25 Mg Tab) 25 mg PO BEDTIME [facility] Last Admin: 10/28/20 20:45 Dose: 25 mg Documented by: Quetiapine Fumarate (Quetiapine 50 Mg Tab) 50 mg PO 1600 [facility] Last Admin: 10/28/20 16:29 Dose: 50 mg Documented by: Risperidone (Risperidone 1 Mg Tab) 1 mg PO 14 [facility] Last Admin: 10/28/20 14:29 Dose: 1 mg Documented by: Rivastigmine (Rivastigmine 3 Mg Cap) 6 mg PO BID [facility] Last Admin: 10/29/20 08:18 Dose: 6 mg Documented by: Senna/Docusate Sodium (Docusate Sodium/Sennosides 50-8.6 Mg Tab) 1 tab PO BID PRN PRN Reason: Constipation Sodium Chloride (Sodium Chloride 0.9% 10 Ml Syringe) 10 ml FLUSH ASDIRECTED PRN PRN Reason: Keep Vein Open Last Admin: 10/28/20 16:34 Dose: 10 ml Documented by: Timolol Maleate (Timolol Maleate 0.5% [facility] Soln 5 Ml Bottle) 0 ml EYELF BID [facility] Last Admin: 10/29/20 08:14 Dose: 1 drop Documented by: Zolpidem Tartrate (Zolpidem 5 Mg Tab) 5 mg PO BEDTIME PRN PRN Reason: Sleep Discontinued Medications Acetaminophen (Acetaminophen 325 Mg Tab) 650 mg PO Q6H PRN PRN Reason: Fever Aspirin (Aspirin 81 Mg Tab.Chew) 324 mg PO NOW STA Stop: 10/26/20 17:29 Last Admin: 10/26/20 19:27 Dose: Not Given Documented by: Ceftriaxone Sodium (Ceftriaxone 1 Gm Vial) 1 gm IVPUSH NOW STA Stop: 10/26/20 19:01 Last Admin: 10/26/20 19:18 Dose: 1 gm Documented by: Cyclobenzaprine HCl (Cyclobenzaprine 10 Mg Tab) 10 mg PO NOW STA Stop: 10/26/20 20:03 Last Admin: 10/26/20 22:51 Dose: Not Given Documented by: Sodium Chloride (Normal Saline) 1,000 mls @ 999 mls/hr IV ASDIRECTED [facility] Sodium Chloride (Normal Saline) 1,000 mls @ 125 mls/hr IV ASDIRECTED [facility] Last Admin: 10/27/20 11:39 Dose: 125 mls/hr Documented by: Nitroglycerin (Nitroglycerin 0.4 Mg Tab.Sl) 0.4 mg SL Q5M PRN PRN Reason: Chest Pain Oxycodone/Acetaminophen (Acetaminophen/Oxycodone 325-5 Mg Tab) 2 tab PO NOW STA Stop: 10/26/20 20:03 Last Admin: 10/26/20 22:51 Dose: Not Given Documented by: Comments:: She was sitting in a wheelchair next to the bed when I walked into the room. She is alert and oriented to person and place but not to time. - Exam Quality Assessment: DVT Prophylaxis General: Alert, Oriented, Cooperative, No Acute Distress HEENT: EOMI, Other (Left pupil is larger than the right) Lungs: Clear to Auscultation Cardiovascular: Other (Heart sounds are distant and difficult to auscultate) GI/Abdominal Exam: Normal Bowel Sounds, Non-Tender Extremities: Pedal Edema, Other (Patient is wearing compression stockings bilaterally) Peripheral Pulses: 2+: Radial (L), Radial (R) Skin: Warm, Dry Psy/Mental Status: Alert - Patient Data Lab Results Last 24 hrs: Laboratory Results - last 24 hr 10/28/20 10/28/20 10/28/20 Range/Units 12:54 16:53 20:52 POC Glucose 326 H 293 H 341 H (74-100) mg/dL 10/29/20 Range/Units 05:41 POC Glucose 237 H (74-100) mg/dL Result Diagrams: 10/28/20 06:35 10/27/20 06:35 Madhu Results Last 24 hrs: Microbiology 10/28/20 12:35 Stool Occult Blood (MADHU) - Final Stool / Feces Sepsis Event Note - Evaluation Sepsis Screening Result: No Definite Risk - Focused Exam Vital Signs: Vital Signs Temp Pulse Resp BP BP Pulse Ox 10/29/20 05:30 37.2 C 58 L 16 133/63 93 L 10/29/20 02:00 36.5 C 50 L 16 141/60 H 94 L 10/29/20 00:00 16 - Problem List & Annotations (1) HAO (acute kidney injury) SNOMED Code(s): 47729766, 87774969 Code(s): N17.9 - ACUTE KIDNEY FAILURE, UNSPECIFIED Status: Acute Current Visit: Yes (2) Acute sinusitis SNOMED Code(s): 23843788 Code(s): J01.90 - ACUTE SINUSITIS, UNSPECIFIED Status: Acute Current Visit: Yes (3) Anemia SNOMED Code(s): 685592853 Code(s): D64.9 - ANEMIA, UNSPECIFIED Status: Acute Current Visit: Yes Qualifiers: Anemia type: iron deficiency (4) Palliative care status SNOMED Code(s): 865867257 Code(s): Z51.5 - ENCOUNTER FOR PALLIATIVE CARE Status: Acute Current Visit: Yes (5) Weakness SNOMED Code(s): 52676737 Code(s): R53.1 - WEAKNESS Status: Chronic Current Visit: Yes (6) Cognitive dysfunction SNOMED Code(s): 822932241 Code(s): F09 - UNSP MENTAL DISORDER DUE TO KNOWN PHYSIOLOGICAL CONDITION Status: Chronic Current Visit: No (7) DM2 (diabetes mellitus, type 2) SNOMED Code(s): 14403961 Code(s): E11.9 - TYPE 2 DIABETES MELLITUS WITHOUT COMPLICATIONS Status: Chronic Current Visit: No Qualifiers: Diabetes mellitus correction insulin use: with moth exterminator use Diabetes mellitus complication status: without complication Qualified Code(s): E11.9 - Type 2 diabetes mellitus without complications; Z79.4 - care home (current) use of insulin; Z79.4 - adjunct faculty for medical terminology (current) use of insulin; Z79.4 - care home (current) use of insulin; Z79.4 - adjunct faculty for medical terminology (current) use of insulin (8) HLD (hyperlipidemia) SNOMED Code(s): 18364118 Code(s): E78.5 - HYPERLIPIDEMIA, UNSPECIFIED Status: Chronic Current Visit: No (9) HTN (hypertension) SNOMED Code(s): 40371170 Code(s): I10 - ESSENTIAL (PRIMARY) HYPERTENSION Status: Chronic Current Visit: No Qualifiers: Hypertension type: essential hypertension Qualified Code(s): I10 - Essential (primary) hypertension (10) Parkinson disease SNOMED Code(s): 40797117 Code(s): G20 - PARKINSON'S DISEASE Status: Chronic Current Visit: No (11) Obesity (BMI 30-39.9) SNOMED Code(s): 871529205, 704831857 Code(s): E66.9 - OBESITY, UNSPECIFIED Status: Chronic Current Visit: Yes - Problem List Review Problem List Initiated/Reviewed/Updated: Yes - Assessment Assessment:: 1. Consult surgery to see if she is a candidate for scoping to look for causes of anemia. 2. Start antibiotic most likely doxycycline by mouth for sinusitis. 3. Continue to watch for leg swelling and edema. I'm holding her diuretic at this time. 4. Continue PT/OT. And see how she's doing and when she can go home brother's perspective. - Plan Plan:: Continue treatment for sinusitis as above. See surgical consult, patient will have colonoscopy and EGD tomorrow, 10/30/2020. Review of iron studies shows likely acute bleed with chronic anemia of chronic disease, further recommendations based on EGD/colonoscopy results. Patient's glucose has been running high but she received her Lantus for the first time last night and glucose has improved, further recommendations based on efficacy, continue diabetic diet and glucose checks. Continue DVT and GI prophylaxis. Patient may ambulate with assistance, continue PT/OT.
[2020-10-29] MEDS ORDERED: Polyethylene Glycol 3350 Powder 238 GM Bot PO ONE (14:00)
[2020-10-29] MEDS: risperiDONE 1 MG Tab PO SCH (15:00)
[2020-10-29] MEDS: Cholestyramine/Sucrose Powder 4 GM Packet PO SCH (16:20)
[2020-10-29] MEDS: QUEtiapine 25 MG Tab PO SCH (20:55)
[2020-10-29] MEDS ORDERED: Insulin Regular, Human 100 Units/ML 3 ML Vial SUBCUT ONE (20:59)
[2020-10-29] MEDS ORDERED: Insulin Glargine,Human Rec. Analog 100 Units/ML 3 ML Pen SUBCUT ONE (20:59)
[2020-10-29] MEDS: Insulin Glargine,Human Rec. Analog 100 Units/ML 3 ML Pen SUBCUT SCH (21:02)
[2020-10-30] MEDS: Sodium Chloride 0.9% 10 ML Syringe FLUSH PRN (02:00)
[2020-10-30] MEDS: Carboxymethylcellulose Sodium 0.5% Ophth Soln 15 ML Bottle EYEBOTH SCH ×2 (08:14→20:32)
[2020-10-30] MEDS: Timolol Maleate 0.5% Ophth Soln 5 ML Bottle EYELF SCH ×2 (08:14→20:32)
[2020-10-30] MEDS ORDERED: Lactated Ringers 1,000 ML IV SCH (08:30)
[2020-10-30] MEDS ORDERED: Lidocaine 2% Viscous Solution 100 ML Bottle PO ONE (08:36)
[2020-10-30] MEDS ORDERED: Lidocaine 2% Viscous Solution 15 ML Cup PO ONE (08:45)
--- NOTE | 2020-10-30 09:55 | PCM.OPNOTE ---
- General Post-Op/Procedure Note Date of Surgery/Procedure: 10/30/20 Operative Procedure(s): egd with biopsy. c scope. Findings: patchy area of gastritis in the area of the fundus. normal colonoscopy Pre Op Diagnosis: iron def anemia Post-Op Diagnosis: gastritis. normal colonoscopy Anesthesia Technique: [facility] [place] Primary Surgeon: Zuhair Aguilera Anesthesia Provider: Sabrina De Souza Pathology: gastric Complications: None Condition: Stable Free Text/Narrative:: see dictation [id number]
[2020-10-30] MEDS: Betamethasone Dipropionate/Clotrimazole 0.05-1% Crm 15 GM Tube TOP SCH ×2 (11:09→20:32)
--- NOTE | 2020-10-30 11:09 | PCM.PN ---
- General Info Date of Service: 10/30/20 Admission Dx/Problem (Free Text): She is a resident at [facility]. She had a history of approximately 1 week of increasing weakness, poor appetite, and her hemoglobin was found to be lower than normal. She was admitted to the hospital for further evaluation and treatment. Note that she does have a history of lymphoma. Her hemoglobin in July 2020 was 9.9. Subjective Update: Patient states that she feels well today, she has no specific complaints Functional Status: Reports: Pain Controlled, Tolerating Diet, Ambulating, Urinating - Review of Systems General: Reports: Weakness, Fatigue HEENT: Reports: No Symptoms Pulmonary: Reports: No Symptoms Cardiovascular: Reports: No Symptoms Gastrointestinal: Reports: No Symptoms Genitourinary: Reports: No Symptoms Musculoskeletal: Reports: No Symptoms Skin: Reports: No Symptoms Neurological: Reports: No Symptoms Psychiatric: Reports: No Symptoms - Patient Data Vitals - Most Recent: Last Vital Signs Temp 36.6 C 10/30/20 10:15 Pulse 59 L 10/30/20 10:30 Resp 18 10/30/20 10:30 BP 106/54 L 10/30/20 10:30 Pulse Ox 92 L 10/30/20 10:30 Weight - Most Recent: 100.301 kg Lab Results Last 24 Hours: Laboratory Results - last 24 hr 10/29/20 10/29/20 10/29/20 Range/Units 11:31 17:03 20:25 WBC (3.0-10.3) x10-3/uL RBC (3.60-5.20) x10(6)uL Hgb (11.4-15.5) g/dL Hct (34.2-48.2) % MCV (76.7-100.5) fL MCH (23.9-33.9) pg MCHC (31.9-34.8) g/dL RDW (12.3-16.5) % Plt Count (151-488) x10(3)uL MPV (7.1-12.4) fL Neut % (Auto) (30.8-76.2) % Lymph % (Auto) (18.4-52.1) % Cassia % (Auto) (4.4-15.7) % Eos % (Auto) (0.6-8.1) % Baso % (Auto) (0.2-1.5) % Neut # (Auto) (1.5-6.3) x10-3/uL Lymph # (Auto) (1.0-4.4) x10-3/uL Cassia # (Auto) (0.3-1.0) x10-3/uL Eos # (Auto) (0.0-0.8) x10-3/uL Baso # (Auto) (0.0-0.1) x10-3/uL Sodium (135-145) mmol/L Potassium (3.5-5.3) mmol/L Chloride (100-110) mmol/L Carbon Dioxide (21-32) mmol/L BUN (7-18) mg/dL Creatinine (0.55-1.02) mg/dL Est Cr Clr Drug Dosing mL/min Estimated GFR (MDRD) (>60) BUN/Creatinine Ratio (9-20) Glucose (80-116) mg/dL POC Glucose 238 H 314 H 458 H* (74-100) mg/dL Calcium (8.6-10.2) mg/dL 10/29/20 10/29/20 10/30/20 Range/Units 20:50 22:44 05:35 WBC (3.0-10.3) x10-3/uL RBC (3.60-5.20) x10(6)uL Hgb (11.4-15.5) g/dL Hct (34.2-48.2) % MCV (76.7-100.5) fL MCH (23.9-33.9) pg MCHC (31.9-34.8) g/dL RDW (12.3-16.5) % Plt Count (151-488) x10(3)uL MPV (7.1-12.4) fL Neut % (Auto) (30.8-76.2) % Lymph % (Auto) (18.4-52.1) % Cassia % (Auto) (4.4-15.7) % Eos % (Auto) (0.6-8.1) % Baso % (Auto) (0.2-1.5) % Neut # (Auto) (1.5-6.3) x10-3/uL Lymph # (Auto) (1.0-4.4) x10-3/uL Cassia # (Auto) (0.3-1.0) x10-3/uL Eos # (Auto) (0.0-0.8) x10-3/uL Baso # (Auto) (0.0-0.1) x10-3/uL Sodium (135-145) mmol/L Potassium (3.5-5.3) mmol/L Chloride (100-110) mmol/L Carbon Dioxide (21-32) mmol/L BUN (7-18) mg/dL Creatinine (0.55-1.02) mg/dL Est Cr Clr Drug Dosing mL/min Estimated GFR (MDRD) (>60) BUN/Creatinine Ratio (9-20) Glucose 390 H D (80-116) mg/dL POC Glucose 367 H 105 H (74-100) mg/dL Calcium (8.6-10.2) mg/dL 10/30/20 10/30/20 Range/Units 08:50 08:50 WBC 6.4 (3.0-10.3) x10-3/uL RBC 3.50 L (3.60-5.20) x10(6)uL Hgb 10.0 L (11.4-15.5) g/dL Hct 30.7 L (34.2-48.2) % MCV 87.7 (76.7-100.5) fL MCH 28.7 (23.9-33.9) pg MCHC 32.7 (31.9-34.8) g/dL RDW 17.0 H (12.3-16.5) % Plt Count 87 L (151-488) x10(3)uL MPV 9.5 (7.1-12.4) fL Neut % (Auto) 69.5 (30.8-76.2) % Lymph % (Auto) 10.0 L (18.4-52.1) % Cassia % (Auto) 15.5 (4.4-15.7) % Eos % (Auto) 4.1 (0.6-8.1) % Baso % (Auto) 0.9 (0.2-1.5) % Neut # (Auto) 4.4 (1.5-6.3) x10-3/uL Lymph # (Auto) 0.6 L (1.0-4.4) x10-3/uL Cassia # (Auto) 1.0 (0.3-1.0) x10-3/uL Eos # (Auto) 0.3 (0.0-0.8) x10-3/uL Baso # (Auto) 0.1 (0.0-0.1) x10-3/uL Sodium 141 (135-145) mmol/L Potassium 3.8 (3.5-5.3) mmol/L Chloride 102 (100-110) mmol/L Carbon Dioxide 28 (21-32) mmol/L BUN 12 D (7-18) mg/dL Creatinine 1.0 (0.55-1.02) mg/dL Est Cr Clr Drug Dosing 40.68 mL/min Estimated GFR (MDRD) 54 L (>60) BUN/Creatinine Ratio 12.0 (9-20) Glucose 140 H D (80-116) mg/dL POC Glucose (74-100) mg/dL Calcium 8.4 L (8.6-10.2) mg/dL Med Orders - Current: Current Medications Acetaminophen (Acetaminophen 500 Mg Tab) 1,000 mg PO TID PRN PRN Reason: Pain Last Admin: 10/27/20 11:39 Dose: 1,000 mg Documented by: Artificial Tears (Carboxymethylcellulose Sodium 0.5% Ophth Soln 15 Ml Bottle) 0 ml EYEBOTH BID [facility] Last Admin: 10/30/20 08:14 Dose: 1 drop Documented by: Betamethasone/Clotrimazole (Betamethasone Dipropionate/Clotrimazole 0.05-1% Crm 15 Gm Tube) 0 gm TOP BID [facility] Last Admin: 10/29/20 20:55 Dose: 1 applic Documented by: Bupropion HCl (Bupropion 75 Mg Tab) 75 mg PO DAILY [facility] Last Admin: 10/29/20 08:17 Dose: 75 mg Documented by: Cholestyramine Resin (Cholestyramine/Sucrose Powder 4 Gm Packet) 4 gm PO 17 [facility] Last Admin: 10/29/20 16:20 Dose: 4 gm Documented by: Cyanocobalamin (Cyanocobalamin (Vitamin B12) 1,000 Mcg Tab) 1,000 mcg PO DAILY [facility] Last Admin: 10/29/20 08:15 Dose: 1,000 mcg Documented by: Dextrose/Water (50% Dextrose In Water 50 Ml Syringe) 50 ml IVPUSH ASDIRECTED PRN PRN Reason: Hypoglycemia Doxycycline Hyclate (Doxycycline 100 Mg Tab) 100 mg PO BID [facility] Last Admin: 10/29/20 20:55 Dose: 100 mg Documented by: Gabapentin (Gabapentin 300 Mg Cap) 300 mg PO 0900,1600 [facility] Last Admin: 10/29/20 15:52 Dose: 300 mg Documented by: Glucagon (Glucagon,Human Recombinant 1 Mg Vial) 1 mg IM ASDIRECTED PRN PRN Reason: Hypoglycemia Sodium Chloride (Normal Saline) 250 mls @ 100 mls/hr IV ASDIRECTED [facility] Last Admin: 10/27/20 16:25 Dose: 100 mls/hr Documented by: Lactated Ringer's (Ringers, Lactated) 1,000 mls @ 125 mls/hr IV ASDIRECTED [facility] Last Admin: 10/30/20 08:46 Dose: 125 mls/hr Documented by: Insulin Glargine (Insulin Glargine,Human Rec. Analog 100 Units/Ml 3 Ml Pen) 20 units SUBCUT 2100 [facility] Last Admin: 10/29/20 21:02 Dose: Not Given Documented by: Loperamide HCl (Loperamide 2 Mg Cap) 2 mg PO BID PRN PRN Reason: Diarrhea Loratadine (Loratadine 10 Mg Tab) 10 mg PO DAILY PRN PRN Reason: Rash Metformin HCl (Metformin 500 Mg Tab.Er) 500 mg PO BIDMEALS [facility] Last Admin: 10/29/20 17:59 Dose: 500 mg Documented by: Ondansetron HCl (Ondansetron 4 Mg/2 Ml Sdv) 4 mg IV Q4H PRN PRN Reason: Nausea/Vomiting Last Admin: 10/30/20 04:54 Dose: 4 mg Documented by: Pantoprazole Sodium (Pantoprazole 40 Mg Vial) 40 mg IVPUSH Q24H [facility] Quetiapine Fumarate (Quetiapine 25 Mg Tab) 25 mg PO BEDTIME [facility] Last Admin: 10/29/20 20:55 Dose: 25 mg Documented by: Quetiapine Fumarate (Quetiapine 50 Mg Tab) 50 mg PO 1600 [facility] Last Admin: 10/29/20 15:48 Dose: 50 mg Documented by: Risperidone (Risperidone 1 Mg Tab) 1 mg PO 14 [facility] Last Admin: 10/29/20 15:00 Dose: 1 mg Documented by: Rivastigmine (Rivastigmine 3 Mg Cap) 6 mg PO BID [facility] Last Admin: 10/29/20 20:55 Dose: 6 mg Documented by: Senna/Docusate Sodium (Docusate Sodium/Sennosides 50-8.6 Mg Tab) 1 tab PO BID PRN PRN Reason: Constipation Sodium Chloride (Sodium Chloride 0.9% 10 Ml Syringe) 10 ml FLUSH ASDIRECTED PRN PRN Reason: Keep Vein Open Last Admin: 10/30/20 02:00 Dose: 10 ml Documented by: Sucralfate (Sucralfate 1 Gm Tab) 1 gm PO QIDACANDBED [facility] Timolol Maleate (Timolol Maleate 0.5% Ophth Soln 5 Ml Bottle) 0 ml EYELF BID [facility] Last Admin: 10/30/20 08:14 Dose: 1 drop Documented by: Zolpidem Tartrate (Zolpidem 5 Mg Tab) 5 mg PO BEDTIME PRN PRN Reason: Sleep Discontinued Medications Acetaminophen (Acetaminophen 325 Mg Tab) 650 mg PO Q6H PRN PRN Reason: Fever Aspirin (Aspirin 81 Mg Tab.Chew) 324 mg PO NOW STA Stop: 10/26/20 17:29 Last Admin: 10/26/20 19:27 Dose: Not Given Documented by: Ceftriaxone Sodium (Ceftriaxone 1 Gm Vial) 1 gm IVPUSH NOW STA Stop: 10/26/20 19:01 Last Admin: 10/26/20 19:18 Dose: 1 gm Documented by: Cyclobenzaprine HCl (Cyclobenzaprine 10 Mg Tab) 10 mg PO NOW STA Stop: 10/26/20 20:03 Last Admin: 10/26/20 22:51 Dose: Not Given Documented by: Sodium Chloride (Normal Saline) 1,000 mls @ 999 mls/hr IV ASDIRECTED [facility] Sodium Chloride (Normal Saline) 1,000 mls @ 125 mls/hr IV ASDIRECTED [facility] Last Admin: 10/27/20 11:39 Dose: 125 mls/hr Documented by: Insulin Glargine (Insulin Glargine,Human Rec. Analog 100 Units/Ml 3 Ml Pen) 30 units SUBCUT ONETIME ONE Stop: 10/29/20 21:00 Last Admin: 10/29/20 21:30 Dose: 30 units Documented by: Insulin Human Regular (Insulin Regular, Human 100 Units/Ml 3 Ml Vial) 8 unit SUBCUT ONETIME ONE Stop: 10/29/20 21:00 Last Admin: 10/29/20 21:32 Dose: 8 units Documented by: Lidocaine HCl (Lidocaine 2% Viscous Solution 15 Ml Cup) 15 ml PO ONETIME ONE Stop: 10/30/20 08:46 Last Admin: 10/30/20 08:56 Dose: 15 ml Documented by: Nitroglycerin (Nitroglycerin 0.4 Mg Tab.Sl) 0.4 mg SL Q5M PRN PRN Reason: Chest Pain Oxycodone/Acetaminophen (Acetaminophen/Oxycodone 325-5 Mg Tab) 2 tab PO NOW STA Stop: 10/26/20 20:03 Last Admin: 10/26/20 22:51 Dose: Not Given Documented by: Polyethylene Glycol (Polyethylene Glycol 3350 Powder 238 Gm Bot) 238 gm PO ONETIME ONE Stop: 10/29/20 14:01 Last Admin: 10/29/20 14:00 Dose: 1 bottle Documented by: Comments:: When I walked into the room to examine the patient she was using the restroom. She then walked on her own to a gurney where she was waiting to be taken for EGD/colonoscopy. - Exam Quality Assessment: Supplemental Oxygen General: Alert, Oriented, Other Lungs: Crackles Cardiovascular: Regular Rate, Regular Rhythm, Murmurs GI/Abdominal Exam: Normal Bowel Sounds, Soft, Non-Tender Back Exam: No: CVA Tenderness (R), CVA Tenderness (L) Extremities: Pedal Edema Peripheral Pulses: 2+: Radial (L), Radial (R), Dorsalis Pedis (L), Dorsalis Pedis (R) Skin: Warm, Dry, Intact Neurological: No: Normal Gait Psy/Mental Status: Depressed, Other (Baseline) - Patient Data Lab Results Last 24 hrs: Laboratory Results - last 24 hr 10/29/20 10/29/20 10/29/20 Range/Units 11:31 17:03 20:25 WBC (3.0-10.3) x10-3/uL RBC (3.60-5.20) x10(6)uL Hgb (11.4-15.5) g/dL Hct (34.2-48.2) % MCV (76.7-100.5) fL MCH (23.9-33.9) pg MCHC (31.9-34.8) g/dL RDW (12.3-16.5) % Plt Count (151-488) x10(3)uL MPV (7.1-12.4) fL Neut % (Auto) (30.8-76.2) % Lymph % (Auto) (18.4-52.1) % Cassia % (Auto) (4.4-15.7) % Eos % (Auto) (0.6-8.1) % Baso % (Auto) (0.2-1.5) % Neut # (Auto) (1.5-6.3) x10-3/uL Lymph # (Auto) (1.0-4.4) x10-3/uL Cassia # (Auto) (0.3-1.0) x10-3/uL Eos # (Auto) (0.0-0.8) x10-3/uL Baso # (Auto) (0.0-0.1) x10-3/uL Sodium (135-145) mmol/L Potassium (3.5-5.3) mmol/L Chloride (100-110) mmol/L Carbon Dioxide (21-32) mmol/L BUN (7-18) mg/dL Creatinine (0.55-1.02) mg/dL Est Cr Clr Drug Dosing mL/min Estimated GFR (MDRD) (>60) BUN/Creatinine Ratio (9-20) Glucose (80-116) mg/dL POC Glucose 238 H 314 H 458 H* (74-100) mg/dL Calcium (8.6-10.2) mg/dL 10/29/20 10/29/20 10/30/20 Range/Units 20:50 22:44 05:35 WBC (3.0-10.3) x10-3/uL RBC (3.60-5.20) x10(6)uL Hgb (11.4-15.5) g/dL Hct (34.2-48.2) % MCV (76.7-100.5) fL MCH (23.9-33.9) pg MCHC (31.9-34.8) g/dL RDW (12.3-16.5) % Plt Count (151-488) x10(3)uL MPV (7.1-12.4) fL Neut % (Auto) (30.8-76.2) % Lymph % (Auto) (18.4-52.1) % Cassia % (Auto) (4.4-15.7) % Eos % (Auto) (0.6-8.1) % Baso % (Auto) (0.2-1.5) % Neut # (Auto) (1.5-6.3) x10-3/uL Lymph # (Auto) (1.0-4.4) x10-3/uL Cassia # (Auto) (0.3-1.0) x10-3/uL Eos # (Auto) (0.0-0.8) x10-3/uL Baso # (Auto) (0.0-0.1) x10-3/uL Sodium (135-145) mmol/L Potassium (3.5-5.3) mmol/L Chloride (100-110) mmol/L Carbon Dioxide (21-32) mmol/L BUN (7-18) mg/dL Creatinine (0.55-1.02) mg/dL Est Cr Clr Drug Dosing mL/min Estimated GFR (MDRD) (>60) BUN/Creatinine Ratio (9-20) Glucose 390 H D (80-116) mg/dL POC Glucose 367 H 105 H (74-100) mg/dL Calcium (8.6-10.2) mg/dL 10/30/20 10/30/20 Range/Units 08:50 08:50 WBC 6.4 (3.0-10.3) x10-3/uL RBC 3.50 L (3.60-5.20) x10(6)uL Hgb 10.0 L (11.4-15.5) g/dL Hct 30.7 L (34.2-48.2) % MCV 87.7 (76.7-100.5) fL MCH 28.7 (23.9-33.9) pg MCHC 32.7 (31.9-34.8) g/dL RDW 17.0 H (12.3-16.5) % Plt Count 87 L (151-488) x10(3)uL MPV 9.5 (7.1-12.4) fL Neut % (Auto) 69.5 (30.8-76.2) % Lymph % (Auto) 10.0 L (18.4-52.1) % Cassia % (Auto) 15.5 (4.4-15.7) % Eos % (Auto) 4.1 (0.6-8.1) % Baso % (Auto) 0.9 (0.2-1.5) % Neut # (Auto) 4.4 (1.5-6.3) x10-3/uL Lymph # (Auto) 0.6 L (1.0-4.4) x10-3/uL Cassia # (Auto) 1.0 (0.3-1.0) x10-3/uL Eos # (Auto) 0.3 (0.0-0.8) x10-3/uL Baso # (Auto) 0.1 (0.0-0.1) x10-3/uL Sodium 141 (135-145) mmol/L Potassium 3.8 (3.5-5.3) mmol/L Chloride 102 (100-110) mmol/L Carbon Dioxide 28 (21-32) mmol/L BUN 12 D (7-18) mg/dL Creatinine 1.0 (0.55-1.02) mg/dL Est Cr Clr Drug Dosing 40.68 mL/min Estimated GFR (MDRD) 54 L (>60) BUN/Creatinine Ratio 12.0 (9-20) Glucose 140 H D (80-116) mg/dL POC Glucose (74-100) mg/dL Calcium 8.4 L (8.6-10.2) mg/dL Result Diagrams: 10/30/20 08:50 10/30/20 08:50 Sepsis Event Note - Evaluation Sepsis Screening Result: No Definite Risk - Focused Exam Vital Signs: Vital Signs Temp Pulse Resp BP BP BP Pulse Ox 10/30/20 10:30 59 L 18 106/54 L 92 L 10/30/20 10:15 36.6 C 61 18 108/54 L 93 L 10/30/20 10:00 62 20 111/55 L 93 L 10/30/20 09:50 36.4 C 109 H 20 109/55 L 93 L 10/30/20 08:00 36.6 C 76 16 133/62 93 L 10/30/20 04:00 36.1 C 77 18 132/75 95 10/30/20 01:30 37.1 C 84 18 140/90 93 L - Problem List & Annotations (1) HAO (acute kidney injury) SNOMED Code(s): 35315315, 11393180 Code(s): N17.9 - ACUTE KIDNEY FAILURE, UNSPECIFIED Status: Acute Current Visit: Yes (2) Acute sinusitis SNOMED Code(s): 04438599 Code(s): J01.90 - ACUTE SINUSITIS, UNSPECIFIED Status: Acute Current Visit: Yes (3) Anemia SNOMED Code(s): 170547760 Code(s): D64.9 - ANEMIA, UNSPECIFIED Status: Acute Current Visit: Yes Qualifiers: Anemia type: iron deficiency (4) Palliative care status SNOMED Code(s): 843524058 Code(s): Z51.5 - ENCOUNTER FOR PALLIATIVE CARE Status: Acute Current Visit: Yes (5) Weakness SNOMED Code(s): 43244601 Code(s): R53.1 - WEAKNESS Status: Chronic Current Visit: Yes (6) Cognitive dysfunction SNOMED Code(s): 987572948 Code(s): F09 - UNSP MENTAL DISORDER DUE TO KNOWN PHYSIOLOGICAL CONDITION Status: Chronic Current Visit: No (7) DM2 (diabetes mellitus, type 2) SNOMED Code(s): 44788293 Code(s): E11.9 - TYPE 2 DIABETES MELLITUS WITHOUT COMPLICATIONS Status: Chronic Current Visit: No Qualifiers: Diabetes mellitus chcf insulin use: with chcf use Diabetes mellitus complication status: without complication Qualified Code(s): E11.9 - Type 2 diabetes mellitus without complications; Z79.4 - longterm (current) use of insulin; 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.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; Z79.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; Z79.4 - longterm (current) use of insulin (8) HLD (hyperlipidemia) SNOMED Code(s): 44173127 Code(s): E78.5 - HYPERLIPIDEMIA, UNSPECIFIED Status: Chronic Current Visit: No (9) HTN (hypertension) SNOMED Code(s): 25140880 Code(s): I10 - ESSENTIAL (PRIMARY) HYPERTENSION Status: Chronic Current Visit: No Qualifiers: Hypertension type: essential hypertension Qualified Code(s): I10 - [place] l (primary) hypertension (10) Parkinson disease SNOMED Code(s): 53576388 Code(s): G20 - PARKINSON'S DISEASE Status: Chronic Current Visit: No (11) Obesity (BMI 30-39.9) SNOMED Code(s): 201195274, 120288132 Code(s): E66.9 - OBESITY, UNSPECIFIED Status: Chronic Current Visit: Yes (12) Gastritis determined by endoscopy SNOMED Code(s): 8354110, 213929521 Code(s): K29.70 - GASTRITIS, UNSPECIFIED, WITHOUT BLEEDING Status: Acute Current Visit: Yes - Problem List Review Problem List Initiated/Reviewed/Updated: Yes - My Orders Last 24 Hours: My Active Orders 10/30/20 11:02 HEPATIC FUNCTION PANEL,[facility] [CHEM] Routine - Plan Plan:: Continue treatment for sinusitis as above. See surgical consult note. Patient likely has GI bleed secondary to gastritis. Surgery started PPI, Carafate. Note that hemoglobin has improved. Review of iron studies shows likely acute bleed with chronic anemia of chronic disease, further recommendations based on EGD/colonoscopy results. Patient's glucose has significantly improved, continue insulin and continue diabetic diet and glucose checks. Continue DVT and GI prophylaxis. Patient may ambulate with assistance, continue PT/OT. Will likely return to [facility] on 11/01/2020 home health and possibly PT/OT. Note that platelets have been low for the last several months, hepatic function panel with further recommendations based on results
[2020-10-30] MEDS: Cyanocobalamin (Vitamin B12) 1,000 MCG Tab PO SCH (11:10)
[2020-10-30] MEDS: Doxycycline 100 MG Tab PO SCH ×2 (11:10→20:31)
[2020-10-30] MEDS: RIVASTIGMINE 3 MG PO SCH ×2 (11:11→20:31)
[2020-10-30] MEDS: Pantoprazole 40 MG Vial IVPUSH SCH (11:36)
[2020-10-30] MEDS: Sucralfate 1 GM Tab PO SCH ×3 (11:38→20:32)
[2020-10-30] MEDS: Gabapentin 300 MG Cap PO SCH ×2 (13:21→17:25)
[2020-10-30] MEDS: risperiDONE 1 MG Tab PO SCH (13:22)
[2020-10-30] MEDS: Cholestyramine/Sucrose Powder 4 GM Packet PO SCH (17:11)
[2020-10-30] MEDS: metFORMIN 500 MG Tab.ER PO SCH (17:30)
[2020-10-30] MEDS: Insulin Glargine,Human Rec. Analog 100 Units/ML 3 ML Pen SUBCUT SCH (20:33)
[2020-10-30] MEDS: QUEtiapine 25 MG Tab PO SCH (20:38)
[2020-10-31] MEDS: Sucralfate 1 GM Tab PO SCH ×4 (06:52→20:20)
[2020-10-31] MEDS: Timolol Maleate 0.5% Ophth Soln 5 ML Bottle EYELF SCH ×2 (08:18→20:20)
[2020-10-31] MEDS: Carboxymethylcellulose Sodium 0.5% Ophth Soln 15 ML Bottle EYEBOTH SCH ×2 (08:18→20:20)
[2020-10-31] MEDS: Betamethasone Dipropionate/Clotrimazole 0.05-1% Crm 15 GM Tube TOP SCH ×2 (08:18→20:20)
[2020-10-31] MEDS: Gabapentin 300 MG Cap PO SCH ×2 (08:19→16:46)
[2020-10-31] MEDS: RIVASTIGMINE 3 MG PO SCH ×2 (08:20→20:20)
[2020-10-31] MEDS: Doxycycline 100 MG Tab PO SCH ×2 (08:20→20:20)
[2020-10-31] MEDS: metFORMIN 500 MG Tab.ER PO SCH ×2 (08:21→17:57)
[2020-10-31] MEDS: Cyanocobalamin (Vitamin B12) 1,000 MCG Tab PO SCH (08:22)
--- NOTE | 2020-10-31 08:26 | PCM.PN ---
- General Info Date of Service: 10/31/20 Subjective Update: Doing well this morning Functional Status: Reports: Pain Controlled - Review of Systems General: Reports: No Symptoms HEENT: Reports: No Symptoms Pulmonary: Reports: No Symptoms Cardiovascular: Reports: No Symptoms Gastrointestinal: Reports: No Symptoms - Patient Data Vitals - Most Recent: Last Vital Signs Temp 97.1 F 10/31/20 06:00 Pulse 77 10/31/20 06:00 Resp 18 10/31/20 06:00 BP 126/76 10/31/20 06:00 Pulse Ox 93 L 10/31/20 06:00 Weight - Most Recent: 100.301 kg Lab Results Last 24 Hours: Laboratory Results - last 24 hr 10/30/20 10/30/20 10/30/20 Range/Units 08:50 08:50 08:50 WBC 6.4 (3.0-10.3) x10-3/uL RBC 3.50 L (3.60-5.20) x10(6)uL Hgb 10.0 L (11.4-15.5) g/dL Hct 30.7 L (34.2-48.2) % MCV 87.7 (76.7-100.5) fL MCH 28.7 (23.9-33.9) pg MCHC 32.7 (31.9-34.8) g/dL RDW 17.0 H (12.3-16.5) % Plt Count 87 L (151-488) x10(3)uL MPV 9.5 (7.1-12.4) fL Neut % (Auto) 69.5 (30.8-76.2) % Lymph % (Auto) 10.0 L (18.4-52.1) % Mills % (Auto) 15.5 (4.4-15.7) % Eos % (Auto) 4.1 (0.6-8.1) % Baso % (Auto) 0.9 (0.2-1.5) % Neut # (Auto) 4.4 (1.5-6.3) x10-3/uL Lymph # (Auto) 0.6 L (1.0-4.4) x10-3/uL Mills # (Auto) 1.0 (0.3-1.0) x10-3/uL Eos # (Auto) 0.3 (0.0-0.8) x10-3/uL Baso # (Auto) 0.1 (0.0-0.1) x10-3/uL Sodium 141 (135-145) mmol/L Potassium 3.8 (3.5-5.3) mmol/L Chloride 102 (100-110) mmol/L Carbon Dioxide 28 (21-32) mmol/L BUN 12 D (7-18) mg/dL Creatinine 1.0 (0.55-1.02) mg/dL Est Cr Clr Drug Dosing 40.68 mL/min Estimated GFR (MDRD) 54 L (>60) BUN/Creatinine Ratio 12.0 (9-20) Glucose 140 H D (80-116) mg/dL POC Glucose (74-100) mg/dL Calcium 8.4 L (8.6-10.2) mg/dL Total Bilirubin 0.7 (0.1-1.3) mg/dL Direct Bilirubin 0.17 (0.10-0.20) mg/dL AST 18 (5-25) IU/L ALT 13 (12-36) U/L Alkaline Phosphatase 96 (56-112) IU/L Total Protein 6.6 (6.0-8.0) g/dL Albumin 3.1 L (3.2-4.6) g/dL 10/30/20 10/30/20 10/30/20 Range/Units 13:32 17:00 20:27 WBC (3.0-10.3) x10-3/uL RBC (3.60-5.20) x10(6)uL Hgb (11.4-15.5) g/dL Hct (34.2-48.2) % MCV (76.7-100.5) fL MCH (23.9-33.9) pg MCHC (31.9-34.8) g/dL RDW (12.3-16.5) % Plt Count (151-488) x10(3)uL MPV (7.1-12.4) fL Neut % (Auto) (30.8-76.2) % Lymph % (Auto) (18.4-52.1) % Mills % (Auto) (4.4-15.7) % Eos % (Auto) (0.6-8.1) % Baso % (Auto) (0.2-1.5) % Neut # (Auto) (1.5-6.3) x10-3/uL Lymph # (Auto) (1.0-4.4) x10-3/uL Mills # (Auto) (0.3-1.0) x10-3/uL Eos # (Auto) (0.0-0.8) x10-3/uL Baso # (Auto) (0.0-0.1) x10-3/uL Sodium (135-145) mmol/L Potassium (3.5-5.3) mmol/L Chloride (100-110) mmol/L Carbon Dioxide (21-32) mmol/L BUN (7-18) mg/dL Creatinine (0.55-1.02) mg/dL Est Cr Clr Drug Dosing mL/min Estimated GFR (MDRD) (>60) BUN/Creatinine Ratio (9-20) Glucose (80-116) mg/dL POC Glucose 191 H 206 H 339 H (74-100) mg/dL Calcium (8.6-10.2) mg/dL Total Bilirubin (0.1-1.3) mg/dL Direct Bilirubin (0.10-0.20) mg/dL AST (5-25) IU/L ALT (12-36) U/L Alkaline Phosphatase (56-112) IU/L Total Protein (6.0-8.0) g/dL Albumin (3.2-4.6) g/dL 10/31/20 Range/Units 06:46 WBC (3.0-10.3) x10-3/uL RBC (3.60-5.20) x10(6)uL Hgb (11.4-15.5) g/dL Hct (34.2-48.2) % MCV (76.7-100.5) fL MCH (23.9-33.9) pg MCHC (31.9-34.8) g/dL RDW (12.3-16.5) % Plt Count (151-488) x10(3)uL MPV (7.1-12.4) fL Neut % (Auto) (30.8-76.2) % Lymph % (Auto) (18.4-52.1) % Mills % (Auto) (4.4-15.7) % Eos % (Auto) (0.6-8.1) % Baso % (Auto) (0.2-1.5) % Neut # (Auto) (1.5-6.3) x10-3/uL Lymph # (Auto) (1.0-4.4) x10-3/uL Mills # (Auto) (0.3-1.0) x10-3/uL Eos # (Auto) (0.0-0.8) x10-3/uL Baso # (Auto) (0.0-0.1) x10-3/uL Sodium (135-145) mmol/L Potassium (3.5-5.3) mmol/L Chloride (100-110) mmol/L Carbon Dioxide (21-32) mmol/L BUN (7-18) mg/dL Creatinine (0.55-1.02) mg/dL Est Cr Clr Drug Dosing mL/min Estimated GFR (MDRD) (>60) BUN/Creatinine Ratio (9-20) Glucose (80-116) mg/dL POC Glucose 261 H (74-100) mg/dL Calcium (8.6-10.2) mg/dL Total Bilirubin (0.1-1.3) mg/dL Direct Bilirubin (0.10-0.20) mg/dL AST (5-25) IU/L ALT (12-36) U/L Alkaline Phosphatase (56-112) IU/L Total Protein (6.0-8.0) g/dL Albumin (3.2-4.6) g/dL Med Orders - Current: Current Medications Acetaminophen (Acetaminophen 500 Mg Tab) 1,000 mg PO TID PRN PRN Reason: Pain Last Admin: 10/27/20 11:39 Dose: 1,000 mg Documented by: Artificial Tears (Carboxymethylcellulose Sodium 0.5% Ophth Soln 15 Ml Bottle) 0 ml EYEBOTH BID [facility] Last Admin: 10/30/20 20:32 Dose: 1 drop Documented by: Betamethasone/Clotrimazole (Betamethasone Dipropionate/Clotrimazole 0.05-1% Crm 15 Gm Tube) 0 gm TOP BID [facility] Last Admin: 10/30/20 20:32 Dose: 1 applic Documented by: Bupropion HCl (Bupropion 75 Mg Tab) 75 mg PO DAILY [facility] Last Admin: 10/30/20 11:09 Dose: 75 mg Documented by: Cholestyramine Resin (Cholestyramine/Sucrose Powder 4 Gm Packet) 4 gm PO 17 [facility] Last Admin: 10/30/20 17:11 Dose: 4 gm Documented by: Cyanocobalamin (Cyanocobalamin (Vitamin B12) 1,000 Mcg Tab) 1,000 mcg PO DAILY [facility] Last Admin: 10/30/20 11:10 Dose: 1,000 mcg Documented by: Dextrose/Water (50% Dextrose In Water 50 Ml Syringe) 50 ml IVPUSH ASDIRECTED PRN PRN Reason: Hypoglycemia Doxycycline Hyclate (Doxycycline 100 Mg Tab) 100 mg PO BID [facility] Last Admin: 10/30/20 20:31 Dose: 100 mg Documented by: Gabapentin (Gabapentin 300 Mg Cap) 300 mg PO 0900,1600 [facility] Last Admin: 10/30/20 17:25 Dose: 300 mg Documented by: Glucagon (Glucagon,Human Recombinant 1 Mg Vial) 1 mg IM ASDIRECTED PRN PRN Reason: Hypoglycemia Sodium Chloride (Normal Saline) 250 mls @ 100 mls/hr IV ASDIRECTED [facility] Last Admin: 10/27/20 16:25 Dose: 100 mls/hr Documented by: Lactated Ringer's (Ringers, Lactated) 1,000 mls @ 125 mls/hr IV ASDIRECTED [facility] Last Admin: 10/30/20 08:46 Dose: 125 mls/hr Documented by: Insulin Glargine (Insulin Glargine,Human Rec. Analog 100 Units/Ml 3 Ml Pen) 20 units SUBCUT 2100 [facility] Last Admin: 10/30/20 20:33 Dose: 20 units Documented by: Loperamide HCl (Loperamide 2 Mg Cap) 2 mg PO BID PRN PRN Reason: Diarrhea Loratadine (Loratadine 10 Mg Tab) 10 mg PO DAILY PRN PRN Reason: Rash Metformin HCl (Metformin 500 Mg Tab.Er) 500 mg PO BIDMEALS [facility] Last Admin: 10/30/20 17:30 Dose: 500 mg Documented by: Ondansetron HCl (Ondansetron 4 Mg/2 Ml Sdv) 4 mg IV Q4H PRN PRN Reason: Nausea/Vomiting Last Admin: 10/30/20 04:54 Dose: 4 mg Documented by: Pantoprazole Sodium (Pantoprazole 40 Mg Vial) 40 mg IVPUSH Q24H [facility] Last Admin: 10/30/20 11:36 Dose: 40 mg Documented by: Quetiapine Fumarate (Quetiapine 25 Mg Tab) 25 mg PO BEDTIME [facility] Last Admin: 10/30/20 20:38 Dose: 25 mg Documented by: Quetiapine Fumarate (Quetiapine 50 Mg Tab) 50 mg PO 1600 [facility] Last Admin: 10/30/20 17:17 Dose: 50 mg Documented by: Risperidone (Risperidone 1 Mg Tab) 1 mg PO 14 [facility] Last Admin: 10/30/20 13:22 Dose: 1 mg Documented by: Rivastigmine (Rivastigmine 3 Mg Cap) 6 mg PO BID [facility] Last Admin: 10/30/20 20:31 Dose: 6 mg Documented by: Senna/Docusate Sodium (Docusate Sodium/Sennosides 50-8.6 Mg Tab) 1 tab PO BID PRN PRN Reason: Constipation Sodium Chloride (Sodium Chloride 0.9% 10 Ml Syringe) 10 ml FLUSH ASDIRECTED PRN PRN Reason: Keep Vein Open Last Admin: 10/30/20 02:00 Dose: 10 ml Documented by: Sucralfate (Sucralfate 1 Gm Tab) 1 gm PO QIDACANDBED [facility] Last Admin: 10/31/20 06:52 Dose: 1 gm Documented by: Timolol Maleate (Timolol Maleate 0.5% Ophth Soln 5 Ml Bottle) 0 ml EYELF BID [facility] Last Admin: 10/30/20 20:32 Dose: 1 drop Documented by: Zolpidem Tartrate (Zolpidem 5 Mg Tab) 5 mg PO BEDTIME PRN PRN Reason: Sleep Discontinued Medications Acetaminophen (Acetaminophen 325 Mg Tab) 650 mg PO Q6H PRN PRN Reason: Fever Aspirin (Aspirin 81 Mg Tab.Chew) 324 mg PO NOW STA Stop: 10/26/20 17:29 Last Admin: 10/26/20 19:27 Dose: Not Given Documented by: Ceftriaxone Sodium (Ceftriaxone 1 Gm Vial) 1 gm IVPUSH NOW STA Stop: 10/26/20 19:01 Last Admin: 10/26/20 19:18 Dose: 1 gm Documented by: Cyclobenzaprine HCl (Cyclobenzaprine 10 Mg Tab) 10 mg PO NOW STA Stop: 10/26/20 20:03 Last Admin: 10/26/20 22:51 Dose: Not Given Documented by: Sodium Chloride (Normal Saline) 1,000 mls @ 999 mls/hr IV ASDIRECTED [facility] Sodium Chloride (Normal Saline) 1,000 mls @ 125 mls/hr IV ASDIRECTED [facility] Last Admin: 10/27/20 11:39 Dose: 125 mls/hr Documented by: Insulin Glargine (Insulin Glargine,Human Rec. Analog 100 Units/Ml 3 Ml Pen) 30 units SUBCUT ONETIME ONE Stop: 10/29/20 21:00 Last Admin: 10/29/20 21:30 Dose: 30 units Documented by: Insulin Human Regular (Insulin Regular, Human 100 Units/Ml 3 Ml Vial) 8 unit SUBCUT ONETIME ONE Stop: 10/29/20 21:00 Last Admin: 10/29/20 21:32 Dose: 8 units Documented by: Lidocaine HCl (Lidocaine 2% Viscous Solution 15 Ml Cup) 15 ml PO ONETIME ONE Stop: 10/30/20 08:46 Last Admin: 10/30/20 08:56 Dose: 15 ml Documented by: Nitroglycerin (Nitroglycerin 0.4 Mg Tab.Sl) 0.4 mg SL Q5M PRN PRN Reason: Chest Pain Oxycodone/Acetaminophen (Acetaminophen/Oxycodone 325-5 Mg Tab) 2 tab PO NOW STA Stop: 10/26/20 20:03 Last Admin: 10/26/20 22:51 Dose: Not Given Documented by: Polyethylene Glycol (Polyethylene Glycol 3350 Powder 238 Gm Bot) 238 gm PO ONETIME ONE Stop: 10/29/20 14:01 Last Admin: 10/29/20 14:00 Dose: 1 bottle Documented by: - Exam General: Alert, Oriented HEENT: Pupils Equal Neck: Supple Lungs: Clear to Auscultation Cardiovascular: Regular Rate Extremities: Normal Inspection Skin: Warm Wound/Incisions: Healing Well Neurological: No New Focal Deficit Psy/Mental Status: Alert - Patient Data Lab Results Last 24 hrs: Laboratory Results - last 24 hr 10/30/20 10/30/20 10/30/20 Range/Units 08:50 08:50 08:50 WBC 6.4 (3.0-10.3) x10-3/uL RBC 3.50 L (3.60-5.20) x10(6)uL Hgb 10.0 L (11.4-15.5) g/dL Hct 30.7 L (34.2-48.2) % MCV 87.7 (76.7-100.5) fL MCH 28.7 (23.9-33.9) pg MCHC 32.7 (31.9-34.8) g/dL RDW 17.0 H (12.3-16.5) % Plt Count 87 L (151-488) x10(3)uL MPV 9.5 (7.1-12.4) fL Neut % (Auto) 69.5 (30.8-76.2) % Lymph % (Auto) 10.0 L (18.4-52.1) % Mills % (Auto) 15.5 (4.4-15.7) % Eos % (Auto) 4.1 (0.6-8.1) % Baso % (Auto) 0.9 (0.2-1.5) % Neut # (Auto) 4.4 (1.5-6.3) x10-3/uL Lymph # (Auto) 0.6 L (1.0-4.4) x10-3/uL Mills # (Auto) 1.0 (0.3-1.0) x10-3/uL Eos # (Auto) 0.3 (0.0-0.8) x10-3/uL Baso # (Auto) 0.1 (0.0-0.1) x10-3/uL Sodium 141 (135-145) mmol/L Potassium 3.8 (3.5-5.3) mmol/L Chloride 102 (100-110) mmol/L Carbon Dioxide 28 (21-32) mmol/L BUN 12 D (7-18) mg/dL Creatinine 1.0 (0.55-1.02) mg/dL Est Cr Clr Drug Dosing 40.68 mL/min Estimated GFR (MDRD) 54 L (>60) BUN/Creatinine Ratio 12.0 (9-20) Glucose 140 H D (80-116) mg/dL POC Glucose (74-100) mg/dL Calcium 8.4 L (8.6-10.2) mg/dL Total Bilirubin 0.7 (0.1-1.3) mg/dL Direct Bilirubin 0.17 (0.10-0.20) mg/dL AST 18 (5-25) IU/L ALT 13 (12-36) U/L Alkaline Phosphatase 96 (56-112) IU/L Total Protein 6.6 (6.0-8.0) g/dL Albumin 3.1 L (3.2-4.6) g/dL 10/30/20 10/30/20 10/30/20 Range/Units 13:32 17:00 20:27 WBC (3.0-10.3) x10-3/uL RBC (3.60-5.20) x10(6)uL Hgb (11.4-15.5) g/dL Hct (34.2-48.2) % MCV (76.7-100.5) fL MCH (23.9-33.9) pg MCHC (31.9-34.8) g/dL RDW (12.3-16.5) % Plt Count (151-488) x10(3)uL MPV (7.1-12.4) fL Neut % (Auto) (30.8-76.2) % Lymph % (Auto) (18.4-52.1) % Mills % (Auto) (4.4-15.7) % Eos % (Auto) (0.6-8.1) % Baso % (Auto) (0.2-1.5) % Neut # (Auto) (1.5-6.3) x10-3/uL Lymph # (Auto) (1.0-4.4) x10-3/uL Mills # (Auto) (0.3-1.0) x10-3/uL Eos # (Auto) (0.0-0.8) x10-3/uL Baso # (Auto) (0.0-0.1) x10-3/uL Sodium (135-145) mmol/L Potassium (3.5-5.3) mmol/L Chloride (100-110) mmol/L Carbon Dioxide (21-32) mmol/L BUN (7-18) mg/dL Creatinine (0.55-1.02) mg/dL Est Cr Clr Drug Dosing mL/min Estimated GFR (MDRD) (>60) BUN/Creatinine Ratio (9-20) Glucose (80-116) mg/dL POC Glucose 191 H 206 H 339 H (74-100) mg/dL Calcium (8.6-10.2) mg/dL Total Bilirubin (0.1-1.3) mg/dL Direct Bilirubin (0.10-0.20) mg/dL AST (5-25) IU/L ALT (12-36) U/L Alkaline Phosphatase (56-112) IU/L Total Protein (6.0-8.0) g/dL Albumin (3.2-4.6) g/dL 10/31/20 Range/Units 06:46 WBC (3.0-10.3) x10-3/uL RBC (3.60-5.20) x10(6)uL Hgb (11.4-15.5) g/dL Hct (34.2-48.2) % MCV (76.7-100.5) fL MCH (23.9-33.9) pg MCHC (31.9-34.8) g/dL RDW (12.3-16.5) % Plt Count (151-488) x10(3)uL MPV (7.1-12.4) fL Neut % (Auto) (30.8-76.2) % Lymph % (Auto) (18.4-52.1) % Mills % (Auto) (4.4-15.7) % Eos % (Auto) (0.6-8.1) % Baso % (Auto) (0.2-1.5) % Neut # (Auto) (1.5-6.3) x10-3/uL Lymph # (Auto) (1.0-4.4) x10-3/uL Mills # (Auto) (0.3-1.0) x10-3/uL Eos # (Auto) (0.0-0.8) x10-3/uL Baso # (Auto) (0.0-0.1) x10-3/uL Sodium (135-145) mmol/L Potassium (3.5-5.3) mmol/L Chloride (100-110) mmol/L Carbon Dioxide (21-32) mmol/L BUN (7-18) mg/dL Creatinine (0.55-1.02) mg/dL Est Cr Clr Drug Dosing mL/min Estimated GFR (MDRD) (>60) BUN/Creatinine Ratio (9-20) Glucose (80-116) mg/dL POC Glucose 261 H (74-100) mg/dL Calcium (8.6-10.2) mg/dL Total Bilirubin (0.1-1.3) mg/dL Direct Bilirubin (0.10-0.20) mg/dL AST (5-25) IU/L ALT (12-36) U/L Alkaline Phosphatase (56-112) IU/L Total Protein (6.0-8.0) g/dL Albumin (3.2-4.6) g/dL Result Diagrams: 10/30/20 08:50 10/30/20 08:50 Sepsis Event Note - Evaluation Sepsis Screening Result: No Definite Risk - Focused Exam Vital Signs: Vital Signs Temp Pulse Resp BP Pulse Ox 10/31/20 06:00 97.1 F 77 18 126/76 93 L 10/31/20 00:00 18 10/30/20 21:00 94 L - Problem List & Annotations (1) Gastritis SNOMED Code(s): 3208823 Code(s): K29.70 - GASTRITIS, UNSPECIFIED, WITHOUT BLEEDING Status: Acute Current Visit: Yes Qualifiers: Gastritis type: other gastritis Gastritis bleeding: presence of bleeding unspecified (2) Anemia SNOMED Code(s): 334755117 Code(s): D64.9 - ANEMIA, UNSPECIFIED Status: Acute Current Visit: Yes Qualifiers: Anemia type: iron deficiency (3) Obesity (BMI 30-39.9) SNOMED Code(s): 143867092, 359144273 Code(s): E66.9 - OBESITY, UNSPECIFIED Status: Chronic Current Visit: Yes (4) Weakness SNOMED Code(s): 82464488 Code(s): R53.1 - WEAKNESS Status: Chronic Current Visit: Yes (5) Cognitive dysfunction SNOMED Code(s): 034164709 Code(s): F09 - UNSP MENTAL DISORDER DUE TO KNOWN PHYSIOLOGICAL CONDITION Status: Chronic Current Visit: No (6) DM2 (diabetes mellitus, type 2) SNOMED Code(s): 25958606 Code(s): E11.9 - TYPE 2 DIABETES MELLITUS WITHOUT COMPLICATIONS Status: Chronic Current Visit: No Qualifiers: Diabetes mellitus rn long term care insulin use: with long-term use Diabetes mellitus complication status: without complication Qualified Code(s): E11.9 - Type 2 diabetes mellitus without complications; Z79.4 - extermination inspector (current) use of insulin; Z79.4 - assisted (current) use of insulin; Z79.4 - extermination inspector (current) use of insulin; Z79.4 - assisted (current) use of insulin (7) HTN (hypertension) SNOMED Code(s): 29209796 Code(s): I10 - ESSENTIAL (PRIMARY) HYPERTENSION Status: Chronic Current Visit: No Qualifiers: Hypertension type: essential hypertension Qualified Code(s): I10 - Essential (primary) hypertension (8) MDD (major depressive disorder) SNOMED Code(s): 633859163 Code(s): F32.9 - MAJOR DEPRESSIVE DISORDER, SINGLE EPISODE, UNSPECIFIED Status: Chronic Current Visit: No Qualifiers: Major depression recurrence: recurrent Psychotic features: without psychotic features (9) Parkinson disease SNOMED Code(s): 50233458 Code(s): G20 - PARKINSON'S DISEASE Status: Chronic Current Visit: No - Problem List Review Problem List Initiated/Reviewed/Updated: Yes - Assessment Assessment:: 1. Consult surgery to see if she is a candidate for scoping to look for causes of anemia. 2. Start antibiotic most likely doxycycline by mouth for sinusitis. 3. Continue to watch for leg swelling and edema. I'm holding her diuretic at this time. 4. Continue PT/OT. And see how she's doing and when she can go home brother's perspective. - Plan Plan:: Continue current treatment. Possibly discharge [facility] tomorrow.Feels better.
[2020-10-31] MEDS: Pantoprazole 40 MG Vial IVPUSH SCH (10:57)
[2020-10-31] MEDS: risperiDONE 1 MG Tab PO SCH (13:28)
[2020-10-31] MEDS: Cholestyramine/Sucrose Powder 4 GM Packet PO SCH (16:45)
[2020-10-31] MEDS: QUEtiapine 25 MG Tab PO SCH (20:20)
[2020-10-31] MEDS: Insulin Glargine,Human Rec. Analog 100 Units/ML 3 ML Pen SUBCUT SCH (20:25)
[2020-11-01] MEDS: Sucralfate 1 GM Tab PO SCH (06:54)
[2020-11-01] MEDS: Carboxymethylcellulose Sodium 0.5% Ophth Soln 15 ML Bottle EYEBOTH SCH (08:00)
[2020-11-01] MEDS: Timolol Maleate 0.5% Ophth Soln 5 ML Bottle EYELF SCH (08:00)
[2020-11-01] MEDS: Betamethasone Dipropionate/Clotrimazole 0.05-1% Crm 15 GM Tube TOP SCH (08:01)
[2020-11-01] MEDS: Cyanocobalamin (Vitamin B12) 1,000 MCG Tab PO SCH (08:01)
[2020-11-01] MEDS: Doxycycline 100 MG Tab PO SCH (08:01)
[2020-11-01] MEDS: metFORMIN 500 MG Tab.ER PO SCH (08:02)
[2020-11-01] MEDS: RIVASTIGMINE 3 MG PO SCH (08:03)
[2020-11-01] MEDS: Gabapentin 300 MG Cap PO SCH (08:11)
--- NOTE | 2020-11-01 08:32 | OR ---
DATE OF OPERATION: 10/29/2020 SURGEON: Zuhair Aguilera MD PROCEDURE PERFORMED: Esophagogastroduodenoscopy with cold forceps biopsy and colonoscopy. PREOPERATIVE DIAGNOSIS: History of iron-deficiency anemia. POSTOPERATIVE DIAGNOSIS: Gastritis in the fundus and normal colonoscopy. INDICATIONS FOR PROCEDURE: This is a 75-year-old white female, who was recently admitted with some weakness. She was noted to have some anemia and while her guaiacs were negative and she denied any abdominal pain, an EGD and colonoscopy were offered as part of a workup to determine etiology. DESCRIPTION OF OPERATION: After an excellent IV sedation was administered, the bite block was inserted. Flexible endoscope was passed without difficulty down the patient's esophagus into the stomach. Stomach was insufflated. Scope was passed through the pylorus and second portion of the duodenum and slowly withdrawn. The following findings were noted: The duodenum was unremarkable. Stomach, on retroflexing the scope in the area of the fundus, there was a patch of friable mucosa with some white exudate on top. There was no obvious ulceration noted. There was also some bile staining. We did irrigate the area. We were not able to easily wash the material away. We were able to obtain several biopsies of the mucosa and submitted in a container for pathologic examination. The esophagus was unremarkable. Our attention was then turned to the patient's colon. Digital rectal exam was performed. No marked abnormality was noted. Flexible colonoscope was inserted. We were able to advance the colon to the cecum. Some abdominal wall pressure was required, but we were able to reach the targeted area of the colon. Scope was slowly withdrawn after identifying the cecum by its normal anatomic markers including the ileocecal valve as well as transillumination of the colon with a light being noted in the right lower quadrant. The following findings were noted. Ascending colon, unremarkable. Transverse colon, unremarkable. Descending colon, unremarkable. Sigmoid and rectum, unremarkable. The patient tolerated the procedure well, was taken to recovery room. RECOMMENDATIONS: At this point would be the start of Protonix as well as Carafate for the treatment on the basis of the pathologic results. /[id number] /MODL
[2020-11-01] MEDS ORDERED: Pantoprazole 40 MG Tab.CR PO SCH (09:30)
[2020-11-01] MEDS ORDERED: Propofol 200 MG/20 ML SDV IV ONE (11:14)
--- NOTE | 2020-11-03 07:59 | DISCH ---
DISCHARGE DATE: 11/01/2020 REASONS FOR ADMISSION: 1. Weakness. 2. Anemia. 3. Cognitive decline. 4. Palliative care status. 5. Type 2 diabetes. 6. Parkinson's disease. DISCHARGE DIAGNOSES: 1. General debility. 2. Type 2 diabetes. 3. Gastritis. 4. Anemia, multifactorial. 5. Cognitive decline. 6. Parkinson's disease. 7. Obesity. 8. Depression. BRIEF HISTORY: This is a pleasant 75-year-old female, who was admitted with weakness and dizziness and found to have a hemoglobin of 7.7. She was given 1 unit, and an upper GI endoscopy revealed some gastritis. She was started on Protonix and sucralfate. As an outpatient, she was taking 45 units of Lantus; this was decreased to 20 units. Bumex was restarted at discharge, and so was Zoloft. The neurologist who had seen her recently thought that Risperdal could be causing her Parkinson's to get worse. I deferred this to [facility], Dr. Ward, to address the Risperdal. Other changes that were made in the hospital stay: Aspirin, dose was decreased from 325 mg to 81 mg. Losartan was totally discontinued, and she was discharged with home health to help with medications and physical and occupational therapy. TIME SPENT: I spent more than 45 minutes with the patient and addressing discharge summary and discussing with the sonJohn. /[id number] JAYDA/JOANA
== END 2020-11-01 11:15 | disposition home health service (06) | DRG 684 ==
LOC: FB.ED 16:28 → FB.MS 20:29 → OBSVTOIN 10-27 10:26
PROVIDERS: ADMIT Emergency Medicine; ATTEND Family Medicine
PROC: 30233N1 Transfusion of Nonautologous Red Blood Cells into Peripheral Vein, Percutaneous Approach (ICD-10-PCS; 2020-10-27)
PROC: 0DB68ZX Excision of Stomach, Via Natural or Artificial Opening Endoscopic, Diagnostic (ICD-10-PCS; principal; 2020-10-29)
PROC: 0DJD8ZZ Inspection of Lower Intestinal Tract, Via Natural or Artificial Opening Endoscopic (ICD-10-PCS; 2020-10-29)
DX: D50.0 Iron deficiency anemia secondary to blood loss (chronic) (principal); N17.9 Acute kidney failure, unspecified; R53.1 Weakness; E86.0 Dehydration; Z51.5 Encounter for palliative care; H54.8 Legal blindness, as defined in USA; H91.90 Unspecified hearing loss, unspecified ear; E78.00 Pure hypercholesterolemia, unspecified; G47.30 Sleep apnea, unspecified; I10 Essential (primary) hypertension; R32 Unspecified urinary incontinence; M19.90 Unspecified osteoarthritis, unspecified site; M79.7 Fibromyalgia; G31.83 Neurocognitive disorder with Lewy bodies; F02.80 Dementia in other diseases classified elsewhere, unspecified severity, without behavioral disturbance, psychotic disturbance, mood disturbance, and anxiety; F41.9 Anxiety disorder, unspecified; F32.9 Major depressive disorder, single episode, unspecified; D50.9 Iron deficiency anemia, unspecified; K29.70 Gastritis, unspecified, without bleeding; E66.9 Obesity, unspecified; J01.90 Acute sinusitis, unspecified; G89.29 Other chronic pain; Z96.653 Presence of artificial knee joint, bilateral; Z90.89 Acquired absence of other organs; M54.2 Cervicalgia; Z68.38 Body mass index [BMI] 38.0-38.9, adult; Z90.49 Acquired absence of other specified parts of digestive tract; Z90.710 Acquired absence of both cervix and uterus; G20 Parkinson's disease; E11.42 Type 2 diabetes mellitus with diabetic polyneuropathy; Z88.1 Allergy status to other antibiotic agents; C85.90 Non-Hodgkin lymphoma, unspecified, unspecified site; Z88.2 Allergy status to sulfonamides; Z99.81 Dependence on supplemental oxygen; Z85.72 Personal history of non-Hodgkin lymphomas; Z88.8 Allergy status to other drugs, medicaments and biological substances; Z79.82 Long term (current) use of aspirin; Z79.4 Long term (current) use of insulin; Z79.899 Other long term (current) drug therapy; Z20.822 Contact with and (suspected) exposure to COVID-19; Z66 Do not resuscitate
CPT/HCPCS: 00813-QZ; 36415; 36430; 70450; 70551; 71045; 80048; 80053; 80076; 81001; 82272; 82728; 82947; 82962; 83540; 83550; 83605; 83880; 84484; 85025; 85045; 86140; 86850; 86900; 86901; 86920; 86922; 93005; 93010; 96374; 97161-GP; 97165-GO; 97530-GO; 97535-GO; 99222; 99231; 99232; 99239; 99283; 99285-25; A9270-GY; C9113; G0378; J0696; J1815-GY; J2405; J2704; J7030; J7050; J7120; P9016; U0002

== ENCOUNTER 2020-12-02 16:36 | Inpatient (IN) | payer MEDICARE ==
--- NOTE | 2020-12-02 16:58 | EDM.PDOC ---
ED HPI GENERAL MEDICAL PROBLEM - General Chief Complaint: General Stated Complaint: WEAKNESS Time Seen by Provider: 12/02/20 16:40 Source of Information: Reports: Patient, Family History Limitations: Reports: No Limitations - History of Present Illness INITIAL COMMENTS - FREE TEXT/NARRATIVE: c/o weakness x 1d pt transfused 2u PRBC 1m ago with increase hgb 7.7 (on 10/27) to 10.0 (on 10/30), she saw oncologist in [place] Dr Villasenor and had hgb 8.5 (on 11/17) Hemoccult x 2 were neg 2m ago pt had positive free kappa light chains 3x ULN also A1C of 6.3 from 2m ago no pain, ate lunch lives in [facility] here with son who pulled up pt's labs from Dr Villasenor, f/u apt with Dr Bedolla is in January has had some swell of her legs, keeps them wrapped with John Paul wraps, trop and BNP both neg 1m ago - Related Data Allergies Allergy/AdvReac Type Severity Reaction Status Date / Time amoxicillin [Amoxicillin] Allergy Nausea and Verified 07/06/18 13:22 Vomiting fluvastatin Allergy Nausea and Verified 07/06/18 13:22 Vomiting Sulfa (Sulfonamide Allergy Diarrhea Verified 07/06/18 13:22 Antibiotics) sulfamethoxazole Allergy Nausea and Verified 07/06/18 13:22 [From Bactrim] Vomiting trimethoprim [From Bactrim] Allergy Nausea and Verified 07/06/18 13:22 Vomiting Home Meds: Home Meds Sertraline HCl 150 mg PO DAILY 06/28/13 [History] Memantine HCl [Namenda] 10 mg PO BID 09/08/17 [History] metFORMIN HCl [Metformin ER Osmotic] 500 mg PO BIDMEALS 09/08/17 [History] Cholecalciferol (Vitamin D3) [Vitamin D3] 2,000 units PO DAILY #30 cap 10/04/17 [Rx] atorvaSTATin [Lipitor] 40 mg PO BEDTIME #30 tablet 10/04/17 [Rx] Potassium Chloride 20 meq PO DAILY #5 tablet.er 07/06/18 [Rx] Acetaminophen [Tylenol Extra Strength] 1,000 mg PO TID PRN 10/26/20 [History] Betamethasone/Clotrimazole [Lotrisone] 1 applic TOP BID 10/26/20 [History] Bumetanide [Bumex] 1 mg PO DAILY 10/26/20 [History] Carboxymethylcellulose Sodium [Refresh Tears 0.5%] 1 drop EYEBOTH BID 10/26/20 [History] Cholestyramine (With Sugar) [Questran Powder] 4 gm PO 17 10/26/20 [History] Cyanocobalamin (Vitamin B-12) [Vitamin B-12] 1,000 mcg PO DAILY 10/26/20 [History] Gabapentin [Neurontin] 300 mg PO 08,15 10/26/20 [History] Insulin Lispro [HumaLOG] 10 unit SQ 08,11,17 10/26/20 [History] Loperamide [Imodium] 2 mg PO BID PRN 10/26/20 [History] Loratadine 10 mg PO DAILY PRN 10/26/20 [History] QUEtiapine [SEROquel] 25 mg PO BEDTIME 10/26/20 [History] Rivastigmine Tartrate [Rivastigmine] 6 mg PO BID 10/26/20 [History] Timolol [Betimol 0.5% Ophth Soln] 1 drop EYELF BID 10/26/20 [History] buPROPion [Wellbutrin] 75 mg PO DAILY 10/26/20 [History] polyethylene glycoL 3350 [MiraLAX] 17 gm PO DAILY PRN 10/26/20 [History] risperiDONE [Risperdal] 0.5 mg PO DAILY 10/26/20 [History] Aspirin [Adult Low Dose Aspirin EC] 81 mg PO DAILY #30 tablet. 11/01/20 [Rx] Pantoprazole Sodium [Protonix] 40 mg PO DAILY #90 tablet. 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, retinopathy Cardiovascular History: Reports: High Cholesterol, Hypertension Respiratory History: Reports: Sleep Apnea Other Respiratory History: uses cpap Gastrointestinal History: Reports: None Genitourinary History: Reports: Urinary Incontinence SPEECH SCIENTIST History: Reports: Other SPEECH SCIENTIST History: Musculoskeletal History: Reports: Arthritis, Fibromyalgia, Neck Pain, Chronic, Other (See Below) Other Musculoskeletal History: diabetic polyneuropathy, 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 Endocrine/Metabolic History: Reports: Diabetes, Type II, Obesity/BMI 30+ Hematologic History: Reports: Blood Transfusion(s) Oncologic (Cancer) History: Reports: Lymphoma, Non-Hodgkin's Lymphoma - Infectious Disease History Infectious Disease History: Reports: Chicken Pox, Measles, Mumps, Shingles - Past Surgical History Head Surgeries/Procedures: Reports: None HEENT Surgical History: Reports: Adenoidectomy, Oral Surgery, Tonsillectomy, Other (See Below) Other HEENT Surgeries/Procedures: bleeding in vein in L eye GI Surgical History: Reports: Cholecystectomy, Colonoscopy Female Surgical History: Reports: Hysterectomy, Salpingo-Oophorectomy Musculoskeletal Surgical History: Reports: Knee Replacement Other Musculoskeletal Surgeries/Procedures:: bilat knee replacements Social & Family History - Family History Family Medical History: No Pertinent Family History - Tobacco Use Tobacco Use Status *Q: Never Tobacco User - Caffeine Use Caffeine Use: Reports: Coffee - Recreational Drug Use Recreational Drug Use: No ED ROS GENERAL - Review of Systems Review Of Systems: See Below Constitutional: Reports: Weakness. Denies: Decreased Appetite HEENT: Reports: No Symptoms Respiratory: Reports: No Symptoms Cardiovascular: Reports: No Symptoms Endocrine: Reports: No Symptoms GI/Abdominal: Reports: No Symptoms : Reports: No Symptoms Musculoskeletal: Reports: No Symptoms Skin: Reports: Pallor Neurological: Reports: No Symptoms Psychiatric: Reports: No Symptoms Hematologic/Lymphatic: Reports: No Symptoms Immunologic: Reports: No Symptoms ED EXAM, GENERAL - Physical Exam Exam: See Below Exam Limited By: No Limitations General Appearance: Alert, WD/WN, No Apparent Distress Ears: Hearing Grossly Normal Nose: Nasal Deformity, Nasal Flaring Throat/Mouth: Perioral Cyanosis Head: Atraumatic Neck: Normal Inspection, Supple, Non-Tender, Full Range of Motion. No: Lymphadenopathy (R), Lymphadenopathy (L) Respiratory/Chest: Other (good AE, a few crackles at R base) Cardiovascular: Regular Rate, Rhythm, Other (2+ pretib edema b/l, symmetric, wrapped with John Paul) Back Exam: Normal Inspection Neurological: Alert, Oriented, CN II-XII Intact, Normal Cognition, No Motor/Sensory Deficits Psychiatric: Normal Affect, Normal Mood Skin Exam: Warm, Dry, Intact, Normal Color, No Rash Lymphatic: No Adenopathy Course - Vital Signs Last Recorded V/S: Last Vital Signs Temp 36.6 C 12/03/20 03:13 Pulse 66 12/03/20 03:13 Resp 20 12/03/20 03:13 BP 138/62 12/03/20 03:13 Pulse Ox 95 12/03/20 00:55 - Orders/Labs/Meds Orders: Active Orders 24 hr Category Date Time Status Sodium Chloride 0.9% [Normal Saline] 250 ml Med 12/02/20 17:00 Active IV ASDIRECTED Medication Orders Acetaminophen (Acetaminophen 325 Mg Tab) 650 mg PO Q4H PRN PRN Reason: Pain (Mild 1-3)/fever Artificial Tears (Carboxymethylcellulose Sodium 0.5% Ophth Soln 15 Ml Bottle) ml EYEBOTH BID [facility] Aspirin (Aspirin 81 Mg Tab.Ec) 81 mg PO DAILY [facility] Atorvastatin Calcium (Atorvastatin 40 Mg Tab) 40 mg PO BEDTIME [facility] Bumetanide (Bumetanide 1 Mg Tab) 1 mg PO DAILY [facility] Bupropion HCl (Bupropion 75 Mg Tab) 75 mg PO DAILY [facility] Cyanocobalamin (Cyanocobalamin (Vitamin B12) 1,000 Mcg Tab) 1,000 mcg PO DAILY [facility] Gabapentin (Gabapentin 300 Mg Cap) 300 mg PO 08,15 [facility] Sodium Chloride (Normal Saline) 250 mls @ 100 mls/hr IV ASDIRECTED [facility] Last Admin: 12/02/20 21:27 Dose: 100 mls/hr Documented by: LASHON Sodium Chloride (Normal Saline) 250 mls @ 100 mls/hr IV ASDIRECTED [facility] Last Admin: 12/03/20 00:25 Dose: 100 mls/hr Documented by: NITO Loratadine (Loratadine 10 Mg Tab) 10 mg PO DAILY PRN PRN Reason: Rash Losartan Potassium (Losartan 50 Mg Tab) 50 mg PO DAILY [facility] Memantine (Memantine 10 Mg Tab) 10 mg PO BID [facility] Non-Formulary Medication (Cholecalciferol (Vitamin D3) [Vitamin D3]) 2,000 units PO DAILY [facility] Non-Formulary Medication (Insulin Glargine,Hum.Rec.Anlog [Toujeo Max Solostar]) 30 unit SQ 0800 [facility] Non-Formulary Medication (Insulin Lispro [Humalog]) 10 unit SQ 08,11,17 [facility] Non-Formulary Medication (Metformin Hcl [Metformin Er Osmotic]) 500 mg PO BIDMEALS [facility] Non-Formulary Medication (Potassium Chloride [Potassium Chloride]) 20 meq PO DAILY [facility] Non-Formulary Medication (Rivastigmine Tartrate [Rivastigmine]) 6 mg PO BID [facility] Non-Formulary Medication (Timolol [Betimol 0.5% Ophth Soln]) 1 drop EYELF BID [facility] Pantoprazole Sodium (Pantoprazole 40 Mg Tab.Cr) 40 mg PO DAILY [facility] Quetiapine Fumarate (Quetiapine 25 Mg Tab) 25 mg PO BEDTIME [facility] Risperidone (Risperidone 1 Mg Tab) 0.5 mg PO DAILY [facility] Sertraline HCl (Sertraline 100 Mg Tab) 150 mg PO DAILY [facility] Labs: Laboratory Tests 12/02/20 12/02/20 12/02/20 Range/Units 16:55 16:55 16:55 WBC 3.7 (3.0-10.3) x10-3/uL RBC 2.67 L (3.60-5.20) x10(6)uL Hgb 7.4 L (11.4-15.5) g/dL Hct 22.9 L (34.2-48.2) % MCV 85.6 (76.7-100.5) fL MCH 27.5 (23.9-33.9) pg MCHC 32.1 (31.9-34.8) g/dL RDW 18.4 H (12.3-16.5) % Plt Count 71 L (151-488) x10(3)uL MPV 11.0 (7.1-12.4) fL Add Manual Diff Yes Neutrophils % (Manual) 60 (46-82) % Band Neutrophils % 7 H (0-6) % Lymphocytes % (Manual) 20 (13-37) % Monocytes % (Manual) 11 (4-12) % Eosinophils % (Manual) 1 (0-5) % Metamyelocytes % 1 H (0-0) % Sodium 138 (135-145) mmol/L Potassium 4.3 (3.5-5.3) mmol/L Chloride 101 (100-110) mmol/L Carbon Dioxide 28 (21-32) mmol/L BUN 33 H D (7-18) mg/dL Creatinine 1.7 H (0.55-1.02) mg/dL Est Cr Clr Drug Dosing TNP Estimated GFR (MDRD) 29 L (>60) BUN/Creatinine Ratio 19.4 (9-20) Glucose 128 H (80-116) mg/dL Calcium 7.5 L (8.6-10.2) mg/dL Total Bilirubin 0.6 (0.1-1.3) mg/dL AST 16 D (5-25) IU/L ALT 12 (12-36) U/L Alkaline Phosphatase 90 (56-112) IU/L Total Protein 6.1 (6.0-8.0) g/dL Albumin 2.7 L (3.2-4.6) g/dL Globulin 3.4 g/dL Albumin/Globulin Ratio 0.8 Blood Type B POSITIVE Gel Antibody Screen Negative Crossmatch See Detail Meds: Medications Generic Name Dose Route Start Last Admin Trade Name Freq PRN Reason Stop Dose Admin Acetaminophen 650 mg 12/02/20 21:22 Acetaminophen 325 Mg Tab PO Q4H PRN Pain (Mild 1-3)/fever Artificial Tears ml 12/03/20 09:00 Carboxymethylcellulose Sodium 0.5% Ophth Soln 15 Ml Bottle EYEBOTH BID [facility] Aspirin 81 mg 12/03/20 09:00 Aspirin 81 Mg Tab.Ec PO DAILY [facility] Atorvastatin Calcium 40 mg 12/03/20 21:00 Atorvastatin 40 Mg Tab PO BEDTIME [facility] Bumetanide 1 mg 12/03/20 09:00 Bumetanide 1 Mg Tab PO DAILY [facility] Bupropion HCl 75 mg 12/03/20 09:00 Bupropion 75 Mg Tab PO DAILY [facility] Cyanocobalamin 1,000 mcg 12/03/20 09:00 Cyanocobalamin (Vitamin B12) 1,000 Mcg Tab PO DAILY [facility] Gabapentin 300 mg 12/03/20 08:00 Gabapentin 300 Mg Cap PO 08,15 [facility] Sodium Chloride 250 mls @ 100 mls/hr 12/02/20 17:00 12/02/20 21:27 Normal Saline IV 100 mls/hr ASDIRECTED JEANA Administration Sodium Chloride 250 mls @ 100 mls/hr 12/02/20 21:45 12/03/20 00:25 Normal Saline IV 100 mls/hr ASDIRECTED [facility] Administration Loratadine 10 mg 12/02/20 21:24 Loratadine 10 Mg Tab PO DAILY PRN Rash Losartan Potassium 50 mg 12/03/20 09:00 Losartan 50 Mg Tab PO DAILY [facility] Memantine 10 mg 12/03/20 09:00 Memantine 10 Mg Tab PO BID [facility] Non-Formulary Medication 2,000 units 12/03/20 09:00 Cholecalciferol (Vitamin D3) [Vitamin D3] PO DAILY [facility] Non-Formulary Medication 30 unit 12/03/20 08:00 Insulin Glargine,Hum.Rec.Anlog [Toujeo Max Solostar] SQ 0800 [facility] Non-Formulary Medication 10 unit 12/03/20 08:00 Insulin Lispro [Humalog] SQ 08,,17 [facility] Non-Formulary Medication 500 mg 12/03/20 08:00 Metformin Hcl [Metformin Er Osmotic] PO BIDMEALS [facility] Non-Formulary Medication 20 meq 12/03/20 09:00 Potassium Chloride [Potassium Chloride] PO DAILY [facility] Non-Formulary Medication 6 mg 12/03/20 09:00 Rivastigmine Tartrate [Rivastigmine] PO BID [facility] Non-Formulary Medication 1 drop 12/03/20 09:00 Timolol [Betimol 0.5% Ophth Soln] EYELF BID [facility] Pantoprazole Sodium 40 mg 12/03/20 09:00 Pantoprazole 40 Mg Tab.Cr PO DAILY [facility] Quetiapine Fumarate 25 mg 12/03/20 21:00 Quetiapine 25 Mg Tab PO BEDTIME [facility] Risperidone 0.5 mg 12/03/20 09:00 Risperidone 1 Mg Tab PO DAILY [facility] Sertraline HCl 150 mg 12/03/20 09:00 Sertraline 100 Mg Tab PO DAILY [facility] Discontinued Medications Generic Name Dose Route Start Last Admin Trade Name Freq PRN Reason Stop Dose Admin Atorvastatin Calcium 40 mg 12/02/20 21:45 12/02/20 22:50 Atorvastatin 40 Mg Tab PO 12/02/20 21:46 40 mg ONETIME ONE Administration Memantine 10 mg 12/02/20 21:45 12/02/20 22:50 Memantine 10 Mg Tab PO 12/02/20 21:46 10 mg ONETIME ONE Administration Quetiapine Fumarate 25 mg 12/02/20 21:45 12/02/20 22:50 Quetiapine 25 Mg Tab PO 12/02/20 21:46 25 mg ONETIME ONE Administration - Re-Assessments/Exams Free Text/Narrative Re-Assessment/Exam: 12/02/20 18:08 hgb has dropped another point in 2 wks to 7.4 anesthesia currently starting IV will admit overnight to transfuse 2u PRBC Departure - Departure Time of Disposition: 21:00 Disposition: Refer to Observation Clinical Impression: Thrombocytopenia, Acute prerenal azotemia, Hypoalbuminemia Anemia Qualifiers: Anemia type: iron deficiency - Discharge Information Sepsis Event Note (ED) - Evaluation Sepsis Screening Result: No Definite Risk - Focused Exam Vital Signs: Vital Signs Temp Pulse Resp BP Pulse Ox 12/02/20 16:42 37.1 C 70 18 122/42 L 92 L - My Orders Last 24 Hours: My Active Orders 12/02/20 17:00 Sodium Chloride 0.9% [Normal Saline] 250 ml IV ASDIRECTED - Assessment/Plan Last 24 Hours: My Active Orders 12/02/20 17:00 Sodium Chloride 0.9% [Normal Saline] 250 ml IV ASDIRECTED
[2020-12-02] MEDS ORDERED: Sodium Chloride 0.9% 250 ML IV SCH ×3 (17:00→22:15)
--- NOTE | 2020-12-02 19:00 | PCM.SN.2 ---
- Free Text/Narrative Note: Was called to ER for a patient that they have tried several times to start an IV and were unable to do so. After prepping right hand with IV prep,I started a 20 jelco in right hand and connectted a hep lock and flushed this with 10cc's of saline. Report was given to Bettie MAHONEY.
[2020-12-02] MEDS ORDERED: Loratadine 10 MG Tab PO PRN (21:24)
[2020-12-02] MEDS ORDERED: atorvaSTATin 40 MG Tab PO ONE (21:45)
[2020-12-02] MEDS ORDERED: Memantine 10 MG Tab PO ONE (21:45)
[2020-12-02] MEDS ORDERED: QUEtiapine 25 MG Tab PO ONE (21:45)
[2020-12-03] MEDS: Acetaminophen 325 MG Tab PO PRN ×2 (05:04→15:37)
[2020-12-03] MEDS ORDERED: Gabapentin 300 MG Cap *PTOM PO SCH (08:00)
[2020-12-03] MEDS ORDERED: Polyethylene Glycol 3350 Powder 17 GM Packet PO PRN (08:41)
[2020-12-03] MEDS ORDERED: Loperamide 2 MG Cap PO PRN (08:41)
--- NOTE | 2020-12-03 08:49 | PCM.HP.2 ---
H&P History of Present Illness - General Date of Service: 12/03/20 Admit Problem/Dx: Admission Diagnosis/Problem Admission Diagnosis/Problem Anemia Source of Information: Patient, Old Records History Limitations: Reports: No Limitations - History of Present Illness Initial Comments - Free Text/Narative: This is a 75-year-old female patient of [facility]. She has multiple medical problems including depression, Parkinson's, lymphoma, diabetes. She states she had 2 day history of feeling very weak so she was brought to the ER. She's had problems with anemia and being transfused in the past. She was transfused sounds like about a month ago. Her hemoglobin was below 8 and she was admitted for 2 units of RBCs. She denies fevers although she's been having them here. She denies runny nose, sore throat, cough, chest pain, diarrhea, dysuria, pyuria, hematuria. She says she just generally weak and has some shortness of breath with weakness. - Related Data Allergies/Adverse Reactions: Allergies Allergy/AdvReac Type Severity Reaction Status Date / Time amoxicillin [Amoxicillin] Allergy Nausea and Verified 07/06/18 13:22 Vomiting fluvastatin Allergy Nausea and Verified 07/06/18 13:22 Vomiting Sulfa (Sulfonamide Allergy Diarrhea Verified 07/06/18 13:22 Antibiotics) sulfamethoxazole Allergy Nausea and Verified 07/06/18 13:22 [From Bactrim] Vomiting trimethoprim [From Bactrim] Allergy Nausea and Verified 07/06/18 13:22 Vomiting Home Medications: Home Meds Sertraline HCl 150 mg PO DAILY 06/28/13 [History] Memantine HCl [Namenda] 10 mg PO BID 09/08/17 [History] metFORMIN HCl [Metformin ER Osmotic] 500 mg PO BIDMEALS 09/08/17 [History] Cholecalciferol (Vitamin D3) [Vitamin D3] 2,000 units PO DAILY #30 cap 10/04/17 [Rx] atorvaSTATin [Lipitor] 40 mg PO BEDTIME #30 tablet 10/04/17 [Rx] Potassium Chloride 20 meq PO DAILY #5 tablet.er 07/06/18 [Rx] Acetaminophen [Tylenol Extra Strength] 1,000 mg PO TID PRN 10/26/20 [History] Betamethasone/Clotrimazole [Lotrisone] 1 applic TOP BID 10/26/20 [History] Bumetanide [Bumex] 1 mg PO DAILY 10/26/20 [History] Carboxymethylcellulose Sodium [Refresh Tears 0.5%] 1 drop EYEBOTH BID 10/26/20 [History] Cholestyramine (With Sugar) [Questran Powder] 4 gm PO 17 10/26/20 [History] Cyanocobalamin (Vitamin B-12) [Vitamin B-12] 1,000 mcg PO DAILY 10/26/20 [History] Gabapentin [Neurontin] 300 mg PO 08,15 10/26/20 [History] Insulin Lispro [HumaLOG] 10 unit SQ 08,11,17 10/26/20 [History] Loperamide [Imodium] 2 mg PO BID PRN 10/26/20 [History] Loratadine 10 mg PO DAILY PRN 10/26/20 [History] QUEtiapine [SEROquel] 25 mg PO BEDTIME 10/26/20 [History] Rivastigmine Tartrate [Rivastigmine] 6 mg PO BID 10/26/20 [History] Timolol [Betimol 0.5% Ophth Soln] 1 drop EYELF BID 10/26/20 [History] buPROPion [Wellbutrin] 75 mg PO DAILY 10/26/20 [History] polyethylene glycoL 3350 [MiraLAX] 17 gm PO DAILY PRN 10/26/20 [History] risperiDONE [Risperdal] 0.5 mg PO BEDTIME 10/26/20 [History] Aspirin [Adult Low Dose Aspirin EC] 81 mg PO DAILY #30 tablet. 11/01/20 [Rx] Pantoprazole Sodium [Protonix] 40 mg PO DAILY #90 tablet. 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, retinopathy Cardiovascular History: Reports: High Cholesterol, Hypertension Respiratory History: Reports: Sleep Apnea Other Respiratory History: uses cpap Gastrointestinal History: Reports: None Genitourinary History: Reports: Urinary Incontinence 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 Endocrine/Metabolic History: Reports: Diabetes, Type II, Obesity/BMI 30+ Hematologic History: Reports: Blood Transfusion(s) Oncologic (Cancer) History: Reports: Lymphoma, Non-Hodgkin's Lymphoma - Infectious Disease History Infectious Disease History: Reports: Chicken Pox, Measles, Mumps, Shingles - Past Surgical History Head Surgeries/Procedures: Reports: None HEENT Surgical History: Reports: Adenoidectomy, Oral Surgery, Tonsillectomy, Other (See Below) Other HEENT Surgeries/Procedures: bleeding in vein in L eye GI Surgical History: Reports: Cholecystectomy, Colonoscopy Female Surgical History: Reports: Hysterectomy, Salpingo-Oophorectomy Musculoskeletal Surgical History: Reports: Knee Replacement Other Musculoskeletal Surgeries/Procedures:: bilat knee replacements Social & Family History - Family History Family Medical History: No Pertinent Family History - Tobacco Use Tobacco Use Status *Q: Never Tobacco User - Caffeine Use Caffeine Use: Reports: Coffee - Recreational Drug Use Recreational Drug Use: No H&P Review of Systems - Review of Systems: Review Of Systems: See Below General: Reports: Weakness HEENT: Reports: No Symptoms Pulmonary: Reports: Shortness of Breath. Denies: Pleuritic Chest Pain, Cough, Sputum Cardiovascular: Reports: No Symptoms Gastrointestinal: Reports: No Symptoms Genitourinary: Reports: No Symptoms Skin: Reports: No Symptoms Psychiatric: Reports: Depression Neurological: Reports: No Symptoms Hematologic/Lymphatic: Reports: No Symptoms Immunologic: Reports: No Symptoms Exam - Exam Exam: See Below - Vital Signs Vital Signs: Last Vital Signs Temp 98.7 F 12/03/20 08:00 Pulse 67 12/03/20 08:00 Resp 22 H 12/03/20 08:00 BP 126/53 L 12/03/20 08:00 Pulse Ox 89 L 12/03/20 08:00 Weight: 216 lb 11.2 oz - Exam General: Alert, Oriented, Cooperative HEENT: Hearing Intact, Mucosa Moist & [place], Posterior Pharynx Clear, TMs Clear Neck: Supple, Trachea Midline Lungs: Clear to Auscultation, Normal Respiratory Effort. No: Crackles, Rales, Rhonchi Cardiovascular: Regular Rate, Regular Rhythm. No: Systolic Murmur GI/Abdominal Exam: Normal Bowel Sounds, Soft, Non-Tender, No Distention Back Exam: Normal Inspection, Full Range of Motion Extremities: Normal Inspection, Non-Tender, No Pedal Edema Skin: Warm, Dry, Intact, Other (Mildly pale) Neurological: Normal Speech, Normal Tone Neuro Extensive - Mental Status: Alert, Normal Mood/Affect Psychiatric: Alert, Normal Mood, Other (Flat affect) - Patient Data Lab Results Last 24 hrs: Laboratory Results - last 24 hr 12/02/20 12/02/20 12/02/20 Range/Units 16:55 16:55 16:55 WBC 3.7 (3.0-10.3) x10-3/uL RBC 2.67 L (3.60-5.20) x10(6)uL Hgb 7.4 L (11.4-15.5) g/dL Hct 22.9 L (34.2-48.2) % MCV 85.6 (76.7-100.5) fL MCH 27.5 (23.9-33.9) pg MCHC 32.1 (31.9-34.8) g/dL RDW 18.4 H (12.3-16.5) % Plt Count 71 L (151-488) x10(3)uL MPV 11.0 (7.1-12.4) fL Add Manual Diff Yes Neutrophils % (Manual) 60 (46-82) % Band Neutrophils % 7 H (0-6) % Lymphocytes % (Manual) 20 (13-37) % Monocytes % (Manual) 11 (4-12) % Eosinophils % (Manual) 1 (0-5) % Metamyelocytes % 1 H (0-0) % Sodium 138 (135-145) mmol/L Potassium 4.3 (3.5-5.3) mmol/L Chloride 101 (100-110) mmol/L Carbon Dioxide 28 (21-32) mmol/L BUN 33 H D (7-18) mg/dL Creatinine 1.7 H (0.55-1.02) mg/dL Est Cr Clr Drug Dosing TNP Estimated GFR (MDRD) 29 L (>60) BUN/Creatinine Ratio 19.4 (9-20) Glucose 128 H (80-116) mg/dL POC Glucose (80-116) mg/dL Calcium 7.5 L (8.6-10.2) mg/dL Total Bilirubin 0.6 (0.1-1.3) mg/dL AST 16 D (5-25) IU/L ALT 12 (12-36) U/L Alkaline Phosphatase 90 (56-112) IU/L Total Protein 6.1 (6.0-8.0) g/dL Albumin 2.7 L (3.2-4.6) g/dL Globulin 3.4 g/dL Albumin/Globulin Ratio 0.8 SARS-CoV-2 RNA (JILLIAN) (NEGATIVE) Blood Type B POSITIVE Gel Antibody Screen Negative Crossmatch See Detail 12/02/20 12/03/20 12/03/20 Range/Units 18:15 05:55 05:55 WBC 5.5 (3.0-10.3) x10-3/uL RBC 3.36 L (3.60-5.20) x10(6)uL Hgb 9.8 L (11.4-15.5) g/dL Hct 30.0 L (34.2-48.2) % MCV 89.2 (76.7-100.5) fL MCH 29.2 (23.9-33.9) pg MCHC 32.7 (31.9-34.8) g/dL RDW 17.2 H (12.3-16.5) % Plt Count 58 L (151-488) x10(3)uL MPV (7.1-12.4) fL Add Manual Diff Neutrophils % (Manual) (46-82) % Band Neutrophils % (0-6) % Lymphocytes % (Manual) (13-37) % Monocytes % (Manual) (4-12) % Eosinophils % (Manual) (0-5) % Metamyelocytes % (0-0) % Sodium (135-145) mmol/L Potassium (3.5-5.3) mmol/L Chloride (100-110) mmol/L Carbon Dioxide (21-32) mmol/L BUN (7-18) mg/dL Creatinine (0.55-1.02) mg/dL Est Cr Clr Drug Dosing Estimated GFR (MDRD) (>60) BUN/Creatinine Ratio (9-20) Glucose (80-116) mg/dL POC Glucose 180 H (80-116) mg/dL Calcium (8.6-10.2) mg/dL Total Bilirubin (0.1-1.3) mg/dL AST (5-25) IU/L ALT (12-36) U/L Alkaline Phosphatase (56-112) IU/L Total Protein (6.0-8.0) g/dL Albumin (3.2-4.6) g/dL Globulin g/dL Albumin/Globulin Ratio SARS-CoV-2 RNA (JILLIAN) Negative (NEGATIVE) Blood Type Gel Antibody Screen Crossmatch Result Diagrams: 12/03/20 05:55 12/02/20 16:55 Sepsis Event Note - Evaluation Sepsis Screening Result: Sepsis Risk - Focused Exam Vital Signs: Vital Signs Temp Temp Temp Pulse Resp BP Pulse Ox 12/03/20 08:00 98.7 F 67 22 H 126/53 L 89 L 12/03/20 06:43 98.5 F 12/03/20 06:10 100.1 F 12/03/20 04:50 101.2 F H 68 20 149/64 H 94 L 12/03/20 04:00 97.9 F 62 20 143/60 H 95 12/03/20 03:13 97.8 F 66 20 138/62 12/03/20 00:55 97.9 F 97.9 F 62 20 115/53 L 95 12/03/20 00:45 97.4 F 63 20 120/54 L 12/03/20 00:40 97.0 F 61 20 123/55 L 12/03/20 00:35 97.7 F 61 20 121/61 12/03/20 00:30 97.0 F 63 20 126/54 L 12/03/20 00:25 96.8 F L 66 20 134/60 12/03/20 00:10 96.9 F 64 20 126/59 L 12/02/20 21:57 97.4 F 62 16 117/56 L 96 12/02/20 21:42 97.4 F 63 15 107/42 L 96 12/02/20 21:27 97.4 F 63 16 116/52 L 12/02/20 21:22 98.3 F 67 20 140/57 L 91 L Pulse Ox 12/03/20 08:00 12/03/20 06:43 12/03/20 06:10 12/03/20 04:50 12/03/20 04:00 12/03/20 03:13 12/03/20 00:55 12/03/20 00:45 12/03/20 00:40 12/03/20 00:35 12/03/20 00:30 12/03/20 00:25 12/03/20 00:10 12/02/20 21:57 12/02/20 21:42 12/02/20 21:27 96 12/02/20 21:22 - Problem List (1) HAO (acute kidney injury) SNOMED Code(s): 95417773, 31818375 ICD Code: N17.9 - ACUTE KIDNEY FAILURE, UNSPECIFIED Status: Acute Current Visit: No (2) Anemia SNOMED Code(s): 787150407 ICD Code: D64.9 - ANEMIA, UNSPECIFIED Status: Acute Current Visit: No Qualifiers: Anemia type: iron deficiency (3) Palliative care status SNOMED Code(s): 955044668 ICD Code: Z51.5 - ENCOUNTER FOR PALLIATIVE CARE Status: Acute Current Visit: No (4) Thrombocytopenia SNOMED Code(s): 508790469 ICD Code: D69.6 - THROMBOCYTOPENIA, UNSPECIFIED Status: Acute Current Visit: No (5) DM2 (diabetes mellitus, type 2) SNOMED Code(s): 77563958 ICD Code: E11.9 - TYPE 2 DIABETES MELLITUS WITHOUT COMPLICATIONS Status: Chronic Current Visit: No Qualifiers: Diabetes mellitus group home insulin use: with group home use Diabetes mellitus complication status: without complication Qualified Code(s): E11.9 - Type 2 diabetes mellitus without complications; Z79.4 - [facility] (current) use of insulin; Z79.4 - 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 bug exterminator (current) use of insulin; Z79.4 - bed bug exterminator (current) use of insulin; Z79.4 - bed bug exterminator (current) use of insulin (6) MDD (major depressive disorder) SNOMED Code(s): 574837822 ICD Code: F32.9 - MAJOR DEPRESSIVE DISORDER, SINGLE EPISODE, UNSPECIFIED Status: Chronic Current Visit: No Qualifiers: Major depression recurrence: recurrent Psychotic features: without psychotic features (7) Obesity (BMI 30-39.9) SNOMED Code(s): 937290521, 720464963 ICD Code: E66.9 - OBESITY, UNSPECIFIED Status: Chronic Current Visit: No (8) Weakness SNOMED Code(s): 32342008 ICD Code: R53.1 - WEAKNESS Status: Chronic Current Visit: No Problem List Initiated/Reviewed/Updated: Yes Orders Last 24hrs: Active Orders 24 hr Category Date Time Status Admission Status [Patient Status] [ADT] Routine ADT 12/02/20 18:07 Active Accu Check [Blood Glucose Check, Bedside] [RC] TIDMEALS Care 12/03/20 05:47 Active EKG Documentation Completion [RC] ASDIRECTED Care 12/03/20 08:39 Ordered Oxygen Therapy [RC] PRN Care 12/02/20 21:22 Active Up With Assistance [RC] ASDIRECTED Care 12/02/20 21:22 Active VTE/DVT Education [RC] Per Unit Routine Care 12/02/20 21:22 Active Vital Signs [RC] 00,04,08,12,16,20 Care 12/02/20 21:22 Active Consistent Carbohydrate Diet [DIET] Diet 12/03/20 Breakfast Active CXR [Chest 2V] [CR] Routine Exams 12/03/20 08:40 Ordered COMPREHENSIVE METABOLIC PN,CMP [CHEM] Routine Lab 12/03/20 08:40 Ordered CULTURE BLOOD [BC] Urgent Lab 12/03/20 08:41 Ordered CULTURE BLOOD [BC] Urgent Lab 12/03/20 08:41 Ordered PRO B-TYPE NATRIUR PEPT,BNPPRO [CHEM] Routine Lab 12/03/20 08:40 Ordered TROPONIN I [CHEM] Routine Lab 12/03/20 08:39 Ordered Acetaminophen [TylenoL] Med 12/02/20 21:22 Active 650 mg PO Q4H PRN Acetaminophen [Tylenol Extra Strength] Med 12/03/20 08:41 Ordered 1,000 mg PO TID PRN Aspirin [Halfprin] Med 12/03/20 09:00 Pending 81 mg PO DAILY Betamethasone/Clotrimazole [Lotrisone] Med 12/03/20 09:00 Ordered 1 applic TOP BID Bumetanide [Bumex] Med 12/03/20 09:00 Pending 1 mg PO DAILY Carboxymethylcellulose Sodium [Refresh Tears 0.5%] Med 12/03/20 09:00 Pending DOSE ml EYEBOTH BID Cholecalciferol (Vitamin D3) [Vitamin D3] Med 12/03/20 09:00 Pending 2,000 units PO DAILY Cholestyramine (With Sugar) [Questran Powder] Med 12/03/20 17:00 Ordered 4 gm PO 17 Cyanocobalamin (Vitamin B12) [Vitamin B12] Med 12/03/20 09:00 Pending 1,000 mcg PO DAILY Gabapentin [Neurontin] Med 12/03/20 08:00 Pending 300 mg PO 08,15 Insulin Glargine,Hum.Rec.Anlog [Toujeo Lit Solostar] Med 12/03/20 08:00 Pending 30 unit SQ 0800 Insulin Lispro [HumaLOG] Med 12/03/20 08:00 Pending 10 unit SQ 08,11,17 Loperamide [Imodium] Med 12/03/20 08:41 Ordered 2 mg PO BID PRN Loratadine [Claritin] Med 12/02/20 21:24 Pending 10 mg PO DAILY PRN Losartan [Cozaar] Med 12/03/20 09:00 Pending 50 mg PO DAILY Memantine [Namenda] Med 12/03/20 09:00 Pending 10 mg PO BID Pantoprazole [ProTONIX] Med 12/03/20 09:00 Pending 40 mg PO DAILY Potassium Chloride [Potassium Chloride] Med 12/03/20 09:00 Pending 20 meq PO DAILY QUEtiapine [SEROqueL] Med 12/03/20 21:00 Pending 25 mg PO BEDTIME QUEtiapine [SEROquel] Med 12/03/20 15:00 Ordered 50 mg PO 1500 Rivastigmine Tartrate [Rivastigmine] Med 12/03/20 09:00 Pending 6 mg PO BID Sertraline [Zoloft] Med 12/03/20 09:00 Pending 150 mg PO DAILY Sodium Chloride 0.9% [Normal Saline] 250 ml Med 12/02/20 17:00 Active IV ASDIRECTED Sodium Chloride 0.9% [Normal Saline] 250 ml Med 12/02/20 21:45 Active IV ASDIRECTED Timolol [Betimol 0.5% Ophth Soln] Med 12/03/20 09:00 Pending 1 drop EYELF BID atorvaSTATin [Lipitor] Med 12/03/20 21:00 Pending 40 mg PO BEDTIME buPROPion [Wellbutrin] Med 12/03/20 09:00 Pending 75 mg PO DAILY metFORMIN HCl [Metformin ER Osmotic] Med 12/03/20 08:00 Pending 500 mg PO BIDMEALS polyethylene glycoL 3350 [MiraLAX] Med 12/03/20 08:41 Ordered 17 gm PO DAILY PRN risperiDONE [RisperiDAL] Med 12/03/20 21:00 Pending 0.5 mg PO BEDTIME Blood Culture x2 Reflex Set [OM.PC] Urgent Oth 12/03/20 08:40 Ordered Transfuse PRBC [Transfuse Red Blood Cells] [COMM] Stat Oth 12/02/20 21:34 Orde red Transfuse PRBC [Transfuse Red Blood Cells] [COMM] Stat Oth 12/02/20 22:05 Ordered Resuscitation Status Routine Resus Stat 12/02/20 21:22 Ordered EKG 12 Lead [EK] Routine Ther 12/03/20 08:39 Ordered Medication Orders Acetaminophen (Acetaminophen 325 Mg Tab) 650 mg PO Q4H PRN PRN Reason: Pain (Mild 1-3)/fever Last Admin: 12/03/20 05:04 Dose: 650 mg Documented by: [id number] Acetaminophen (Acetaminophen 500 Mg Tab) 1,000 mg PO TID PRN PRN Reason: Pain Artificial Tears (Carboxymethylcellulose Sodium 0.5% Ophth Soln 15 Ml Bottle) ml EYEBOTH BID JEANA Aspirin (Aspirin 81 Mg Tab.Ec) 81 mg PO DAILY JEANA Atorvastatin Calcium (Atorvastatin 40 Mg Tab) 40 mg PO BEDTIME JEANA Betamethasone/Clotrimazole (Betamethasone Dipropionate/Clotrimazole 0.05-1% Crm 15 Gm Tube) gm TOP BID JEANA Bumetanide (Bumetanide 1 Mg Tab) 1 mg PO DAILY JEANA Bupropion HCl (Bupropion 75 Mg Tab) 75 mg PO DAILY JEANA Cyanocobalamin (Cyanocobalamin (Vitamin B12) 1,000 Mcg Tab) 1,000 mcg PO DAILY JEANA Gabapentin (Gabapentin 300 Mg Cap) 300 mg PO 08,15 JEANA Sodium Chloride (Normal Saline) 250 mls @ 100 mls/hr IV ASDIRECTED [facility] Last Admin: 12/02/20 21:27 Dose: 100 mls/hr Documented by: LASHON Sodium Chloride (Normal Saline) 250 mls @ 100 mls/hr IV ASDIRECTED [facility] Last Admin: 12/03/20 00:25 Dose: 100 mls/hr Documented by: NITO Loperamide HCl (Loperamide 2 Mg Cap) 2 mg PO BID PRN PRN Reason: Diarrhea Loratadine (Loratadine 10 Mg Tab) 10 mg PO DAILY PRN PRN Reason: Rash Losartan Potassium (Losartan 50 Mg Tab) 50 mg PO DAILY JEANA Memantine (Memantine 10 Mg Tab) 10 mg PO BID [facility] Non-Formulary Medication (Cholecalciferol (Vitamin D3) [Vitamin D3]) 2,000 units PO DAILY [facility] Non-Formulary Medication (Insulin Glargine,Hum.Rec.Anlog [Toujeo Max Solostar]) 30 unit SQ 0800 JEANA Non-Formulary Medication (Insulin Lispro [Humalog]) 10 unit SQ 08,11,17 JEANA Non-Formulary Medication (Metformin Hcl [Metformin Er Osmotic]) 500 mg PO BIDMEALS JEANA Non-Formulary Medication (Potassium Chloride [Potassium Chloride]) 20 meq PO DAILY [facility] Non-Formulary Medication (Rivastigmine Tartrate [Rivastigmine]) 6 mg PO BID [facility] Non-Formulary Medication (Timolol [Betimol 0.5% Ophth Soln]) 1 drop EYELF BID [facility] Non-Formulary Medication (Cholestyramine (With Sugar) [Questran Powder]) 4 gm PO 17 JEANA Pantoprazole Sodium (Pantoprazole 40 Mg Tab.Cr) 40 mg PO DAILY [facility] Polyethylene Glycol (Polyethylene Glycol 3350 Powder 17 Gm Packet) 17 gm PO DAILY PRN PRN Reason: Constipation Quetiapine Fumarate (Quetiapine 25 Mg Tab) 25 mg PO BEDTIME JEANA Quetiapine Fumarate (Quetiapine 50 Mg Tab) 50 mg PO 1500 JEANA Risperidone (Risperidone 1 Mg Tab) 0.5 mg PO BEDTIME JEANA Sertraline HCl (Sertraline 100 Mg Tab) 150 mg PO DAILY [facility] Assessment/Plan Comment:: 1. admit for observation. 2. Give 2 units RBCs and recheck hemoglobin 3. DNR/DNI 4. Because she has a fever check chest x-ray, UA with UC. 5. Because of weakness and shortness breath with a chest x-ray, troponin, BNP 6. Because her fever blood cultures 2. 7. Prophylaxis with Lovenox 8. Up with assist 9. Diabetic diet and Accu-Cheks 3 times a day. 10. Resume her home medications. - Mortality Measure Prognosis:: Good
[2020-12-03] MEDS ORDERED: Betamethasone Dipropionate/Clotrimazole 0.05-1% Crm 15 GM Tube TOP SCH (09:00)
[2020-12-03] MEDS: METFORMIN HCL 500 MG PO SCH ×2 (11:22→18:21)
[2020-12-03] MEDS: Memantine 10 MG Tab PO SCH ×2 (11:23→20:36)
[2020-12-03] MEDS: Losartan 50 MG Tab PO SCH (11:24)
[2020-12-03] MEDS: Bumetanide 1 MG Tab PO SCH (11:25)
[2020-12-03] MEDS: Aspirin 81 MG Tab.EC PO SCH (11:25)
[2020-12-03] MEDS: Sertraline 100 MG Tab *PTOM PO SCH (11:27)
[2020-12-03] MEDS: Cyanocobalamin (Vitamin B12) 1,000 MCG Tab PO SCH (11:27)
[2020-12-03] MEDS: RIVASTIGMINE TARTRATE 6 MG PO SCH ×2 (11:28→20:38)
[2020-12-03] MEDS: Pantoprazole 40 MG Tab.CR PO SCH (11:28)
[2020-12-03] MEDS: Carboxymethylcellulose Sodium 0.5% Ophth Soln 15 ML Bottle *PTOM EYEBOTH SCH ×2 (11:30→20:39)
[2020-12-03] MEDS: TIMOLOL EYELF SCH ×2 (11:30→20:39)
[2020-12-03] MEDS: INSULIN GLARGINE HUM REC ANLOG 300 UNIT/ML SQ SCH (11:31)
[2020-12-03] MEDS: QUEtiapine 50 MG Tab *PTOM PO SCH (14:31)
[2020-12-03] MEDS: Gabapentin 300 MG Cap PO SCH ×2 (14:32→20:36)
--- NOTE | 2020-12-03 17:41 | CR ---
CHEST TWO VIEWS INDICATION: Short of breath. AP upright view of the chest with lateral views times two were obtained 12/03/2020 and compared with 10/26/2020. Findings remain compatible with CHF and now with possible acute pulmonary edema, there being central infiltration on the right. Findings could also be on the basis of CHF with superimposed pneumonia. There appears to be a pleural effusion posteriorly on the left and a smaller pleural effusion is suggested on the right. These findings may be on the basis of CHF; although, pneumonia and pleuritis could be present bilaterally but especially in the right mid lung field. MTDD
[2020-12-03] MEDS ORDERED: Azithromycin 250 MG Tab PO ONE (18:00)
[2020-12-03] MEDS ORDERED: cefTRIAXone 1 GM in Sodium Chloride 0.9% 50 ML IV SCH (18:00)
[2020-12-03] MEDS: Sodium Chloride 0.9% 10 ML Syringe FLUSH PRN (18:43)
[2020-12-03] MEDS: atorvaSTATin 40 MG Tab PO SCH (20:36)
[2020-12-03] MEDS: risperiDONE 0.5 MG Tab PO SCH (20:37)
[2020-12-03] MEDS: QUEtiapine 25 MG Tab PO SCH (20:38)
[2020-12-04] MEDS ORDERED: Furosemide 20 MG Tab PO ONE (08:06)
--- NOTE | 2020-12-04 08:13 | PCM.PN ---
- General Info Date of Service: 12/04/20 - Patient Data Vitals - Most Recent: Last Vital Signs Temp 98.3 F 12/03/20 20:00 Pulse 60 12/03/20 20:00 Resp 20 12/04/20 04:32 BP 107/43 L 12/03/20 20:00 Pulse Ox 96 12/03/20 20:00 Weight - Most Recent: 216 lb 11.2 oz I&O - Last 24 Hours: Intake & Output 12/03/20 12/04/20 12/04/20 22:59 06:59 14:59 Intake Total 240 Output Total 160 Balance 80 Lab Results Last 24 Hours: Laboratory Results - last 24 hr 12/03/20 12/03/20 12/03/20 Range/Units 09:00 09:00 09:00 WBC (3.0-10.3) x10-3/uL RBC (3.60-5.20) x10(6)uL Hgb (11.4-15.5) g/dL Hct (34.2-48.2) % MCV (76.7-100.5) fL MCH (23.9-33.9) pg MCHC (31.9-34.8) g/dL RDW (12.3-16.5) % Plt Count (151-488) x10(3)uL MPV (7.1-12.4) fL Add Manual Diff Neutrophils % (Manual) (46-82) % Band Neutrophils % (0-6) % Lymphocytes % (Manual) (13-37) % Monocytes % (Manual) (4-12) % Eosinophils % (Manual) (0-5) % Basophils % (Manual) (0-2) % Sodium 136 (135-145) mmol/L Potassium 4.4 (3.5-5.3) mmol/L Chloride 101 (100-110) mmol/L Carbon Dioxide 25 (21-32) mmol/L BUN 33 H (7-18) mg/dL Creatinine 1.4 H (0.55-1.02) mg/dL Est Cr Clr Drug Dosing 29.06 mL/min Estimated GFR (MDRD) 36 L (>60) BUN/Creatinine Ratio 23.6 H (9-20) Glucose 247 H D (80-116) mg/dL POC Glucose (80-116) mg/dL Calcium 7.4 L (8.6-10.2) mg/dL Total Bilirubin 1.7 H (0.1-1.3) mg/dL AST 33 H D (5-25) IU/L ALT 9 L D (12-36) U/L Alkaline Phosphatase 85 (56-112) IU/L Troponin I 41.3 (4.0-60.3) pg/mL C-Reactive Protein (0.5-0.9) mg/dL NT-Pro-B Natriuret Pep 4661 H* (<=450) pg/mL Total Protein 5.7 L (6.0-8.0) g/dL Albumin 2.5 L (3.2-4.6) g/dL Globulin 3.2 g/dL Albumin/Globulin Ratio 0.8 Urine Color (YELLOW) Urine Appearance (CLEAR) Urine pH (5.0-6.5) Ur Specific [employer] (1.010-1.025) Urine Protein (NEGATIVE) mg/dL Urine Glucose (UA) (NORMAL) mg/dL Urine Ketones (NEGATIVE) mg/dL Urine Occult Blood (NEGATIVE) Urine Nitrite (NEGATIVE) Urine Bilirubin (NEGATIVE) Urine Urobilinogen (NEGATIVE) mg/dL Ur Leukocyte Esterase (NEGATIVE) U Hyaline Cast (Auto) (NS) Urine RBC (0-5) Urine WBC (0-5) Ur Squamous Epith Cells (NS,R,O) Amorphous Sediment Urine Bacteria (NS) 12/03/20 12/03/20 12/03/20 Range/Units 09:27 11:19 17:10 WBC (3.0-10.3) x10-3/uL RBC (3.60-5.20) x10(6)uL Hgb (11.4-15.5) g/dL Hct (34.2-48.2) % MCV (76.7-100.5) fL MCH (23.9-33.9) pg MCHC (31.9-34.8) g/dL RDW (12.3-16.5) % Plt Count (151-488) x10(3)uL MPV (7.1-12.4) fL Add Manual Diff Neutrophils % (Manual) (46-82) % Band Neutrophils % (0-6) % Lymphocytes % (Manual) (13-37) % Monocytes % (Manual) (4-12) % Eosinophils % (Manual) (0-5) % Basophils % (Manual) (0-2) % Sodium (135-145) mmol/L Potassium (3.5-5.3) mmol/L Chloride (100-110) mmol/L Carbon Dioxide (21-32) mmol/L BUN (7-18) mg/dL Creatinine (0.55-1.02) mg/dL Est Cr Clr Drug Dosing mL/min Estimated GFR (MDRD) (>60) BUN/Creatinine Ratio (9-20) Glucose (80-116) mg/dL POC Glucose 203 H 189 H (80-116) mg/dL Calcium (8.6-10.2) mg/dL Total Bilirubin (0.1-1.3) mg/dL AST (5-25) IU/L ALT (12-36) U/L Alkaline Phosphatase (56-112) IU/L Troponin I (4.0-60.3) pg/mL C-Reactive Protein (0.5-0.9) mg/dL NT-Pro-B Natriuret Pep (<=450) pg/mL Total Protein (6.0-8.0) g/dL Albumin (3.2-4.6) g/dL Globulin g/dL Albumin/Globulin Ratio Urine Color Yellow (YELLOW) Urine Appearance Slightly cloudy (CLEAR) Urine pH 5.0 (5.0-6.5) Ur Specific [employer] 1.020 (1.010-1.025) Urine Protein Trace (NEGATIVE) mg/dL Urine Glucose (UA) Normal (NORMAL) mg/dL Urine Ketones Negative (NEGATIVE) mg/dL Urine Occult Blood Large H (NEGATIVE) Urine Nitrite Negative (NEGATIVE) Urine Bilirubin Negative (NEGATIVE) Urine Urobilinogen Normal (NEGATIVE) mg/dL Ur Leukocyte Esterase Negative (NEGATIVE) U Hyaline Cast (Auto) Few H (NS) Urine RBC 10-20 H (0-5) Urine WBC 0-5 (0-5) Ur Squamous Epith Cells Occasional (NS,R,O) Amorphous Sediment Few Urine Bacteria Many H (NS) 12/04/20 12/04/20 12/04/20 Range/Units 06:15 06:15 06:15 WBC 3.4 (3.0-10.3) x10-3/uL RBC 3.08 L (3.60-5.20) x10(6)uL Hgb 8.7 L (11.4-15.5) g/dL Hct 26.9 L (34.2-48.2) % MCV 87.2 (76.7-100.5) fL MCH 28.3 (23.9-33.9) pg MCHC 32.5 (31.9-34.8) g/dL RDW 17.6 H (12.3-16.5) % Plt Count 45 L (151-488) x10(3)uL MPV 9.9 (7.1-12.4) fL Add Manual Diff Yes Neutrophils % (Manual) 62 (46-82) % Band Neutrophils % 2 (0-6) % Lymphocytes % (Manual) 16 (13-37) % Monocytes % (Manual) 13 H (4-12) % Eosinophils % (Manual) 6 H (0-5) % Basophils % (Manual) 1 (0-2) % Sodium 141 (135-145) mmol/L Potassium 4.3 (3.5-5.3) mmol/L Chloride 104 (100-110) mmol/L Carbon Dioxide 29 (21-32) mmol/L BUN 37 H (7-18) mg/dL Creatinine 1.3 H (0.55-1.02) mg/dL Est Cr Clr Drug Dosing 31.29 mL/min Estimated GFR (MDRD) 40 L (>60) BUN/Creatinine Ratio 28.5 H (9-20) Glucose 114 D (80-116) mg/dL POC Glucose (80-116) mg/dL Calcium 7.4 L (8.6-10.2) mg/dL Total Bilirubin (0.1-1.3) mg/dL AST (5-25) IU/L ALT (12-36) U/L Alkaline Phosphatase (56-112) IU/L Troponin I (4.0-60.3) pg/mL C-Reactive Protein 11.2 H* (0.5-0.9) mg/dL NT-Pro-B Natriuret Pep (<=450) pg/mL Total Protein (6.0-8.0) g/dL Albumin (3.2-4.6) g/dL Globulin g/dL Albumin/Globulin Ratio Urine Color (YELLOW) Urine Appearance (CLEAR) Urine pH (5.0-6.5) Ur Specific [employer] (1.010-1.025) Urine Protein (NEGATIVE) mg/dL Urine Glucose (UA) (NORMAL) mg/dL Urine Ketones (NEGATIVE) mg/dL Urine Occult Blood (NEGATIVE) Urine Nitrite (NEGATIVE) Urine Bilirubin (NEGATIVE) Urine Urobilinogen (NEGATIVE) mg/dL Ur Leukocyte Esterase (NEGATIVE) U Hyaline Cast (Auto) (NS) Urine RBC (0-5) Urine WBC (0-5) Ur Squamous Epith Cells (NS,R,O) Amorphous Sediment Urine Bacteria (NS) Med Orders - Current: Current Medications Acetaminophen (Acetaminophen 325 Mg Tab) 650 mg PO Q4H PRN PRN Reason: Pain (Mild 1-3)/fever Last Admin: 12/03/20 15:37 Dose: 650 mg Documented by: Acetaminophen (Acetaminophen 500 Mg Tab) 1,000 mg PO TID PRN PRN Reason: Pain Artificial Tears (Carboxymethylcellulose Sodium 0.5% Ophth Soln 15 Ml Bottle *Ptom) 0 ml EYEBOTH BID [facility] Last Admin: 12/03/20 20:39 Dose: 1 drop Documented by: Aspirin (Aspirin 81 Mg Tab.Ec *Ptom) 81 mg PO DAILY [facility] Last Admin: 12/03/20 11:25 Dose: 81 mg Documented by: Atorvastatin Calcium (Atorvastatin 40 Mg Tab *Ptom) 40 mg PO BEDTIME [facility] Last Admin: 12/03/20 20:36 Dose: 40 mg Documented by: Azithromycin (Azithromycin 250 Mg Tab) 250 mg PO DAILY [facility] Stop: 12/07/20 09:01 Betamethasone/Clotrimazole (Betamethasone Dipropionate/Clotrimazole 0.05-1% Crm 15 Gm Tube) gm TOP BID [facility] Bumetanide (Bumetanide 1 Mg Tab *Ptom) 1 mg PO DAILY [facility] Last Admin: 12/03/20 11:25 Dose: 1 mg Documented by: Bupropion HCl (Bupropion 75 Mg Tab *Ptom) 75 mg PO DAILY [facility] Last Admin: 12/03/20 11:25 Dose: 75 mg Documented by: Cyanocobalamin (Cyanocobalamin (Vitamin B12) 1,000 Mcg Tab *Ptom) 1,000 mcg PO DAILY [facility] Last Admin: 12/03/20 11:27 Dose: 1,000 mcg Documented by: Furosemide (Furosemide 20 Mg Tab) 20 mg PO ONETIME ONE Stop: 12/04/20 08:07 Gabapentin (Gabapentin 300 Mg Cap *Ptom) 300 mg PO 1500,2100 [facility] Last Admin: 12/03/20 20:36 Dose: 300 mg Documented by: Sodium Chloride (Normal Saline) 250 mls @ 100 mls/hr IV ASDIRECTED [facility] Last Admin: 12/02/20 21:27 Dose: 100 mls/hr Documented by: Sodium Chloride (Normal Saline) 250 mls @ 100 mls/hr IV ASDIRECTED [facility] Last Admin: 12/03/20 00:25 Dose: 100 mls/hr Documented by: Ceftriaxone Sodium 1 gm/ (Sodium Chloride) 50 mls @ 200 mls/hr IV Q24H [facility] Last Admin: 12/03/20 18:29 Dose: 200 mls/hr Documented by: Loperamide HCl (Loperamide 2 Mg Cap) 2 mg PO BID PRN PRN Reason: Diarrhea Loratadine (Loratadine 10 Mg Tab) 10 mg PO DAILY PRN PRN Reason: Rash Losartan Potassium (Losartan 50 Mg Tab *Ptom) 50 mg PO DAILY [facility] Last Admin: 12/03/20 11:24 Dose: 50 mg Documented by: Memantine (Memantine 10 Mg Tab *Ptom) 10 mg PO BID [facility] Last Admin: 12/03/20 20:36 Dose: 10 mg Documented by: (Cholecalciferol ( Vitamin D3) [Vitamin D3] 2,000 Unit Cap) *Ptom 2,000 units PO DAILY [facility] Last Admin: 12/03/20 11:27 Dose: 2,000 units Documented by: (Insulin Glargine, Hum.Rec.Anlog [ Toujeo Max Solostar] 300 Unit/Ml *Ptom 30 unit SQ 0800 [facility] Last Admin: 12/03/20 11:31 Dose: 30 unit Documented by: (Insulin Lispro [ Humalog] 100 Unit/Ml Pen) *Ptom 10 unit SQ TIDMEALS [facility] Last Admin: 12/03/20 18:28 Dose: 10 unit Documented by: (Metformin Hcl [ Metformin Er Osmotic ] 500 Mg Tab.Er.24) *Ptom 500 mg PO BIDMEALS [facility] Last Admin: 12/03/20 18:21 Dose: 500 mg Documented by: (Potassium Chloride [Potassium Chloride] 20 Meq Tablet.Er) * Ptom 20 meq PO DAILY [facility] Last Admin: 12/03/20 11:28 Dose: 20 meq Documented by: (Rivastigmine Tartrate [ Rivastigmine] 6 Mg Capsule) *Ptom 6 mg PO BID [facility] Last Admin: 12/03/20 20:38 Dose: 6 mg Documented by: (Timolol [Betimol 0. 5% Ophth Soln] 5 Ml Bottle) *Ptom 1 drop EYELF BID [facility] Last Admin: 12/03/20 20:39 Dose: 1 drop Documented by: Non-Formulary Medication (Cholestyramine (With Sugar) [Questran Powder]) 4 gm PO 17 [facility] Pantoprazole Sodium (Pantoprazole 40 Mg Tab.Cr *Ptom) 40 mg PO DAILY [facility] Last Admin: 12/03/20 11:28 Dose: 40 mg Documented by: Polyethylene Glycol (Polyethylene Glycol 3350 Powder 17 Gm Packet) 17 gm PO DAILY PRN PRN Reason: Constipation Quetiapine Fumarate (Quetiapine 25 Mg Tab *Ptom) 25 mg PO BEDTIME [facility] Last Admin: 12/03/20 20:38 Dose: 25 mg Documented by: Quetiapine Fumarate (Quetiapine 50 Mg Tab *Ptom) 50 mg PO 1500 [facility] Last Admin: 12/03/20 14:31 Dose: 50 mg Documented by: Risperidone (Risperidone 0.5 Mg Tab *Ptom) 0.5 mg PO BEDTIME [facility] Last Admin: 12/03/20 20:37 Dose: 0.5 mg Documented by: Sertraline HCl (Sertraline 100 Mg Tab *Ptom) 150 mg PO DAILY [facility] Last Admin: 12/03/20 11:27 Dose: 150 mg Documented by: Sodium Chloride (Sodium Chloride 0.9% 10 Ml Syringe) 10 ml FLUSH ASDIRECTED PRN PRN Reason: Keep Vein Open Last Admin: 12/03/20 18:43 Dose: 10 ml Documented by: Discontinued Medications Atorvastatin Calcium (Atorvastatin 40 Mg Tab) 40 mg PO ONETIME ONE Stop: 12/02/20 21:46 Last Admin: 12/02/20 22:50 Dose: 40 mg Documented by: Azithromycin (Azithromycin 250 Mg Tab) 500 mg PO ONETIME ONE Stop: 12/03/20 18:01 Last Admin: 12/03/20 18:29 Dose: 500 mg Documented by: Memantine (Memantine 10 Mg Tab) 10 mg PO ONETIME ONE Stop: 12/02/20 21:46 Last Admin: 12/02/20 22:50 Dose: 10 mg Documented by: Quetiapine Fumarate (Quetiapine 25 Mg Tab) 25 mg PO ONETIME ONE Stop: 12/02/20 21:46 Last Admin: 12/02/20 22:50 Dose: 25 mg Documented by: - Patient Data Lab Results Last 24 hrs: Laboratory Results - last 24 hr 12/03/20 12/03/20 12/03/20 Range/Units 09:00 09:00 09:00 WBC (3.0-10.3) x10-3/uL RBC (3.60-5.20) x10(6)uL Hgb (11.4-15.5) g/dL Hct (34.2-48.2) % MCV (76.7-100.5) fL MCH (23.9-33.9) pg MCHC (31.9-34.8) g/dL RDW (12.3-16.5) % Plt Count (151-488) x10(3)uL MPV (7.1-12.4) fL Add Manual Diff Neutrophils % (Manual) (46-82) % Band Neutrophils % (0-6) % Lymphocytes % (Manual) (13-37) % Monocytes % (Manual) (4-12) % Eosinophils % (Manual) (0-5) % Basophils % (Manual) (0-2) % Sodium 136 (135-145) mmol/L Potassium 4.4 (3.5-5.3) mmol/L Chloride 101 (100-110) mmol/L Carbon Dioxide 25 (21-32) mmol/L BUN 33 H (7-18) mg/dL Creatinine 1.4 H (0.55-1.02) mg/dL Est Cr Clr Drug Dosing 29.06 mL/min Estimated GFR (MDRD) 36 L (>60) BUN/Creatinine Ratio 23.6 H (9-20) Glucose 247 H D (80-116) mg/dL POC Glucose (80-116) mg/dL Calcium 7.4 L (8.6-10.2) mg/dL Total Bilirubin 1.7 H (0.1-1.3) mg/dL AST 33 H D (5-25) IU/L ALT 9 L D (12-36) U/L Alkaline Phosphatase 85 (56-112) IU/L Troponin I 41.3 (4.0-60.3) pg/mL C-Reactive Protein (0.5-0.9) mg/dL NT-Pro-B Natriuret Pep 4661 H* (<=450) pg/mL Total Protein 5.7 L (6.0-8.0) g/dL Albumin 2.5 L (3.2-4.6) g/dL Globulin 3.2 g/dL Albumin/Globulin Ratio 0.8 Urine Color (YELLOW) Urine Appearance (CLEAR) Urine pH (5.0-6.5) Ur Specific [employer] (1.010-1.025) Urine Protein (NEGATIVE) mg/dL Urine Glucose (UA) (NORMAL) mg/dL Urine Ketones (NEGATIVE) mg/dL Urine Occult Blood (NEGATIVE) Urine Nitrite (NEGATIVE) Urine Bilirubin (NEGATIVE) Urine Urobilinogen (NEGATIVE) mg/dL Ur Leukocyte Esterase (NEGATIVE) U Hyaline Cast (Auto) (NS) Urine RBC (0-5) Urine WBC (0-5) Ur Squamous Epith Cells (NS,R,O) Amorphous Sediment Urine Bacteria (NS) 12/03/20 12/03/20 12/03/20 Range/Units 09:27 11:19 17:10 WBC (3.0-10.3) x10-3/uL RBC (3.60-5.20) x10(6)uL Hgb (11.4-15.5) g/dL Hct (34.2-48.2) % MCV (76.7-100.5) fL MCH (23.9-33.9) pg MCHC (31.9-34.8) g/dL RDW (12.3-16.5) % Plt Count (151-488) x10(3)uL MPV (7.1-12.4) fL Add Manual Diff Neutrophils % (Manual) (46-82) % Band Neutrophils % (0-6) % Lymphocytes % (Manual) (13-37) % Monocytes % (Manual) (4-12) % Eosinophils % (Manual) (0-5) % Basophils % (Manual) (0-2) % Sodium (135-145) mmol/L Potassium (3.5-5.3) mmol/L Chloride (100-110) mmol/L Carbon Dioxide (21-32) mmol/L BUN (7-18) mg/dL Creatinine (0.55-1.02) mg/dL Est Cr Clr Drug Dosing mL/min Estimated GFR (MDRD) (>60) BUN/Creatinine Ratio (9-20) Glucose (80-116) mg/dL POC Glucose 203 H 189 H (80-116) mg/dL Calcium (8.6-10.2) mg/dL Total Bilirubin (0.1-1.3) mg/dL AST (5-25) IU/L ALT (12-36) U/L Alkaline Phosphatase (56-112) IU/L Troponin I (4.0-60.3) pg/mL C-Reactive Protein (0.5-0.9) mg/dL NT-Pro-B Natriuret Pep (<=450) pg/mL Total Protein (6.0-8.0) g/dL Albumin (3.2-4.6) g/dL Globulin g/dL Albumin/Globulin Ratio Urine Color Yellow (YELLOW) Urine Appearance Slightly cloudy (CLEAR) Urine pH 5.0 (5.0-6.5) Ur Specific [employer] 1.020 (1.010-1.025) Urine Protein Trace (NEGATIVE) mg/dL Urine Glucose (UA) Normal (NORMAL) mg/dL Urine Ketones Negative (NEGATIVE) mg/dL Urine Occult Blood Large H (NEGATIVE) Urine Nitrite Negative (NEGATIVE) Urine Bilirubin Negative (NEGATIVE) Urine Urobilinogen Normal (NEGATIVE) mg/dL Ur Leukocyte Esterase Negative (NEGATIVE) U Hyaline Cast (Auto) Few H (NS) Urine RBC 10-20 H (0-5) Urine WBC 0-5 (0-5) Ur Squamous Epith Cells Occasional (NS,R,O) Amorphous Sediment Few Urine Bacteria Many H (NS) 12/04/20 12/04/20 12/04/20 Range/Units 06:15 06:15 06:15 WBC 3.4 (3.0-10.3) x10-3/uL RBC 3.08 L (3.60-5.20) x10(6)uL Hgb 8.7 L (11.4-15.5) g/dL Hct 26.9 L (34.2-48.2) % MCV 87.2 (76.7-100.5) fL MCH 28.3 (23.9-33.9) pg MCHC 32.5 (31.9-34.8) g/dL RDW 17.6 H (12.3-16.5) % Plt Count 45 L (151-488) x10(3)uL MPV 9.9 (7.1-12.4) fL Add Manual Diff Yes Neutrophils % (Manual) 62 (46-82) % Band Neutrophils % 2 (0-6) % Lymphocytes % (Manual) 16 (13-37) % Monocytes % (Manual) 13 H (4-12) % Eosinophils % (Manual) 6 H (0-5) % Basophils % (Manual) 1 (0-2) % Sodium 141 (135-145) mmol/L Potassium 4.3 (3.5-5.3) mmol/L Chloride 104 (100-110) mmol/L Carbon Dioxide 29 (21-32) mmol/L BUN 37 H (7-18) mg/dL Creatinine 1.3 H (0.55-1.02) mg/dL Est Cr Clr Drug Dosing 31.29 mL/min Estimated GFR (MDRD) 40 L (>60) BUN/Creatinine Ratio 28.5 H (9-20) Glucose 114 D (80-116) mg/dL POC Glucose (80-116) mg/dL Calcium 7.4 L (8.6-10.2) mg/dL Total Bilirubin (0.1-1.3) mg/dL AST (5-25) IU/L ALT (12-36) U/L Alkaline Phosphatase (56-112) IU/L Troponin I (4.0-60.3) pg/mL C-Reactive Protein 11.2 H* (0.5-0.9) mg/dL NT-Pro-B Natriuret Pep (<=450) pg/mL Total Protein (6.0-8.0) g/dL Albumin (3.2-4.6) g/dL Globulin g/dL Albumin/Globulin Ratio Urine Color (YELLOW) Urine Appearance (CLEAR) Urine pH (5.0-6.5) Ur Specific [employer] (1.010-1.025) Urine Protein (NEGATIVE) mg/dL Urine Glucose (UA) (NORMAL) mg/dL Urine Ketones (NEGATIVE) mg/dL Urine Occult Blood (NEGATIVE) Urine Nitrite (NEGATIVE) Urine Bilirubin (NEGATIVE) Urine Urobilinogen (NEGATIVE) mg/dL Ur Leukocyte Esterase (NEGATIVE) U Hyaline Cast (Auto) (NS) Urine RBC (0-5) Urine WBC (0-5) Ur Squamous Epith Cells (NS,R,O) Amorphous Sediment Urine Bacteria (NS) Result Diagrams: 12/04/20 06:15 12/04/20 06:15 Sepsis Event Note - Evaluation Sepsis Screening Result: No Definite Risk - Focused Exam Vital Signs: Vital Signs Resp 12/04/20 04:32 20 12/04/20 00:00 18 - Problem List & Annotations (1) HAO (acute kidney injury) SNOMED Code(s): 81705723, 69308205 Code(s): N17.9 - ACUTE KIDNEY FAILURE, UNSPECIFIED Status: Acute Current Visit: No (2) Anemia SNOMED Code(s): 427120605 Code(s): D64.9 - ANEMIA, UNSPECIFIED Status: Acute Current Visit: No Qualifiers: Anemia type: iron deficiency (3) Palliative care status SNOMED Code(s): 302664461 Code(s): Z51.5 - ENCOUNTER FOR PALLIATIVE CARE Status: Acute Current Visit: No (4) Thrombocytopenia SNOMED Code(s): 928086550 Code(s): D69.6 - THROMBOCYTOPENIA, UNSPECIFIED Status: Acute Current Visit: No (5) DM2 (diabetes mellitus, type 2) SNOMED Code(s): 98073740 Code(s): E11.9 - TYPE 2 DIABETES MELLITUS WITHOUT COMPLICATIONS Status: Chronic Current Visit: No Qualifiers: Diabetes mellitus oil heaterman insulin use: with oil heaterman use Diabetes mellitus complication status: without complication Qualified Code(s): E11.9 - Type 2 diabetes mellitus without complications; Z79.4 - nursing home (current) use of insulin; Z79.4 - assistant terminal manager (current) use of insulin; Z79.4 - assistant terminal manager (current) use of insulin; Z79.4 - nursing home (current) use of insulin (6) MDD (major depressive disorder) SNOMED Code(s): 802517268 Code(s): F32.9 - MAJOR DEPRESSIVE DISORDER, SINGLE EPISODE, UNSPECIFIED Status: Chronic Current Visit: No Qualifiers: Major depression recurrence: recurrent Psychotic features: without psychotic features (7) Obesity (BMI 30-39.9) SNOMED Code(s): 146328613, 656118412 Code(s): E66.9 - OBESITY, UNSPECIFIED Status: Chronic Current Visit: No (8) Weakness SNOMED Code(s): 10277719 Code(s): R53.1 - WEAKNESS Status: Chronic Current Visit: No (9) CHF (congestive heart failure) SNOMED Code(s): 13562700 Code(s): I50.9 - HEART FAILURE, UNSPECIFIED Status: Acute Current Visit: Yes (10) Pleural effusion SNOMED Code(s): 05642250 Code(s): J90 - PLEURAL EFFUSION, NOT ELSEWHERE CLASSIFIED Status: Acute Current Visit: Yes (11) Pneumonia SNOMED Code(s): 189971634 Code(s): J18.9 - PNEUMONIA, UNSPECIFIED ORGANISM Status: Acute Current Visit: Yes (12) Hypocalcemia SNOMED Code(s): 0976057 Code(s): E83.51 - HYPOCALCEMIA Status: Acute Current Visit: Yes - Problem List Review Problem List Initiated/Reviewed/Updated: Yes - My Orders Last 24 Hours: My Active Orders 12/03/20 08:39 EKG Documentation Completion [RC] ASDIRECTED EKG 12 Lead [EK] Routine 12/03/20 08:40 Blood Culture x2 Reflex Set [OM.PC] Urgent 12/03/20 08:41 Acetaminophen [Tylenol Extra Strength] 1,000 mg PO TID PRN Loperamide [Imodium] 2 mg PO BID PRN polyethylene glycoL 3350 [MiraLAX] 17 gm PO DAILY PRN 12/03/20 08:51 SCD [Sequential Compression Device] [OM.PC] Routine 12/03/20 09:00 CULTURE BLOOD [BC] Urgent CULTURE BLOOD [BC] Urgent Betamethasone/Clotrimazole [Lotrisone] DOSE gm TOP BID 12/03/20 15:00 QUEtiapine [SEROquel] 50 mg PO 1500 12/03/20 17:00 Cholestyramine (With Sugar) [Questran Powder] 4 gm PO 17 12/03/20 17:52 OCCULT BLOOD DIAGNOSTIC [OP] Routine 12/03/20 18:00 cefTRIAXone [Rocephin] 1 gm Sodium Chloride 0.9% [Normal Saline] 50 ml IV Q24H 12/03/20 18:37 Sodium Chloride 0.9% [Saline Flush] 10 ml FLUSH ASDIRECTED PRN 12/04/20 08:05 Admission Status [Patient Status] [ADT] Routine 12/04/20 08:06 Furosemide [Lasix] 20 mg PO ONETIME ONE 12/04/20 08:07 Consult to Occupational Therapy [OT Evaluation and Treatment] [CONS] Routine Consult to Physical Therapy [PT Evaluation and Treatment] [CONS] Routine 12/04/20 09:00 Azithromycin [Zithromax] 250 mg PO DAILY Calcium Carbonate [Oyster Shell Calcium] 500 mg PO BID 12/05/20 05:11 CBC WITH AUTO DIFF [HEME] AM 12/05/20 06:00 BASIC METABOLIC PANEL,BMP [CHEM] AM - Plan Plan:: 1. C-Reactive protein is elevated and chest x-ray showed possible pneumonia so started treatment with Rocephin and Zithromax. 2. Chest x-ray showed some CHF and pleural effusions was started 20th of by mouth Lasix. Patient's not really symptomatic fluid at this point. 3. Continue to follow CBC and BMP. 4. Calcium was also started 500 twice a day of calcium. 5. Review EGD that showed gastritis last time and normal colonoscopy. Will start iron once a day. 6. Patient's week with her other symptoms so I'm going to put an inpatient and get PT/OT.
[2020-12-04] MEDS ORDERED: Insulin Lispro 100 Unit/ML 3 ML KwikPen SUBCUT ONE ×2 (10:05)
[2020-12-04] MEDS: INSULIN GLARGINE HUM REC ANLOG 300 UNIT/ML SQ SCH (10:06)
[2020-12-04] MEDS: TIMOLOL EYELF SCH ×2 (10:20→20:30)
[2020-12-04] MEDS: Azithromycin 250 MG Tab PO SCH (10:28)
[2020-12-04] MEDS: Calcium Carbonate 500 MG Tablet PO SCH ×2 (10:29→20:29)
[2020-12-04] MEDS: Losartan 50 MG Tab PO SCH (10:29)
[2020-12-04] MEDS: Memantine 10 MG Tab PO SCH ×2 (10:29→20:28)
[2020-12-04] MEDS: Pantoprazole 40 MG Tab.CR PO SCH (10:29)
[2020-12-04] MEDS: Ferrous Sulfate 325 MG Tab PO SCH ×2 (10:29→17:34)
[2020-12-04] MEDS: Carboxymethylcellulose Sodium 0.5% Ophth Soln 15 ML Bottle *PTOM EYEBOTH SCH ×2 (10:30→20:28)
[2020-12-04] MEDS: Aspirin 81 MG Tab.EC PO SCH (10:30)
[2020-12-04] MEDS: Sertraline 50 MG Tab PO SCH (11:39)
[2020-12-04] MEDS: Sertraline 100 MG Tab *PTOM PO SCH (11:39)
[2020-12-04] MEDS: Bumetanide 1 MG Tab PO SCH (11:40)
[2020-12-04] MEDS: RIVASTIGMINE TARTRATE 6 MG PO SCH (11:40)
[2020-12-04] MEDS: RIVASTIGMINE 3 MG PO SCH ×2 (11:40→20:28)
[2020-12-04] MEDS: Potassium Chloride 20 MEQ Tab.ER PO SCH (11:41)
[2020-12-04] MEDS: Cyanocobalamin (Vitamin B12) 1,000 MCG Tab PO SCH (11:41)
[2020-12-04] MEDS: METFORMIN HCL 500 MG PO SCH ×2 (12:03→17:36)
[2020-12-04] MEDS: Gabapentin 300 MG Cap PO SCH ×2 (15:50→20:29)
[2020-12-04] MEDS: QUEtiapine 50 MG Tab *PTOM PO SCH (16:47)
[2020-12-04] MEDS: Sodium Chloride 0.9% 10 ML Syringe FLUSH PRN (17:42)
[2020-12-04] MEDS ORDERED: cefTRIAXone 1 GM Vial IV SCH (18:00)
[2020-12-04] MEDS: risperiDONE 0.5 MG Tab PO SCH (20:28)
[2020-12-04] MEDS: QUEtiapine 25 MG Tab PO SCH (20:29)
[2020-12-04] MEDS: atorvaSTATin 40 MG Tab PO SCH (20:29)
--- NOTE | 2020-12-05 08:09 | PCM.PN ---
- General Info Date of Service: 12/05/20 Admission Dx/Problem (Free Text): Patient states she feels better. She denies fevers, chills, shortness of breath. Nurses states she's had some leg edema so they are wrapping her legs. The nurses report when she walks her knees buckled. - Patient Data Vitals - Most Recent: Last Vital Signs Temp 98.2 F 12/05/20 03:28 Pulse 61 12/05/20 03:28 Resp 18 12/05/20 03:28 BP 126/56 L 12/05/20 03:28 Pulse Ox 93 L 12/05/20 03:28 Weight - Most Recent: 216 lb 11.2 oz I&O - Last 24 Hours: Intake & Output 12/04/20 12/05/20 12/05/20 22:59 06:59 14:59 Intake Total 200 Balance 200 Lab Results Last 24 Hours: Laboratory Results - last 24 hr 12/04/20 12/04/20 12/05/20 Range/Units 11:46 17:28 06:20 WBC 3.3 (3.0-10.3) x10-3/uL RBC 2.95 L (3.60-5.20) x10(6)uL Hgb 8.4 L (11.4-15.5) g/dL Hct 25.4 L (34.2-48.2) % MCV 86.0 (76.7-100.5) fL MCH 28.3 (23.9-33.9) pg MCHC 32.9 (31.9-34.8) g/dL RDW 17.7 H (12.3-16.5) % Plt Count 49 L (151-488) x10(3)uL MPV 10.6 (7.1-12.4) fL Add Manual Diff Yes Neutrophils % (Manual) 63 (46-82) % Band Neutrophils % 1 (0-6) % Lymphocytes % (Manual) 9 L (13-37) % Monocytes % (Manual) 17 H (4-12) % Eosinophils % (Manual) 7 H (0-5) % Basophils % (Manual) 3 H (0-2) % Sodium (135-145) mmol/L Potassium (3.5-5.3) mmol/L Chloride (100-110) mmol/L Carbon Dioxide (21-32) mmol/L BUN (7-18) mg/dL Creatinine (0.55-1.02) mg/dL Est Cr Clr Drug Dosing mL/min Estimated GFR (MDRD) (>60) BUN/Creatinine Ratio (9-20) Glucose (80-116) mg/dL POC Glucose 149 H 202 H (80-116) mg/dL Calcium (8.6-10.2) mg/dL 12/05/20 Range/Units 06:20 WBC (3.0-10.3) x10-3/uL RBC (3.60-5.20) x10(6)uL Hgb (11.4-15.5) g/dL Hct (34.2-48.2) % MCV (76.7-100.5) fL MCH (23.9-33.9) pg MCHC (31.9-34.8) g/dL RDW (12.3-16.5) % Plt Count (151-488) x10(3)uL MPV (7.1-12.4) fL Add Manual Diff Neutrophils % (Manual) (46-82) % Band Neutrophils % (0-6) % Lymphocytes % (Manual) (13-37) % Monocytes % (Manual) (4-12) % Eosinophils % (Manual) (0-5) % Basophils % (Manual) (0-2) % Sodium 138 (135-145) mmol/L Potassium 4.3 (3.5-5.3) mmol/L Chloride 102 (100-110) mmol/L Carbon Dioxide 30 (21-32) mmol/L BUN 35 H (7-18) mg/dL Creatinine 1.3 H (0.55-1.02) mg/dL Est Cr Clr Drug Dosing 31.29 mL/min Estimated GFR (MDRD) 40 L (>60) BUN/Creatinine Ratio 26.9 H (9-20) Glucose 120 H (80-116) mg/dL POC Glucose (80-116) mg/dL Calcium 7.3 L (8.6-10.2) mg/dL Madhu Results Last 24 Hours: Microbiology 12/04/20 15:45 Stool Occult Blood (MADHU) - Final Stool / Feces 12/03/20 09:00 Aerobic Blood Culture - Preliminary Blood - Venous - Lab Draw NO GROWTH AFTER 1 DAY Anaerobic Blood Culture - Preliminary NO GROWTH AFTER 1 DAY 12/03/20 09:00 Aerobic Blood Culture - Preliminary Blood - Venous NO GROWTH AFTER 1 DAY Anaerobic Blood Culture - Preliminary NO GROWTH AFTER 1 DAY Med Orders - Current: Current Medications Acetaminophen (Acetaminophen 325 Mg Tab) 650 mg PO Q4H PRN PRN Reason: Pain (Mild 1-3)/fever Last Admin: 12/03/20 15:37 Dose: 650 mg Documented by: Acetaminophen (Acetaminophen 500 Mg Tab) 1,000 mg PO TID PRN PRN Reason: Pain Artificial Tears (Carboxymethylcellulose Sodium 0.5% Ophth Soln 15 Ml Bottle *Ptom) 0 ml EYEBOTH BID [facility] Last Admin: 12/04/20 20:28 Dose: 1 drop Documented by: Aspirin (Aspirin 81 Mg Tab.Ec *Ptom) 81 mg PO DAILY [facility] Last Admin: 12/04/20 10:30 Dose: 81 mg Documented by: Atorvastatin Calcium (Atorvastatin 40 Mg Tab *Ptom) 40 mg PO BEDTIME [facility] Last Admin: 12/04/20 20:29 Dose: 40 mg Documented by: Azithromycin (Azithromycin 250 Mg Tab) 250 mg PO DAILY [facility] Stop: 12/07/20 09:01 Last Admin: 12/04/20 10:28 Dose: 250 mg Documented by: Betamethasone/Clotrimazole (Betamethasone Dipropionate/Clotrimazole 0.05-1% Crm 15 Gm Tube) gm TOP BID [facility] Bumetanide (Bumetanide 1 Mg Tab) 1 mg PO DAILY [facility] Last Admin: 12/04/20 11:40 Dose: 1 mg Documented by: Bupropion HCl (Bupropion 75 Mg Tab) 75 mg PO DAILY [facility] Last Admin: 12/04/20 11:39 Dose: 75 mg Documented by: Calcium Carbonate/Glycine (Calcium Carbonate 500 Mg Tablet) 500 mg PO BID [facility] Last Admin: 12/04/20 20:29 Dose: 500 mg Documented by: Ceftriaxone Sodium (Ceftriaxone 1 Gm Vial) 1 gm IV Q24H [facility] Last Admin: 12/04/20 17:42 Dose: 1 gm Documented by: Cyanocobalamin (Cyanocobalamin (Vitamin B12) 1,000 Mcg Tab) 1,000 mcg PO DAILY [facility] Last Admin: 12/04/20 11:41 Dose: 1,000 mcg Documented by: Ferrous Sulfate (Ferrous Sulfate 325 Mg Tab) 325 mg PO BIDMEALS [facility] Last Admin: 12/04/20 17:34 Dose: 325 mg Documented by: Gabapentin (Gabapentin 300 Mg Cap *Ptom) 300 mg PO 1500,2100 [facility] Last Admin: 12/04/20 20:29 Dose: 300 mg Documented by: Sodium Chloride (Normal Saline) 250 mls @ 100 mls/hr IV ASDIRECTED [facility] Last Admin: 12/02/20 21:27 Dose: 100 mls/hr Documented by: Sodium Chloride (Normal Saline) 250 mls @ 100 mls/hr IV ASDIRECTED [facility] Last Admin: 12/03/20 00:25 Dose: 100 mls/hr Documented by: Loperamide HCl (Loperamide 2 Mg Cap) 2 mg PO BID PRN PRN Reason: Diarrhea Loratadine (Loratadine 10 Mg Tab) 10 mg PO DAILY PRN PRN Reason: Rash Losartan Potassium (Losartan 50 Mg Tab *Ptom) 50 mg PO DAILY [facility] Last Admin: 12/04/20 10:29 Dose: 50 mg Documented by: Memantine (Memantine 10 Mg Tab *Ptom) 10 mg PO BID [facility] Last Admin: 12/04/20 20:28 Dose: 10 mg Documented by: (Cholecalciferol ( Vitamin D3) [Vitamin D3] 2,000 Unit Cap) *Ptom 2,000 units PO DAILY [facility] Last Admin: 12/04/20 11:59 Dose: 2,000 units Documented by: (Insulin Glargine, Hum.Rec.Anlog [ Toujeo Max Solostar] 300 Unit/Ml *Ptom 30 unit SQ 0800 [facility] Last Admin: 12/04/20 10:06 Dose: 30 unit Documented by: (Insulin Lispro [ Humalog] 100 Unit/Ml Pen) *Ptom 10 unit SQ TIDMEALS [facility] Last Admin: 12/04/20 17:40 Dose: 10 unit Documented by: (Metformin Hcl [ Metformin Er Osmotic ] 500 Mg Tab.Er.24) *Ptom 500 mg PO BIDMEALS [facility] Last Admin: 12/04/20 17:36 Dose: Not Given Documented by: (Timolol [Betimol 0. 5% Ophth Soln] 5 Ml Bottle) *Ptom 1 drop EYELF BID [facility] Last Admin: 12/04/20 20:30 Dose: 1 drop Documented by: Non-Formulary Medication (Cholestyramine (With Sugar) [Questran Powder]) 4 gm PO 17 JEANA Pantoprazole Sodium (Pantoprazole 40 Mg Tab.Cr *Ptom) 40 mg PO DAILY [facility] Last Admin: 12/04/20 10:29 Dose: 40 mg Documented by: Polyethylene Glycol (Polyethylene Glycol 3350 Powder 17 Gm Packet) 17 gm PO DAILY PRN PRN Reason: Constipation Potassium Chloride (Potassium Chloride 20 Meq Tab.Er) 20 meq PO DAILY [facility] Last Admin: 12/04/20 11:41 Dose: 20 meq Documented by: Quetiapine Fumarate (Quetiapine 25 Mg Tab *Ptom) 25 mg PO BEDTIME [facility] Last Admin: 12/04/20 20:29 Dose: 25 mg Documented by: Quetiapine Fumarate (Quetiapine 50 Mg Tab) 50 mg PO DAILY@1500 [facility] Last Admin: 12/04/20 16:47 Dose: 50 mg Documented by: Risperidone (Risperidone 0.5 Mg Tab *Ptom) 0.5 mg PO BEDTIME [facility] Last Admin: 12/04/20 20:28 Dose: 0.5 mg Documented by: Rivastigmine (Rivastigmine 3 Mg Cap) 6 mg PO BID [facility] Last Admin: 12/04/20 20:28 Dose: 6 mg Documented by: Sertraline HCl (Sertraline 50 Mg Tab) 150 mg PO DAILY [facility] Last Admin: 12/04/20 11:39 Dose: 150 mg Documented by: Sodium Chloride (Sodium Chloride 0.9% 10 Ml Syringe) 10 ml FLUSH ASDIRECTED PRN PRN Reason: Keep Vein Open Last Admin: 12/04/20 17:42 Dose: 10 ml Documented by: Discontinued Medications Atorvastatin Calcium (Atorvastatin 40 Mg Tab) 40 mg PO ONETIME ONE Stop: 12/02/20 21:46 Last Admin: 12/02/20 22:50 Dose: 40 mg Documented by: Azithromycin (Azithromycin 250 Mg Tab) 500 mg PO ONETIME ONE Stop: 12/03/20 18:01 Last Admin: 12/03/20 18:29 Dose: 500 mg Documented by: Furosemide (Furosemide 20 Mg Tab) 20 mg PO ONETIME ONE Stop: 12/04/20 08:07 Last Admin: 12/04/20 11:40 Dose: 20 mg Documented by: Ceftriaxone Sodium 1 gm/ (Sodium Chloride) 50 mls @ 200 mls/hr IV Q24H [facility] Last Admin: 12/03/20 18:29 Dose: 200 mls/hr Documented by: Insulin Human Lispro (Insulin Lispro 100 Unit/Ml 3 Ml Kwikpen) Confirm Administered Dose 300 unit SUBCUT .STK-MED ONE Stop: 12/04/20 10:06 Last Admin: 12/04/20 12:01 Dose: Not Given Documented by: Memantine (Memantine 10 Mg Tab) 10 mg PO ONETIME ONE Stop: 12/02/20 21:46 Last Admin: 12/02/20 22:50 Dose: 10 mg Documented by: (Potassium Chloride [Potassium Chloride] 20 Meq Tablet.Er) * Ptom 20 meq PO DAILY [facility] Last Admin: 12/04/20 11:41 Dose: Not Given Documented by: (Rivastigmine Tartrate [ Rivastigmine] 6 Mg Capsule) *Ptom 6 mg PO BID [facility] Last Admin: 12/04/20 11:40 Dose: Not Given Documented by: Quetiapine Fumarate (Quetiapine 25 Mg Tab) 25 mg PO ONETIME ONE Stop: 12/02/20 21:46 Last Admin: 12/02/20 22:50 Dose: 25 mg Documented by: Quetiapine Fumarate (Quetiapine 50 Mg Tab *Ptom) 50 mg PO 1500 [facility] Last Admin: 12/04/20 16:47 Dose: Not Given Documented by: Sertraline HCl (Sertraline 100 Mg Tab *Ptom) 150 mg PO DAILY [facility] Last Admin: 12/04/20 11:39 Dose: Not Given Documented by: - Exam General: Alert, Oriented Neck: Supple Lungs: Normal Respiratory Effort, Crackles (Bilateral bases) Extremities: Other (Legs are wrapped with John Paul wraps.) - Patient Data Lab Results Last 24 hrs: Laboratory Results - last 24 hr 12/04/20 12/04/20 12/05/20 Range/Units 11:46 17:28 06:20 WBC 3.3 (3.0-10.3) x10-3/uL RBC 2.95 L (3.60-5.20) x10(6)uL Hgb 8.4 L (11.4-15.5) g/dL Hct 25.4 L (34.2-48.2) % MCV 86.0 (76.7-100.5) fL MCH 28.3 (23.9-33.9) pg MCHC 32.9 (31.9-34.8) g/dL RDW 17.7 H (12.3-16.5) % Plt Count 49 L (151-488) x10(3)uL MPV 10.6 (7.1-12.4) fL Add Manual Diff Yes Neutrophils % (Manual) 63 (46-82) % Band Neutrophils % 1 (0-6) % Lymphocytes % (Manual) 9 L (13-37) % Monocytes % (Manual) 17 H (4-12) % Eosinophils % (Manual) 7 H (0-5) % Basophils % (Manual) 3 H (0-2) % Sodium (135-145) mmol/L Potassium (3.5-5.3) mmol/L Chloride (100-110) mmol/L Carbon Dioxide (21-32) mmol/L BUN (7-18) mg/dL Creatinine (0.55-1.02) mg/dL Est Cr Clr Drug Dosing mL/min Estimated GFR (MDRD) (>60) BUN/Creatinine Ratio (9-20) Glucose (80-116) mg/dL POC Glucose 149 H 202 H (80-116) mg/dL Calcium (8.6-10.2) mg/dL 05/16/21 Range/Units 06:20 WBC (3.0-10.3) x10-3/uL RBC (3.60-5.20) x10(6)uL Hgb (11.4-15.5) g/dL Hct (34.2-48.2) % MCV (76.7-100.5) fL MCH (23.9-33.9) pg MCHC (31.9-34.8) g/dL RDW (12.3-16.5) % Plt Count (151-488) x10(3)uL MPV (7.1-12.4) fL Add Manual Diff Neutrophils % (Manual) (46-82) % Band Neutrophils % (0-6) % Lymphocytes % (Manual) (13-37) % Monocytes % (Manual) (4-12) % Eosinophils % (Manual) (0-5) % Basophils % (Manual) (0-2) % Sodium 138 (135-145) mmol/L Potassium 4.3 (3.5-5.3) mmol/L Chloride 102 (100-110) mmol/L Carbon Dioxide 30 (21-32) mmol/L BUN 35 H (7-18) mg/dL Creatinine 1.3 H (0.55-1.02) mg/dL Est Cr Clr Drug Dosing 31.29 mL/min Estimated GFR (MDRD) 40 L (>60) BUN/Creatinine Ratio 26.9 H (9-20) Glucose 120 H (80-116) mg/dL POC Glucose (80-116) mg/dL Calcium 7.3 L (8.6-10.2) mg/dL Result Diagrams: 12/05/20 06:20 12/05/20 06:20 Madhu Results Last 24 hrs: Microbiology 12/04/20 15:45 Stool Occult Blood (MADHU) - Final Stool / Feces 12/03/20 09:00 Aerobic Blood Culture - Preliminary Blood - Venous - Lab Draw NO GROWTH AFTER 1 DAY Anaerobic Blood Culture - Preliminary NO GROWTH AFTER 1 DAY 12/03/20 09:00 Aerobic Blood Culture - Preliminary Blood - Venous NO GROWTH AFTER 1 DAY Anaerobic Blood Culture - Preliminary NO GROWTH AFTER 1 DAY Sepsis Event Note - Evaluation Sepsis Screening Result: No Definite Risk - Focused Exam Vital Signs: Vital Signs Temp Pulse Resp BP Pulse Ox 12/05/20 03:28 98.2 F 61 18 126/56 L 93 L 12/05/20 00:00 98.6 F 64 18 124/47 L 93 L - Problem List & Annotations (1) HAO (acute kidney injury) SNOMED Code(s): 67191564, 08270682 Code(s): N17.9 - ACUTE KIDNEY FAILURE, UNSPECIFIED Status: Acute Current Visit: No (2) Anemia SNOMED Code(s): 483940018 Code(s): D64.9 - ANEMIA, UNSPECIFIED Status: Acute Current Visit: No Qualifiers: Anemia type: iron deficiency (3) Palliative care status SNOMED Code(s): 842458076 Code(s): Z51.5 - ENCOUNTER FOR PALLIATIVE CARE Status: Acute Current Visit: No (4) Thrombocytopenia SNOMED Code(s): 751569121 Code(s): D69.6 - THROMBOCYTOPENIA, UNSPECIFIED Status: Acute Current Visit: No (5) DM2 (diabetes mellitus, type 2) SNOMED Code(s): 64781419 Code(s): E11.9 - TYPE 2 DIABETES MELLITUS WITHOUT COMPLICATIONS Status: Chronic Current Visit: No Qualifiers: Diabetes mellitus superintendent container terminal insulin use: with superintendent container terminal use Diabetes mellitus complication status: without complication Qualified Code(s): E11.9 - Type 2 diabetes mellitus without complications; Z79.4 - terminal block assembler (current) use of insulin; Z79.4 - jail (current) use of insulin; Z79.4 - jail (current) use of insulin; Z79.4 - terminal block assembler (current) use of insulin (6) MDD (major depressive disorder) SNOMED Code(s): 362346383 Code(s): F32.9 - MAJOR DEPRESSIVE DISORDER, SINGLE EPISODE, UNSPECIFIED Status: Chronic Current Visit: No Qualifiers: Major depression recurrence: recurrent Psychotic features: without psychotic features (7) Obesity (BMI 30-39.9) SNOMED Code(s): 097113050, 489720960 Code(s): E66.9 - OBESITY, UNSPECIFIED Status: Chronic Current Visit: No (8) Weakness SNOMED Code(s): 89283500 Code(s): R53.1 - WEAKNESS Status: Chronic Current Visit: No (9) CHF (congestive heart failure) SNOMED Code(s): 25418991 Code(s): I50.9 - HEART FAILURE, UNSPECIFIED Status: Acute Current Visit: Yes (10) Pleural effusion SNOMED Code(s): 95901321 Code(s): J90 - PLEURAL EFFUSION, NOT ELSEWHERE CLASSIFIED Status: Acute Current Visit: Yes (11) Pneumonia SNOMED Code(s): 880195758 Code(s): J18.9 - PNEUMONIA, UNSPECIFIED ORGANISM Status: Acute Current Visit: Yes (12) Hypocalcemia SNOMED Code(s): 1746446 Code(s): E83.51 - HYPOCALCEMIA Status: Acute Current Visit: Yes - Problem List Review Problem List Initiated/Reviewed/Updated: Yes - My Orders Last 24 Hours: My Active Orders 12/04/20 08:05 Admission Status [Patient Status] [ADT] Routine 12/04/20 08:07 Consult to Occupational Therapy [OT Evaluation and Treatment] [CONS] Routine Consult to Physical Therapy [PT Evaluation and Treatment] [CONS] Routine 12/04/20 08:30 Ferrous Sulfate 325 mg PO BIDMEALS 12/04/20 09:00 Azithromycin [Zithromax] 250 mg PO DAILY Calcium Carbonate [Oyster Shell Calcium] 500 mg PO BID 12/04/20 16:45 QUEtiapine [SEROquel] 50 mg PO DAILY@1500 12/04/20 18:00 cefTRIAXone [Rocephin] 1 gm IV Q24H - Plan Plan:: 1. Oral antibiotics and DC Rocephin. 2. Change vitals to every shift. 3. CBC in the a.m. 4. Have PT/OT evaluate for strength in the a.m.
[2020-12-05] MEDS: Doxycycline 100 MG Tab PO SCH ×2 (08:49→20:47)
[2020-12-05] MEDS: Acetaminophen 500 MG Tab PO PRN (08:49)
[2020-12-05] MEDS: Bumetanide 1 MG Tab PO SCH (08:50)
[2020-12-05] MEDS: RIVASTIGMINE 3 MG PO SCH ×2 (08:50→20:46)
[2020-12-05] MEDS: Cyanocobalamin (Vitamin B12) 1,000 MCG Tab PO SCH (08:51)
[2020-12-05] MEDS: Potassium Chloride 20 MEQ Tab.ER PO SCH (08:51)
[2020-12-05] MEDS: Sertraline 50 MG Tab PO SCH (08:51)
[2020-12-05] MEDS: INSULIN GLARGINE HUM REC ANLOG 300 UNIT/ML SQ SCH (08:53)
[2020-12-05] MEDS: METFORMIN HCL 500 MG PO SCH ×2 (08:55→17:21)
[2020-12-05] MEDS: TIMOLOL EYELF SCH ×2 (08:57→20:47)
[2020-12-05] MEDS: Carboxymethylcellulose Sodium 0.5% Ophth Soln 15 ML Bottle *PTOM EYEBOTH SCH ×2 (08:57→20:47)
[2020-12-05] MEDS: Aspirin 81 MG Tab.EC PO SCH (09:04)
[2020-12-05] MEDS: Losartan 50 MG Tab PO SCH (09:04)
[2020-12-05] MEDS: Ferrous Sulfate 325 MG Tab PO SCH ×2 (09:05→17:43)
[2020-12-05] MEDS: Calcium Carbonate 500 MG Tablet PO SCH ×2 (09:05→20:46)
[2020-12-05] MEDS: Azithromycin 250 MG Tab PO SCH (09:05)
[2020-12-05] MEDS: Memantine 10 MG Tab PO SCH ×2 (09:05→20:46)
[2020-12-05] MEDS: Pantoprazole 40 MG Tab.CR PO SCH (09:05)
[2020-12-05] MEDS: Gabapentin 300 MG Cap PO SCH ×2 (15:07→20:46)
[2020-12-05] MEDS: atorvaSTATin 40 MG Tab PO SCH (20:46)
[2020-12-05] MEDS: QUEtiapine 25 MG Tab PO SCH (20:46)
[2020-12-05] MEDS: risperiDONE 0.5 MG Tab PO SCH (20:46)
[2020-12-06] MEDS: INSULIN GLARGINE HUM REC ANLOG 300 UNIT/ML SQ SCH (08:12)
[2020-12-06] MEDS ORDERED: Insulin Lispro 100 Unit/ML 3 ML KwikPen SUBCUT SCH (08:15)
[2020-12-06] MEDS: Ferrous Sulfate 325 MG Tab PO SCH ×2 (08:21→17:37)
[2020-12-06] MEDS: Aspirin 81 MG Tab.EC PO SCH ×2 (08:21→08:22)
[2020-12-06] MEDS: Losartan 50 MG Tab PO SCH (08:21)
[2020-12-06] MEDS: Bumetanide 1 MG Tab PO SCH (08:21)
[2020-12-06] MEDS: metFORMIN 500 MG Tab.ER PO SCH ×2 (08:21→17:37)
[2020-12-06] MEDS: RIVASTIGMINE 3 MG PO SCH ×2 (08:21→20:42)
[2020-12-06] MEDS: Azithromycin 250 MG Tab PO SCH (08:22)
[2020-12-06] MEDS: Carboxymethylcellulose Sodium 0.5% Ophth Soln 15 ML Bottle *PTOM EYEBOTH SCH ×2 (08:22→20:43)
[2020-12-06] MEDS: Potassium Chloride 20 MEQ Tab.ER PO SCH (08:22)
[2020-12-06] MEDS: Doxycycline 100 MG Tab PO SCH ×2 (08:22→20:46)
[2020-12-06] MEDS: Cyanocobalamin (Vitamin B12) 1,000 MCG Tab PO SCH (08:22)
[2020-12-06] MEDS: Calcium Carbonate 500 MG Tablet PO SCH ×2 (08:22→20:44)
[2020-12-06] MEDS: Sertraline 50 MG Tab PO SCH (08:22)
[2020-12-06] MEDS: Memantine 10 MG Tab PO SCH ×2 (08:22→20:43)
[2020-12-06] MEDS: Cholecalciferol (Vitamin D3) 25 MCG Tab PO SCH (08:22)
[2020-12-06] MEDS: Pantoprazole 40 MG Tab.CR PO SCH (08:22)
[2020-12-06] MEDS: TIMOLOL EYELF SCH (08:22)
[2020-12-06] MEDS: METFORMIN HCL 500 MG PO SCH (08:50)
--- NOTE | 2020-12-06 08:51 | PCM.PN ---
- General Info Date of Service: 12/06/20 Admission Dx/Problem (Free Text): Patient without any concerns. She denies chest pain, shortness of breath, leg swelling today. - Patient Data Vitals - Most Recent: Last Vital Signs Temp 98.1 F 12/05/20 23:48 Pulse 60 12/05/20 23:48 Resp 18 12/05/20 23:48 BP 123/43 L 12/06/20 08:21 Pulse Ox 93 L 12/05/20 23:48 Weight - Most Recent: 216 lb 11.2 oz I&O - Last 24 Hours: Intake & Output 12/05/20 12/06/20 12/06/20 22:59 06:59 14:59 Intake Total 180 300 Output Total 200 Balance -20 300 Lab Results Last 24 Hours: Laboratory Results - last 24 hr 12/04/20 12/04/20 12/04/20 Range/Units 11:46 17:28 17:28 WBC (3.0-10.3) x10-3/uL RBC (3.60-5.20) x10(6)uL Hgb (11.4-15.5) g/dL Hct (34.2-48.2) % MCV (76.7-100.5) fL MCH (23.9-33.9) pg MCHC (31.9-34.8) g/dL RDW (12.3-16.5) % Plt Count (151-488) x10(3)uL MPV (7.1-12.4) fL Add Manual Diff Neutrophils % (Manual) (46-82) % Lymphocytes % (Manual) (13-37) % Monocytes % (Manual) (4-12) % Eosinophils % (Manual) (0-5) % Anisocytosis POC Glucose 149 H 202 H 202 H (80-116) mg/dL 12/05/20 12/05/20 12/05/20 Range/Units 11:27 11:27 17:22 WBC (3.0-10.3) x10-3/uL RBC (3.60-5.20) x10(6)uL Hgb (11.4-15.5) g/dL Hct (34.2-48.2) % MCV (76.7-100.5) fL MCH (23.9-33.9) pg MCHC (31.9-34.8) g/dL RDW (12.3-16.5) % Plt Count (151-488) x10(3)uL MPV (7.1-12.4) fL Add Manual Diff Neutrophils % (Manual) (46-82) % Lymphocytes % (Manual) (13-37) % Monocytes % (Manual) (4-12) % Eosinophils % (Manual) (0-5) % Anisocytosis POC Glucose 117 H D 117 H 91 (80-116) mg/dL 12/05/20 12/06/20 12/06/20 Range/Units 17:22 06:24 06:24 WBC (3.0-10.3) x10-3/uL RBC (3.60-5.20) x10(6)uL Hgb (11.4-15.5) g/dL Hct (34.2-48.2) % MCV (76.7-100.5) fL MCH (23.9-33.9) pg MCHC (31.9-34.8) g/dL RDW (12.3-16.5) % Plt Count (151-488) x10(3)uL MPV (7.1-12.4) fL Add Manual Diff Neutrophils % (Manual) (46-82) % Lymphocytes % (Manual) (13-37) % Monocytes % (Manual) (4-12) % Eosinophils % (Manual) (0-5) % Anisocytosis POC Glucose 91 76 L 76 L (80-116) mg/dL 12/06/20 12/06/20 12/06/20 Range/Units 06:30 08:06 08:06 WBC 2.7 L (3.0-10.3) x10-3/uL RBC 3.09 L (3.60-5.20) x10(6)uL Hgb 8.8 L (11.4-15.5) g/dL Hct 27.1 L (34.2-48.2) % MCV 87.8 (76.7-100.5) fL MCH 28.5 (23.9-33.9) pg MCHC 32.4 (31.9-34.8) g/dL RDW 18.0 H (12.3-16.5) % Plt Count 45 L (151-488) x10(3)uL MPV 11.1 (7.1-12.4) fL Add Manual Diff Yes Neutrophils % (Manual) 58 (46-82) % Lymphocytes % (Manual) 18 (13-37) % Monocytes % (Manual) 22 H (4-12) % Eosinophils % (Manual) 2 (0-5) % Anisocytosis Few POC Glucose 217 H D 217 H (80-116) mg/dL Madhu Results Last 24 Hours: Microbiology 12/03/20 09:00 Aerobic Blood Culture - Preliminary Blood - Venous - Lab Draw NO GROWTH AFTER 2 DAYS Anaerobic Blood Culture - Preliminary NO GROWTH AFTER 2 DAYS 12/03/20 09:00 Aerobic Blood Culture - Preliminary Blood - Venous NO GROWTH AFTER 2 DAYS Anaerobic Blood Culture - Preliminary NO GROWTH AFTER 2 DAYS Med Orders - Current: Current Medications Acetaminophen (Acetaminophen 500 Mg Tab) 1,000 mg PO TID PRN PRN Reason: Pain Last Admin: 12/05/20 08:49 Dose: 1,000 mg Documented by: Artificial Tears (Carboxymethylcellulose Sodium 0.5% Ophth Soln 15 Ml Bottle *Ptom) 0 ml EYEBOTH BID [facility] Last Admin: 12/06/20 08:22 Dose: 1 drop Documented by: Aspirin (Aspirin 81 Mg Tab.Ec) 81 mg PO DAILY [facility] Last Admin: 12/06/20 08:22 Dose: 81 mg Documented by: Atorvastatin Calcium (Atorvastatin 40 Mg Tab) 40 mg PO BEDTIME [facility] Last Admin: 12/05/20 20:46 Dose: 40 mg Documented by: Azithromycin (Azithromycin 250 Mg Tab) 250 mg PO DAILY [facility] Stop: 12/07/20 09:01 Last Admin: 12/06/20 08:22 Dose: 250 mg Documented by: Betamethasone/Clotrimazole (Betamethasone Dipropionate/Clotrimazole 0.05-1% Crm 15 Gm Tube) gm TOP BID [facility] Bumetanide (Bumetanide 1 Mg Tab) 1 mg PO DAILY [facility] Last Admin: 12/06/20 08:21 Dose: 1 mg Documented by: Bupropion HCl (Bupropion 75 Mg Tab) 75 mg PO DAILY [facility] Last Admin: 12/06/20 08:22 Dose: 75 mg Documented by: Calcium Carbonate/Glycine (Calcium Carbonate 500 Mg Tablet) 500 mg PO BID [facility] Last Admin: 12/06/20 08:22 Dose: 500 mg Documented by: Cholecalciferol (Cholecalciferol (Vitamin D3) 25 Mcg Tab) 50 mcg PO DAILY [facility] Last Admin: 12/06/20 08:22 Dose: 50 mcg Documented by: Cholestyramine Resin (Cholestyramine/Sucrose Powder 4 Gm Packet) 4 gm PO 17 [facility] Cyanocobalamin (Cyanocobalamin (Vitamin B12) 1,000 Mcg Tab) 1,000 mcg PO DAILY [facility] Last Admin: 12/06/20 08:22 Dose: 1,000 mcg Documented by: Doxycycline Hyclate (Doxycycline 100 Mg Tab) 100 mg PO BID [facility] Last Admin: 12/06/20 08:22 Dose: 100 mg Documented by: Ferrous Sulfate (Ferrous Sulfate 325 Mg Tab) 325 mg PO BIDMEALS [facility] Last Admin: 12/06/20 08:21 Dose: 325 mg Documented by: Gabapentin (Gabapentin 300 Mg Cap) 300 mg PO 1500,2100 [facility] Last Admin: 12/05/20 20:46 Dose: 300 mg Documented by: Insulin Human Lispro (Insulin Lispro 100 Unit/Ml 3 Ml Kwikpen) 5 unit SUBCUT TIDMEALS [facility] Loperamide HCl (Loperamide 2 Mg Cap) 2 mg PO BID PRN PRN Reason: Diarrhea Loratadine (Loratadine 10 Mg Tab) 10 mg PO DAILY PRN PRN Reason: Rash Losartan Potassium (Losartan 50 Mg Tab) 50 mg PO DAILY [facility] Last Admin: 12/06/20 08:21 Dose: 50 mg Documented by: Memantine (Memantine 10 Mg Tab) 10 mg PO BID [facility] Last Admin: 12/06/20 08:22 Dose: 10 mg Documented by: Metformin HCl (Metformin 500 Mg Tab.Er) 500 mg PO BIDMEALS [facility] Last Admin: 12/06/20 08:21 Dose: 500 mg Documented by: (Insulin Glargine, Hum.Rec.Anlog [ Toujeo Max Solostar] 300 Unit/Ml *Ptom 30 unit SQ 0800 [facility] Last Admin: 12/06/20 08:12 Dose: 30 unit Documented by: (Timolol [Betimol 0. 5% Ophth Soln] 5 Ml Bottle) *Ptom 1 drop EYELF BID [facility] Last Admin: 12/06/20 08:22 Dose: 1 drop Documented by: Pantoprazole Sodium (Pantoprazole 40 Mg Tab.Cr) 40 mg PO DAILY [facility] Last Admin: 12/06/20 08:22 Dose: 40 mg Documented by: Polyethylene Glycol (Polyethylene Glycol 3350 Powder 17 Gm Packet) 17 gm PO DAILY PRN PRN Reason: Constipation Potassium Chloride (Potassium Chloride 20 Meq Tab.Er) 20 meq PO DAILY [facility] Last Admin: 12/06/20 08:22 Dose: 20 meq Documented by: Quetiapine Fumarate (Quetiapine 25 Mg Tab) 25 mg PO BEDTIME [facility] Last Admin: 12/05/20 20:46 Dose: 25 mg Documented by: Quetiapine Fumarate (Quetiapine 50 Mg Tab) 50 mg PO DAILY@1500 [facility] Last Admin: 12/05/20 15:09 Dose: 50 mg Documented by: Risperidone (Risperidone 0.5 Mg Tab) 0.5 mg PO BEDTIME [facility] Last Admin: 12/05/20 20:46 Dose: 0.5 mg Documented by: Rivastigmine (Rivastigmine 3 Mg Cap) 6 mg PO BID [facility] Last Admin: 12/06/20 08:21 Dose: 6 mg Documented by: Sertraline HCl (Sertraline 50 Mg Tab) 150 mg PO DAILY [facility] Last Admin: 12/06/20 08:22 Dose: 150 mg Documented by: Sodium Chloride (Sodium Chloride 0.9% 10 Ml Syringe) 10 ml FLUSH ASDIRECTED PRN PRN Reason: Keep Vein Open Last Admin: 12/04/20 17:42 Dose: 10 ml Documented by: Discontinued Medications Acetaminophen (Acetaminophen 325 Mg Tab) 650 mg PO Q4H PRN PRN Reason: Pain (Mild 1-3)/fever Last Admin: 12/03/20 15:37 Dose: 650 mg Documented by: Atorvastatin Calcium (Atorvastatin 40 Mg Tab) 40 mg PO ONETIME ONE Stop: 12/02/20 21:46 Last Admin: 12/02/20 22:50 Dose: 40 mg Documented by: Azithromycin (Azithromycin 250 Mg Tab) 500 mg PO ONETIME ONE Stop: 12/03/20 18:01 Last Admin: 12/03/20 18:29 Dose: 500 mg Documented by: Ceftriaxone Sodium (Ceftriaxone 1 Gm Vial) 1 gm IV Q24H [facility] Last Admin: 12/04/20 17:42 Dose: 1 gm Documented by: Furosemide (Furosemide 20 Mg Tab) 20 mg PO ONETIME ONE Stop: 12/04/20 08:07 Last Admin: 12/04/20 11:40 Dose: 20 mg Documented by: Sodium Chloride (Normal Saline) 250 mls @ 100 mls/hr IV ASDIRECTED [facility] Last Admin: 12/02/20 21:27 Dose: 100 mls/hr Documented by: Sodium Chloride (Normal Saline) 250 mls @ 100 mls/hr IV ASDIRECTED [facility] Last Admin: 12/03/20 00:25 Dose: 100 mls/hr Documented by: Ceftriaxone Sodium 1 gm/ (Sodium Chloride) 50 mls @ 200 mls/hr IV Q24H [facility] Last Admin: 12/03/20 18:29 Dose: 200 mls/hr Documented by: Insulin Human Lispro (Insulin Lispro 100 Unit/Ml 3 Ml Kwikpen) Confirm Admi nistered Dose 300 unit SUBCUT .STK-MED ONE Stop: 12/04/20 10:06 Last Admin: 12/04/20 12:01 Dose: Not Given Documented by: Insulin Human Lispro (Insulin Lispro 100 Unit/Ml 3 Ml Kwikpen) 10 unit SUBCUT TIDMEALS [facility] Last Admin: 12/06/20 08:23 Dose: 10 unit Documented by: Memantine (Memantine 10 Mg Tab) 10 mg PO ONETIME ONE Stop: 12/02/20 21:46 Last Admin: 12/02/20 22:50 Dose: 10 mg Documented by: (Cholecalciferol ( Vitamin D3) [Vitamin D3] 2,000 Unit Cap) *Ptom 2,000 units PO DAILY [facility] Last Admin: 12/05/20 09:06 Dose: Not Given Documented by: (Insulin Lispro [ Humalog] 100 Unit/Ml Pen) *Ptom 10 unit SQ TIDMEALS [facility] Last Admin: 12/05/20 17:42 Dose: 10 unit Documented by: (Metformin Hcl [ Metformin Er Osmotic ] 500 Mg Tab.Er.24) *Ptom 500 mg PO BIDMEALS [facility] Last Admin: 12/05/20 17:21 Dose: Not Given Documented by: (Potassium Chloride [Potassium Chloride] 20 Meq Tablet.Er) * Ptom 20 meq PO DAILY [facility] Last Admin: 12/04/20 11:41 Dose: Not Given Documented by: (Rivastigmine Tartrate [ Rivastigmine] 6 Mg Capsule) *Ptom 6 mg PO BID [facility] Last Admin: 12/04/20 11:40 Dose: Not Given Documented by: Quetiapine Fumarate (Quetiapine 25 Mg Tab) 25 mg PO ONETIME ONE Stop: 12/02/20 21:46 Last Admin: 12/02/20 22:50 Dose: 25 mg Documented by: Quetiapine Fumarate (Quetiapine 50 Mg Tab *Ptom) 50 mg PO 1500 [facility] Last Admin: 12/04/20 16:47 Dose: Not Given Documented by: Sertraline HCl (Sertraline 100 Mg Tab *Ptom) 150 mg PO DAILY [facility] Last Admin: 12/04/20 11:39 Dose: Not Given Documented by: - Exam General: Alert, Oriented, Cooperative Lungs: Clear to Auscultation, Normal Respiratory Effort, Decreased Breath Sounds Cardiovascular: Regular Rate, Regular Rhythm, No Murmurs Extremities: No Pedal Edema - Patient Data Lab Results Last 24 hrs: Laboratory Results - last 24 hr 12/04/20 12/04/20 12/04/20 Range/Units 11:46 17:28 17:28 WBC (3.0-10.3) x10-3/uL RBC (3.60-5.20) x10(6)uL Hgb (11.4-15.5) g/dL Hct (34.2-48.2) % MCV (76.7-100.5) fL MCH (23.9-33.9) pg MCHC (31.9-34.8) g/dL RDW (12.3-16.5) % Plt Count (151-488) x10(3)uL MPV (7.1-12.4) fL Add Manual Diff Neutrophils % (Manual) (46-82) % Lymphocytes % (Manual) (13-37) % Monocytes % (Manual) (4-12) % Eosinophils % (Manual) (0-5) % Anisocytosis POC Glucose 149 H 202 H 202 H (80-116) mg/dL 12/05/20 12/05/20 12/05/20 Range/Units 11:27 11:27 17:22 WBC (3.0-10.3) x10-3/uL RBC (3.60-5.20) x10(6)uL Hgb (11.4-15.5) g/dL Hct (34.2-48.2) % MCV (76.7-100.5) fL MCH (23.9-33.9) pg MCHC (31.9-34.8) g/dL RDW (12.3-16.5) % Plt Count (151-488) x10(3)uL MPV (7.1-12.4) fL Add Manual Diff Neutrophils % (Manual) (46-82) % Lymphocytes % (Manual) (13-37) % Monocytes % (Manual) (4-12) % Eosinophils % (Manual) (0-5) % Anisocytosis POC Glucose 117 H D 117 H 91 (80-116) mg/dL 12/05/20 12/06/20 12/06/20 Range/Units 17:22 06:24 06:24 WBC (3.0-10.3) x10-3/uL RBC (3.60-5.20) x10(6)uL Hgb (11.4-15.5) g/dL Hct (34.2-48.2) % MCV (76.7-100.5) fL MCH (23.9-33.9) pg MCHC (31.9-34.8) g/dL RDW (12.3-16.5) % Plt Count (151-488) x10(3)uL MPV (7.1-12.4) fL Add Manual Diff Neutrophils % (Manual) (46-82) % Lymphocytes % (Manual) (13-37) % Monocytes % (Manual) (4-12) % Eosinophils % (Manual) (0-5) % Anisocytosis POC Glucose 91 76 L 76 L (80-116) mg/dL 12/06/20 12/06/20 12/06/20 Range/Units 06:30 08:06 08:06 WBC 2.7 L (3.0-10.3) x10-3/uL RBC 3.09 L (3.60-5.20) x10(6)uL Hgb 8.8 L (11.4-15.5) g/dL Hct 27.1 L (34.2-48.2) % MCV 87.8 (76.7-100.5) fL MCH 28.5 (23.9-33.9) pg MCHC 32.4 (31.9-34.8) g/dL RDW 18.0 H (12.3-16.5) % Plt Count 45 L (151-488) x10(3)uL MPV 11.1 (7.1-12.4) fL Add Manual Diff Yes Neutrophils % (Manual) 58 (46-82) % Lymphocytes % (Manual) 18 (13-37) % Monocytes % (Manual) 22 H (4-12) % Eosinophils % (Manual) 2 (0-5) % Anisocytosis Few POC Glucose 217 H D 217 H (80-116) mg/dL Result Diagrams: 12/06/20 06:30 12/05/20 06:20 Madhu Results Last 24 hrs: Microbiology 12/03/20 09:00 Aerobic Blood Culture - Preliminary Blood - Venous - Lab Draw NO GROWTH AFTER 2 DAYS Anaerobic Blood Culture - Preliminary NO GROWTH AFTER 2 DAYS 12/03/20 09:00 Aerobic Blood Culture - Preliminary Blood - Venous NO GROWTH AFTER 2 DAYS Anaerobic Blood Culture - Preliminary NO GROWTH AFTER 2 DAYS Sepsis Event Note - Evaluation Sepsis Screening Result: No Definite Risk - Focused Exam Vital Signs: Vital Signs Temp Pulse Resp BP BP Pulse Ox 12/06/20 08:21 123/43 L 12/05/20 23:48 98.1 F 60 18 116/39 L 93 L - Problem List & Annotations (1) HAO (acute kidney injury) SNOMED Code(s): 69244121, 63009940 Code(s): N17.9 - ACUTE KIDNEY FAILURE, UNSPECIFIED Status: Acute Current Visit: No (2) Anemia SNOMED Code(s): 141058852 Code(s): D64.9 - ANEMIA, UNSPECIFIED Status: Acute Current Visit: No Qualifiers: Anemia type: iron deficiency (3) Palliative care status SNOMED Code(s): 714609459 Code(s): Z51.5 - ENCOUNTER FOR PALLIATIVE CARE Status: Acute Current Visit: No (4) Thrombocytopenia SNOMED Code(s): 126595361 Code(s): D69.6 - THROMBOCYTOPENIA, UNSPECIFIED Status: Acute Current Visit: No (5) DM2 (diabetes mellitus, type 2) SNOMED Code(s): 54248936 Code(s): E11.9 - TYPE 2 DIABETES MELLITUS WITHOUT COMPLICATIONS Status: Chronic Current Visit: No Qualifiers: Diabetes mellitus nursing home insulin use: with middle or intermediate school principal use Diabetes mellitus complication status: without complication Qualified Code(s): E11.9 - Type 2 diabetes mellitus without complications; Z79.4 - USP (current) use of insulin; Z79.4 - terminal operations manager (current) use of insulin; Z79.4 - USP ( current) use of insulin; Z79.4 - terminal operations manager (current) use of insulin (6) MDD (major depressive disorder) SNOMED Code(s): 794550871 Code(s): F32.9 - MAJOR DEPRESSIVE DISORDER, SINGLE EPISODE, UNSPECIFIED Status: Chronic Current Visit: No Qualifiers: Major depression recurrence: recurrent Psychotic features: without ps ychotic features (7) Obesity (BMI 30-39.9) SNOMED Code(s): 147687934, 768304580 Code(s): E66.9 - OBESITY, UNSPECIFIED Status: Chronic Current Visit: No (8) Weakness SNOMED Code(s): 54253527 Code(s): R53.1 - WEAKNESS Status: Chronic Current Visit: No (9) CHF (congestive heart failure) SNOMED Code(s): 91190561 Code(s): I50.9 - HEART FAILURE, UNSPECIFIED Status: Acute Current Visit: Yes (10) Pleural effusion SNOMED Code(s): 26554718 Code(s): J90 - PLEURAL EFFUSION, NOT ELSEWHERE CLASSIFIED Status: Acute Current Visit: Yes (11) Pneumonia SNOMED Code(s): 048455807 Code(s): J18.9 - PNEUMONIA, UNSPECIFIED ORGANISM Status: Acute Current Visit: Yes (12) Hypocalcemia SNOMED Code(s): 0526547 Code(s): E83.51 - HYPOCALCEMIA Status: Acute Current Visit: Yes - Problem List Review Problem List Initiated/Reviewed/Updated: Yes - My Orders Last 24 Hours: My Active Orders 12/05/20 08:12 Convert IV to Saline Lock [OM.PC] Routine 12/05/20 09:00 Doxycycline [Vibra-Tabs] 100 mg PO BID 12/06/20 08:45 IRON AND TIBC Urgent 12/06/20 08:46 FERRITIN, SERUM Routine RETICULOCYTE COUNT Routine 12/06/20 12:00 Insulin Lispro [HumaLOG] 5 unit SUBCUT TIDMEALS 12/06/20 17:00 Cholestyramine/Sucrose [Cholestyramine Packet] 4 gm PO 17 - Plan Plan:: 1. Continue medications. 2. PT/OT evaluation 3. Social service to assess
[2020-12-06] MEDS: Insulin Lispro 100 Unit/ML 3 ML KwikPen SUBCUT SCH ×2 (12:01→17:38)
[2020-12-06] MEDS: Gabapentin 300 MG Cap PO SCH ×2 (14:58→20:50)
[2020-12-06] MEDS: Cholestyramine/Sucrose Powder 4 GM Packet PO SCH (17:37)
[2020-12-06] MEDS: atorvaSTATin 40 MG Tab PO SCH (20:43)
[2020-12-06] MEDS: risperiDONE 0.5 MG Tab PO SCH (20:44)
[2020-12-06] MEDS: Timolol Maleate 0.5% Ophth Soln 5 ML Bottle EYELF SCH (20:44)
[2020-12-06] MEDS: QUEtiapine 25 MG Tab PO SCH (20:45)
--- NOTE | 2020-12-07 08:03 | PCM.PN ---
- General Info Date of Service: 12/07/20 Admission Dx/Problem (Free Text): Patient has no complaints. She says she feels good. She denies chest pain, shortness breath, fevers, chills - Patient Data Vitals - Most Recent: Last Vital Signs Temp 98.4 F 12/07/20 00:00 Pulse 72 12/07/20 00:00 Resp 18 12/07/20 00:00 BP 132/70 12/07/20 00:00 Pulse Ox 94 L 12/07/20 00:00 Weight - Most Recent: 216 lb 11.2 oz I&O - Last 24 Hours: Intake & Output 12/06/20 12/07/20 12/07/20 22:59 06:59 14:59 Intake Total 150 Balance 150 Lab Results Last 24 Hours: Laboratory Results - last 24 hr 12/04/20 12/04/20 12/04/20 Range/Units 11:46 17:28 17:28 WBC (3.0-10.3) x10-3/uL RBC (3.60-5.20) x10(6)uL Hgb (11.4-15.5) g/dL Hct (34.2-48.2) % MCV (76.7-100.5) fL MCH (23.9-33.9) pg MCHC (31.9-34.8) g/dL RDW (12.3-16.5) % Plt Count (151-488) x10(3)uL MPV (7.1-12.4) fL Add Manual Diff Neutrophils % (Manual) (46-82) % Lymphocytes % (Manual) (13-37) % Monocytes % (Manual) (4-12) % Eosinophils % (Manual) (0-5) % Anisocytosis POC Glucose 149 H 202 H 202 H (80-116) mg/dL 12/05/20 12/05/20 12/05/20 Range/Units 11:27 11:27 17:22 WBC (3.0-10.3) x10-3/uL RBC (3.60-5.20) x10(6)uL Hgb (11.4-15.5) g/dL Hct (34.2-48.2) % MCV (76.7-100.5) fL MCH (23.9-33.9) pg MCHC (31.9-34.8) g/dL RDW (12.3-16.5) % Plt Count (151-488) x10(3)uL MPV (7.1-12.4) fL Add Manual Diff Neutrophils % (Manual) (46-82) % Lymphocytes % (Manual) (13-37) % Monocytes % (Manual) (4-12) % Eosinophils % (Manual) (0-5) % Anisocytosis POC Glucose 117 H D 117 H 91 (80-116) mg/dL 12/05/20 12/06/20 12/06/20 Range/Units 17:22 06:24 06:24 WBC (3.0-10.3) x10-3/uL RBC (3.60-5.20) x10(6)uL Hgb (11.4-15.5) g/dL Hct (34.2-48.2) % MCV (76.7-100.5) fL MCH (23.9-33.9) pg MCHC (31.9-34.8) g/dL RDW (12.3-16.5) % Plt Count (151-488) x10(3)uL MPV (7.1-12.4) fL Add Manual Diff Neutrophils % (Manual) (46-82) % Lymphocytes % (Manual) (13-37) % Monocytes % (Manual) (4-12) % Eosinophils % (Manual) (0-5) % Anisocytosis POC Glucose 91 76 L 76 L (80-116) mg/dL 12/06/20 12/06/20 12/06/20 Range/Units 08:06 08:06 11:38 WBC (3.0-10.3) x10-3/uL RBC (3.60-5.20) x10(6)uL Hgb (11.4-15.5) g/dL Hct (34.2-48.2) % MCV (76.7-100.5) fL MCH (23.9-33.9) pg MCHC (31.9-34.8) g/dL RDW (12.3-16.5) % Plt Count (151-488) x10(3)uL MPV (7.1-12.4) fL Add Manual Diff Neutrophils % (Manual) (46-82) % Lymphocytes % (Manual) (13-37) % Monocytes % (Manual) (4-12) % Eosinophils % (Manual) (0-5) % Anisocytosis POC Glucose 217 H D 217 H 173 H (80-116) mg/dL 12/06/20 12/07/20 12/07/20 Range/Units 17:16 06:15 06:16 WBC 2.9 L (3.0-10.3) x10-3/uL RBC 2.84 L (3.60-5.20) x10(6)uL Hgb 8.0 L (11.4-15.5) g/dL Hct 24.7 L (34.2-48.2) % MCV 86.8 (76.7-100.5) fL MCH 28.1 (23.9-33.9) pg MCHC 32.4 (31.9-34.8) g/dL RDW 18.3 H (12.3-16.5) % Plt Count 44 L (151-488) x10(3)uL MPV 10.5 (7.1-12.4) fL Add Manual Diff Yes Neutrophils % (Manual) 66 (46-82) % Lymphocytes % (Manual) 14 (13-37) % Monocytes % (Manual) 16 H (4-12) % Eosinophils % (Manual) 4 (0-5) % Anisocytosis Few POC Glucose 199 H 160 H (80-116) mg/dL Madhu Results Last 24 Hours: Microbiology 12/03/20 09:00 Aerobic Blood Culture - Preliminary Blood - Venous - Lab Draw NO GROWTH AFTER 3 DAYS Anaerobic Blood Culture - Preliminary NO GROWTH AFTER 3 DAYS 12/03/20 09:00 Aerobic Blood Culture - Preliminary Blood - Venous NO GROWTH AFTER 3 DAYS Anaerobic Blood Culture - Preliminary NO GROWTH AFTER 3 DAYS Med Orders - Current: Current Medications Acetaminophen (Acetaminophen 500 Mg Tab) 1,000 mg PO TID PRN PRN Reason: Pain Last Admin: 12/05/20 08:49 Dose: 1,000 mg Documented by: Artificial Tears (Carboxymethylcellulose Sodium 0.5% Ophth Soln 15 Ml Bottle *Ptom) 0 ml EYEBOTH BID JEANA Last Admin: 12/06/20 20:43 Dose: 1 drop Documented by: Aspirin (Aspirin 81 Mg Tab.Ec) 81 mg PO DAILY [facility] Last Admin: 12/06/20 08:21 Dose: 81 mg Documented by: Atorvastatin Calcium (Atorvastatin 40 Mg Tab) 40 mg PO BEDTIME [facility] Last Admin: 12/06/20 20:43 Dose: 40 mg Documented by: Azithromycin (Azithromycin 250 Mg Tab) 250 mg PO DAILY [facility] Stop: 12/07/20 09:01 Last Admin: 12/06/20 08:22 Dose: 250 mg Documented by: Bumetanide (Bumetanide 1 Mg Tab) 1 mg PO DAILY [facility] Last Admin: 12/06/20 08:21 Dose: 1 mg Documented by: Bupropion HCl (Bupropion 75 Mg Tab) 75 mg PO DAILY [facility] Last Admin: 12/06/20 08:22 Dose: 75 mg Documented by: Calcium Carbonate/Glycine (Calcium Carbonate 500 Mg Tablet) 500 mg PO BID [facility] Last Admin: 12/06/20 20:44 Dose: 500 mg Documented by: Cholecalciferol (Cholecalciferol (Vitamin D3) 25 Mcg Tab) 50 mcg PO DAILY [facility] Last Admin: 12/06/20 08:22 Dose: 50 mcg Documented by: Cholestyramine Resin (Cholestyramine/Sucrose Powder 4 Gm Packet) 4 gm PO 17 [facility] Last Admin: 12/06/20 17:37 Dose: 4 gm Documented by: Cyanocobalamin (Cyanocobalamin (Vitamin B12) 1,000 Mcg Tab) 1,000 mcg PO DAILY [facility] Last Admin: 12/06/20 08:22 Dose: 1,000 mcg Documented by: Doxycycline Hyclate (Doxycycline 100 Mg Tab) 100 mg PO BID [facility] Last Admin: 12/06/20 20:46 Dose: 100 mg Documented by: Ferrous Sulfate (Ferrous Sulfate 325 Mg Tab) 325 mg PO BIDMEALS [facility] Last Admin: 12/06/20 17:37 Dose: 325 mg Documented by: Gabapentin (Gabapentin 300 Mg Cap) 300 mg PO 1500,2100 [facility] Last Admin: 12/06/20 20:50 Dose: 300 mg Documented by: Insulin Glargine (Insulin Glargine,Human Rec. Analog 100 Units/Ml 3 Ml Pen) 24 units SUBCUT DAILY@0800 [facility] Insulin Human Lispro (Insulin Lispro 100 Unit/Ml 3 Ml Kwikpen) 5 unit SUBCUT TIDMEALS [facility] Last Admin: 12/06/20 17:38 Dose: 5 unit Documented by: Loperamide HCl (Loperamide 2 Mg Cap) 2 mg PO BID PRN PRN Reason: Diarrhea Loratadine (Loratadine 10 Mg Tab) 10 mg PO DAILY PRN PRN Reason: Rash Losartan Potassium (Losartan 50 Mg Tab) 50 mg PO DAILY [facility] Last Admin: 12/06/20 08:21 Dose: 50 mg Documented by: Memantine (Memantine 10 Mg Tab) 10 mg PO BID [facility] Last Admin: 12/06/20 20:43 Dose: 10 mg Documented by: Metformin HCl (Metformin 500 Mg Tab.Er) 500 mg PO BIDMEALS [facility] Last Admin: 12/06/20 17:37 Dose: 500 mg Documented by: Pantoprazole Sodium (Pantoprazole 40 Mg Tab.Cr) 40 mg PO DAILY [facility] Last Admin: 12/06/20 08:22 Dose: 40 mg Documented by: Polyethylene Glycol (Polyethylene Glycol 3350 Powder 17 Gm Packet) 17 gm PO DAILY PRN PRN Reason: Constipation Potassium Chloride (Potassium Chloride 20 Meq Tab.Er) 20 meq PO DAILY [facility] Last Admin: 12/06/20 08:22 Dose: 20 meq Documented by: Quetiapine Fumarate (Quetiapine 25 Mg Tab) 25 mg PO BEDTIME [facility] Last Admin: 12/06/20 20:45 Dose: 25 mg Documented by: Quetiapine Fumarate (Quetiapine 50 Mg Tab) 50 mg PO DAILY@1500 [facility] Last Admin: 12/06/20 14:58 Dose: 50 mg Documented by: Risperidone (Risperidone 0.5 Mg Tab) 0.5 mg PO BEDTIME [facility] Last Admin: 12/06/20 20:44 Dose: 0.5 mg Documented by: Rivastigmine (Rivastigmine 3 Mg Cap) 6 mg PO BID [facility] Last Admin: 12/06/20 20:42 Dose: 6 mg Documented by: Sertraline HCl (Sertraline 50 Mg Tab) 150 mg PO DAILY [facility] Last Admin: 12/06/20 08:22 Dose: 150 mg Documented by: Sodium Chloride (Sodium Chloride 0.9% 10 Ml Syringe) 10 ml FLUSH ASDIRECTED PRN PRN Reason: Keep Vein Open Last Admin: 12/04/20 17:42 Dose: 10 ml Documented by: Timolol Maleate (Timolol Maleate 0.5% Oph Soln 5 Ml Bottle) 1 ml EYELF BID [facility] Last Admin: 12/06/20 20:44 Dose: 1 drop Documented by: Discontinued Medications Acetaminophen (Acetaminophen 325 Mg Tab) 650 mg PO Q4H PRN PRN Reason: Pain (Mild 1-3)/fever Last Admin: 12/03/20 15:37 Dose: 650 mg Documented by: Atorvastatin Calcium (Atorvastatin 40 Mg Tab) 40 mg PO ONETIME ONE Stop: 12/02/20 21:46 Last Admin: 12/02/20 22:50 Dose: 40 mg Documented by: Azithromycin (Azithromycin 250 Mg Tab) 500 mg PO ONETIME ONE Stop: 12/03/20 18:01 Last Admin: 12/03/20 18:29 Dose: 500 mg Documented by: Betamethasone/Clotrimazole (Betamethasone Dipropionate/Clotrimazole 0.05-1% Crm 15 Gm Tube) gm TOP BID [facility] Ceftriaxone Sodium (Ceftriaxone 1 Gm Vial) 1 gm IV Q24H [facility] Last Admin: 12/04/20 17:42 Dose: 1 gm Documented by: Furosemide (Furosemide 20 Mg Tab) 20 mg PO ONETIME ONE Stop: 12/04/20 08:07 Last Admin: 12/04/20 11:40 Dose: 20 mg Documented by: Sodium Chloride (Normal Saline) 250 mls @ 100 mls/hr IV ASDIRECTED [facility] Last Admin: 12/02/20 21:27 Dose: 100 mls/hr Documented by: Sodium Chloride (Normal Saline) 250 mls @ 100 mls/hr IV ASDIRECTED [facility] Last Admin: 12/03/20 00:25 Dose: 100 mls/hr Documented by: Ceftriaxone Sodium 1 gm/ (Sodium Chloride) 50 mls @ 200 mls/hr IV Q24H [facility] Last Admin: 12/03/20 18:29 Dose: 200 mls/hr Documented by: Insulin Human Lispro (Insulin Lispro 100 Unit/Ml 3 Ml Kwikpen) Confirm Administered Dose 300 unit SUBCUT .STK-MED ONE Stop: 12/04/20 10:06 Last Admin: 12/04/20 12:01 Dose: Not Given Documented by: Insulin Human Lispro (Insulin Lispro 100 Unit/Ml 3 Ml Kwikpen) 10 unit SUBCUT TIDMEALS [facility] Last Admin: 12/06/20 08:23 Dose: 10 unit Documented by: Memantine (Memantine 10 Mg Tab) 10 mg PO ONETIME ONE Stop: 12/02/20 21:46 Last Admin: 12/02/20 22:50 Dose: 10 mg Documented by: (Cholecalciferol ( Vitamin D3) [Vitamin D3] 2,000 Unit Cap) *Ptom 2,000 units PO DAILY [facility] Last Admin: 12/05/20 09:06 Dose: Not Given Documented by: (Insulin Glargine, Hum.Rec.Anlog [ Toujeo Max Solostar] 300 Unit/Ml *Ptom 30 unit SQ 0800 [facility] Last Admin: 12/06/20 08:12 Dose: 30 unit Documented by: (Insulin Lispro [ Humalog] 100 Unit/Ml Pen) *Ptom 10 unit SQ TIDMEALS [facility] Last Admin: 12/06/20 08:50 Dose: Not Given Documented by: (Metformin Hcl [ Metformin Er Osmotic ] 500 Mg Tab.Er.24) *Ptom 500 mg PO BIDME ALS [facility] Last Admin: 12/06/20 08:50 Dose: Not Given Documented by: (Potassium Chloride [Potassium Chloride] 20 Meq Tablet.Er) * Ptom 20 meq PO DAILY [facility] Last Admin: 12/04/20 11:41 Dose: Not Given Documented by: (Rivastigmine Tartrate [ Rivastigmine] 6 Mg Capsule) *Ptom 6 mg PO BID [facility] Last Admin: 12/04/20 11:40 Dose: Not Given Documented by: (Timolol [Betimol 0. 5% Ophth Soln] 5 Ml Bottle) *Ptom 1 drop EYELF BID [facility] Last Admin: 12/06/20 08:22 Dose: 1 drop Documented by: Quetiapine Fumarate (Quetiapine 25 Mg Tab) 25 mg PO ONETIME ONE Stop: 12/02/20 21:46 Last Admin: 12/02/20 22:50 Dose: 25 mg Documented by: Quetiapine Fumarate (Quetiapine 50 Mg Tab *Ptom) 50 mg PO 1500 [facility] Last Admin: 12/04/20 16:47 Dose: Not Given Documented by: Sertraline HCl (Sertraline 100 Mg Tab *Ptom) 150 mg PO DAILY [facility] Last Admin: 12/04/20 11:39 Dose: Not Given Documented by: - Exam General: Alert, Oriented, Cooperative Lungs: Clear to Auscultation, Normal Respiratory Effort Cardiovascular: Regular Rate, Regular Rhythm, No Murmurs - Patient Data Lab Results Last 24 hrs: Laboratory Results - last 24 hr 12/04/20 12/04/20 12/04/20 Range/Units 11:46 17:28 17:28 WBC (3.0-10.3) x10-3/uL RBC (3.60-5.20) x10(6)uL Hgb (11.4-15.5) g/dL Hct (34.2-48.2) % MCV (76.7-100.5) fL MCH (23.9-33.9) pg MCHC (31.9-34.8) g/dL RDW (12.3-16.5) % Plt Count (151-488) x10(3)uL MPV (7.1-12.4) fL Add Manual Diff Neutrophils % (Manual) (46-82) % Lymphocytes % (Manual) (13-37) % Monocytes % (Manual) (4-12) % Eosinophils % (Manual) (0-5) % Anisocytosis POC Glucose 149 H 202 H 202 H (80-116) mg/dL 12/05/20 12/05/20 12/05/20 Range/Units 11:27 11:27 17:22 WBC (3.0-10.3) x10-3/uL RBC (3.60-5.20) x10(6)uL Hgb (11.4-15.5) g/dL Hct (34.2-48.2) % MCV (76.7-100.5) fL MCH (23.9-33.9) pg MCHC (31.9-34.8) g/dL RDW (12.3-16.5) % Plt Count (151-488) x10(3)uL MPV (7.1-12.4) fL Add Manual Diff Neutrophils % (Manual) (46-82) % Lymphocytes % (Manual) (13-37) % Monocytes % (Manual) (4-12) % Eosinophils % (Manual) (0-5) % Anisocytosis POC Glucose 117 H D 117 H 91 (80-116) mg/dL 12/05/20 12/06/20 12/06/20 Range/Units 17:22 06:24 06:24 WBC (3.0-10.3) x10-3/uL RBC (3.60-5.20) x10(6)uL Hgb (11.4-15.5) g/dL Hct (34.2-48.2) % MCV (76.7-100.5) fL MCH (23.9-33.9) pg MCHC (31.9-34.8) g/dL RDW (12.3-16.5) % Plt Count (151-488) x10(3)uL MPV (7.1-12.4) fL Add Manual Diff Neutrophils % (Manual) (46-82) % Lymphocytes % (Manual) (13-37) % Monocytes % (Manual) (4-12) % Eosinophils % (Manual) (0-5) % Anisocytosis POC Glucose 91 76 L 76 L (80-116) mg/dL 12/06/20 12/06/20 12/06/20 Range/Units 08:06 08:06 11:38 WBC (3.0-10.3) x10-3/uL RBC (3.60-5.20) x10(6)uL Hgb (11.4-15.5) g/dL Hct (34.2-48.2) % MCV (76.7-100.5) fL MCH (23.9-33.9) pg MCHC (31.9-34.8) g/dL RDW (12.3-16.5) % Plt Count (151-488) x10(3)uL MPV (7.1-12.4) fL Add Manual Diff Neutrophils % (Manual) (46-82) % Lymphocytes % (Manual) (13-37) % Monocytes % (Manual) (4-12) % Eosinophils % (Manual) (0-5) % Anisocytosis POC Glucose 217 H D 217 H 173 H (80-116) mg/dL 12/06/20 12/07/20 12/07/20 Range/Units 17:16 06:15 06:16 WBC 2.9 L (3.0-10.3) x10-3/uL RBC 2.84 L (3.60-5.20) x10(6)uL Hgb 8.0 L (11.4-15.5) g/dL Hct 24.7 L (34.2-48.2) % MCV 86.8 (76.7-100.5) fL MCH 28.1 (23.9-33.9) pg MCHC 32.4 (31.9-34.8) g/dL RDW 18.3 H (12.3-16.5) % Plt Count 44 L (151-488) x10(3)uL MPV 10.5 (7.1-12.4) fL Add Manual Diff Yes Neutrophils % (Manual) 66 (46-82) % Lymphocytes % (Manual) 14 (13-37) % Monocytes % (Manual) 16 H (4-12) % Eosinophils % (Manual) 4 (0-5) % Anisocytosis Few POC Glucose 199 H 160 H (80-116) mg/dL Result Diagrams: 12/07/20 06:15 12/05/20 06:20 Madhu Results Last 24 hrs: Microbiology 12/03/20 09:00 Aerobic Blood Culture - Preliminary Blood - Venous - Lab Draw NO GROWTH AFTER 3 DAYS Anaerobic Blood Culture - Preliminary NO GROWTH AFTER 3 DAYS 12/03/20 09:00 Aerobic Blood Culture - Preliminary Blood - Venous NO GROWTH AFTER 3 DAYS Anaerobic Blood Culture - Preliminary NO GROWTH AFTER 3 DAYS Sepsis Event Note - Evaluation Sepsis Screening Result: No Definite Risk - Focused Exam Vital Signs: Vital Signs Temp Pulse Resp BP Pulse Ox 12/07/20 00:00 98.4 F 72 18 132/70 94 L - Problem List & Annotations (1) HAO (acute kidney injury) SNOMED Code(s): 76344036, 20522939 Code(s): N17.9 - ACUTE KIDNEY FAILURE, UNSPECIFIED Status: Acute Current Visit: No (2) Anemia SNOMED Code(s): 858113313 Code(s): D64.9 - ANEMIA, UNSPECIFIED Status: Acute Current Visit: No Qualifiers: Anemia type: iron deficiency (3) Palliative care status SNOMED Code(s): 792744069 Code(s): Z51.5 - ENCOUNTER FOR PALLIATIVE CARE Status: Acute Current Visit: No (4) Thrombocytopenia SNOMED Code(s): 549172249 Code(s): D69.6 - THROMBOCYTOPENIA, UNSPECIFIED Status: Acute Current Visit: No (5) DM2 (diabetes mellitus, type 2) SNOMED Code(s): 81026068 Code(s): E11.9 - TYPE 2 DIABETES MELLITUS WITHOUT COMPLICATIONS Status: Chronic Current Visit: No Qualifiers: Diabetes mellitus nursing home insulin use: with watcher [employer] use Diabetes mellitus complication status: without complication Qualified Code(s): E11.9 - Type 2 diabetes mellitus without complications; Z79.4 - [facility]DC (current) use of insulin; Z79.4 - [facility]DC (current) use of insulin; Z79.4 - terminal supervisor (current) use of insulin; Z79.4 - terminal supervisor (current) use of insulin (6) MDD (major depressive disorder) SNOMED Code(s): 278093436 Code(s): F32.9 - MAJOR DEPRESSIVE DISORDER, SINGLE EPISODE, UNSPECIFIED Status: Chronic Current Visit: No Qualifiers: Major depression recurrence: recurrent Psychotic features: without psychotic features (7) Obesity (BMI 30-39.9) SNOMED Code(s): 863475727, 093585418 Code(s): E66.9 - OBESITY, UNSPECIFIED Status: Chronic Current Visit: No (8) Weakness SNOMED Code(s): 74928671 Code(s): R53.1 - WEAKNESS Status: Chronic Current Visit: No (9) CHF (congestive heart failure) SNOMED Code(s): 36707223 Code(s): I50.9 - HEART FAILURE, UNSPECIFIED Status: Acute Current Visit: Yes (10) Pleural effusion SNOMED Code(s): 18322397 Code(s): J90 - PLEURAL EFFUSION, NOT ELSEWHERE CLASSIFIED Status: Acute Current Visit: Yes (11) Pneumonia SNOMED Code(s): 327599326 Code(s): J18.9 - PNEUMONIA, UNSPECIFIED ORGANISM Status: Acute Current Visit: Yes (12) Hypocalcemia SNOMED Code(s): 8156435 Code(s): E83.51 - HYPOCALCEMIA Status: Acute Current Visit: Yes - Problem List Review Problem List Initiated/Reviewed/Updated: Yes - My Orders Last 24 Hours: My Active Orders 12/06/20 12:00 Insulin Lispro [HumaLOG] 5 unit SUBCUT TIDMEALS 12/06/20 17:00 Cholestyramine/Sucrose [Cholestyramine Packet] 4 gm PO 17 12/07/20 08:00 Insulin Glarg,Human.Rec.Analog [LantUS Solostar] 24 units SUBCUT DAILY@0800 - Assessment Assessment:: 1. Waiting for possible okay to switch her to swing bed. 2. Discussed patient with her son was a power of district attorney. He wants me to tell the oncologist was going on. They talked about anemia in the past and he might have something for it. I will do this today. 3. Discharge when we have approval for swing bed. - Plan Plan:: 1. Continue medications. 2. PT/OT evaluation 3. Social service to assess
[2020-12-07 08:11] LABS: IRON BIND.CAP.(TIBC) 196 ug/dL (250-450); IRON SATURATION 21 % (15-55); IRON, SERUM 42 ug/dL (27-139); UIBC 154 ug/dL (118-369)
[2020-12-07] MEDS: Acetaminophen 500 MG Tab PO PRN ×2 (08:47→17:33)
[2020-12-07] MEDS: metFORMIN 500 MG Tab.ER PO SCH ×2 (08:48→17:34)
[2020-12-07] MEDS: Memantine 10 MG Tab PO SCH ×2 (08:48→20:16)
[2020-12-07] MEDS: Cholecalciferol (Vitamin D3) 25 MCG Tab PO SCH (08:48)
[2020-12-07] MEDS: Pantoprazole 40 MG Tab.CR PO SCH (08:48)
[2020-12-07] MEDS: Cyanocobalamin (Vitamin B12) 1,000 MCG Tab PO SCH (08:49)
[2020-12-07] MEDS: Aspirin 81 MG Tab.EC PO SCH (08:49)
[2020-12-07] MEDS: Losartan 50 MG Tab PO SCH (08:49)
[2020-12-07] MEDS: Bumetanide 1 MG Tab PO SCH (08:49)
[2020-12-07] MEDS: Insulin Lispro 100 Unit/ML 3 ML KwikPen SUBCUT SCH ×3 (08:50→17:35)
[2020-12-07] MEDS: Ferrous Sulfate 325 MG Tab PO SCH ×2 (08:52→17:35)
[2020-12-07] MEDS: Potassium Chloride 20 MEQ Tab.ER PO SCH (08:52)
[2020-12-07] MEDS: Calcium Carbonate 500 MG Tablet PO SCH ×2 (08:53→20:14)
[2020-12-07] MEDS: RIVASTIGMINE 3 MG PO SCH ×2 (08:53→20:14)
[2020-12-07] MEDS: Azithromycin 250 MG Tab PO SCH (08:54)
[2020-12-07] MEDS: Timolol Maleate 0.5% Ophth Soln 5 ML Bottle EYELF SCH ×2 (08:54→20:15)
[2020-12-07] MEDS: Sertraline 50 MG Tab PO SCH (08:54)
[2020-12-07] MEDS: Doxycycline 100 MG Tab PO SCH ×2 (08:54→20:14)
[2020-12-07] MEDS: Carboxymethylcellulose Sodium 0.5% Ophth Soln 15 ML Bottle *PTOM EYEBOTH SCH ×2 (08:55→20:15)
[2020-12-07] MEDS ORDERED: Insulin Glargine,Human Rec. Analog 100 Units/ML 3 ML Pen SUBCUT ONE (08:57)
[2020-12-07] MEDS: Insulin Glargine,Human Rec. Analog 100 Units/ML 3 ML Pen SUBCUT SCH (08:58)
[2020-12-07] MEDS: Gabapentin 300 MG Cap PO SCH ×2 (15:26→20:13)
[2020-12-07] MEDS: Cholestyramine/Sucrose Powder 4 GM Packet PO SCH (17:34)
[2020-12-07] MEDS: risperiDONE 0.5 MG Tab PO SCH (20:13)
[2020-12-07] MEDS: atorvaSTATin 40 MG Tab PO SCH (20:14)
[2020-12-07] MEDS: QUEtiapine 25 MG Tab PO SCH (20:14)
[2020-12-08] MEDS: Aspirin 81 MG Tab.EC PO SCH (08:06)
[2020-12-08] MEDS: Potassium Chloride 20 MEQ Tab.ER PO SCH (08:06)
[2020-12-08] MEDS: Losartan 50 MG Tab PO SCH (08:06)
[2020-12-08] MEDS: Cholecalciferol (Vitamin D3) 25 MCG Tab PO SCH (08:06)
[2020-12-08] MEDS: Bumetanide 1 MG Tab PO SCH (08:06)
[2020-12-08] MEDS: Ferrous Sulfate 325 MG Tab PO SCH (08:06)
[2020-12-08] MEDS: metFORMIN 500 MG Tab.ER PO SCH (08:07)
[2020-12-08] MEDS: Calcium Carbonate 500 MG Tablet PO SCH (08:07)
[2020-12-08] MEDS: Pantoprazole 40 MG Tab.CR PO SCH (08:07)
[2020-12-08] MEDS: Doxycycline 100 MG Tab PO SCH (08:07)
[2020-12-08] MEDS: Cyanocobalamin (Vitamin B12) 1,000 MCG Tab PO SCH (08:07)
[2020-12-08] MEDS: RIVASTIGMINE 3 MG PO SCH (08:07)
[2020-12-08] MEDS: Memantine 10 MG Tab PO SCH (08:07)
[2020-12-08] MEDS: Sertraline 50 MG Tab PO SCH (08:07)
[2020-12-08] MEDS: Insulin Glargine,Human Rec. Analog 100 Units/ML 3 ML Pen SUBCUT SCH (08:08)
[2020-12-08] MEDS: Carboxymethylcellulose Sodium 0.5% Ophth Soln 15 ML Bottle *PTOM EYEBOTH SCH (08:08)
[2020-12-08] MEDS: Timolol Maleate 0.5% Ophth Soln 5 ML Bottle EYELF SCH (08:08)
[2020-12-08] MEDS: Insulin Lispro 100 Unit/ML 3 ML KwikPen SUBCUT SCH (08:09)
[2020-12-08] MEDS: Acetaminophen 500 MG Tab PO PRN (08:28)
--- NOTE | 2020-12-08 09:26 | PCM.PN ---
- General Info Date of Service: 12/08/20 Admission Dx/Problem (Free Text): Patient states she feels better today she denies chest pain, shortness breath, leg swelling, fevers, chills, cough. - Patient Data Vitals - Most Recent: Last Vital Signs Temp 98.5 F 12/08/20 07:40 Pulse 66 12/08/20 07:40 Resp 20 12/08/20 07:40 BP 121/50 L 12/08/20 08:06 Pulse Ox 94 L 12/08/20 07:40 Weight - Most Recent: 216 lb 11.2 oz Lab Results Last 24 Hours: Laboratory Results - last 24 hr 12/07/20 12/07/20 12/08/20 Range/Units 11:19 17:02 06:00 WBC 3.6 (3.0-10.3) x10-3/uL RBC 2.76 L (3.60-5.20) x10(6)uL Hgb 8.1 L (11.4-15.5) g/dL Hct 24.0 L (34.2-48.2) % MCV 86.7 (76.7-100.5) fL MCH 29.3 (23.9-33.9) pg MCHC 33.8 (31.9-34.8) g/dL RDW 18.7 H (12.3-16.5) % Plt Count 47 L (151-488) x10(3)uL MPV 10.4 (7.1-12.4) fL Add Manual Diff Yes Neutrophils % (Manual) 65 (46-82) % Band Neutrophils % 2 (0-6) % Lymphocytes % (Manual) 16 (13-37) % Monocytes % (Manual) 12 (4-12) % Eosinophils % (Manual) 5 (0-5) % Anisocytosis Few POC Glucose 180 H 118 H (80-116) mg/dL 12/08/20 Range/Units 06:27 WBC (3.0-10.3) x10-3/uL RBC (3.60-5.20) x10(6)uL Hgb (11.4-15.5) g/dL Hct (34.2-48.2) % MCV (76.7-100.5) fL MCH (23.9-33.9) pg MCHC (31.9-34.8) g/dL RDW (12.3-16.5) % Plt Count (151-488) x10(3)uL MPV (7.1-12.4) fL Add Manual Diff Neutrophils % (Manual) (46-82) % Band Neutrophils % (0-6) % Lymphocytes % (Manual) (13-37) % Monocytes % (Manual) (4-12) % Eosinophils % (Manual) (0-5) % Anisocytosis POC Glucose 75 L (80-116) mg/dL [facility] Results Last 24 Hours: Microbiology 12/03/20 09:00 Aerobic Blood Culture - Final Blood - Venous - Lab Draw NO GROWTH AFTER 5 DAYS Anaerobic Blood Culture - Final NO GROWTH AFTER 5 DAYS 12/03/20 09:00 Aerobic Blood Culture - Final Blood - Venous NO GROWTH AFTER 5 DAYS Anaerobic Blood Culture - Final NO GROWTH AFTER 5 DAYS Med Orders - Current: Current Medications Discontinued Medications Acetaminophen (Acetaminophen 325 Mg Tab) 650 mg PO Q4H PRN PRN Reason: Pain (Mild 1-3)/fever Last Admin: 12/03/20 15:37 Dose: 650 mg Documented by: Acetaminophen (Acetaminophen 500 Mg Tab) 1,000 mg PO TID PRN PRN Reason: Pain Last Admin: 12/08/20 08:28 Dose: 1,000 mg Documented by: Artificial Tears (Carboxymethylcellulose Sodium 0.5% Ophth Soln 15 Ml Bottle *Ptom) 0 ml EYEBOTH BID [facility] Last Admin: 12/08/20 08:08 Dose: 1 drop Documented by: Aspirin (Aspirin 81 Mg Tab.Ec) 81 mg PO DAILY [facility] Last Admin: 12/08/20 08:06 Dose: 81 mg Documented by: Atorvastatin Calcium (Atorvastatin 40 Mg Tab) 40 mg PO BEDTIME [facility] Last Admin: 12/07/20 20:14 Dose: 40 mg Documented by: Atorvastatin Calcium (Atorvastatin 40 Mg Tab) 40 mg PO ONETIME ONE Stop: 12/02/20 21:46 Last Admin: 12/02/20 22:50 Dose: 40 mg Documented by: Azithromycin (Azithromycin 250 Mg Tab) 250 mg PO DAILY [facility] Stop: 12/07/20 09:01 Last Admin: 12/07/20 08:54 Dose: 250 mg Documented by: Azithromycin (Azithromycin 250 Mg Tab) 500 mg PO ONETIME ONE Stop: 12/03/20 18:01 Last Admin: 12/03/20 18:29 Dose: 500 mg Documented by: Betamethasone/Clotrimazole (Betamethasone Dipropionate/Clotrimazole 0.05-1% Crm 15 Gm Tube) gm TOP BID [facility] Bumetanide (Bumetanide 1 Mg Tab) 1 mg PO DAILY [facility] Last Admin: 12/08/20 08:06 Dose: 1 mg Documented by: Bupropion HCl (Bupropion 75 Mg Tab) 75 mg PO DAILY [facility] Last Admin: 12/08/20 08:06 Dose: 75 mg Documented by: Calcium Carbonate/Glycine (Calcium Carbonate 500 Mg Tablet) 500 mg PO BID [facility] Last Admin: 12/08/20 08:07 Dose: 500 mg Documented by: Ceftriaxone Sodium (Ceftriaxone 1 Gm Vial) 1 gm IV Q24H [facility] Last Admin: 12/04/20 17:42 Dose: 1 gm Documented by: Cholecalciferol (Cholecalciferol (Vitamin D3) 25 Mcg Tab) 50 mcg PO DAILY [facility] Last Admin: 12/08/20 08:06 Dose: 50 mcg Documented by: Cholestyramine Resin (Cholestyramine/Sucrose Powder 4 Gm Packet) 4 gm PO 17 [facility] Last Admin: 12/07/20 17:34 Dose: 4 gm Documented by: Cyanocobalamin (Cyanocobalamin (Vitamin B12) 1,000 Mcg Tab) 1,000 mcg PO DAILY [facility] Last Admin: 12/08/20 08:07 Dose: 1,000 mcg Documented by: Doxycycline Hyclate (Doxycycline 100 Mg Tab) 100 mg PO BID [facility] Last Admin: 12/08/20 08:07 Dose: 100 mg Documented by: Ferrous Sulfate (Ferrous Sulfate 325 Mg Tab) 325 mg PO BIDMEALS [facility] Last Admin: 12/08/20 08:06 Dose: 325 mg Documented by: Furosemide (Furosemide 20 Mg Tab) 20 mg PO ONETIME ONE Stop: 12/04/20 08:07 Last Admin: 12/04/20 11:40 Dose: 20 mg Documented by: Gabapentin (Gabapentin 300 Mg Cap) 300 mg PO 1500,2100 [facility] Last Admin: 12/07/20 20:13 Dose: 300 mg Documented by: Sodium Chloride (Normal Saline) 250 mls @ 100 mls/hr IV ASDIRECTED [facility] Last Admin: 12/02/20 21:27 Dose: 100 mls/hr Documented by: Sodium Chloride (Normal Saline) 250 mls @ 100 mls/hr IV ASDIRECTED [facility] Last Admin: 12/03/20 00:25 Dose: 100 mls/hr Documented by: Ceftriaxone Sodium 1 gm/ (Sodium Chloride) 50 mls @ 200 mls/hr IV Q24H [facility] Last Admin: 12/03/20 18:29 Dose: 200 mls/hr Documented by: Insulin Glargine (Insulin Glargine,Human Rec. Analog 100 Units/Ml 3 Ml Pen) 24 units SUBCUT DAILY@0800 [facility] Last Admin: 12/08/20 08:08 Dose: 24 units Documented by: Insulin Human Lispro (Insulin Lispro 100 Unit/Ml 3 Ml Kwikpen) Confirm Administered Dose 300 unit SUBCUT .STK-MED ONE Stop: 12/04/20 10:06 Last Admin: 12/04/20 12:01 Dose: Not Given Documented by: Insulin Human Lispro (Insulin Lispro 100 Unit/Ml 3 Ml Kwikpen) 10 unit SUBCUT TIDMEALS [facility] Last Admin: 12/06/20 08:23 Dose: 10 unit Documented by: Insulin Human Lispro (Insulin Lispro 100 Unit/Ml 3 Ml Kwikpen) 5 unit SUBCUT TIDMEALS [facility] Last Admin: 12/08/20 08:09 Dose: 5 unit Documented by: Loperamide HCl (Loperamide 2 Mg Cap) 2 mg PO BID PRN PRN Reason: Diarrhea Loratadine (Loratadine 10 Mg Tab) 10 mg PO DAILY PRN PRN Reason: Rash Losartan Potassium (Losartan 50 Mg Tab) 50 mg PO DAILY [facility] Last Admin: 12/08/20 08:06 Dose: 50 mg Documented by: Memantine (Memantine 10 Mg Tab) 10 mg PO BID [facility] Last Admin: 12/08/20 08:07 Dose: 10 mg Documented by: Memantine (Memantine 10 Mg Tab) 10 mg PO ONETIME ONE Stop: 12/02/20 21:46 Last Admin: 12/02/20 22:50 Dose: 10 mg Documented by: Metformin HCl (Metformin 500 Mg Tab.Er) 500 mg PO BIDMEALS [facility] Last Admin: 12/08/20 08:07 Dose: 500 mg Documented by: (Cholecalciferol ( Vitamin D3) [Vitamin D3] 2,000 Unit Cap) *Ptom 2,000 units PO DAILY [facility] Last Admin: 12/05/20 09:06 Dose: Not Given Documented by: (Insulin Glargine, Hum.Rec.Anlog [ Toujeo Max Solostar] 300 Unit/Ml *Ptom 30 unit SQ 0800 [facility] Last Admin: 12/06/20 08:12 Dose: 30 unit Documented by: (Insulin Lispro [ Humalog] 100 Unit/Ml Pen) *Ptom 10 unit SQ TIDMEALS [facility] Last Admin: 12/06/20 08:50 Dose: Not Given Documented by: (Metformin Hcl [ Metformin Er Osmotic ] 500 Mg Tab.Er.24) *Ptom 500 mg PO BIDM EALS [facility] Last Admin: 12/06/20 08:50 Dose: Not Given Documented by: (Potassium Chloride [Potassium Chloride] 20 Meq Tablet.Er) * Ptom 20 meq PO DAILY [facility] Last Admin: 12/04/20 11:41 Dose: Not Given Documented by: (Rivastigmine Tartrate [ Rivastigmine] 6 Mg Capsule) *Ptom 6 mg PO BID [facility] Last Admin: 12/04/20 11:40 Dose: Not Given Documented by: (Timolol [Betimol 0. 5% Ophth Soln] 5 Ml Bottle) *Ptom 1 drop EYELF BID [facility] Last Admin: 12/06/20 08:22 Dose: 1 drop Documented by: Pantoprazole Sodium (Pantoprazole 40 Mg Tab.Cr) 40 mg PO DAILY [facility] Last Admin: 12/08/20 08:07 Dose: 40 mg Documented by: Polyethylene Glycol (Polyethylene Glycol 3350 Powder 17 Gm Packet) 17 gm PO MARIA E LY PRN PRN Reason: Constipation Potassium Chloride (Potassium Chloride 20 Meq Tab.Er) 20 meq PO DAILY [facility] Last Admin: 12/08/20 08:06 Dose: 20 meq Documented by: Quetiapine Fumarate (Quetiapine 25 Mg Tab) 25 mg PO BEDTIME [facility] Last Admin: 12/07/20 20:14 Dose: 25 mg Documented by: Quetiapine Fumarate (Quetiapine 25 Mg Tab) 25 mg PO ONETIME ONE Stop: 12/02/20 21:46 Last Admin: 12/02/20 22:50 Dose: 25 mg Documented by: Quetiapine Fumarate (Quetiapine 50 Mg Tab *Ptom) 50 mg PO 1500 [facility] Last Admin: 12/04/20 16:47 Dose: Not Given Documented by: Quetiapine Fumarate (Quetiapine 50 Mg Tab) 50 mg PO DAILY@1500 [facility] Last Admin: 12/07/20 15:27 Dose: 50 mg Documented by: Risperidone (Risperidone 0.5 Mg Tab) 0.5 mg PO BEDTIME [facility] Last Admin: 12/07/20 20:13 Dose: 0.5 mg Documented by: Rivastigmine (Rivastigmine 3 Mg Cap) 6 mg PO BID [facility] Last Admin: 12/08/20 08:07 Dose: 6 mg Documented by: Sertraline HCl (Sertraline 100 Mg Tab *Ptom) 150 mg PO DAILY [facility] Last Admin: 12/04/20 11:39 Dose: Not Given Documented by: Sertraline HCl (Sertraline 50 Mg Tab) 150 mg PO DAILY [facility] Last Admin: 12/08/20 08:07 Dose: 150 mg Documented by: Sodium Chloride (Sodium Chloride 0.9% 10 Ml Syringe) 10 ml FLUSH ASDIRECTED PRN PRN Reason: Keep Vein Open Last Admin: 12/04/20 17:42 Dose: 10 ml Documented by: Timolol Maleate (Timolol Maleate 0.5% Ophth Soln 5 Ml Bottle) 1 ml EYELF BID [facility] Last Admin: 12/08/20 08:08 Dose: 1 drop Documented by: - Exam General: Alert, Oriented, Cooperative Lungs: Clear to Auscultation, Normal Respiratory Effort Cardiovascular: Regular Rate, Regular Rhythm Extremities: No Pedal Edema - Patient Data Lab Results Last 24 hrs: Laboratory Results - last 24 hr 12/07/20 12/07/20 12/08/20 Range/Units 11:19 17:02 06:00 WBC 3.6 (3.0-10.3) x10-3/uL RBC 2.76 L (3.60-5.20) x10(6)uL Hgb 8.1 L (11.4-15.5) g/dL Hct 24.0 L (34.2-48.2) % MCV 86.7 (76.7-100.5) fL MCH 29.3 (23.9-33.9) pg MCHC 33.8 (31.9-34.8) g/dL RDW 18.7 H (12.3-16.5) % Plt Count 47 L (151-488) x10(3)uL MPV 10.4 (7.1-12.4) fL Add Manual Diff Yes Neutrophils % (Manual) 65 (46-82) % Band Neutrophils % 2 (0-6) % Lymphocytes % (Manual) 16 (13-37) % Monocytes % (Manual) 12 (4-12) % Eosinophils % (Manual) 5 (0-5) % Anisocytosis Few POC Glucose 180 H 118 H (80-116) mg/dL 12/08/20 Range/Units 06:27 WBC (3.0-10.3) x10-3/uL RBC (3.60-5.20) x10(6)uL Hgb (11.4-15.5) g/dL Hct (34.2-48.2) % MCV (76.7-100.5) fL MCH (23.9-33.9) pg MCHC (31.9-34.8) g/dL RDW (12.3-16.5) % Plt Count (151-488) x10(3)uL MPV (7.1-12.4) fL Add Manual Diff Neutrophils % (Manual) (46-82) % Band Neutrophils % (0-6) % Lymphocytes % (Manual) (13-37) % Monocytes % (Manual) (4-12) % Eosinophils % (Manual) (0-5) % Anisocytosis POC Glucose 75 L (80-116) mg/dL Result Diagrams: 12/08/20 06:00 12/05/20 06:20 Madhu Results Last 24 hrs: Microbiology 12/03/20 09:00 Aerobic Blood Culture - Final Blood - Venous - Lab Draw NO GROWTH AFTER 5 DAYS Anaerobic Blood Culture - Final NO GROWTH AFTER 5 DAYS 12/03/20 09:00 Aerobic Blood Culture - Final Blood - Venous NO GROWTH AFTER 5 DAYS Anaerobic Blood Culture - Final NO GROWTH AFTER 5 DAYS Sepsis Event Note - Evaluation Sepsis Screening Result: No Definite Risk - Focused Exam Vital Signs: Vital Signs Temp Pulse Resp BP BP Pulse Ox Pulse Ox 12/08/20 08:06 121/50 L 12/08/20 07:40 98.5 F 66 20 121/50 L 94 L 12/08/20 04:00 92 L - Problem List & Annotations (1) HAO (acute kidney injury) SNOMED Code(s): 21792009, 81121147 Code(s): N17.9 - ACUTE KIDNEY FAILURE, UNSPECIFIED Status: Acute (2) Anemia SNOMED Code(s): 291988745 Code(s): D64.9 - ANEMIA, UNSPECIFIED Status: Acute Qualifiers: Anemia type: iron deficiency (3) Palliative care status SNOMED Code(s): 871853079 Code(s): Z51.5 - ENCOUNTER FOR PALLIATIVE CARE Status: Acute (4) Thrombocytopenia SNOMED Code(s): 876998546 Code(s): D69.6 - THROMBOCYTOPENIA, UNSPECIFIED Status: Acute (5) DM2 (diabetes mellitus, type 2) SNOMED Code(s): 53635540 Code(s): E11.9 - TYPE 2 DIABETES MELLITUS WITHOUT COMPLICATIONS Status: Chronic Qualifiers: Diabetes mellitus buttermaker helper insulin use: with buttermaker helper use Diabetes mellitus complication status: without complication Qualified Code(s): E11.9 - Type 2 diabetes mellitus without complications; Z79.4 - skilled nursing (current) use of insulin; Z79.4 - skilled nursing (current) use of insulin; Z79.4 - manager long term care (current) use of insulin; Z79.4 - manager long term care (current) use of insulin (6) MDD (major depressive disorder) SNOMED Code(s): 283991227 Code(s): F32.9 - MAJOR DEPRESSIVE DISORDER, SINGLE EPISODE, UNSPECIFIED Status: Chronic Qualifiers: Major depression recurrence: recurrent Psychotic features: without psychotic features (7) Obesity (BMI 30-39.9) SNOMED Code(s): 552901900, 716307116 Code(s): E66.9 - OBESITY, UNSPECIFIED Status: Chronic (8) Weakness SNOMED Code(s): 62115211 Code(s): R53.1 - WEAKNESS Status: Chronic (9) CHF (congestive heart failure) SNOMED Code(s): 59414620 Code(s): I50.9 - HEART FAILURE, UNSPECIFIED Status: Acute (10) Pleural effusion SNOMED Code(s): 69294325 Code(s): J90 - PLEURAL EFFUSION, NOT ELSEWHERE CLASSIFIED Status: Acute (11) Pneumonia SNOMED Code(s): 385946095 Code(s): J18.9 - PNEUMONIA, UNSPECIFIED ORGANISM Status: Acute (12) Hypocalcemia SNOMED Code(s): 2660712 Code(s): E83.51 - HYPOCALCEMIA Status: Acute - Problem List Review Problem List Initiated/Reviewed/Updated: Yes - My Orders Last 24 Hours: My Active Orders 12/08/20 09:24 Ready for Discharge [RC] PER UNIT ROUTINE - Plan Plan:: 1. Transfer to swing bed. 2. Did send a message to oncologist. He thinks maybe the cytopenias due to the lymphoma. He may want to see her in the clinic. Possibly in the hospital but I will know when he says a message back.
--- NOTE | 2020-12-08 09:34 | PCM.DCSUM1 ---
Discharge Summary - Hospital Course Free Text/Narrative:: Hospital course-patient was anemic when she came in. She was given 2 units of RBCs. This was not repeated. Patient had some small pleural effusions and probable pneumonia so she was started on Rocephin and Zithromax. We transitioned her to doxycycline and Zithromax. Patient was very weak and needed assist to get around the facility. Continue to check her CBC and hemoglobin dropped from a high 8.9 to around 8 and then stabilized. She have a fever that was small and that going away. This most likely from the pneumonia. UA did not show any infection but did have a few red blood cells. Patient had PT/OT and they felt she could have some improvement. Did talk to her oncologist. He felt that this anemia probably could be from her lymphoma. He was going to get back to me on what he wanted to do. I did do a guaiac it was negative. Brief History: This is a 75-year-old female patient of [facility]. She has multiple medical problems including depression, Parkinson's, lymphoma, diabetes. She states she had 2 day history of feeling very weak so she was brought to the ER. She's had problems with anemia and being transfused in the past. She was transfused sounds like about a month ago. Her hemoglobin was below 8 and she was admitted for 2 units of RBCs. She denies fevers although she's been having them here. She denies runny nose, sore throat, cough, chest pain, diarrhea, dysuria, pyuria, hematuria. She says she just generally weak and has some shortness of breath with weakness. Diagnosis: Stroke: Yes Modified Reading Scale: No Symptoms at All Modified Reading Scale Score: 0 - Discharge Data Discharge Date: 12/08/20 Discharge Disposition: DC/Tfer W/I Hosp To Swing 61 Condition: Good - Referral to Home Health Primary Care Physician: Manuel Greer MD - Discharge Diagnosis/Problem(s) (1) HAO (acute kidney injury) SNOMED Code(s): 45661945, 96636736 ICD Code: N17.9 - ACUTE KIDNEY FAILURE, UNSPECIFIED Status: Acute (2) Anemia SNOMED Code(s): 245138979 ICD Code: D64.9 - ANEMIA, UNSPECIFIED Status: Acute Qualifiers: Anemia type: iron deficiency (3) Palliative care status SNOMED Code(s): 489905059 ICD Code: Z51.5 - ENCOUNTER FOR PALLIATIVE CARE Status: Acute (4) Thrombocytopenia SNOMED Code(s): 176984685 ICD Code: D69.6 - THROMBOCYTOPENIA, UNSPECIFIED Status: Acute (5) DM2 (diabetes mellitus, type 2) SNOMED Code(s): 21143217 ICD Code: E11.9 - TYPE 2 DIABETES MELLITUS WITHOUT COMPLICATIONS Status: Chronic Qualifiers: Diabetes mellitus correction insulin use: with long term acute care registered nurse use Diabetes mellitus complication status: without complication Qualified Code(s): E11.9 - Type 2 diabetes mellitus without complications; Z79.4 - alf (current) use of insulin; Z79.4 - alf (current) use of insulin; Z79.4 - alf (current) use of insulin; Z79.4 - alf (current) use of insulin (6) MDD (major depressive disorder) SNOMED Code(s): 586646724 ICD Code: F32.9 - MAJOR DEPRESSIVE DISORDER, SINGLE EPISODE, UNSPECIFIED Status: Chronic Qualifiers: Major depression recurrence: recurrent Psychotic features: without psychotic features (7) Obesity (BMI 30-39.9) SNOMED Code(s): 502413766, 608623242 ICD Code: E66.9 - OBESITY, UNSPECIFIED Status: Chronic (8) Weakness SNOMED Code(s): 06726981 ICD Code: R53.1 - WEAKNESS Status: Chronic (9) CHF (congestive heart failure) SNOMED Code(s): 63077726 ICD Code: I50.9 - HEART FAILURE, UNSPECIFIED Status: Acute (10) Pleural effusion SNOMED Code(s): 07172195 ICD Code: J90 - PLEURAL EFFUSION, NOT ELSEWHERE CLASSIFIED Status: Acute (11) Pneumonia SNOMED Code(s): 576419065 ICD Code: J18.9 - PNEUMONIA, UNSPECIFIED ORGANISM Status: Acute (12) Hypocalcemia SNOMED Code(s): 3620257 ICD Code: E83.51 - HYPOCALCEMIA Status: Acute - Patient Summary/Data Consults: Consultations 12/04/20 08:07 Consult to Occupational Therapy [OT Evaluation and Treatment] [CONS] Routine Please Evaluate and Treat. OT Reason for Consult: Strengthening This query below is only for informational purposes and is not editable. Admission Diagnosis/Problem: Pneumonia Consult to Physical Therapy [PT Evaluation and Treatment] [CONS] Routine Please Evaluate and Treat. PT Reason for Consult: Strengthening This query below is only for informational purposes and is not editable. Admission Diagnosis/Problem: Pneumonia - Patient Instructions Diet: Low Sodium Activity: As Tolerated Driving: Do Not Drive Showering/Bathing: May Shower Other/Special Instructions: 1. Transfer to swing bed. - Discharge Plan Prescriptions/Med Rec: Doxycycline [Vibra-Tabs] 100 mg PO Q12HR #10 tab Home Medications: Home Meds Sertraline HCl 150 mg PO DAILY 06/28/13 [History] Memantine HCl [Namenda] 10 mg PO BID 09/08/17 [History] metFORMIN HCl [Metformin ER Osmotic] 500 mg PO BIDMEALS 09/08/17 [History] Cholecalciferol (Vitamin D3) [Vitamin D3] 2,000 units PO DAILY #30 cap 10/04/17 [Rx] atorvaSTATin [Lipitor] 40 mg PO BEDTIME #30 tablet 10/04/17 [Rx] Potassium Chloride 20 meq PO DAILY #5 tablet.er 07/06/18 [Rx] Acetaminophen [Tylenol Extra Strength] 1,000 mg PO TID PRN 10/26/20 [History] Betamethasone/Clotrimazole [Lotrisone] 1 applic TOP BID 10/26/20 [History] Bumetanide [Bumex] 1 mg PO DAILY 10/26/20 [History] Carboxymethylcellulose Sodium [Refresh Tears 0.5%] 1 drop EYEBOTH BID 10/26/20 [History] Cholestyramine (With Sugar) [Questran Powder] 4 gm PO 17 10/26/20 [History] Cyanocobalamin (Vitamin B-12) [Vitamin B-12] 1,000 mcg PO DAILY 10/26/20 [History] Gabapentin [Neurontin] 300 mg PO 10/26/20 [History] Insulin Lispro [HumaLOG] 10 unit SQ 08,,10/26/20 [History] Loperamide [Imodium] 2 mg PO BID PRN 10/26/20 [History] Loratadine 10 mg PO DAILY PRN 10/26/20 [History] QUEtiapine [SEROquel] 25 mg PO BEDTIME 10/26/20 [History] Rivastigmine Tartrate [Rivastigmine] 6 mg PO BID 10/26/20 [History] Timolol [Betimol 0.5% Ophth Soln] 1 drop EYELF BID 10/26/20 [History] buPROPion [Wellbutrin] 75 mg PO DAILY 10/26/20 [History] polyethylene glycoL 3350 [MiraLAX] 17 gm PO DAILY PRN 10/26/20 [History] risperiDONE [Risperdal] 0.5 mg PO BEDTIME 10/26/20 [History] Aspirin [Adult Low Dose Aspirin EC] 81 mg PO DAILY #30 tablet. 11/01/20 [Rx] Pantoprazole Sodium [Protonix] 40 mg PO DAILY #90 tablet. 11/01/20 [Rx] Insulin Glargine,Hum.Rec.Anlog [Toujeo Max Solostar] 30 unit SQ 0800 12/02/20 [History] Losartan [Cozaar] 50 mg PO DAILY 12/02/20 [History] QUEtiapine [SEROquel] 50 mg PO 1500 12/02/20 [History] Doxycycline [Vibra-Tabs] 100 mg PO Q12HR #10 tab 12/08/20 [Rx] Patient Handouts: Blood Transfusion, Adult, [id number], Fall Prevention in Hospitals, Adult, Venous Thromboembolism Prevention, Community-Acquired Pneumonia, Adult, Wgly-wz-[id number] Forms: ED Department Discharge Referrals: Manuel Greer MD [Primary Care Provider] - - Discharge Summary/Plan Comment DC Time >30 min.: No - Patient Data Vitals - Most Recent: Last Vital Signs Temp 98.5 F 12/08/20 07:40 Pulse 66 12/08/20 07:40 Resp 20 12/08/20 07:40 BP 121/50 L 12/08/20 08:06 Pulse Ox 94 L 12/08/20 07:40 Weight - Most Recent: 216 lb 11.2 oz Lab Results - Last 24 hrs: Laboratory Results - last 24 hr 12/07/20 12/07/20 12/08/20 Range/Units 11:19 17:02 06:00 WBC 3.6 (3.0-10.3) x10-3/uL RBC 2.76 L (3.60-5.20) x10(6)uL Hgb 8.1 L (11.4-15.5) g/dL Hct 24.0 L (34.2-48.2) % MCV 86.7 (76.7-100.5) fL MCH 29.3 (23.9-33.9) pg MCHC 33.8 (31.9-34.8) g/dL RDW 18.7 H (12.3-16.5) % Plt Count 47 L (151-488) x10(3)uL MPV 10.4 (7.1-12.4) fL Add Manual Diff Yes Neutrophils % (Manual) 65 (46-82) % Band Neutrophils % 2 (0-6) % Lymphocytes % (Manual) 16 (13-37) % Monocytes % (Manual) 12 (4-12) % Eosinophils % (Manual) 5 (0-5) % Anisocytosis Few POC Glucose 180 H 118 H (80-116) mg/dL 12/08/20 Range/Units 06:27 WBC (3.0-10.3) x10-3/uL RBC (3.60-5.20) x10(6)uL Hgb (11.4-15.5) g/dL Hct (34.2-48.2) % MCV (76.7-100.5) fL MCH (23.9-33.9) pg MCHC (31.9-34.8) g/dL RDW (12.3-16.5) % Plt Count (151-488) x10(3)uL MPV (7.1-12.4) fL Add Manual Diff Neutrophils % (Manual) (46-82) % Band Neutrophils % (0-6) % Lymphocytes % (Manual) (13-37) % Monocytes % (Manual) (4-12) % Eosinophils % (Manual) (0-5) % Anisocytosis POC Glucose 75 L (80-116) mg/dL ESTIVEN Results - Last 24 hrs: Microbiology 12/03/20 09:00 Aerobic Blood Culture - Final Blood - Venous - Lab Draw NO GROWTH AFTER 5 DAYS Anaerobic Blood Culture - Final NO GROWTH AFTER 5 DAYS 12/03/20 09:00 Aerobic Blood Culture - Final Blood - Venous NO GROWTH AFTER 5 DAYS Anaerobic Blood Culture - Final NO GROWTH AFTER 5 DAYS Med Orders - Current: Current Medications Discontinued Medications Acetaminophen (Acetaminophen 325 Mg Tab) 650 mg PO Q4H PRN PRN Reason: Pain (Mild 1-3)/fever Last Admin: 12/03/20 15:37 Dose: 650 mg Documented by: Acetaminophen (Acetaminophen 500 Mg Tab) 1,000 mg PO TID PRN PRN Reason: Pain Last Admin: 12/08/20 08:28 Dose: 1,000 mg Documented by: Artificial Tears (Carboxymethylcellulose Sodium 0.5% Ophth Soln 15 Ml Bottle *Ptom) 0 ml EYEBOTH BID [facility] Last Admin: 12/08/20 08:08 Dose: 1 drop Documented by: Aspirin (Aspirin 81 Mg Tab.Ec) 81 mg PO DAILY [facility] Last Admin: 12/08/20 08:06 Dose: 81 mg Documented by: Atorvastatin Calcium (Atorvastatin 40 Mg Tab) 40 mg PO BEDTIME [facility] Last Admin: 12/07/20 20:14 Dose: 40 mg Documented by: Atorvastatin Calcium (Atorvastatin 40 Mg Tab) 40 mg PO ONETIME ONE Stop: 12/02/20 21:46 Last Admin: 12/02/20 22:50 Dose: 40 mg Documented by: Azithromycin (Azithromycin 250 Mg Tab) 250 mg PO DAILY [facility] Stop: 12/07/20 09:01 Last Admin: 12/07/20 08:54 Dose: 250 mg Documented by: Azithromycin (Azithromycin 250 Mg Tab) 500 mg PO ONETIME ONE Stop: 12/03/20 18:01 Last Admin: 12/03/20 18:29 Dose: 500 mg Documented by: Betamethasone/Clotrimazole (Betamethasone Dipropionate/Clotrimazole 0.05-1% Crm 15 Gm Tube) gm TOP BID [facility] Bumetanide (Bumetanide 1 Mg Tab) 1 mg PO DAILY [facility] Last Admin: 12/08/20 08:06 Dose: 1 mg Documented by: Bupropion HCl (Bupropion 75 Mg Tab) 75 mg PO DAILY [facility] Last Admin: 12/08/20 08:06 Dose: 75 mg Documented by: Calcium Carbonate/Glycine (Calcium Carbonate 500 Mg Tablet) 500 mg PO BID [facility] Last Admin: 12/08/20 08:07 Dose: 500 mg Documented by: Ceftriaxone Sodium (Ceftriaxone 1 Gm Vial) 1 gm IV Q24H [facility] Last Admin: 12/04/20 17:42 Dose: 1 gm Documented by: Cholecalciferol (Cholecalciferol (Vitamin D3) 25 Mcg Tab) 50 mcg PO DAILY [facility] Last Admin: 12/08/20 08:06 Dose: 50 mcg Documented by: Cholestyramine Resin (Cholestyramine/Sucrose Powder 4 Gm Packet) 4 gm PO 17 [facility] Last Admin: 12/07/20 17:34 Dose: 4 gm Documented by: Cyanocobalamin (Cyanocobalamin (Vitamin B12) 1,000 Mcg Tab) 1,000 mcg PO DAILY [facility] Last Admin: 12/08/20 08:07 Dose: 1,000 mcg Documented by: Doxycycline Hyclate (Doxycycline 100 Mg Tab) 100 mg PO BID [facility] Last Admin: 12/08/20 08:07 Dose: 100 mg Documented by: Ferrous Sulfate (Ferrous Sulfate 325 Mg Tab) 325 mg PO BIDMEALS [facility] Last Admin: 12/08/20 08:06 Dose: 325 mg Documented by: Furosemide (Furosemide 20 Mg Tab) 20 mg PO ONETIME ONE Stop: 12/04/20 08:07 Last Admin: 12/04/20 11:40 Dose: 20 mg Documented by: Gabapentin (Gabapentin 300 Mg Cap) 300 mg PO 1500,2100 [facility] Last Admin: 12/07/20 20:13 Dose: 300 mg Documented by: Sodium Chloride (Normal Saline) 250 mls @ 100 mls/hr IV ASDIRECTED [facility] Last Admin: 12/02/20 21:27 Dose: 100 mls/hr Documented by: Sodium Chloride (Normal Saline) 250 mls @ 100 mls/hr IV ASDIRECTED [facility] Last Admin: 12/03/20 00:25 Dose: 100 mls/hr Documented by: Ceftriaxone Sodium 1 gm/ (Sodium Chloride) 50 mls @ 200 mls/hr IV Q24H [facility] Last Admin: 12/03/20 18:29 Dose: 200 mls/hr Documented by: Insulin Glargine (Insulin Glargine,Human Rec. Analog 100 Units/Ml 3 Ml Pen) 24 units SUBCUT DAILY@0800 [facility] Last Admin: 12/08/20 08:08 Dose: 24 units Documented by: Insulin Human Lispro (Insulin Lispro 100 Unit/Ml 3 Ml Kwikpen) Confirm Administered Dose 300 unit SUBCUT .STK-MED ONE Stop: 12/04/20 10:06 Last Admin: 12/04/20 12:01 Dose: Not Given Documented by: Insulin Human Lispro (Insulin Lispro 100 Unit/Ml 3 Ml Kwikpen) 10 unit SUBCUT TIDMEALS [facility] Last Admin: 12/06/20 08:23 Dose: 10 unit Documented by: Insulin Human Lispro (Insulin Lispro 100 Unit/Ml 3 Ml Kwikpen) 5 unit SUBCUT TIDMEALS [facility] Last Admin: 12/08/20 08:09 Dose: 5 unit Documented by: Loperamide HCl (Loperamide 2 Mg Cap) 2 mg PO BID PRN PRN Reason: Diarrhea Loratadine (Loratadine 10 Mg Tab) 10 mg PO DAILY PRN PRN Reason: Rash Losartan Potassium (Losartan 50 Mg Tab) 50 mg PO DAILY [facility] Last Admin: 12/08/20 08:06 Dose: 50 mg Documented by: Memantine (Memantine 10 Mg Tab) 10 mg PO BID [facility] Last Admin: 12/08/20 08:07 Dose: 10 mg Documented by: Memantine (Memantine 10 Mg Tab) 10 mg PO ONETIME ONE Stop: 12/02/20 21:46 Last Admin: 12/02/20 22:50 Dose: 10 mg Documented by: Metformin HCl (Metformin 500 Mg Tab.Er) 500 mg PO BIDMEALS [facility] Last Admin: 12/08/20 08:07 Dose: 500 mg Documented by: (Cholecalciferol ( Vitamin D3) [Vitamin D3] 2,000 Unit Cap) *Ptom 2,000 units PO DAILY [facility] Last Admin: 12/05/20 09:06 Dose: Not Given Documented by: (Insulin Glargine, Hum.Rec.Anlog [ Toujeo Max Solostar] 300 Unit/Ml *Ptom 30 unit SQ 0800 [facility] Last Admin: 12/06/20 08:12 Dose: 30 unit Documented by: (Insulin Lispro [ Humalog] 100 Unit/Ml Pen) *Ptom 10 unit SQ TIDMEALS [facility] Last Admin: 12/06/20 08:50 Dose: Not Given Documented by: (Metformin Hcl [ Metformin Er Osmotic ] 500 Mg Tab.Er.24) *Ptom 500 mg PO BIDMEALS [facility] Last Admin: 12/06/20 08:50 Dose: Not Given Documented by: (Potassium Chloride [Potassium Chloride] 20 Meq Tablet.Er) * Ptom 20 meq PO DAILY [facility] Last Admin: 12/04/20 11:41 Dose: Not Given Documented by: (Rivastigmine Tartrate [ Rivastigmine] 6 Mg Capsule) *Ptom 6 mg PO BID [facility] Last Admin: 12/04/20 11:40 Dose: Not Given Documented by: (Timolol [Betimol 0. 5% Ophth Soln] 5 Ml Bottle) *Ptom 1 drop EYELF BID [facility] Last Admin: 12/06/20 08:22 Dose: 1 drop Documented by: Pantoprazole Sodium (Pantoprazole 40 Mg Tab.Cr) 40 mg PO DAILY [facility] Last Admin: 12/08/20 08:07 Dose: 40 mg Documented by: Polyethylene Glycol (Polyethylene Glycol 3350 Powder 17 Gm Packet) 17 gm PO DAILY PRN PRN Reason: Constipation Potassium Chloride (Potassium Chloride 20 Meq Tab.Er) 20 meq PO DAILY [facility] Last Admin: 12/08/20 08:06 Dose: 20 meq Documented by: Quetiapine Fumarate (Quetiapine 25 Mg Tab) 25 mg PO BEDTIME [facility] Last Admin: 12/07/20 20:14 Dose: 25 mg Documented by: Quetiapine Fumarate (Quetiapine 25 Mg Tab) 25 mg PO ONETIME ONE Stop: 12/02/20 21:46 Last Admin: 12/02/20 22:50 Dose: 25 mg Documented by: Quetiapine Fumarate (Quetiapine 50 Mg Tab *Ptom) 50 mg PO 1500 [facility] Last Admin: 12/04/20 16:47 Dose: Not Given Documented by: Quetiapine Fumarate (Quetiapine 50 Mg Tab) 50 mg PO DAILY@1500 [facility] Last Admin: 12/07/20 15:27 Dose: 50 mg Documented by: Risperidone (Risperidone 0.5 Mg Tab) 0.5 mg PO BEDTIME [facility] Last Admin: 12/07/20 20:13 Dose: 0.5 mg Documented by: Rivastigmine (Rivastigmine 3 Mg Cap) 6 mg PO BID [facility] Last Admin: 12/08/20 08:07 Dose: 6 mg Documented by: Sertraline HCl (Sertraline 100 Mg Tab *Ptom) 150 mg PO DAILY [facility] Last Admin: 12/04/20 11:39 Dose: Not Given Documented by: Sertraline HCl (Sertraline 50 Mg Tab) 150 mg PO DAILY [facility] Last Admin: 12/08/20 08:07 Dose: 150 mg Documented by: Sodium Chloride (Sodium Chloride 0.9% 10 Ml Syringe) 10 ml FLUSH ASDIRECTED PRN PRN Reason: Keep Vein Open Last Admin: 12/04/20 17:42 Dose: 10 ml Documented by: Timolol Maleate (Timolol Maleate 0.5% Ophth Soln 5 Ml Bottle) 1 ml EYELF BID [facility] Last Admin: 12/08/20 08:08 Dose: 1 drop Documented by:
== END 2020-12-08 09:24 | disposition swing bed (61) | DRG 840 ==
LOC: FB.ED 16:36 → FB.MS 18:07 → OBSVTOIN 12-04 08:05
PROVIDERS: ADMIT Emergency Medicine; ATTEND Family Medicine
PROC: 30233N1 Transfusion of Nonautologous Red Blood Cells into Peripheral Vein, Percutaneous Approach (ICD-10-PCS; principal; 2020-12-02)
DX: C85.90 Non-Hodgkin lymphoma, unspecified, unspecified site (principal); R79.89 Other specified abnormal findings of blood chemistry; J18.9 Pneumonia, unspecified organism; N17.9 Acute kidney failure, unspecified; F33.9 Major depressive disorder, recurrent, unspecified; R06.02 Shortness of breath; J90 Pleural effusion, not elsewhere classified; D50.9 Iron deficiency anemia, unspecified; Z51.5 Encounter for palliative care; F32.9 Major depressive disorder, single episode, unspecified; D69.6 Thrombocytopenia, unspecified; E66.9 Obesity, unspecified; Z66 Do not resuscitate; Z20.822 Contact with and (suspected) exposure to COVID-19; R53.1 Weakness; I50.9 Heart failure, unspecified; R32 Unspecified urinary incontinence; E83.51 Hypocalcemia; M79.7 Fibromyalgia; H91.90 Unspecified hearing loss, unspecified ear; H54.7 Unspecified visual loss; E78.00 Pure hypercholesterolemia, unspecified; I11.0 Hypertensive heart disease with heart failure; G47.30 Sleep apnea, unspecified; M19.90 Unspecified osteoarthritis, unspecified site; Z85.72 Personal history of non-Hodgkin lymphomas; E11.42 Type 2 diabetes mellitus with diabetic polyneuropathy; M54.2 Cervicalgia; G89.29 Other chronic pain; F41.9 Anxiety disorder, unspecified; G20 Parkinson's disease; F02.80 Dementia in other diseases classified elsewhere, unspecified severity, without behavioral disturbance, psychotic disturbance, mood disturbance, and anxiety; E88.09 Other disorders of plasma-protein metabolism, not elsewhere classified; Z96.653 Presence of artificial knee joint, bilateral; Z98.890 Other specified postprocedural states; Z88.1 Allergy status to other antibiotic agents; Z88.2 Allergy status to sulfonamides; Z88.8 Allergy status to other drugs, medicaments and biological substances; Z88.0 Allergy status to penicillin; Z79.899 Other long term (current) drug therapy; Z79.4 Long term (current) use of insulin; Z79.82 Long term (current) use of aspirin; Z90.49 Acquired absence of other specified parts of digestive tract; Z90.710 Acquired absence of both cervix and uterus; Z68.37 Body mass index [BMI] 37.0-37.9, adult
CPT/HCPCS: 36415 ×3; 36430 ×2; 71046; 80048; 80053 ×2; 81001; 82947 ×3; 83880; 84484; 85025 ×2; 85027; 86140; 86850; 86900; 86901; 86920 ×2; 86922 ×2; 87040 ×2; 93005; 94760; 99284; A9270 ×33; J0696; J7050 ×2; P9016 ×2; U0002; 82272; 82728; 83540; 83550; 85045; 97161-GP; 97166-GO; 97530-GO; 97535-GO; J1815; J1815-GY

== ENCOUNTER 2020-12-08 09:00 | Inpatient (IN) | payer MEDICARE ==
[2020-12-08] MEDS ORDERED: Loratadine 10 MG Tab PO PRN (10:14)
[2020-12-08] MEDS ORDERED: Polyethylene Glycol 3350 Powder 17 GM Packet PO PRN (10:14)
[2020-12-08] MEDS ORDERED: Loperamide 2 MG Cap PO PRN (10:14)
[2020-12-08] MEDS ORDERED: Acetaminophen 500 MG Tab PO PRN (10:14)
--- NOTE | 2020-12-08 10:24 | PCM.HP.2 ---
H&P History of Present Illness - General Date of Service: 12/08/20 Admit Problem/Dx: Admission Diagnosis/Problem Admission Diagnosis/Problem Pneumonia Source of Information: Patient History Limitations: Reports: No Limitations - History of Present Illness Initial Comments - Free Text/Narative: This is a 75-year-old female patient from [facility]. Came in very weak was found to have a pneumonia, little CHF and pleural effusion and pancytopenia. She was treated with Rocephin and Zithromax. She was given 2 units of RBCs. She has a history of lymphoma and sees oncology in [place]. We monitored her hemoglobin and went from 8.9 and stabilized at 8. Her guaiac was negative. Platelets remained around the 40s and did not drop down. Her white count was under 3.0. Did contact oncology and they said they would like to see her in the future in the clinic in the beginning of December and they able to help with her anemia. She had a little fever that went away. She had a few white blood cells in her urine but no UTI. She has no fevers, chills, cough, chest pain, leg swelling. She's very weak. - Related Data Allergies/Adverse Reactions: Allergies Allergy/AdvReac Type Severity Reaction Status Date / Time amoxicillin [Amoxicillin] Allergy Nausea and Verified 07/06/18 13:22 Vomiting fluvastatin Allergy Nausea and Verified 07/06/18 13:22 Vomiting Sulfa (Sulfonamide Allergy Diarrhea Verified 07/06/18 13:22 Antibiotics) sulfamethoxazole Allergy Nausea and Verified 07/06/18 13:22 [From Bactrim] Vomiting trimethoprim [From Bactrim] Allergy Nausea and Verified 07/06/18 13:22 Vomiting Home Medications: Home Meds Sertraline HCl 150 mg PO DAILY 06/28/13 [History] Memantine HCl [Namenda] 10 mg PO BID 09/08/17 [History] metFORMIN HCl [Metformin ER Osmotic] 500 mg PO BIDMEALS 09/08/17 [History] Cholecalciferol (Vitamin D3) [Vitamin D3] 2,000 units PO DAILY #30 cap 10/04/17 [Rx] atorvaSTATin [Lipitor] 40 mg PO BEDTIME #30 tablet 10/04/17 [Rx] Potassium Chloride 20 meq PO DAILY #5 tablet.er 07/06/18 [Rx] Acetaminophen [Tylenol Extra Strength] 1,000 mg PO TID PRN 10/26/20 [History] Betamethasone/Clotrimazole [Lotrisone] 1 applic TOP BID 10/26/20 [History] Bumetanide [Bumex] 1 mg PO DAILY 10/26/20 [History] Carboxymethylcellulose Sodium [Refresh Tears 0.5%] 1 drop EYEBOTH BID 10/26/20 [History] Cholestyramine (With Sugar) [Questran Powder] 4 gm PO 17 10/26/20 [History] Cyanocobalamin (Vitamin B-12) [Vitamin B-12] 1,000 mcg PO DAILY 10/26/20 [History] Gabapentin [Neurontin] 300 mg PO 15,10/26/20 [History] Insulin Lispro [HumaLOG] 10 unit SQ 08,11,17 10/26/20 [History] Loperamide [Imodium] 2 mg PO BID PRN 10/26/20 [History] Loratadine 10 mg PO DAILY PRN 10/26/20 [History] QUEtiapine [SEROquel] 25 mg PO BEDTIME 10/26/20 [History] Rivastigmine Tartrate [Rivastigmine] 6 mg PO BID 10/26/20 [History] Timolol [Betimol 0.5% Ophth Soln] 1 drop EYELF BID 10/26/20 [History] buPROPion [Wellbutrin] 75 mg PO DAILY 10/26/20 [History] polyethylene glycoL 3350 [MiraLAX] 17 gm PO DAILY PRN 10/26/20 [History] risperiDONE [Risperdal] 0.5 mg PO BEDTIME 10/26/20 [History] Aspirin [Adult Low Dose Aspirin EC] 81 mg PO DAILY #30 tablet. 11/01/20 [Rx] Pantoprazole Sodium [Protonix] 40 mg PO DAILY #90 tablet. 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, retinopathy Cardiovascular History: Reports: High Cholesterol, Hypertension Respiratory History: Reports: Sleep Apnea Other Respiratory History: uses cpap Gastrointestinal History: Reports: None Genitourinary History: Reports: Urinary Incontinence [employer]ACILITIES [employer] MANAGER History: Reports: Other OB/BYN History: Musculoskeletal History: Reports: Arthritis, Fibromyalgia, Neck Pain, Chronic, Other (See Below) Other Musculoskeletal History: diabetic polyneuropathy, 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 Endocrine/Metabolic History: Reports: Diabetes, Type II, Obesity/BMI 30+ Hematologic History: Reports: Blood Transfusion(s) Oncologic (Cancer) History: Reports: Lymphoma, Non-Hodgkin's Lymphoma - Infectious Disease History Infectious Disease History: Reports: Chicken Pox, Measles, Mumps, Shingles - Past Surgical History Head Surgeries/Procedures: Reports: None HEENT Surgical History: Reports: Adenoidectomy, Oral Surgery, Tonsillectomy, Other (See Below) Other HEENT Surgeries/Procedures: bleeding in vein in L eye GI Surgical History: Reports: Cholecystectomy, Colonoscopy Female Surgical History: Reports: Hysterectomy, Salpingo-Oophorectomy Musculoskeletal Surgical History: Reports: Knee Replacement Other Musculoskeletal Surgeries/Procedures:: bilat knee replacements Social & Family History - Family History Family Medical History: No Pertinent Family History - Caffeine Use Caffeine Use: Reports: Coffee H&P Review of Systems - Review of Systems: Review Of Systems: See Below General: Reports: Weakness HEENT: Reports: No Symptoms Pulmonary: Reports: No Symptoms Cardiovascular: Reports: No Symptoms Gastrointestinal: Reports: No Symptoms Genitourinary: Reports: No Symptoms Musculoskeletal: Reports: No Symptoms Skin: Reports: No Symptoms Psychiatric: Reports: No Symptoms Neurological: Reports: No Symptoms Hematologic/Lymphatic: Reports: No Symptoms Immunologic: Reports: No Symptoms Exam - Exam Exam: See Below - Exam General: Alert, Oriented, Cooperative HEENT: PERRLA, Posterior Pharynx Clear, TMs Clear Neck: Supple, Trachea Midline Lungs: Clear to Auscultation, Normal Respiratory Effort Cardiovascular: Regular Rate, Regular Rhythm. No: Systolic Murmur GI/Abdominal Exam: Soft, Non-Tender, No Distention Back Exam: Normal Inspection Extremities: Normal Inspection, No Pedal Edema Skin: Warm, Dry, Intact Neurological: Normal Speech, Normal Tone Neuro Extensive - Mental Status: Alert, Oriented x3 Neuro Extensive - Motor, Sensory, Reflexes: Other (Walks with walker and assist.) Psychiatric: Alert, Normal Affect, Normal Mood - Problem List (1) Neutropenia SNOMED Code(s): 340865182 ICD Code: D70.9 - NEUTROPENIA, UNSPECIFIED Status: Acute Current Visit: Yes (2) Anemia SNOMED Code(s): 366461819 ICD Code: D64.9 - ANEMIA, UNSPECIFIED Status: Acute Current Visit: No (3) Pneumonia SNOMED Code(s): 731306260 ICD Code: J18.9 - PNEUMONIA, UNSPECIFIED ORGANISM Status: Acute Current Visit: No (4) Thrombocytopenia SNOMED Code(s): 694312190 ICD Code: D69.6 - THROMBOCYTOPENIA, UNSPECIFIED Status: Acute Current Visit: No (5) DM2 (diabetes mellitus, type 2) SNOMED Code(s): 18455023 ICD Code: E11.9 - TYPE 2 DIABETES MELLITUS WITHOUT COMPLICATIONS Status: Chronic Current Visit: No Qualifiers: (6) HLD (hyperlipidemia) SNOMED Code(s): 14732003 ICD Code: E78.5 - HYPERLIPIDEMIA, UNSPECIFIED Status: Chronic Current Visit: No (7) HTN (hypertension) SNOMED Code(s): 11412826 ICD Code: I10 - ESSENTIAL (PRIMARY) HYPERTENSION Status: Chronic Current Visit: No Qualifiers: (8) Weakness SNOMED Code(s): 10093787 ICD Code: R53.1 - WEAKNESS Status: Chronic Current Visit: No Problem List Initiated/Reviewed/Updated: Yes Orders Last 24hrs: Active Orders 24 hr Category Date Time Status Patient Status [ADT] Routine ADT 12/08/20 10:11 Active Blood Glucose Check, Bedside [RC] BIDMEALS Care 12/08/20 10:11 Active Oxygen Therapy [RC] PRN Care 12/08/20 10:11 Active Up With Assistance [RC] ASDIRECTED Care 12/08/20 10:11 Active VTE/DVT Education [RC] Per Unit Routine Care 12/08/20 10:11 Active Vital Signs [RC] Q4H Care 12/08/20 10:11 Active OT Evaluation and Treatment [CONS] Routine Cons 12/08/20 10:11 Active PT Evaluation and Treatment [CONS] Routine Cons 12/08/20 10:11 Active Consistent Carbohydrate Diet [DIET] Diet 12/08/20 Lunch Active CBC WITH AUTO DIFF [HEME] Routine Lab 12/13/20 06:00 Ordered UA W/MICROSCOPIC [URIN] Routine Lab 12/13/20 06:00 Ordered Acetaminophen [Tylenol Extra Strength] Med 12/08/20 10:14 Ordered 1,000 mg PO TID PRN Aspirin [Halfprin] Med 12/09/20 09:00 Ordered 81 mg PO DAILY Bumetanide [Bumex] Med 12/09/20 09:00 Ordered 1 mg PO DAILY Cholecalciferol (Vitamin D3) [Vitamin D3] Med 12/09/20 09:00 Ordered 2,000 units PO DAILY Cholestyramine (With Sugar) [Questran Powder] Med 12/08/20 17:00 Ordered 4 gm PO 17 Cyanocobalamin (Vitamin B12) [Vitamin B12] Med 12/09/20 09:00 Ordered 1,000 mcg PO DAILY Doxycycline [Vibra-Tabs] Med 12/08/20 10:15 Ordered 100 mg PO Q12HR Gabapentin [Neurontin] Med 12/08/20 15:00 Ordered 300 mg PO ,21 Insulin Glargine,Hum.Rec.Anlog [Touvarindero Lit Hanostar] Med 12/09/20 08:00 Ordered 30 unit SQ 0800 Insulin Lispro [HumaLOG] Med 12/08/20 11:00 Ordered 5 unit SQ 08,11,17 Loperamide [Imodium] Med 12/08/20 10:14 Ordered 2 mg PO BID PRN Loratadine [Claritin] Med 12/08/20 10:14 Ordered 10 mg PO DAILY PRN Losartan [Cozaar] Med 12/09/20 09:00 Ordered 50 mg PO DAILY Memantine [Namenda] Med 12/08/20 21:00 Ordered 10 mg PO BID Pantoprazole [ProTONIX] Med 12/09/20 09:00 Ordered 40 mg PO DAILY Potassium Chloride [Potassium Chloride] Med 12/09/20 09:00 Ordered 20 meq PO DAILY QUEtiapine [SEROqueL] Med 12/08/20 21:00 Ordered 25 mg PO BEDTIME QUEtiapine [SEROquel] Med 12/08/20 15:00 Ordered 50 mg PO 1500 Rivastigmine Tartrate [Rivastigmine] Med 12/08/20 21:00 Ordered 6 mg PO BID Sertraline [Zoloft] Med 12/09/20 09:00 Ordered 150 mg PO DAILY Timolol [Betimol 0.5% Ophth Soln] Med 12/08/20 21:00 Ordered 1 drop EYELF BID atorvaSTATin [Lipitor] Med 12/08/20 21:00 Ordered 40 mg PO BEDTIME buPROPion [Wellbutrin] Med 12/09/20 09:00 Ordered 75 mg PO DAILY metFORMIN HCl [Metformin ER Osmotic] Med 12/08/20 18:00 Ordered 500 mg PO BIDMEALS polyethylene glycoL 3350 [MiraLAX] Med 12/08/20 10:14 Ordered 17 gm PO DAILY PRN risperiDONE [RisperiDAL] Med 12/08/20 21:00 Ordered 0.5 mg PO BEDTIME Resuscitation Status Routine Resus Stat 12/08/20 10:11 Ordered Medication Orders Acetaminophen (Acetaminophen 500 Mg Tab) 1,000 mg PO TID PRN PRN Reason: Pain Aspirin (Aspirin 81 Mg Tab.Ec) 81 mg PO DAILY [facility] Atorvastatin Calcium (Atorvastatin 40 Mg Tab) 40 mg PO BEDTIME JEANA Bumetanide (Bumetanide 1 Mg Tab) 1 mg PO DAILY [facility] Bupropion HCl (Bupropion 75 Mg Tab) 75 mg PO DAILY [facility] Cyanocobalamin (Cyanocobalamin (Vitamin B12) 1,000 Mcg Tab) 1,000 mcg PO DAILY [facility] Doxycycline Hyclate (Doxycycline 100 Mg Tab) 100 mg PO Q12HR JEANA Stop: 12/17/20 10:16 Gabapentin (Gabapentin 300 Mg Cap) 300 mg PO JEANA Loperamide HCl (Loperamide 2 Mg Cap) 2 mg PO BID PRN PRN Reason: Diarrhea Loratadine (Loratadine 10 Mg Tab) 10 mg PO DAILY PRN PRN Reason: Rash Losartan Potassium (Losartan 50 Mg Tab) 50 mg PO DAILY [facility] Memantine (Memantine 10 Mg Tab) 10 mg PO BID [facility] Non-Formulary Medication (Cholecalciferol (Vitamin D3) [Vitamin D3]) 2,000 units PO DAILY [facility] Non-Formulary Medication (Cholestyramine (With Sugar) [Questran Powder]) 4 gm PO 17 [facility] Non-Formulary Medication (Insulin Glargine,Hum.Rec.Anlog [Toujeo Max Solostar]) 30 unit SQ 0800 [facility] Non-Formulary Medication (Insulin Lispro [Humalog]) 5 unit SQ 08,11,17 [facility] Non-Formulary Medication (Metformin Hcl [Metformin Er Osmotic]) 500 mg PO BIDMEALS [facility] Non-Formulary Medication (Potassium Chloride [Potassium Chloride]) 20 meq PO DAILY [facility] Non-Formulary Medication (Rivastigmine Tartrate [Rivastigmine]) 6 mg PO BID [facility] Non-Formulary Medication (Timolol [Betimol 0.5% Ophth Soln]) 1 drop EYELF BID [facility] Pantoprazole Sodium (Pantoprazole 40 Mg Tab.Cr) 40 mg PO DAILY [facility] Polyethylene Glycol (Polyethylene Glycol 3350 Powder 17 Gm Packet) 17 gm PO DAILY PRN PRN Reason: Constipation Quetiapine Fumarate (Quetiapine 25 Mg Tab) 25 mg PO BEDTIME [facility] Quetiapine Fumarate (Quetiapine 50 Mg Tab) 50 mg PO 1500 [facility] Risperidone (Risperidone 1 Mg Tab) 0.5 mg PO BEDTIME [facility] Sertraline HCl (Sertraline 100 Mg Tab) 150 mg PO DAILY [facility] Assessment/Plan Comment:: 1. Admit to swing bed for PT/OT and strengthening. 2. Diabetic diet per 3. Activity with assist 4. Accu-Cheks twice a day. Restart her home insulin but half the dose for her short acting insulin. 5. Recheck hemoglobin and UA on Sunday. 6. Oncology to call and make a clinic appointment in the beginning of December in regards to pancytopenia. 7. Doxycycline 100 mg twice a day for 5 days for her pneumonia. - Mortality Measure Prognosis:: Good
[2020-12-08] MEDS ORDERED: Nystatin Crm 30 GM Tube TOP PRN (10:32)
[2020-12-08] MEDS: Insulin Lispro 100 Unit/ML 3 ML KwikPen SUBCUT SCH ×2 (13:55→17:25)
[2020-12-08] MEDS: Gabapentin 300 MG Cap PO SCH ×2 (15:04→20:11)
[2020-12-08] MEDS: Cholestyramine/Sucrose Powder 4 GM Packet PO SCH (16:46)
[2020-12-08] MEDS: Nystatin Crm 30 GM Tube TOP SCH ×2 (17:20→20:11)
[2020-12-08] MEDS: metFORMIN 500 MG Tab.ER PO SCH (17:25)
[2020-12-08] MEDS: Timolol Maleate 0.5% Ophth Soln 5 ML Bottle EYELF SCH (20:11)
[2020-12-08] MEDS: atorvaSTATin 40 MG Tab PO SCH (20:11)
[2020-12-08] MEDS: RIVASTIGMINE 3 MG PO SCH (20:11)
[2020-12-08] MEDS: Doxycycline 100 MG Tab PO SCH (20:11)
[2020-12-08] MEDS: Memantine 10 MG Tab PO SCH (20:12)
[2020-12-08] MEDS: QUEtiapine 25 MG Tab PO SCH (20:12)
[2020-12-08] MEDS: risperiDONE 0.5 MG Tab PO SCH (20:13)
[2020-12-09] MEDS: Pantoprazole 40 MG Tab.CR PO SCH (06:26)
[2020-12-09] MEDS: metFORMIN 500 MG Tab.ER PO SCH ×2 (08:23→18:12)
[2020-12-09] MEDS: Bumetanide 1 MG Tab PO SCH (08:27)
[2020-12-09] MEDS: Doxycycline 100 MG Tab PO SCH ×2 (08:28→21:00)
[2020-12-09] MEDS: Memantine 10 MG Tab PO SCH ×2 (08:29→21:00)
[2020-12-09] MEDS: Aspirin 81 MG Tab.EC PO SCH (08:32)
[2020-12-09] MEDS: Cholecalciferol (Vitamin D3) 25 MCG Tab PO SCH (08:32)
[2020-12-09] MEDS: RIVASTIGMINE 3 MG PO SCH ×2 (08:33→21:00)
[2020-12-09] MEDS: Losartan 50 MG Tab PO SCH (08:35)
[2020-12-09] MEDS: Cyanocobalamin (Vitamin B12) 1,000 MCG Tab PO SCH (08:36)
[2020-12-09] MEDS: Sertraline 50 MG Tab PO SCH (08:36)
[2020-12-09] MEDS: Potassium Chloride 20 MEQ Tab.ER PO SCH (08:38)
[2020-12-09] MEDS: Nystatin Crm 30 GM Tube TOP SCH ×4 (08:40→21:00)
[2020-12-09] MEDS: Timolol Maleate 0.5% Ophth Soln 5 ML Bottle EYELF SCH ×2 (08:41→21:00)
[2020-12-09] MEDS: Insulin Lispro 100 Unit/ML 3 ML KwikPen SUBCUT SCH ×3 (08:45→18:15)
[2020-12-09] MEDS: Insulin Glargine,Human Rec. Analog 100 Units/ML 3 ML Pen SUBCUT SCH (08:46)
[2020-12-09] MEDS: Gabapentin 300 MG Cap PO SCH ×2 (15:50→21:00)
[2020-12-09] MEDS: Cholestyramine/Sucrose Powder 4 GM Packet PO SCH (18:11)
[2020-12-09] MEDS: atorvaSTATin 40 MG Tab PO SCH (21:00)
[2020-12-09] MEDS: QUEtiapine 25 MG Tab PO SCH (21:00)
[2020-12-09] MEDS: risperiDONE 0.5 MG Tab PO SCH (21:00)
[2020-12-10] MEDS: Pantoprazole 40 MG Tab.CR PO SCH (05:09)
[2020-12-10] MEDS: Doxycycline 100 MG Tab PO SCH ×2 (08:19→20:11)
[2020-12-10] MEDS: Memantine 10 MG Tab PO SCH ×2 (08:19→20:10)
[2020-12-10] MEDS: Bumetanide 1 MG Tab PO SCH (08:19)
[2020-12-10] MEDS: Cyanocobalamin (Vitamin B12) 1,000 MCG Tab PO SCH (08:19)
[2020-12-10] MEDS: Cholecalciferol (Vitamin D3) 25 MCG Tab PO SCH (08:19)
[2020-12-10] MEDS: metFORMIN 500 MG Tab.ER PO SCH ×2 (08:19→17:30)
[2020-12-10] MEDS: Potassium Chloride 20 MEQ Tab.ER PO SCH (08:19)
[2020-12-10] MEDS: RIVASTIGMINE 3 MG PO SCH ×2 (08:19→20:10)
[2020-12-10] MEDS: Aspirin 81 MG Tab.EC PO SCH (08:19)
[2020-12-10] MEDS: Sertraline 50 MG Tab PO SCH (08:20)
[2020-12-10] MEDS: Nystatin Crm 30 GM Tube TOP SCH ×4 (08:20→20:11)
[2020-12-10] MEDS: Timolol Maleate 0.5% Ophth Soln 5 ML Bottle EYELF SCH ×2 (08:20→20:11)
[2020-12-10] MEDS: Insulin Lispro 100 Unit/ML 3 ML KwikPen SUBCUT SCH ×4 (08:23→18:11)
[2020-12-10] MEDS: Insulin Glargine,Human Rec. Analog 100 Units/ML 3 ML Pen SUBCUT SCH (08:24)
[2020-12-10] MEDS: Losartan 50 MG Tab PO SCH (08:29)
[2020-12-10] MEDS: Gabapentin 300 MG Cap PO SCH ×2 (15:36→20:10)
[2020-12-10] MEDS: Cholestyramine/Sucrose Powder 4 GM Packet PO SCH (17:28)
[2020-12-10] MEDS ORDERED: 50% Dextrose in Water 50 ML Syringe IVPUSH PRN (17:58)
[2020-12-10] MEDS ORDERED: Glucagon,Human Recombinant 1 MG Vial IM PRN (17:58)
[2020-12-10] MEDS: risperiDONE 0.5 MG Tab PO SCH (20:10)
[2020-12-10] MEDS: QUEtiapine 25 MG Tab PO SCH (20:10)
[2020-12-10] MEDS: atorvaSTATin 40 MG Tab PO SCH (20:10)
[2020-12-11] MEDS: Pantoprazole 40 MG Tab.CR PO SCH (06:00)
[2020-12-11] MEDS: Insulin Lispro 100 Unit/ML 3 ML KwikPen SUBCUT SCH ×3 (07:45→17:37)
[2020-12-11] MEDS ORDERED: 50% Dextrose in Water 50 ML Syringe IVPUSH PRN (07:52)
[2020-12-11] MEDS ORDERED: Glucagon,Human Recombinant 1 MG Vial IM PRN (07:52)
--- NOTE | 2020-12-11 07:56 | PCM.SN.2 ---
- Free Text/Narrative Note: Patient had been on 24 units of Lantus daily but has had several low glucose readings including 66 this morning and 80s yesterday afternoon prior to dinner. I reduced Lantus to 10 units daily. The patient remains on sliding scale insulin with meals.
[2020-12-11] MEDS: Aspirin 81 MG Tab.EC PO SCH (08:01)
[2020-12-11] MEDS: Bumetanide 1 MG Tab PO SCH (08:01)
[2020-12-11] MEDS: Cyanocobalamin (Vitamin B12) 1,000 MCG Tab PO SCH (08:01)
[2020-12-11] MEDS: Doxycycline 100 MG Tab PO SCH ×2 (08:02→20:13)
[2020-12-11] MEDS: Losartan 50 MG Tab PO SCH (08:03)
[2020-12-11] MEDS: metFORMIN 500 MG Tab.ER PO SCH ×2 (08:05→17:27)
[2020-12-11] MEDS: Cholecalciferol (Vitamin D3) 25 MCG Tab PO SCH (08:06)
[2020-12-11] MEDS: Potassium Chloride 20 MEQ Tab.ER PO SCH (08:06)
[2020-12-11] MEDS: RIVASTIGMINE 3 MG PO SCH ×2 (08:07→20:13)
[2020-12-11] MEDS: Memantine 10 MG Tab PO SCH ×2 (08:08→20:13)
[2020-12-11] MEDS: Timolol Maleate 0.5% Ophth Soln 5 ML Bottle EYELF SCH ×2 (08:09→20:13)
[2020-12-11] MEDS: Sertraline 50 MG Tab PO SCH (08:10)
[2020-12-11] MEDS: Nystatin Crm 30 GM Tube TOP SCH ×4 (08:10→20:14)
[2020-12-11] MEDS: Insulin Glargine,Human Rec. Analog 100 Units/ML 3 ML Pen SUBCUT SCH (08:12)
[2020-12-11] MEDS: Gabapentin 300 MG Cap PO SCH ×2 (14:17→20:13)
[2020-12-11] MEDS: Cholestyramine/Sucrose Powder 4 GM Packet PO SCH (17:27)
[2020-12-11] MEDS: risperiDONE 0.5 MG Tab PO SCH (20:13)
[2020-12-11] MEDS: QUEtiapine 25 MG Tab PO SCH (20:13)
[2020-12-11] MEDS: atorvaSTATin 40 MG Tab PO SCH (20:13)
[2020-12-12] MEDS: Pantoprazole 40 MG Tab.CR PO SCH (06:31)
[2020-12-12] MEDS: Insulin Lispro 100 Unit/ML 3 ML KwikPen SUBCUT SCH ×3 (07:59→17:22)
[2020-12-12] MEDS: Sertraline 50 MG Tab PO SCH (08:00)
[2020-12-12] MEDS: Doxycycline 100 MG Tab PO SCH ×2 (08:01→20:05)
[2020-12-12] MEDS: Cyanocobalamin (Vitamin B12) 1,000 MCG Tab PO SCH (08:02)
[2020-12-12] MEDS: Losartan 50 MG Tab PO SCH (08:02)
[2020-12-12] MEDS: Aspirin 81 MG Tab.EC PO SCH (08:03)
[2020-12-12] MEDS: Bumetanide 1 MG Tab PO SCH (08:10)
[2020-12-12] MEDS: metFORMIN 500 MG Tab.ER PO SCH ×2 (08:10→17:21)
[2020-12-12] MEDS: RIVASTIGMINE 3 MG PO SCH ×2 (08:11→20:06)
[2020-12-12] MEDS: Potassium Chloride 20 MEQ Tab.ER PO SCH (08:12)
[2020-12-12] MEDS: Memantine 10 MG Tab PO SCH ×2 (08:13→20:05)
[2020-12-12] MEDS: Timolol Maleate 0.5% Ophth Soln 5 ML Bottle EYELF SCH ×2 (08:14→20:06)
[2020-12-12] MEDS: Nystatin Crm 30 GM Tube TOP SCH ×4 (08:14→20:06)
[2020-12-12] MEDS: Cholecalciferol (Vitamin D3) 25 MCG Tab PO SCH (08:16)
[2020-12-12] MEDS: Insulin Glargine,Human Rec. Analog 100 Units/ML 3 ML Pen SUBCUT SCH (08:17)
[2020-12-12] MEDS: Gabapentin 300 MG Cap PO SCH ×2 (15:25→20:06)
[2020-12-12] MEDS: Cholestyramine/Sucrose Powder 4 GM Packet PO SCH (17:19)
[2020-12-12] MEDS: risperiDONE 0.5 MG Tab PO SCH (20:05)
[2020-12-12] MEDS: QUEtiapine 25 MG Tab PO SCH (20:06)
[2020-12-12] MEDS: atorvaSTATin 40 MG Tab PO SCH (20:06)
[2020-12-13] MEDS: Pantoprazole 40 MG Tab.CR PO SCH (06:00)
[2020-12-13] MEDS: metFORMIN 500 MG Tab.ER PO SCH ×2 (08:23→17:31)
[2020-12-13] MEDS: Bumetanide 1 MG Tab PO SCH (08:23)
[2020-12-13] MEDS: Insulin Lispro 100 Unit/ML 3 ML KwikPen SUBCUT SCH ×3 (08:24→17:31)
[2020-12-13] MEDS: Losartan 50 MG Tab PO SCH (08:24)
[2020-12-13] MEDS: Cyanocobalamin (Vitamin B12) 1,000 MCG Tab PO SCH (08:25)
[2020-12-13] MEDS: Sertraline 50 MG Tab PO SCH (08:25)
[2020-12-13] MEDS: RIVASTIGMINE 3 MG PO SCH ×2 (08:25→20:29)
[2020-12-13] MEDS: Cholecalciferol (Vitamin D3) 25 MCG Tab PO SCH (08:25)
[2020-12-13] MEDS: Timolol Maleate 0.5% Ophth Soln 5 ML Bottle EYELF SCH ×2 (08:26→20:29)
[2020-12-13] MEDS: Nystatin Crm 30 GM Tube TOP SCH ×4 (08:26→21:00)
[2020-12-13] MEDS: Memantine 10 MG Tab PO SCH ×2 (08:26→20:29)
[2020-12-13] MEDS: Aspirin 81 MG Tab.EC PO SCH (08:26)
[2020-12-13] MEDS: Doxycycline 100 MG Tab PO SCH (08:26)
[2020-12-13] MEDS: Potassium Chloride 20 MEQ Tab.ER PO SCH (08:26)
[2020-12-13] MEDS: Insulin Glargine,Human Rec. Analog 100 Units/ML 3 ML Pen SUBCUT SCH (08:27)
[2020-12-13] MEDS: Gabapentin 300 MG Cap PO SCH ×2 (15:05→20:29)
[2020-12-13] MEDS: Cholestyramine/Sucrose Powder 4 GM Packet PO SCH (17:31)
[2020-12-13] MEDS: risperiDONE 0.5 MG Tab PO SCH (20:29)
[2020-12-13] MEDS: atorvaSTATin 40 MG Tab PO SCH (20:29)
[2020-12-13] MEDS: QUEtiapine 25 MG Tab PO SCH (20:29)
[2020-12-14] MEDS: Pantoprazole 40 MG Tab.CR PO SCH (06:04)
[2020-12-14] MEDS: Insulin Lispro 100 Unit/ML 3 ML KwikPen SUBCUT SCH ×3 (08:06→17:57)
[2020-12-14] MEDS: Bumetanide 1 MG Tab PO SCH (08:06)
[2020-12-14] MEDS: metFORMIN 500 MG Tab.ER PO SCH ×2 (08:06→17:56)
[2020-12-14] MEDS: Losartan 50 MG Tab PO SCH (08:06)
[2020-12-14] MEDS: Cyanocobalamin (Vitamin B12) 1,000 MCG Tab PO SCH (08:07)
[2020-12-14] MEDS: Aspirin 81 MG Tab.EC PO SCH (08:07)
[2020-12-14] MEDS: Cholecalciferol (Vitamin D3) 25 MCG Tab PO SCH (08:08)
[2020-12-14] MEDS: Timolol Maleate 0.5% Ophth Soln 5 ML Bottle EYELF SCH ×2 (08:08→20:22)
[2020-12-14] MEDS: Potassium Chloride 20 MEQ Tab.ER PO SCH (08:08)
[2020-12-14] MEDS: Sertraline 50 MG Tab PO SCH (08:08)
[2020-12-14] MEDS: Nystatin Crm 30 GM Tube TOP SCH ×4 (08:09→20:23)
[2020-12-14] MEDS: Memantine 10 MG Tab PO SCH ×2 (08:09→20:20)
[2020-12-14] MEDS: Insulin Glargine,Human Rec. Analog 100 Units/ML 3 ML Pen SUBCUT SCH (08:09)
[2020-12-14] MEDS: RIVASTIGMINE 3 MG PO SCH ×2 (08:10→20:18)
[2020-12-14] MEDS: Gabapentin 300 MG Cap PO SCH ×2 (14:12→20:20)
[2020-12-14] MEDS: Cholestyramine/Sucrose Powder 4 GM Packet PO SCH (17:56)
[2020-12-14] MEDS: atorvaSTATin 40 MG Tab PO SCH (20:19)
[2020-12-14] MEDS: risperiDONE 0.5 MG Tab PO SCH (20:20)
[2020-12-14] MEDS: QUEtiapine 25 MG Tab PO SCH (20:21)
[2020-12-15] MEDS: Pantoprazole 40 MG Tab.CR PO SCH (05:25)
[2020-12-15] MEDS: Ferrous Sulfate 325 MG Tab PO SCH (10:29)
[2020-12-15] MEDS: Sertraline 50 MG Tab PO SCH (10:32)
[2020-12-15] MEDS: RIVASTIGMINE 3 MG PO SCH ×2 (10:34→19:59)
[2020-12-15] MEDS: Cyanocobalamin (Vitamin B12) 1,000 MCG Tab PO SCH (10:35)
[2020-12-15] MEDS: Potassium Chloride 20 MEQ Tab.ER PO SCH (10:35)
[2020-12-15] MEDS: Cholecalciferol (Vitamin D3) 25 MCG Tab PO SCH (10:35)
[2020-12-15] MEDS: metFORMIN 500 MG Tab.ER PO SCH ×2 (10:35→17:10)
[2020-12-15] MEDS: Bumetanide 1 MG Tab PO SCH (10:36)
[2020-12-15] MEDS: Losartan 50 MG Tab PO SCH (10:36)
[2020-12-15] MEDS: Aspirin 81 MG Tab.EC PO SCH (10:36)
[2020-12-15] MEDS: Memantine 10 MG Tab PO SCH ×2 (10:36→20:01)
[2020-12-15] MEDS: Insulin Lispro 100 Unit/ML 3 ML KwikPen SUBCUT SCH ×3 (10:37→17:12)
[2020-12-15] MEDS: Insulin Glargine,Human Rec. Analog 100 Units/ML 3 ML Pen SUBCUT SCH (10:39)
[2020-12-15] MEDS: Nystatin Crm 30 GM Tube TOP SCH ×4 (10:40→20:03)
[2020-12-15] MEDS: Timolol Maleate 0.5% Ophth Soln 5 ML Bottle EYELF SCH ×2 (10:42→20:06)
[2020-12-15] MEDS: Gabapentin 300 MG Cap PO SCH ×2 (15:05→20:01)
[2020-12-15] MEDS: Cholestyramine/Sucrose Powder 4 GM Packet PO SCH (17:04)
[2020-12-15] MEDS: atorvaSTATin 40 MG Tab PO SCH (20:00)
[2020-12-15] MEDS: risperiDONE 0.5 MG Tab PO SCH (20:05)
[2020-12-15] MEDS: QUEtiapine 25 MG Tab PO SCH (20:05)
[2020-12-16] MEDS: Pantoprazole 40 MG Tab.CR PO SCH (05:20)
[2020-12-16] MEDS ORDERED: Glucagon,Human Recombinant 1 MG Vial IM PRN (07:31)
[2020-12-16] MEDS ORDERED: 50% Dextrose in Water 50 ML Syringe IVPUSH PRN (07:31)
--- NOTE | 2020-12-16 07:55 | PCM.PN ---
- General Info Date of Service: 12/16/20 Admission Dx/Problem (Free Text): Admission Diagnosis/Problem Admission Diagnosis/Problem Pneumonia Subjective Update: Patient does not say much but has no specific complaints Functional Status: Reports: Pain Controlled, Tolerating Diet, Ambulating, Urinating - Review of Systems General: Reports: Weakness, Fatigue, Malaise HEENT: Reports: No Symptoms Pulmonary: Reports: No Symptoms Cardiovascular: Reports: No Symptoms Gastrointestinal: Reports: No Symptoms Genitourinary: Reports: No Symptoms Musculoskeletal: Reports: No Symptoms Skin: Reports: No Symptoms Neurological: Reports: Difficulty Walking, Weakness Psychiatric: Reports: Confusion - Patient Data Vitals - Most Recent: Last Vital Signs Temp 37.4 C 12/15/20 07:35 Pulse 66 12/15/20 07:35 Resp 22 H 12/15/20 07:35 BP 106/40 L 12/15/20 10:36 Pulse Ox 91 L 12/15/20 07:35 Weight - Most Recent: 95.98 kg I&O - Last 24 Hours: Intake & Output 12/15/20 12/16/20 12/16/20 22:59 06:59 14:59 Intake Total 200 Balance 200 Lab Results Last 24 Hours: Laboratory Results - last 24 hr 12/15/20 12/15/20 12/15/20 Range/Units 06:35 11:44 17:10 WBC (3.0-10.3) x10-3/uL RBC (3.60-5.20) x10(6)uL Hgb (11.4-15.5) g/dL Hct (34.2-48.2) % MCV (76.7-100.5) fL MCH (23.9-33.9) pg MCHC (31.9-34.8) g/dL RDW (12.3-16.5) % Plt Count (151-488) x10(3)uL MPV (7.1-12.4) fL Add Manual Diff Neutrophils % (Manual) 64 (46-82) % Lymphocytes % (Manual) 14 (13-37) % Monocytes % (Manual) 20 H (4-12) % Eosinophils % (Manual) 2 (0-5) % Anisocytosis Few POC Glucose 294 H D 225 H (80-116) mg/dL 12/16/20 12/16/20 Range/Units 06:05 06:05 WBC 4.0 (3.0-10.3) x10-3/uL RBC 2.73 L (3.60-5.20) x10(6)uL Hgb 7.5 L (11.4-15.5) g/dL Hct 23.6 L (34.2-48.2) % MCV 86.7 (76.7-100.5) fL MCH 27.6 (23.9-33.9) pg MCHC 31.9 (31.9-34.8) g/dL RDW 18.6 H (12.3-16.5) % Plt Count 50 L (151-488) x10(3)uL MPV 10.6 (7.1-12.4) fL Add Manual Diff Yes Neutrophils % (Manual) 49 (46-82) % Lymphocytes % (Manual) 40 H (13-37) % Monocytes % (Manual) 7 (4-12) % Eosinophils % (Manual) 4 (0-5) % Anisocytosis Few POC Glucose 243 H (80-116) mg/dL Med Orders - Current: Current Medications Acetaminophen (Acetaminophen 500 Mg Tab) 1,000 mg PO TID PRN PRN Reason: Pain Aspirin (Aspirin 81 Mg Tab.Ec) 81 mg PO DAILY [facility] Last Admin: 12/15/20 10:36 Dose: 81 mg Documented by: Atorvastatin Calcium (Atorvastatin 40 Mg Tab) 40 mg PO BEDTIME [facility] Last Admin: 12/15/20 20:00 Dose: 40 mg Documented by: Bumetanide (Bumetanide 1 Mg Tab) 1 mg PO DAILY [facility] Last Admin: 12/15/20 10:36 Dose: 1 mg Documented by: Bupropion HCl (Bupropion 75 Mg Tab) 75 mg PO DAILY [facility] Last Admin: 12/15/20 10:34 Dose: 75 mg Documented by: Cholecalciferol (Cholecalciferol (Vitamin D3) 25 Mcg Tab) 50 mcg PO DAILY [facility] Last Admin: 12/15/20 10:35 Dose: 50 mcg Documented by: Cholestyramine Resin (Cholestyramine/Sucrose Powder 4 Gm Packet) 4 gm PO 17 [facility] Last Admin: 12/15/20 17:04 Dose: 4 gm Documented by: Cyanocobalamin (Cyanocobalamin (Vitamin B12) 1,000 Mcg Tab) 1,000 mcg PO DAILY [facility] Last Admin: 12/15/20 10:35 Dose: 1,000 mcg Documented by: Dextrose/Water (50% Dextrose In Water 50 Ml Syringe) 50 ml IVPUSH ASDIRECTED PRN PRN Reason: Hypoglycemia Ferrous Sulfate (Ferrous Sulfate 325 Mg Tab) 325 mg PO Q48H [facility] Last Admin: 12/15/20 10:29 Dose: 325 mg Documented by: Furosemide (Furosemide 40 Mg Tab) 40 mg PO ONETIME ONE Stop: 12/16/20 07:49 Gabapentin (Gabapentin 300 Mg Cap) 300 mg PO [facility] Last Admin: 12/15/20 20:01 Dose: 300 mg Documented by: Glucagon (Glucagon,Human Recombinant 1 Mg Vial) 1 mg IM ASDIRECTED PRN PRN Reason: Hypoglycemia Sodium Chloride (Normal Saline) 250 mls @ 100 mls/hr IV ASDIRECTED [facility] Insulin Glargine (Insulin Glargine,Human Rec. Analog 100 Units/Ml 3 Ml Pen) 15 units SUBCUT DAILY [facility] Insulin Human Lispro (Insulin Lispro 100 Unit/Ml 3 Ml Kwikpen) 0 unit SUBCUT TIDMEALS [facility]; Protocol Last Admin: 12/15/20 17:12 Dose: 2 unit Documented by: Loperamide HCl (Loperamide 2 Mg Cap) 2 mg PO BID PRN PRN Reason: Diarrhea Loratadine (Loratadine 10 Mg Tab) 10 mg PO DAILY PRN PRN Reason: Rash Losartan Potassium (Losartan 50 Mg Tab) 50 mg PO DAILY [facility] Last Admin: 12/15/20 10:36 Dose: 50 mg Documented by: Memantine (Memantine 10 Mg Tab) 10 mg PO BID [facility] Last Admin: 12/15/20 20:01 Dose: 10 mg Documented by: Metformin HCl (Metformin 500 Mg Tab.Er) 500 mg PO BIDMEALS [facility] Last Admin: 12/15/20 17:10 Dose: 500 mg Documented by: Nystatin (Nystatin Crm 30 Gm Tube) 1 gm TOP QID [facility] Last Admin: 12/15/20 20:03 Dose: 1 applic Documented by: Pantoprazole Sodium (Pantoprazole 40 Mg Tab.Cr) 40 mg PO DAILY@0600 [facility] Last Admin: 12/16/20 05:20 Dose: 40 mg Documented by: Polyethylene Glycol (Polyethylene Glycol 3350 Powder 17 Gm Packet) 17 gm PO DAILY PRN PRN Reason: Constipation Potassium Chloride (Potassium Chloride 20 Meq Tab.Er) 20 meq PO DAILY [facility] Last Admin: 12/15/20 10:35 Dose: 20 meq Documented by: Quetiapine Fumarate (Quetiapine 25 Mg Tab) 25 mg PO BEDTIME [facility] Last Admin: 12/15/20 20:05 Dose: 25 mg Documented by: Quetiapine Fumarate (Quetiapine 50 Mg Tab) 50 mg PO 1500 [facility] Last Admin: 12/15/20 15:05 Dose: 50 mg Documented by: Risperidone (Risperidone 0.5 Mg Tab) 0.5 mg PO BEDTIME [facility] Last Admin: 12/15/20 20:05 Dose: 0.5 mg Documented by: Rivastigmine (Rivastigmine 3 Mg Cap) 6 mg PO BID [facility] Last Admin: 12/15/20 19:59 Dose: 6 mg Documented by: Sertraline HCl (Sertraline 50 Mg Tab) 150 mg PO DAILY [facility] Last Admin: 12/15/20 10:32 Dose: 150 mg Documented by: Timolol Maleate (Timolol Maleate 0.5% Ophth Soln 5 Ml Bottle) 0 ml EYELF BID [facility] Last Admin: 12/15/20 20:06 Dose: 1 drop Documented by: Discontinued Medications Dextrose/Water (50% Dextrose In Water 50 Ml Syringe) 50 ml IVPUSH ASDIRECTED PRN PRN Reason: Hypoglycemia Doxycycline Hyclate (Doxycycline 100 Mg Tab) 100 mg PO Q12H [facility] Stop: 12/13/20 09:01 Last Admin: 12/13/20 08:26 Dose: 100 mg Documented by: Glucagon (Glucagon,Human Recombinant 1 Mg Vial) 1 mg IM ASDIRECTED PRN PRN Reason: Hypoglycemia Insulin Glargine (Insulin Glargine,Human Rec. Analog 100 Units/Ml 3 Ml Pen) 24 units SUBCUT 0800 [facility] Last Admin: 12/10/20 08:24 Dose: 24 units Documented by: Insulin Glargine (Insulin Glargine,Human Rec. Analog 100 Units/Ml 3 Ml Pen) 10 units SUBCUT DAILY [facility] Last Admin: 12/15/20 10:39 Dose: 10 unit Documented by: Insulin Human Lispro (Insulin Lispro 100 Unit/Ml 3 Ml Kwikpen) 5 unit SUBCUT TIDMEALS [facility] Last Admin: 12/10/20 17:55 Dose: Not Given Documented by: Nystatin (Nystatin Crm 30 Gm Tube) 0 gm TOP QID PRN PRN Reason: Rash Comments:: Patient was sitting in the chair next to the window eating breakfast. She states that she feels better today. She is alert, oriented, conversant, pleasant. She has no new complaints - Exam Quality Assessment: Supplemental Oxygen, DVT Prophylaxis, Skin Breakdown General: Alert, Oriented, Cooperative, No Acute Distress HEENT: EOMI, Mucous Membr. Moist/[place], Other (Conjunctive are mildly pale) Lungs: Other (Good airflow bilaterally with mild crackles bilateral lower lobes) Cardiovascular: Regular Rate, Regular Rhythm, Murmurs Extremities: Pedal Edema, Other (Trace bilateral lower extremity edema) Neurological: No New Focal Deficit Psy/Mental Status: Alert, Normal Affect, Normal Mood - Patient Data Lab Results Last 24 hrs: Laboratory Results - last 24 hr 12/15/20 12/15/20 12/15/20 Range/Units 06:35 11:44 17:10 WBC (3.0-10.3) x10-3/uL RBC (3.60-5.20) x10(6)uL Hgb (11.4-15.5) g/dL Hct (34.2-48.2) % MCV (76.7-100.5) fL MCH (23.9-33.9) pg MCHC (31.9-34.8) g/dL RDW (12.3-16.5) % Plt Count (151-488) x10(3)uL MPV (7.1-12.4) fL Add Manual Diff Neutrophils % (Manual) 64 (46-82) % Lymphocytes % (Manual) 14 (13-37) % Monocytes % (Manual) 20 H (4-12) % Eosinophils % (Manual) 2 (0-5) % Anisocytosis Few POC Glucose 294 H D 225 H (80-116) mg/dL 12/16/20 12/16/20 Range/Units 06:05 06:05 WBC 4.0 (3.0-10.3) x10-3/uL RBC 2.73 L (3.60-5.20) x10(6)uL Hgb 7.5 L (11.4-15.5) g/dL Hct 23.6 L (34.2-48.2) % MCV 86.7 (76.7-100.5) fL MCH 27.6 (23.9-33.9) pg MCHC 31.9 (31.9-34.8) g/dL RDW 18.6 H (12.3-16.5) % Plt Count 50 L (151-488) x10(3)uL MPV 10.6 (7.1-12.4) fL Add Manual Diff Yes Neutrophils % (Manual) 49 (46-82) % Lymphocytes % (Manual) 40 H (13-37) % Monocytes % (Manual) 7 (4-12) % Eosinophils % (Manual) 4 (0-5) % Anisocytosis Few POC Glucose 243 H (80-116) mg/dL Result Diagrams: 12/16/20 06:05 Sepsis Event Note - Evaluation Sepsis Screening Result: No Definite Risk - Problem List & Annotations (1) Lymphoma SNOMED Code(s): 556583148 Code(s): C85.90 - NON-[place]GKIN LYMPHOMA, UNSPECIFIED, UNSPECIFIED SITE Status: Chronic Current Visit: Yes (2) Neutropenia SNOMED Code(s): 576172128 Code(s): D70.9 - NEUTROPENIA, UNSPECIFIED Status: Chronic Current Visit: Yes (3) Anemia SNOMED Code(s): 462448321 Code(s): D64.9 - ANEMIA, UNSPECIFIED Status: Chronic Current Visit: No (4) CHF (congestive heart failure) SNOMED Code(s): 86899439 Code(s): I50.9 - HEART FAILURE, UNSPECIFIED Status: Chronic Current Visit: No (5) Palliative care status SNOMED Code(s): 617438580 Code(s): Z51.5 - ENCOUNTER FOR PALLIATIVE CARE Status: Acute Current Visit: No (6) Pleural effusion SNOMED Code(s): 98776283 Code(s): J90 - PLEURAL EFFUSION, NOT ELSEWHERE CLASSIFIED Status: Acute Current Visit: No (7) Pneumonia SNOMED Code(s): 647393296 Code(s): J18.9 - PNEUMONIA, UNSPECIFIED ORGANISM Status: Resolved Current Visit: No (8) Thrombocytopenia SNOMED Code(s): 667256428 Code(s): D69.6 - THROMBOCYTOPENIA, UNSPECIFIED Status: Chronic Current Visit: No (9) DM2 (diabetes mellitus, type 2) SNOMED Code(s): 65186828 Code(s): E11.9 - TYPE 2 DIABETES MELLITUS WITHOUT COMPLICATIONS Status: Chronic Current Visit: No Qualifiers: (10) HLD (hyperlipidemia) SNOMED Code(s): 59787506 Code(s): E78.5 - HYPERLIPIDEMIA, UNSPECIFIED Status: Chronic Current Visit: No (11) HTN (hypertension) SNOMED Code(s): 28014492 Code(s): I10 - ESSENTIAL (PRIMARY) HYPERTENSION Status: Chronic Current Visit: No Qualifiers: (12) MDD (major depressive disorder) SNOMED Code(s): 536516292 Code(s): F32.9 - MAJOR DEPRESSIVE DISORDER, SINGLE EPISODE, UNSPECIFIED Status: Chronic Current Visit: No Qualifiers: Major depression recurrence: recurrent Psychotic features: without psychoti c features (13) SCOTT (obstructive sleep apnea) SNOMED Code(s): 79275140 Code(s): G47.33 - OBSTRUCTIVE SLEEP APNEA (ADULT) (PEDIATRIC) Status: Chronic Current Visit: No (14) Obesity (BMI 30-39.9) SNOMED Code(s): 946680934, 120080717 Code(s): E66.9 - OBESITY, UNSPECIFIED Status: Chronic Current Visit: No (15) Weakness SNOMED Code(s): 91119269 Code(s): R53.1 - WEAKNESS Status: Acute Current Visit: No - Problem List Review Problem List Initiated/Reviewed/Updated: Yes - My Orders Last 24 Hours: My Active Orders 12/15/20 09:00 Ferrous Sulfate 325 mg PO Q48H 12/16/20 07:44 PACKED CELLS [RED BLOOD CELLS LP] [BBK] Routine TYPE AND SCREEN [BBK] Routine 12/16/20 07:45 Sodium Chloride 0.9% [Normal Saline] 250 ml IV ASDIRECTED Transfuse RBC [Transfuse Red Blood Cells] [COMM] Routine 12/16/20 07:48 Furosemide [Lasix] 40 mg PO ONETIME ONE 12/16/20 12:00 Insulin Glarg,Human.Rec.Analog [LantUS Solostar] 15 units SUBCUT DAILY - Plan Plan:: Patient admitted to swing bed for rehabilitation/PT/OT Diabetes mellitus type 2 with insulin dependence, consistent carbohydrate diet. Note that Lantus was reduced previously and has now been increased to 15 units daily starting today. Patient has history of lymphoma and has had recent transfusion. Patient will be transfused 1 unit packed red blood cells followed by 40 mg p.o. Lasix today, 12/16/2020. Hemoglobin has been fairly labile but the patient does express weakness DVT prophylaxis: Contraindicated due to thrombocytopenia less than 100 Disposition: Note that the patient has acceptable help and should be granted a day pass on Sunday to go to her daughter's graduation. Transfer to advanced care at [facility] per progress with OT/PT
[2020-12-16] MEDS: Bumetanide 1 MG Tab PO SCH (08:28)
[2020-12-16] MEDS: Timolol Maleate 0.5% Ophth Soln 5 ML Bottle EYELF SCH ×2 (08:28→20:49)
[2020-12-16] MEDS: Cyanocobalamin (Vitamin B12) 1,000 MCG Tab PO SCH (08:28)
[2020-12-16] MEDS: Cholecalciferol (Vitamin D3) 25 MCG Tab PO SCH (08:28)
[2020-12-16] MEDS: Losartan 50 MG Tab PO SCH (08:29)
[2020-12-16] MEDS: Memantine 10 MG Tab PO SCH ×2 (08:29→20:47)
[2020-12-16] MEDS: Sertraline 50 MG Tab PO SCH (08:30)
[2020-12-16] MEDS: RIVASTIGMINE 3 MG PO SCH ×2 (08:30→20:46)
[2020-12-16] MEDS: Aspirin 81 MG Tab.EC PO SCH (08:30)
[2020-12-16] MEDS: metFORMIN 500 MG Tab.ER PO SCH ×2 (08:30→17:59)
[2020-12-16] MEDS: Potassium Chloride 20 MEQ Tab.ER PO SCH (08:30)
[2020-12-16] MEDS: Insulin Lispro 100 Unit/ML 3 ML KwikPen SUBCUT SCH ×3 (08:32→17:59)
[2020-12-16] MEDS: Nystatin Crm 30 GM Tube TOP SCH ×4 (08:33→20:48)
[2020-12-16] MEDS: Insulin Glargine,Human Rec. Analog 100 Units/ML 3 ML Pen SUBCUT SCH (08:35)
[2020-12-16] MEDS ORDERED: Furosemide 40 MG Tab PO ONE (12:00)
[2020-12-16] MEDS: Sodium Chloride 0.9% 10 ML Syringe FLUSH PRN ×2 (14:15→17:45)
[2020-12-16] MEDS: Gabapentin 300 MG Cap PO SCH ×2 (14:34→20:47)
--- NOTE | 2020-12-16 14:43 | PCM.SN.2 ---
- Free Text/Narrative Note: I was called by the RN to start an IV on this patient due to several attempts being unsuccessful. I prepped the right hand with IV prep and used 0.2 cc's of Xylocaine 1% skin wheel, attempted to start a 20 jelco and was unsuccessful at threading cannula. I prepped left hand with IV prep and used 0.2 cc's of Xylocaine 1% and started a 20 jelco and secured it Normal saline was started at a TKO rate and runs well. Report was given to Addie Polk RN
[2020-12-16] MEDS: Sodium Chloride 0.9% 250 ML IV SCH (15:00)
[2020-12-16] MEDS: Cholestyramine/Sucrose Powder 4 GM Packet PO SCH (17:58)
[2020-12-16] MEDS: atorvaSTATin 40 MG Tab PO SCH (20:46)
[2020-12-16] MEDS: risperiDONE 0.5 MG Tab PO SCH (20:48)
[2020-12-16] MEDS: QUEtiapine 25 MG Tab PO SCH (20:49)
[2020-12-17] MEDS: Pantoprazole 40 MG Tab.CR PO SCH (05:36)
[2020-12-17] MEDS: Insulin Glargine,Human Rec. Analog 100 Units/ML 3 ML Pen SUBCUT SCH (09:40)
[2020-12-17] MEDS: Bumetanide 1 MG Tab PO SCH (10:00)
[2020-12-17] MEDS: Losartan 50 MG Tab PO SCH (10:00)
[2020-12-17] MEDS: Sertraline 50 MG Tab PO SCH (10:00)
[2020-12-17] MEDS: Potassium Chloride 20 MEQ Tab.ER PO SCH (10:00)
[2020-12-17] MEDS: RIVASTIGMINE 3 MG PO SCH ×2 (10:00→21:01)
[2020-12-17] MEDS: Nystatin Crm 30 GM Tube TOP SCH ×4 (10:00→21:06)
[2020-12-17] MEDS: Ferrous Sulfate 325 MG Tab PO SCH (10:00)
[2020-12-17] MEDS: Timolol Maleate 0.5% Ophth Soln 5 ML Bottle EYELF SCH ×2 (10:00→21:05)
[2020-12-17] MEDS: Memantine 10 MG Tab PO SCH ×2 (10:00→21:04)
[2020-12-17] MEDS: Insulin Lispro 100 Unit/ML 3 ML KwikPen SUBCUT SCH ×3 (10:00→18:16)
[2020-12-17] MEDS: Aspirin 81 MG Tab.EC PO SCH (10:00)
[2020-12-17] MEDS: Cholecalciferol (Vitamin D3) 25 MCG Tab PO SCH (10:00)
[2020-12-17] MEDS: Cyanocobalamin (Vitamin B12) 1,000 MCG Tab PO SCH (10:00)
[2020-12-17] MEDS: metFORMIN 500 MG Tab.ER PO SCH ×2 (10:00→17:16)
[2020-12-17] MEDS: Gabapentin 300 MG Cap PO SCH ×2 (17:05→21:37)
[2020-12-17] MEDS: Cholestyramine/Sucrose Powder 4 GM Packet PO SCH (17:06)
[2020-12-17] MEDS: risperiDONE 0.5 MG Tab PO SCH (21:02)
[2020-12-17] MEDS: QUEtiapine 25 MG Tab PO SCH (21:03)
[2020-12-17] MEDS: atorvaSTATin 40 MG Tab PO SCH (21:04)
[2020-12-18] MEDS: Pantoprazole 40 MG Tab.CR PO SCH (06:38)
[2020-12-18] MEDS: Bumetanide 1 MG Tab PO SCH (08:25)
[2020-12-18] MEDS: Losartan 50 MG Tab PO SCH (08:26)
[2020-12-18] MEDS: RIVASTIGMINE 3 MG PO SCH ×2 (08:29→21:08)
[2020-12-18] MEDS: Potassium Chloride 20 MEQ Tab.ER PO SCH (08:29)
[2020-12-18] MEDS: Aspirin 81 MG Tab.EC PO SCH (08:29)
[2020-12-18] MEDS: Nystatin Crm 30 GM Tube TOP SCH ×4 (08:30→21:09)
[2020-12-18] MEDS: Memantine 10 MG Tab PO SCH ×2 (08:30→21:09)
[2020-12-18] MEDS: Cholecalciferol (Vitamin D3) 25 MCG Tab PO SCH (08:31)
[2020-12-18] MEDS: Cyanocobalamin (Vitamin B12) 1,000 MCG Tab PO SCH (08:31)
[2020-12-18] MEDS: Timolol Maleate 0.5% Ophth Soln 5 ML Bottle EYELF SCH ×2 (08:31→21:11)
[2020-12-18] MEDS: Sertraline 50 MG Tab PO SCH (08:35)
[2020-12-18] MEDS: Insulin Lispro 100 Unit/ML 3 ML KwikPen SUBCUT SCH ×3 (08:40→17:08)
[2020-12-18] MEDS: Insulin Glargine,Human Rec. Analog 100 Units/ML 3 ML Pen SUBCUT SCH (08:44)
[2020-12-18] MEDS: metFORMIN 500 MG Tab.ER PO SCH ×2 (08:48→17:09)
[2020-12-18] MEDS: Gabapentin 300 MG Cap PO SCH ×2 (14:17→21:30)
[2020-12-18] MEDS: Cholestyramine/Sucrose Powder 4 GM Packet PO SCH (17:07)
[2020-12-18] MEDS: atorvaSTATin 40 MG Tab PO SCH (21:09)
[2020-12-18] MEDS: QUEtiapine 25 MG Tab PO SCH (21:10)
[2020-12-18] MEDS: risperiDONE 0.5 MG Tab PO SCH (21:12)
[2020-12-18] MEDS: Sodium Chloride 0.9% 10 ML Syringe FLUSH PRN (21:31)
[2020-12-18] MEDS: Ciprofloxacin 250 MG Tab PO SCH (23:12)
[2020-12-19] MEDS: Pantoprazole 40 MG Tab.CR PO SCH (05:59)
[2020-12-19] MEDS: Insulin Lispro 100 Unit/ML 3 ML KwikPen SUBCUT SCH ×3 (07:49→18:34)
[2020-12-19] MEDS: metFORMIN 500 MG Tab.ER PO SCH ×2 (07:55→18:34)
[2020-12-19] MEDS: Bumetanide 1 MG Tab PO SCH (08:03)
[2020-12-19] MEDS: Losartan 50 MG Tab PO SCH (08:03)
[2020-12-19] MEDS: RIVASTIGMINE 3 MG PO SCH ×2 (08:04→21:03)
[2020-12-19] MEDS: Aspirin 81 MG Tab.EC PO SCH (08:05)
[2020-12-19] MEDS: Potassium Chloride 20 MEQ Tab.ER PO SCH (08:05)
[2020-12-19] MEDS: Memantine 10 MG Tab PO SCH ×2 (08:07→21:04)
[2020-12-19] MEDS: Timolol Maleate 0.5% Ophth Soln 5 ML Bottle EYELF SCH ×2 (08:07→21:13)
[2020-12-19] MEDS: Nystatin Crm 30 GM Tube TOP SCH ×4 (08:07→21:04)
[2020-12-19] MEDS: Cyanocobalamin (Vitamin B12) 1,000 MCG Tab PO SCH (08:08)
[2020-12-19] MEDS: Sertraline 50 MG Tab PO SCH (08:09)
[2020-12-19] MEDS: Insulin Glargine,Human Rec. Analog 100 Units/ML 3 ML Pen SUBCUT SCH (08:11)
[2020-12-19] MEDS: Ciprofloxacin 250 MG Tab PO SCH ×2 (08:17→21:12)
[2020-12-19] MEDS: Cholecalciferol (Vitamin D3) 25 MCG Tab PO SCH (09:40)
[2020-12-19] MEDS: Ferrous Sulfate 325 MG Tab PO SCH (11:41)
[2020-12-19] MEDS: Gabapentin 300 MG Cap PO SCH ×2 (15:35→21:12)
[2020-12-19] MEDS: Cholestyramine/Sucrose Powder 4 GM Packet PO SCH (17:45)
[2020-12-19] MEDS: Sodium Chloride 0.9% 10 ML Syringe FLUSH PRN (21:00)
[2020-12-19] MEDS: atorvaSTATin 40 MG Tab PO SCH (21:04)
[2020-12-19] MEDS: risperiDONE 0.5 MG Tab PO SCH (21:05)
[2020-12-19] MEDS: QUEtiapine 25 MG Tab PO SCH (21:05)
[2020-12-20] MEDS: Pantoprazole 40 MG Tab.CR PO SCH (06:10)
[2020-12-20] MEDS: Insulin Lispro 100 Unit/ML 3 ML KwikPen SUBCUT SCH ×3 (08:52→17:35)
[2020-12-20] MEDS: metFORMIN 500 MG Tab.ER PO SCH (09:02)
[2020-12-20] MEDS: Bumetanide 1 MG Tab PO SCH (09:03)
[2020-12-20] MEDS: Losartan 50 MG Tab PO SCH (09:03)
[2020-12-20] MEDS: RIVASTIGMINE 3 MG PO SCH ×2 (09:04→20:04)
[2020-12-20] MEDS: Memantine 10 MG Tab PO SCH ×2 (09:05→20:05)
[2020-12-20] MEDS: Aspirin 81 MG Tab.EC PO SCH (09:05)
[2020-12-20] MEDS: Potassium Chloride 20 MEQ Tab.ER PO SCH (09:05)
[2020-12-20] MEDS: Nystatin Crm 30 GM Tube TOP SCH ×4 (09:06→20:05)
[2020-12-20] MEDS: Cyanocobalamin (Vitamin B12) 1,000 MCG Tab PO SCH (09:07)
[2020-12-20] MEDS: Timolol Maleate 0.5% Ophth Soln 5 ML Bottle EYELF SCH ×2 (09:07→20:06)
[2020-12-20] MEDS: Cholecalciferol (Vitamin D3) 25 MCG Tab PO SCH (09:08)
[2020-12-20] MEDS: Sertraline 50 MG Tab PO SCH (09:09)
[2020-12-20] MEDS: Insulin Glargine,Human Rec. Analog 100 Units/ML 3 ML Pen SUBCUT SCH (09:14)
[2020-12-20] MEDS: Ciprofloxacin 250 MG Tab PO SCH (09:21)
--- NOTE | 2020-12-20 10:57 | PCM.PN ---
- General Info Date of Service: 12/20/20 Subjective Update: Yen was admitted to swing bed for rehabilitation and strengthening. Last 2 days she's been weaker dizzy and found to have a urinary tract infection based on symptoms of frequency. From this morning however she is more dizzy unable to stand on her own she's become diaphoretic and hypoxic. Blood pressures been noted to be low as well. She has a history of CHF, type 2 diabetes, previous stroke. A CT of the head done yesterday did not show any acute changes. Functional Status: Reports: Pain Controlled, New Symptoms. Denies: Ambulating - Review of Systems Pulmonary: Reports: Shortness of Breath Cardiovascular: Reports: Dyspnea on Exertion Gastrointestinal: Reports: No Symptoms Genitourinary: Reports: Frequency. Denies: Dysuria Musculoskeletal: Reports: No Symptoms - Patient Data Vitals - Most Recent: Last Vital Signs Temp 100.2 F 12/20/20 08:03 Pulse 67 12/20/20 08:03 Resp 16 12/20/20 08:03 BP 106/54 L 12/20/20 09:03 Pulse Ox 94 L 12/20/20 10:00 Weight - Most Recent: 95.98 kg Lab Results Last 24 Hours: Laboratory Results - last 24 hr 12/19/20 12/19/20 12/20/20 Range/Units 11:38 17:00 06:53 WBC (3.0-10.3) x10-3/uL RBC (3.60-5.20) x10(6)uL Hgb (11.4-15.5) g/dL Hct (34.2-48.2) % MCV (76.7-100.5) fL MCH (23.9-33.9) pg MCHC (31.9-34.8) g/dL RDW (12.3-16.5) % Plt Count (151-488) x10(3)uL MPV (7.1-12.4) fL Add Manual Diff Neutrophils % (Manual) (46-82) % Lymphocytes % (Manual) (13-37) % Monocytes % (Manual) (4-12) % Eosinophils % (Manual) (0-5) % Anisocytosis POC Glucose 221 H 180 H 162 H (80-116) mg/dL 12/20/20 Range/Units 07:30 WBC 4.0 (3.0-10.3) x10-3/uL RBC 2.72 L (3.60-5.20) x10(6)uL Hgb 7.9 L (11.4-15.5) g/dL Hct 24.2 L (34.2-48.2) % MCV 89.2 (76.7-100.5) fL MCH 29.0 (23.9-33.9) pg MCHC 32.5 (31.9-34.8) g/dL RDW 19.3 H (12.3-16.5) % Plt Count 38 L (151-488) x10(3)uL MPV 9.7 (7.1-12.4) fL Add Manual Diff Yes Neutrophils % (Manual) 64 (46-82) % Lymphocytes % (Manual) 13 (13-37) % Monocytes % (Manual) 20 H (4-12) % Eosinophils % (Manual) 3 (0-5) % Anisocytosis Few POC Glucose (80-116) mg/dL Madhu Results Last 24 Hours: Microbiology 12/18/20 21:52 Urine Culture - Preliminary Urine, Voided Gram Positive Cocci Gram Positive Cocci#2 Med Orders - Current: Current Medications Acetaminophen (Acetaminophen 500 Mg Tab) 1,000 mg PO TID PRN PRN Reason: Pain Last Admin: 12/20/20 09:09 Dose: 1,000 mg Documented by: Aspirin (Aspirin 81 Mg Tab.Ec) 81 mg PO DAILY [facility] Last Admin: 12/20/20 09:05 Dose: 81 mg Documented by: Atorvastatin Calcium (Atorvastatin 40 Mg Tab) 40 mg PO BEDTIME [facility] Last Admin: 12/19/20 21:04 Dose: 40 mg Documented by: Bumetanide (Bumetanide 1 Mg Tab) 1 mg PO DAILY [facility] Last Admin: 12/20/20 09:03 Dose: 1 mg Documented by: Bupropion HCl (Bupropion 75 Mg Tab) 75 mg PO DAILY [facility] Last Admin: 12/20/20 09:08 Dose: 75 mg Documented by: Cholecalciferol (Cholecalciferol (Vitamin D3) 25 Mcg Tab) 50 mcg PO DAILY [facility] Last Admin: 12/20/20 09:08 Dose: 50 mcg Documented by: Cholestyramine Resin (Cholestyramine/Sucrose Powder 4 Gm Packet) 4 gm PO 17 [facility] Last Admin: 12/19/20 17:45 Dose: 4 gm Documented by: Cyanocobalamin (Cyanocobalamin (Vitamin B12) 1,000 Mcg Tab) 1,000 mcg PO DAILY [facility] Last Admin: 12/20/20 09:07 Dose: 1,000 mcg Documented by: Dextrose/Water (50% Dextrose In Water 50 Ml Syringe) 50 ml IVPUSH ASDIRECTED PRN PRN Reason: Hypoglycemia Enoxaparin Sodium (Enoxaparin 30 Mg/0.3 Ml Syringe) 30 mg SUBCUT Q24H [facility] Ferrous Sulfate (Ferrous Sulfate 325 Mg Tab) 325 mg PO Q48H [facility] Glucagon (Glucagon,Human Recombinant 1 Mg Vial) 1 mg IM ASDIRECTED PRN PRN Reason: Hypoglycemia Sodium Chloride (Normal Saline) 250 mls @ 100 mls/hr IV ASDIRECTED [facility] Last Admin: 12/16/20 15:00 Dose: 100 mls/hr Documented by: Levofloxacin/Dextrose 500 mg/ (Premix) 100 mls @ 100 mls/hr IV Q24H [facility] Insulin Glargine (Insulin Glargine,Human Rec. Analog 100 Units/Ml 3 Ml Pen) 15 units SUBCUT DAILY [facility] Last Admin: 12/20/20 09:14 Dose: 15 units Documented by: Insulin Human Lispro (Insulin Lispro 100 Unit/Ml 3 Ml Kwikpen) 0 unit SUBCUT TIDMEALS [facility]; Protocol Last Admin: 12/20/20 08:52 Dose: 1 unit Documented by: Loperamide HCl (Loperamide 2 Mg Cap) 2 mg PO BID PRN PRN Reason: Diarrhea Loratadine (Loratadine 10 Mg Tab) 10 mg PO DAILY PRN PRN Reason: Rash Memantine (Memantine 10 Mg Tab) 10 mg PO BID [facility] Last Admin: 12/20/20 09:05 Dose: 10 mg Documented by: Metformin HCl (Metformin 500 Mg Tab.Er) 500 mg PO BIDMEALS [facility] Last Admin: 12/20/20 09:02 Dose: 500 mg Documented by: Nystatin (Nystatin Crm 30 Gm Tube) 1 gm TOP QID [facility] Last Admin: 12/20/20 09:06 Dose: 1 applic Documented by: Pantoprazole Sodium (Pantoprazole 40 Mg Tab.Cr) 40 mg PO DAILY@0600 [facility] Last Admin: 12/20/20 06:10 Dose: 40 mg Documented by: Polyethylene Glycol (Polyethylene Glycol 3350 Powder 17 Gm Packet) 17 gm PO DAILY PRN PRN Reason: Constipation Potassium Chloride (Potassium Chloride 20 Meq Tab.Er) 20 meq PO DAILY [facility] Last Admin: 12/20/20 09:05 Dose: 20 meq Documented by: Quetiapine Fumarate (Quetiapine 25 Mg Tab) 25 mg PO BEDTIME [facility] Last Admin: 12/19/20 21:05 Dose: 25 mg Documented by: Risperidone (Risperidone 0.5 Mg Tab) 0.5 mg PO BEDTIME [facility] Last Admin: 12/19/20 21:05 Dose: 0.5 mg Documented by: Rivastigmine (Rivastigmine 3 Mg Cap) 6 mg PO BID [facility] Last Admin: 12/20/20 09:04 Dose: 6 mg Documented by: Sertraline HCl (Sertraline 50 Mg Tab) 150 mg PO DAILY [facility] Last Admin: 12/20/20 09:09 Dose: 150 mg Documented by: Sodium Chloride (Sodium Chloride 0.9% 10 Ml Syringe) 10 ml FLUSH ASDIRECTED PRN PRN Reason: flush med Last Admin: 12/19/20 21:00 Dose: 10 ml Documented by: Timolol Maleate (Timolol Maleate 0.5% Ophth Soln 5 Ml Bottle) 0 ml EYELF BID [facility] Last Admin: 12/20/20 09:07 Dose: 1 drop Documented by: Discontinued Medications Ciprofloxacin (Ciprofloxacin 250 Mg Tab) 250 mg PO BID [facility] Stop: 12/28/20 22:46 Last Admin: 12/20/20 09:21 Dose: 250 mg Documented by: Dextrose/Water (50% Dextrose In Water 50 Ml Syringe) 50 ml IVPUSH ASDIRECTED PRN PRN Reason: Hypoglycemia Doxycycline Hyclate (Doxycycline 100 Mg Tab) 100 mg PO Q12H [facility] Stop: 12/13/20 09:01 Last Admin: 12/13/20 08:26 Dose: 100 mg Documented by: Ferrous Sulfate (Ferrous Sulfate 325 Mg Tab) 325 mg PO Q48H [facility] Last Admin: 12/19/20 11:41 Dose: 325 mg Documented by: Furosemide (Furosemide 40 Mg Tab) 40 mg PO ONETIME ONE Stop: 12/16/20 12:01 Last Admin: 12/16/20 11:09 Dose: 40 mg Documented by: Gabapentin (Gabapentin 300 Mg Cap) 300 mg PO [facility] Last Admin: 12/19/20 21:12 Dose: 300 mg Documented by: Glucagon (Glucagon,Human Recombinant 1 Mg Vial) 1 mg IM ASDIRECTED PRN PRN Reason: Hypoglycemia Insulin Glargine (Insulin Glargine,Human Rec. Analog 100 Units/Ml 3 Ml Pen) 24 units SUBCUT 0800 [facility] Last Admin: 12/10/20 08:24 Dose: 24 units Documented by: Insulin Glargine (Insulin Glargine,Human Rec. Analog 100 Units/Ml 3 Ml Pen) 10 units SUBCUT DAILY [facility] Last Admin: 12/15/20 10:39 Dose: 10 unit Documented by: Insulin Human Lispro (Insulin Lispro 100 Unit/Ml 3 Ml Kwikpen) 5 unit SUBCUT TIDMEALS [facility] Last Admin: 12/10/20 17:55 Dose: Not Given Documented by: Losartan Potassium (Losartan 50 Mg Tab) 50 mg PO DAILY [facility] Last Admin: 12/20/20 09:03 Dose: 50 mg Documented by: Nystatin (Nystatin Crm 30 Gm Tube) 0 gm TOP QID PRN PRN Reason: Rash Quetiapine Fumarate (Quetiapine 50 Mg Tab) 50 mg PO 1500 [facility] Last Admin: 12/19/20 15:38 Dose: 50 mg Documented by: - Exam Quality Assessment: Supplemental Oxygen General: Alert, Cooperative, Lethargic, Other (Diaphoretic) Neck: Supple Lungs: Crackles, Rales Cardiovascular: Regular Rate Extremities: No Pedal Edema Neurological: No New Focal Deficit Psy/Mental Status: Alert, Normal Affect #1 Interpretation EKG Date: 12/20/20 Rhythm: Other (Junctional Rhythm) Rate (Beats/Min): 60 [place]: Normal QRS: Normal QT: Normal Comparison: NA - No Prior EKG - Patient Data Lab Results Last 24 hrs: Laboratory Results - last 24 hr 12/19/20 12/19/20 12/20/20 Range/Units 11:38 17:00 06:53 WBC (3.0-10.3) x10-3/uL RBC (3.60-5.20) x10(6)uL Hgb (11.4-15.5) g/dL Hct (34.2-48.2) % MCV (76.7-100.5) fL MCH (23.9-33.9) pg MCHC (31.9-34.8) g/dL RDW (12.3-16.5) % Plt Count (151-488) x10(3)uL MPV (7.1-12.4) fL Add Manual Diff Neutrophils % (Manual) (46-82) % Lymphocytes % (Manual) (13-37) % Monocytes % (Manual) (4-12) % Eosinophils % (Manual) (0-5) % Anisocytosis POC Glucose 221 H 180 H 162 H (80-116) mg/dL 12/20/20 Range/Units 07:30 WBC 4.0 (3.0-10.3) x10-3/uL RBC 2.72 L (3.60-5.20) x10(6)uL Hgb 7.9 L (11.4-15.5) g/dL Hct 24.2 L (34.2-48.2) % MCV 89.2 (76.7-100.5) fL MCH 29.0 (23.9-33.9) pg MCHC 32.5 (31.9-34.8) g/dL RDW 19.3 H (12.3-16.5) % Plt Count 38 L (151-488) x10(3)uL MPV 9.7 (7.1-12.4) fL Add Manual Diff Yes Neutrophils % (Manual) 64 (46-82) % Lymphocytes % (Manual) 13 (13-37) % Monocytes % (Manual) 20 H (4-12) % Eosinophils % (Manual) 3 (0-5) % Anisocytosis Few POC Glucose (80-116) mg/dL Result Diagrams: 12/20/20 07:30 12/20/20 11:25 Madhu Results Last 24 hrs: Microbiology 12/18/20 21:52 Urine Culture - Preliminary Urine, Voided Gram Positive Cocci Gram Positive Cocci#2 Sepsis Event Note - Evaluation Sepsis Screening Result: No Definite Risk - Focused Exam Vital Signs: Vital Signs Temp Pulse Resp BP BP Pulse Ox Pulse Ox 12/20/20 10:00 94 L 12/20/20 09:03 106/54 L 12/20/20 08:03 100.2 F 67 16 106/54 L 89 L - Problem List & Annotations (1) SOB (shortness of breath) SNOMED Code(s): 976657016 Code(s): R06.02 - SHORTNESS OF BREATH Status: Acute Current Visit: Yes (2) 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 SNOMED Code(s): 751367477 Code(s): Z86.73 - PRSNL HX OF TIA (TIA), AND CEREB INFRC W/O RESID DEFICITS Status: Acute Current Visit: No (3) Weakness SNOMED Code(s): 32447981 Code(s): R53.1 - WEAKNESS Status: Acute Current Visit: No (4) Anemia SNOMED Code(s): 077614779 Code(s): D64.9 - ANEMIA, UNSPECIFIED Status: Chronic Current Visit: No (5) Ataxia SNOMED Code(s): 84025398 Code(s): R27.0 - ATAXIA, UNSPECIFIED Status: Chronic Current Visit: No (6) CHF (congestive heart failure) SNOMED Code(s): 01544081 Code(s): I50.9 - HEART FAILURE, UNSPECIFIED Status: Chronic Current Visit: No (7) Cognitive dysfunction SNOMED Code(s): 907625796 Code(s): F09 - UNSP MENTAL DISORDER DUE TO KNOWN PHYSIOLOGICAL CONDITION Status: Chronic Current Visit: No (8) DM2 (diabetes mellitus, type 2) SNOMED Code(s): 95946246 Code(s): E11.9 - TYPE 2 DIABETES MELLITUS WITHOUT COMPLICATIONS Status: Chr onic Current Visit: No Qualifiers: (9) MDD (major depressive disorder) SNOMED Code(s): 954967390 Code(s): F32.9 - MAJOR DEPRESSIVE DISORDER, SINGLE EPISODE, UNSPECIFIED Sta tus: Chronic Current Visit: No Qualifiers: Major depression recurrence: recurrent Psychotic features: without psychotic features (10) Obesity (BMI 30-39.9) SNOMED Code(s): 477853838, 794142749 Code(s): E66.9 - OBESITY, UNSPECIFIED Status: Chronic Current Visit: No - Problem List Review Problem List Initiated/Reviewed/Updated: Yes - My Orders Last 24 Hours: My Active Orders 12/20/20 10:48 EKG Documentation Completion [RC] ASDIRECTED Chest 2V [CR] Routine C-REACTIVE PROTEIN [CHEM] Routine COMPREHENSIVE METABOLIC PN,CMP [CHEM] Routine CULTURE BLOOD [BC] Urgent CULTURE BLOOD [BC] Urgent PRO B-TYPE NATRIUR PEPT,BNPPRO [CHEM] Routine TROPONIN I [CHEM] Routine TYPE AND SCREEN [BBK] Routine Blood Culture x2 Reflex Set [OM.PC] Urgent EKG 12 Lead [EK] Routine 12/20/20 10:52 CORONAVIRUS COVID-19 JILLIAN [MOLEC] Routine 12/20/20 11:00 Enoxaparin [Lovenox] 30 mg SUBCUT Q24H Levofloxacin/Dextrose 5%-Water [Levaquin in D5W 500 MG/100 ML] 500 mg Premix Bag 1 bag IV Q24H 12/21/20 12:00 Ferrous Sulfate 325 mg PO Q48H - Plan Plan:: I have ordered CBC which showed a hemoglobin of 7.8. Down from 8.4. Recommend 2 sets of blood cultures. A chest x-ray, EKG, BNP and a basic panel. I will also type and screen -in case we need to transfuse her. Meantime I will stop the ciprofloxacin in favor of Levaquin IV, and continue with oxygen supplementation via nasal prongs. Start DVT prophylaxis.I had a discussion with the sinus, and recommended 2 units of red blood cells transfusion as well. The chest x-ray did not show any infiltrates. BNP was high, as such I will give Bumex 2 mg IV in between the 2 units of blood
[2020-12-20] MEDS ORDERED: Levofloxacin/Dextrose 5%-Water 500 MG in Premix Bag 1 BAG IV SCH ×4 (11:00)
[2020-12-20] MEDS ORDERED: Enoxaparin 30 MG/0.3 ML Syringe SUBCUT SCH (11:00)
[2020-12-20] MEDS: Sodium Chloride 0.9% 10 ML Syringe FLUSH PRN ×2 (11:12→12:11)
[2020-12-20] MEDS ORDERED: Enoxaparin 30 MG/0.3 ML Syringe SUBCUT ONE (12:30)
[2020-12-20] MEDS ORDERED: Sodium Chloride 0.9% 250 ML IV SCH (15:15)
[2020-12-20] MEDS: Cholestyramine/Sucrose Powder 4 GM Packet PO SCH (16:59)
[2020-12-20] MEDS ORDERED: Bumetanide 1 MG/4 ML MDV ONE (19:48)
[2020-12-20] MEDS ORDERED: Bumetanide 1 MG/4 ML MDV IVPUSH ONE (20:00)
[2020-12-20] MEDS: atorvaSTATin 40 MG Tab PO SCH (20:04)
[2020-12-20] MEDS: QUEtiapine 25 MG Tab PO SCH (20:06)
[2020-12-20] MEDS: risperiDONE 0.5 MG Tab PO SCH (20:06)
[2020-12-20] MEDS: Sodium Chloride 0.9% 250 ML IV SCH (20:48)
[2020-12-21] MEDS: Pantoprazole 40 MG Tab.CR PO SCH (06:14)
[2020-12-21] MEDS: Bumetanide 1 MG Tab PO SCH (08:21)
[2020-12-21] MEDS: RIVASTIGMINE 3 MG PO SCH (08:22)
[2020-12-21] MEDS: Potassium Chloride 20 MEQ Tab.ER PO SCH (08:22)
[2020-12-21] MEDS: Timolol Maleate 0.5% Ophth Soln 5 ML Bottle EYELF SCH (08:22)
[2020-12-21] MEDS: Cyanocobalamin (Vitamin B12) 1,000 MCG Tab PO SCH (08:22)
[2020-12-21] MEDS: Aspirin 81 MG Tab.EC PO SCH (08:22)
[2020-12-21] MEDS: Sertraline 50 MG Tab PO SCH (08:23)
[2020-12-21] MEDS: Cholecalciferol (Vitamin D3) 25 MCG Tab PO SCH (08:29)
[2020-12-21] MEDS: Nystatin Crm 30 GM Tube TOP SCH (08:31)
[2020-12-21] MEDS: Insulin Lispro 100 Unit/ML 3 ML KwikPen SUBCUT SCH ×2 (08:34→13:47)
[2020-12-21] MEDS: Insulin Glargine,Human Rec. Analog 100 Units/ML 3 ML Pen SUBCUT SCH (08:36)
[2020-12-21] MEDS: Memantine 10 MG Tab PO SCH (08:48)
--- NOTE | 2020-12-21 08:48 | PCM.PN ---
- General Info Date of Service: 12/21/20 Subjective Update: She is doing better today. She is incontinent of urine, drinking and eating better. Oxygen needs down to to 1 L Functional Status: Reports: Pain Controlled - Review of Systems General: Reports: Weakness. Denies: Fever HEENT: Reports: No Symptoms Pulmonary: Reports: No Symptoms Cardiovascular: Reports: No Symptoms Gastrointestinal: Reports: No Symptoms Genitourinary: Reports: Frequency, Incontinence Musculoskeletal: Reports: No Symptoms - Patient Data Vitals - Most Recent: Last Vital Signs Temp 98.4 F 12/21/20 07:27 Pulse 71 12/21/20 07:27 Resp 20 12/21/20 07:27 BP 126/60 12/21/20 07:27 Pulse Ox 95 12/21/20 07:27 Weight - Most Recent: 95.98 kg I&O - Last 24 Hours: Intake & Output 12/20/20 12/21/20 12/21/20 22:59 06:59 14:59 Intake Total 390 390 Balance 390 390 Lab Results Last 24 Hours: Laboratory Results - last 24 hr 12/20/20 12/20/20 12/20/20 Range/Units 11:17 11:20 11:25 WBC (3.0-10.3) x10-3/uL RBC (3.60-5.20) x10(6)uL Hgb (11.4-15.5) g/dL Hct (34.2-48.2) % MCV (76.7-100.5) fL MCH (23.9-33.9) pg MCHC (31.9-34.8) g/dL RDW (12.3-16.5) % Plt Count (151-488) x10(3)uL MPV (7.1-12.4) fL Neut % (Auto) (30.8-76.2) % Lymph % (Auto) (18.4-52.1) % Coal % (Auto) (4.4-15.7) % Eos % (Auto) (0.6-8.1) % Baso % (Auto) (0.2-1.5) % Neut # (Auto) (1.5-6.3) x10-3/uL Lymph # (Auto) (1.0-4.4) x10-3/uL Coal # (Auto) (0.3-1.0) x10-3/uL Eos # (Auto) (0.0-0.8) x10-3/uL Baso # (Auto) (0.0-0.1) x10-3/uL Add Manual Diff Neutrophils % (Manual) (46-82) % Band Neutrophils % (0-6) % Lymphocytes % (Manual) (13-37) % Monocytes % (Manual) (4-12) % Sodium 135 (135-145) mmol/L Potassium 4.7 (3.5-5.3) mmol/L Chloride 102 (100-110) mmol/L Carbon Dioxide 28 (21-32) mmol/L BUN 35 H (7-18) mg/dL Creatinine 1.6 H (0.55-1.02) mg/dL Est Cr Clr Drug Dosing 25.43 mL/min Estimated GFR (MDRD) 31 L (>60) BUN/Creatinine Ratio 21.9 H (9-20) Glucose 222 H (80-116) mg/dL POC Glucose 226 H (80-116) mg/dL Calcium 7.1 L (8.6-10.2) mg/dL Total Bilirubin 0.7 (0.1-1.3) mg/dL AST 23 D (5-25) IU/L ALT 12 D (12-36) U/L Alkaline Phosphatase 89 (56-112) IU/L Troponin I (4.0-60.3) pg/mL C-Reactive Protein (0.5-0.9) mg/dL NT-Pro-B Natriuret Pep (<=450) pg/mL Total Protein 5.2 L (6.0-8.0) g/dL Albumin 2.0 L (3.2-4.6) g/dL Globulin 3.2 g/dL Albumin/Globulin Ratio 0.6 SARS-CoV-2 RNA (JILLIAN) Negative (NEGATIVE) Blood Type Gel Antibody Screen Crossmatch 12/20/20 12/20/20 12/20/20 Range/Units 11:25 11:25 16:35 WBC 4.7 (3.0-10.3) x10-3/uL RBC 2.68 L (3.60-5.20) x10(6)uL Hgb 8.2 L (11.4-15.5) g/dL Hct 24.6 L (34.2-48.2) % MCV 91.8 (76.7-100.5) fL MCH 30.5 (23.9-33.9) pg MCHC 33.3 (31.9-34.8) g/dL RDW 19.4 H (12.3-16.5) % Plt Count 41 L (151-488) x10(3)uL MPV 11.3 (7.1-12.4) fL Neut % (Auto) 63.4 (30.8-76.2) % Lymph % (Auto) 9.7 L (18.4-52.1) % Coal % (Auto) 24.7 H (4.4-15.7) % Eos % (Auto) 1.0 (0.6-8.1) % Baso % (Auto) 1.2 (0.2-1.5) % Neut # (Auto) 3.0 (1.5-6.3) x10-3/uL Lymph # (Auto) 0.5 L (1.0-4.4) x10-3/uL Coal # (Auto) 1.2 H (0.3-1.0) x10-3/uL Eos # (Auto) 0.0 (0.0-0.8) x10-3/uL Baso # (Auto) 0.1 (0.0-0.1) x10-3/uL Add Manual Diff Neutrophils % (Manual) (46-82) % Band Neutrophils % (0-6) % Lymphocytes % (Manual) (13-37) % Monocytes % (Manual) (4-12) % Sodium (135-145) mmol/L Potassium (3.5-5.3) mmol/L Chloride (100-110) mmol/L Carbon Dioxide (21-32) mmol/L BUN (7-18) mg/dL Creatinine (0.55-1.02) mg/dL Est Cr Clr Drug Dosing mL/min Estimated GFR (MDRD) (>60) BUN/Creatinine Ratio (9-20) Glucose (80-116) mg/dL POC Glucose (80-116) mg/dL Calcium (8.6-10.2) mg/dL Total Bilirubin (0.1-1.3) mg/dL AST (5-25) IU/L ALT (12-36) U/L Alkaline Phosphatase (56-112) IU/L Troponin I 38.1 (4.0-60.3) pg/mL C-Reactive Protein 6.2 H* (0.5-0.9) mg/dL NT-Pro-B Natriuret Pep 1007 H* (<=450) pg/mL Total Protein (6.0-8.0) g/dL Albumin (3.2-4.6) g/dL Globulin g/dL Albumin/Globulin Ratio SARS-CoV-2 RNA (JILLIAN) (NEGATIVE) Blood Type B POSITIVE Gel Antibody Screen Negative Crossmatch See Detail 12/20/20 12/21/20 12/21/20 Range/Units 17:15 05:49 06:35 WBC 4.7 (3.0-10.3) x10-3/uL RBC 3.29 L (3.60-5.20) x10(6)uL Hgb 10.2 L (11.4-15.5) g/dL Hct 30.0 L (34.2-48.2) % MCV 91.0 (76.7-100.5) fL MCH 31.0 (23.9-33.9) pg MCHC 34.1 (31.9-34.8) g/dL RDW 18.1 H (12.3-16.5) % Plt Count 38 L (151-488) x10(3)uL MPV 11.0 (7.1-12.4) fL Neut % (Auto) (30.8-76.2) % Lymph % (Auto) (18.4-52.1) % Coal % (Auto) (4.4-15.7) % Eos % (Auto) (0.6-8.1) % Baso % (Auto) (0.2-1.5) % Neut # (Auto) (1.5-6.3) x10-3/uL Lymph # (Auto) (1.0-4.4) x10-3/uL Coal # (Auto) (0.3-1.0) x10-3/uL Eos # (Auto) (0.0-0.8) x10-3/uL Baso # (Auto) (0.0-0.1) x10-3/uL Add Manual Diff Yes Neutrophils % (Manual) 60 (46-82) % Band Neutrophils % 4 (0-6) % Lymphocytes % (Manual) 19 (13-37) % Monocytes % (Manual) 17 H (4-12) % Sodium (135-145) mmol/L Potassium (3.5-5.3) mmol/L Chloride (100-110) mmol/L Carbon Dioxide (21-32) mmol/L BUN (7-18) mg/dL Creatinine (0.55-1.02) mg/dL Est Cr Clr Drug Dosing mL/min Estimated GFR (MDRD) (>60) BUN/Creatinine Ratio (9-20) Glucose (80-116) mg/dL POC Glucose 143 H D 224 H D (80-116) mg/dL Calcium (8.6-10.2) mg/dL Total Bilirubin (0.1-1.3) mg/dL AST (5-25) IU/L ALT (12-36) U/L Alkaline Phosphatase (56-112) IU/L Troponin I (4.0-60.3) pg/mL C-Reactive Protein (0.5-0.9) mg/dL NT-Pro-B Natriuret Pep (<=450) pg/mL Total Protein (6.0-8.0) g/dL Albumin (3.2-4.6) g/dL Globulin g/dL Albumin/Globulin Ratio SARS-CoV-2 RNA (JILLIAN) (NEGATIVE) Blood Type Gel Antibody Screen Crossmatch 12/21/20 Range/Units 06:35 WBC (3.0-10.3) x10-3/uL RBC (3.60-5.20) x10(6)uL Hgb (11.4-15.5) g/dL Hct (34.2-48.2) % MCV (76.7-100.5) fL MCH (23.9-33.9) pg MCHC (31.9-34.8) g/dL RDW (12.3-16.5) % Plt Count (151-488) x10(3)uL MPV (7.1-12.4) fL Neut % (Auto) (30.8-76.2) % Lymph % (Auto) (18.4-52.1) % Coal % (Auto) (4.4-15.7) % Eos % (Auto) (0.6-8.1) % Baso % (Auto) (0.2-1.5) % Neut # (Auto) (1.5-6.3) x10-3/uL Lymph # (Auto) (1.0-4.4) x10-3/uL Coal # (Auto) (0.3-1.0) x10-3/uL Eos # (Auto) (0.0-0.8) x10-3/uL Baso # (Auto) (0.0-0.1) x10-3/uL Add Manual Diff Neutrophils % (Manual) (46-82) % Band Neutrophils % (0-6) % Lymphocytes % (Manual) (13-37) % Monocytes % (Manual) (4-12) % Sodium 136 (135-145) mmol/L Potassium 4.1 (3.5-5.3) mmol/L Chloride 100 (100-110) mmol/L Carbon Dioxide 28 (21-32) mmol/L BUN 31 H (7-18) mg/dL Creatinine 1.4 H (0.55-1.02) mg/dL Est Cr Clr Drug Dosing 29.06 mL/min Estimated GFR (MDRD) 36 L (>60) BUN/Creatinine Ratio 22.1 H (9-20) Glucose 239 H (80-116) mg/dL POC Glucose (80-116) mg/dL Calcium 7.2 L (8.6-10.2) mg/dL Total Bilirubin 1.2 (0.1-1.3) mg/dL AST 27 H D (5-25) IU/L ALT 17 D (12-36) U/L Alkaline Phosphatase 92 (56-112) IU/L Troponin I (4.0-60.3) pg/mL C-Reactive Protein (0.5-0.9) mg/dL NT-Pro-B Natriuret Pep (<=450) pg/mL Total Protein 5.4 L (6.0-8.0) g/dL Albumin 2.0 L (3.2-4.6) g/dL Globulin 3.4 g/dL Albumin/Globulin Ratio 0.6 SARS-CoV-2 RNA (JILLIAN) (NEGATIVE) Blood Type Gel Antibody Screen Crossmatch Madhu Results Last 24 Hours: Microbiology 12/18/20 21:52 Urine Culture - Final Urine, Voided Alpha Strep, Not Pneumococcus Enterococcus Faecalis Med Orders - Current: Current Medications Acetaminophen (Acetaminophen 500 Mg Tab) 1,000 mg PO TID PRN PRN Reason: Pain Last Admin: 12/20/20 09:09 Dose: 1,000 mg Documented by: Aspirin (Aspirin 81 Mg Tab.Ec) 81 mg PO DAILY [facility] Last Admin: 12/21/20 08:22 Dose: 81 mg Documented by: Atorvastatin Calcium (Atorvastatin 40 Mg Tab) 40 mg PO BEDTIME [facility] Last Admin: 12/20/20 20:04 Dose: 40 mg Documented by: Bumetanide (Bumetanide 1 Mg Tab) 1 mg PO DAILY [facility] Last Admin: 12/21/20 08:21 Dose: 1 mg Documented by: Bupropion HCl (Bupropion 75 Mg Tab) 75 mg PO DAILY [facility] Last Admin: 12/21/20 08:22 Dose: 75 mg Documented by: Cholecalciferol (Cholecalciferol (Vitamin D3) 25 Mcg Tab) 50 mcg PO DAILY [facility] Last Admin: 12/21/20 08:29 Dose: 50 mcg Documented by: Cholestyramine Resin (Cholestyramine/Sucrose Powder 4 Gm Packet) 4 gm PO 17 [facility] Last Admin: 12/20/20 16:59 Dose: 4 gm Documented by: Cyanocobalamin (Cyanocobalamin (Vitamin B12) 1,000 Mcg Tab) 1,000 mcg PO DAILY [facility] Last Admin: 12/21/20 08:22 Dose: 1,000 mcg Documented by: Dextrose/Water (50% Dextrose In Water 50 Ml Syringe) 50 ml IVPUSH ASDIRECTED PRN PRN Reason: Hypoglycemia Enoxaparin Sodium (Enoxaparin 30 Mg/0.3 Ml Syringe) 30 mg SUBCUT Q24H JEANA Ferrous Sulfate (Ferrous Sulfate 325 Mg Tab) 325 mg PO Q48H JEANA Glucagon (Glucagon,Human Recombinant 1 Mg Vial) 1 mg IM ASDIRECTED PRN PRN Reason: Hypoglycemia Sodium Chloride (Normal Saline) 250 mls @ 100 mls/hr IV ASDIRECTED [facility] Last Admin: 12/20/20 20:48 Dose: 100 mls/hr Documented by: Levofloxacin/Dextrose (Levaquin In D5w 250 Mg/50 Ml) 50 mls @ 50 mls/hr IV Q24H [facility] Sodium Chloride (Normal Saline) 250 mls @ 100 mls/hr IV ASDIRECTED [facility] Last Admin: 12/20/20 16:53 Dose: 100 mls/hr Documented by: Insulin Glargine (Insulin Glargine,Human Rec. Analog 100 Units/Ml 3 Ml Pen) 15 units SUBCUT DAILY [facility] Last Admin: 12/20/20 09:14 Dose: 15 units Documented by: Insulin Human Lispro (Insulin Lispro 100 Unit/Ml 3 Ml Kwikpen) 0 unit SUBCUT TIDMEALS [facility]; Protocol Last Admin: 12/20/20 17:35 Dose: Not Given Documented by: Loperamide HCl (Loperamide 2 Mg Cap) 2 mg PO BID PRN PRN Reason: Diarrhea Loratadine (Loratadine 10 Mg Tab) 10 mg PO DAILY PRN PRN Reason: Rash Memantine (Memantine 10 Mg Tab) 10 mg PO BID [facility] Last Admin: 12/20/20 20:05 Dose: 10 mg Documented by: Nystatin (Nystatin Crm 30 Gm Tube) 1 gm TOP QID [facility] Last Admin: 12/21/20 08:31 Dose: 1 applic Documented by: Pantoprazole Sodium (Pantoprazole 40 Mg Tab.Cr) 40 mg PO DAILY@0600 [facility] Last Admin: 12/21/20 06:14 Dose: 40 mg Documented by: Polyethylene Glycol (Polyethylene Glycol 3350 Powder 17 Gm Packet) 17 gm PO DAILY PRN PRN Reason: Constipation Potassium Chloride (Potassium Chloride 20 Meq Tab.Er) 20 meq PO DAILY [facility] Last Admin: 12/21/20 08:22 Dose: 20 meq Documented by: Quetiapine Fumarate (Quetiapine 25 Mg Tab) 25 mg PO BEDTIME [facility] Last Admin: 12/20/20 20:06 Dose: 25 mg Documented by: Risperidone (Risperidone 0.5 Mg Tab) 0.5 mg PO BEDTIME [facility] Last Admin: 12/20/20 20:06 Dose: 0.5 mg Documented by: Rivastigmine (Rivastigmine 3 Mg Cap) 6 mg PO BID [facility] Last Admin: 12/21/20 08:22 Dose: 6 mg Documented by: Sertraline HCl (Sertraline 50 Mg Tab) 150 mg PO DAILY [facility] Last Admin: 12/21/20 08:23 Dose: 150 mg Documented by: Sodium Chloride (Sodium Chloride 0.9% 10 Ml Syringe) 10 ml FLUSH ASDIRECTED PRN PRN Reason: flush med Last Admin: 12/20/20 12:11 Dose: 10 ml Documented by: Timolol Maleate (Timolol Maleate 0.5% Ophth Soln 5 Ml Bottle) 0 ml EYELF BID [facility] Last Admin: 12/21/20 08:22 Dose: 1 drop Documented by: Discontinued Medications Bumetanide (Bumetanide 1 Mg/4 Ml Mdv) 2 mg IVPUSH ONETIME ONE Stop: 12/20/20 20:01 Last Admin: 12/20/20 20:38 Dose: 2 mg Documented by: Bumetanide (Bumetanide 1 Mg/4 Ml Mdv) Confirm Administered Dose 1 mg .ROUTE .STK-MED ONE Stop: 12/20/20 19:49 Last Admin: 12/20/20 20:03 Dose: Not Given Documented by: Ciprofloxacin (Ciprofloxacin 250 Mg Tab) 250 mg PO BID [facility] Stop: 12/28/20 22:46 Last Admin: 12/20/20 09:21 Dose: 250 mg Documented by: Dextrose/Water (50% Dextrose In Water 50 Ml Syringe) 50 ml IVPUSH ASDIRECTED PRN PRN Reason: Hypoglycemia Doxycycline Hyclate (Doxycycline 100 Mg Tab) 100 mg PO Q12H [facility] Stop: 12/13/20 09:01 Last Admin: 12/13/20 08:26 Dose: 100 mg Documented by: Enoxaparin Sodium (Enoxaparin 30 Mg/0.3 Ml Syringe) 30 mg SUBCUT ONETIME ONE Stop: 12/20/20 12:31 Last Admin: 12/20/20 13:16 Dose: 30 mg Documented by: Ferrous Sulfate (Ferrous Sulfate 325 Mg Tab) 325 mg PO Q48H [facility] Last Admin: 12/19/20 11:41 Dose: 325 mg Documented by: Furosemide (Furosemide 40 Mg Tab) 40 mg PO ONETIME ONE Stop: 12/16/20 12:01 Last Admin: 12/16/20 11:09 Dose: 40 mg Documented by: Gabapentin (Gabapentin 300 Mg Cap) 300 mg PO 15,21 [facility] Last Admin: 12/19/20 21:12 Dose: 300 mg Documented by: Glucagon (Glucagon,Human Recombinant 1 Mg Vial) 1 mg IM ASDIRECTED PRN PRN Reason: Hypoglycemia Levofloxacin/Dextrose 500 mg/ (Premix) 100 mls @ 100 mls/hr IV Q24H [facility] Last Admin: 12/20/20 12:19 Dose: Not Given Documented by: Levofloxacin/Dextrose 500 mg/ (Premix) 100 mls @ 100 mls/hr IV Q24H [facility] Stop: 12/20/20 12:30 Last Admin: 12/20/20 11:11 Dose: 100 mls/hr Documented by: Insulin Glargine (Insulin Glargine,Human Rec. Analog 100 Units/Ml 3 Ml Pen) 24 units SUBCUT 0800 [facility] Last Admin: 12/10/20 08:24 Dose: 24 units Documented by: Insulin Glargine (Insulin Glargine,Human Rec. Analog 100 Units/Ml 3 Ml Pen) 10 units SUBCUT DAILY [facility] Last Admin: 12/15/20 10:39 Dose: 10 unit Documented by: Insulin Human Lispro (Insulin Lispro 100 Unit/Ml 3 Ml Kwikpen) 5 unit SUBCUT TIDMEALS [facility] Last Admin: 12/10/20 17:55 Dose: Not Given Documented by: Losartan Potassium (Losartan 50 Mg Tab) 50 mg PO DAILY [facility] Last Admin: 12/20/20 09:03 Dose: 50 mg Documented by: Metformin HCl (Metformin 500 Mg Tab.Er) 500 mg PO BIDMEALS [facility] Last Admin: 12/20/20 09:02 Dose: 500 mg Documented by: Nystatin (Nystatin Crm 30 Gm Tube) 0 gm TOP QID PRN PRN Reason: Rash Quetiapine Fumarate (Quetiapine 50 Mg Tab) 50 mg PO 1500 [facility] Last Admin: 12/19/20 15:38 Dose: 50 mg Documented by: - Exam Quality Assessment: Supplemental Oxygen General: Alert, Oriented HEENT: Pupils Equal Neck: Supple Lungs: Crackles Cardiovascular: Regular Rate GI/Abdominal Exam: Normal Bowel Sounds, Soft - Patient Data Lab Results Last 24 hrs: Laboratory Results - last 24 hr 12/20/20 12/20/20 12/20/20 Range/Units 11:17 11:20 11:25 WBC (3.0-10.3) x10-3/uL RBC (3.60-5.20) x10(6)uL Hgb (11.4-15.5) g/dL Hct (34.2-48.2) % MCV (76.7-100.5) fL MCH (23.9-33.9) pg MCHC (31.9-34.8) g/dL RDW (12.3-16.5) % Plt Count (151-488) x10(3)uL MPV (7.1-12.4) fL Neut % (Auto) (30.8-76.2) % Lymph % (Auto) (18.4-52.1) % Coal % (Auto) (4.4-15.7) % Eos % (Auto) (0.6-8.1) % Baso % (Auto) (0.2-1.5) % Neut # (Auto) (1.5-6.3) x10-3/uL Lymph # (Auto) (1.0-4.4) x10-3/uL Coal # (Auto) (0.3-1.0) x10-3/uL Eos # (Auto) (0.0-0.8) x10-3/uL Baso # (Auto) (0.0-0.1) x10-3/uL Add Manual Diff Neutrophils % (Manual) (46-82) % Band Neutrophils % (0-6) % Lymphocytes % (Manual) (13-37) % Monocytes % (Manual) (4-12) % Sodium 135 (135-145) mmol/L Potassium 4.7 (3.5-5.3) mmol/L Chloride 102 (100-110) mmol/L Carbon Dioxide 28 (21-32) mmol/L BUN 35 H (7-18) mg/dL Creatinine 1.6 H (0.55-1.02) mg/dL Est Cr Clr Drug Dosing 25.43 mL/min Estimated GFR (MDRD) 31 L (>60) BUN/Creatinine Ratio 21.9 H (9-20) Glucose 222 H (80-116) mg/dL POC Glucose 226 H (80-116) mg/dL Calcium 7.1 L (8.6-10.2) mg/dL Total Bilirubin 0.7 (0.1-1.3) mg/dL AST 23 D (5-25) IU/L ALT 12 D (12-36) U/L Alkaline Phosphatase 89 (56-112) IU/L Troponin I (4.0-60.3) pg/mL C-Reactive Protein (0.5-0.9) mg/dL NT-Pro-B Natriuret Pep (<=450) pg/mL Total Protein 5.2 L (6.0-8.0) g/dL Albumin 2.0 L (3.2-4.6) g/dL Globulin 3.2 g/dL Albumin/Globulin Ratio 0.6 SARS-CoV-2 RNA (JILLIAN) Negative (NEGATIVE) Blood Type Gel Antibody Screen Crossmatch 12/20/20 12/20/20 12/20/20 Range/Units 11:25 11:25 16:35 WBC 4.7 (3.0-10.3) x10-3/uL RBC 2.68 L (3.60-5.20) x10(6)uL Hgb 8.2 L (11.4-15.5) g/dL Hct 24.6 L (34.2-48.2) % MCV 91.8 (76.7-100.5) fL MCH 30.5 (23.9-33.9) pg MCHC 33.3 (31.9-34.8) g/dL RDW 19.4 H (12.3-16.5) % Plt Count 41 L (151-488) x10(3)uL MPV 11.3 (7.1-12.4) fL Neut % (Auto) 63.4 (30.8-76.2) % Lymph % (Auto) 9.7 L (18.4-52.1) % Coal % (Auto) 24.7 H (4.4-15.7) % Eos % (Auto) 1.0 (0.6-8.1) % Baso % (Auto) 1.2 (0.2-1.5) % Neut # (Auto) 3.0 (1.5-6.3) x10-3/uL Lymph # (Auto) 0.5 L (1.0-4.4) x10-3/uL Coal # (Auto) 1.2 H (0.3-1.0) x10-3/uL Eos # (Auto) 0.0 (0.0-0.8) x10-3/uL Baso # (Auto) 0.1 (0.0-0.1) x10-3/uL Add Manual Diff Neutrophils % (Manual) (46-82) % Band Neutrophils % (0-6) % Lymphocytes % (Manual) (13-37) % Monocytes % (Manual) (4-12) % Sodium (135-145) mmol/L Potassium (3.5-5.3) mmol/L Chloride (100-110) mmol/L Carbon Dioxide (21-32) mmol/L BUN (7-18) mg/dL Creatinine (0.55-1.02) mg/dL Est Cr Clr Drug Dosing mL/min Estimated GFR (MDRD) (>60) BUN/Creatinine Ratio (9-20) Glucose (80-116) mg/dL POC Glucose (80-116) mg/dL Calcium (8.6-10.2) mg/dL Total Bilirubin (0.1-1.3) mg/dL AST (5-25) IU/L ALT (12-36) U/L Alkaline Phosphatase (56-112) IU/L Troponin I 38.1 (4.0-60.3) pg/mL C-Reactive Protein 6.2 H* (0.5-0.9) mg/dL NT-Pro-B Natriuret Pep 1007 H* (<=450) pg/mL Total Protein (6.0-8.0) g/dL Albumin (3.2-4.6) g/dL Globulin g/dL Albumin/Globulin Ratio SARS-CoV-2 RNA (JILLIAN) (NEGATIVE) Blood Type B POSITIVE Gel Antibody Screen Negative Crossmatch See Detail 12/20/20 12/21/20 12/21/20 Range/Units 17:15 05:49 06:35 WBC 4.7 (3.0-10.3) x10-3/uL RBC 3.29 L (3.60-5.20) x10(6)uL Hgb 10.2 L (11.4-15.5) g/dL Hct 30.0 L (34.2-48.2) % MCV 91.0 (76.7-100.5) fL MCH 31.0 (23.9-33.9) pg MCHC 34.1 (31.9-34.8) g/dL RDW 18.1 H (12.3-16.5) % Plt Count 38 L (151-488) x10(3)uL MPV 11.0 (7.1-12.4) fL Neut % (Auto) (30.8-76.2) % Lymph % (Auto) (18.4-52.1) % Coal % (Auto) (4.4-15.7) % Eos % (Auto) (0.6-8.1) % Baso % (Auto) (0.2-1.5) % Neut # (Auto) (1.5-6.3) x10-3/uL Lymph # (Auto) (1.0-4.4) x10-3/uL Coal # (Auto) (0.3-1.0) x10-3/uL Eos # (Auto) (0.0-0.8) x10-3/uL Baso # (Auto) (0.0-0.1) x10-3/uL Add Manual Diff Yes Neutrophils % (Manual) 60 (46-82) % Band Neutrophils % 4 (0-6) % Lymphocytes % (Manual) 19 (13-37) % Monocytes % (Manual) 17 H (4-12) % Sodium (135-145) mmol/L Potassium (3.5-5.3) mmol/L Chloride (100-110) mmol/L Carbon Dioxide (21-32) mmol/L BUN (7-18) mg/dL Creatinine (0.55-1.02) mg/dL Est Cr Clr Drug Dosing mL/min Estimated GFR (MDRD) (>60) BUN/Creatinine Ratio (9-20) Glucose (80-116) mg/dL POC Glucose 143 H D 224 H D (80-116) mg/dL Calcium (8.6-10.2) mg/dL Total Bilirubin (0.1-1.3) mg/dL AST (5-25) IU/L ALT (12-36) U/L Alkaline Phosphatase (56-112) IU/L Troponin I (4.0-60.3) pg/mL C-Reactive Protein (0.5-0.9) mg/dL NT-Pro-B Natriuret Pep (<=450) pg/mL Total Protein (6.0-8.0) g/dL Albumin (3.2-4.6) g/dL Globulin g/dL Albumin/Globulin Ratio SARS-CoV-2 RNA (JILLIAN) (NEGATIVE) Blood Type Gel Antibody Screen Crossmatch 12/21/20 Range/Units 06:35 WBC (3.0-10.3) x10-3/uL RBC (3.60-5.20) x10(6)uL Hgb (11.4-15.5) g/dL Hct (34.2-48.2) % MCV (76.7-100.5) fL MCH (23.9-33.9) pg MCHC (31.9-34.8) g/dL RDW (12.3-16.5) % Plt Count (151-488) x10(3)uL MPV (7.1-12.4) fL Neut % (Auto) (30.8-76.2) % Lymph % (Auto) (18.4-52.1) % Coal % (Auto) (4.4-15.7) % Eos % (Auto) (0.6-8.1) % Baso % (Auto) (0.2-1.5) % Neut # (Auto) (1.5-6.3) x10-3/uL Lymph # (Auto) (1.0-4.4) x10-3/uL Coal # (Auto) (0.3-1.0) x10-3/uL Eos # (Auto) (0.0-0.8) x10-3/uL Baso # (Auto) (0.0-0.1) x10-3/uL Add Manual Diff Neutrophils % (Manual) (46-82) % Band Neutrophils % (0-6) % Lymphocytes % (Manual) (13-37) % Monocytes % (Manual) (4-12) % Sodium 136 (135-145) mmol/L Potassium 4.1 (3.5-5.3) mmol/L Chloride 100 (100-110) mmol/L Carbon Dioxide 28 (21-32) mmol/L BUN 31 H (7-18) mg/dL Creatinine 1.4 H (0.55-1.02) mg/dL Est Cr Clr Drug Dosing 29.06 mL/min Estimated GFR (MDRD) 36 L (>60) BUN/Creatinine Ratio 22.1 H (9-20) Glucose 239 H (80-116) mg/dL POC Glucose (80-116) mg/dL Calcium 7.2 L (8.6-10.2) mg/dL Total Bilirubin 1.2 (0.1-1.3) mg/dL AST 27 H D (5-25) IU/L ALT 17 D (12-36) U/L Alkaline Phosphatase 92 (56-112) IU/L Troponin I (4.0-60.3) pg/mL C-Reactive Protein (0.5-0.9) mg/dL NT-Pro-B Natriuret Pep (<=450) pg/mL Total Protein 5.4 L (6.0-8.0) g/dL Albumin 2.0 L (3.2-4.6) g/dL Globulin 3.4 g/dL Albumin/Globulin Ratio 0.6 SARS-CoV-2 RNA (JILLIAN) (NEGATIVE) Blood Type Gel Antibody Screen Crossmatch Result Diagrams: 12/21/20 06:35 12/21/20 06:35 Madhu Results Last 24 hrs: Microbiology 12/18/20 21:52 Urine Culture - Final Urine, Voided Alpha Strep, Not Pneumococcus Enterococcus Faecalis Sepsis Event Note - Evaluation Sepsis Screening Result: No Definite Risk - Focused Exam Vital Signs: Vital Signs Temp Temp Pulse Resp BP BP Pulse Ox 12/21/20 07:27 98.4 F 71 20 126/60 95 12/21/20 02:59 98.6 F 69 19 125/52 L 95 12/21/20 00:54 99 F 64 20 134/72 98 12/21/20 00:00 99 F 63 20 129/57 L 99 12/20/20 23:55 99 F 63 20 129/57 L 99 12/20/20 23:26 99 F 70 18 132/58 L 96 12/20/20 22:10 99 F 66 20 133/56 L 95 12/20/20 21:22 99 F 66 20 130/53 L 94 L 12/20/20 21:07 98.4 F 66 20 125/59 L 96 - Problem List & Annotations (1) SOB (shortness of breath) SNOMED Code(s): 058137457 Code(s): R06.02 - SHORTNESS OF BREATH Status: Acute Current Visit: Yes (2) 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 SNOMED Code(s): 807948657 Code(s): Z86.73 - PRSNL HX OF TIA (TIA), AND CEREB INFRC W/O RESID DEFICITS Status: Acute Current Visit: No (3) Weakness SNOMED Code(s): 03722373 Code(s): R53.1 - WEAKNESS Status: Acute Current Visit: No (4) Anemia SNOMED Code(s): 546402891 Code(s): D64.9 - ANEMIA, UNSPECIFIED Status: Chronic Current Visit: No (5) Ataxia SNOMED Code(s): 39355622 Code(s): R27.0 - ATAXIA, UNSPECIFIED Status: Chronic Current Visit: No (6) CHF (congestive heart failure) SNOMED Code(s): 01519317 Code(s): I50.9 - HEART FAILURE, UNSPECIFIED Status: Chronic Current Visit: No (7) Cognitive dysfunction SNOMED Code(s): 749122866 Code(s): F09 - UNSP MENTAL DISORDER DUE TO KNOWN PHYSIOLOGICAL CONDITION Status: Chronic Current Visit: No (8) DM2 (diabetes mellitus, type 2) SNOMED Code(s): 39708251 Code(s): E11.9 - TYPE 2 DIABETES MELLITUS WITHOUT COMPLICATIONS Status: Chronic Current Visit: No Qualifiers: (9) MDD (major depressive disorder) SNOMED Code(s): 414875592 Code(s): F32.9 - MAJOR DEPRESSIVE DISORDER, SINGLE EPISODE, UNSPECIFIED Status: Chronic Current Visit: No Qualifiers: Major depression recurrence: recurrent Psychotic features: without psychotic features (10) Obesity (BMI 30-39.9) SNOMED Code(s): 804942838, 971741881 Code(s): E66.9 - OBESITY, UNSPECIFIED Status: Chronic Current Visit: No - Problem List Review Problem List Initiated/Reviewed/Updated: Yes - My Orders Last 24 Hours: My Active Orders 12/20/20 10:48 Chest 1V Frontal [CR] Routine Blood Culture x2 Reflex Set [OM.PC] Urgent EKG 12 Lead [EK] Routine 12/20/20 11:00 Enoxaparin [Lovenox] 30 mg SUBCUT Q24H 12/20/20 11:25 CULTURE BLOOD [BC] Urgent 12/20/20 11:30 CULTURE BLOOD [BC] Urgent 12/20/20 15:12 Transfuse PRBC [Transfuse Red Blood Cells] [COMM] Routine 12/20/20 15:15 Sodium Chloride 0.9% [Normal Saline] 250 ml IV ASDIRECTED 12/21/20 11:00 Levofloxacin/Dextrose 5%-Water [Levaquin in D5W 250 MG/50 ML] 50 ml IV Q24H 12/21/20 12:00 Ferrous Sulfate 325 mg PO Q48H - Plan Plan:: UA is growing alpha strep sensitive to follow quinolones. Continued IV Levaquin today and possibly switch tomorrow. Encourage ambulation, therapy, incentive spirometry. Plan to repeat hemoglobin, UA, BMP, CMP on . I reached out to oncology cone cleaner Dr. Parminder Villasenor she has an appointment with him of her current status.
[2020-12-21] MEDS: Sodium Chloride 0.9% 10 ML Syringe FLUSH PRN ×2 (08:49→11:22)
[2020-12-21] MEDS ORDERED: Nystatin Crm 30 GM Tube TOP PRN (09:18)
[2020-12-21] MEDS ORDERED: Levofloxacin/Dextrose 5%-Water 50 ML IV SCH (11:00)
[2020-12-21] MEDS ORDERED: Ferrous Sulfate 325 MG Tab PO SCH (12:00)
--- NOTE | 2020-12-21 15:46 | DISCH ---
DISCHARGE DATE: 12/21/2020 REASON FOR ADMISSION: Weakness, CHF, pneumonia, hypertension, hyperlipidemia, anemia, thrombocytopenia, type 2 diabetes, obesity, Parkinson's, mild cognitive dysfunction, non-Hodgkin's lymphoma. DISCHARGE DIAGNOSES: 1. Alteration of mental status. 2. Increasing weakness. 3. Shortness of breath. 4. Urinary tract infection. SECONDARY DIAGNOSES: 1. Weakness. 2. Congestive heart failure. 3. Pneumonia. 4. Hypertension. 5. Hyperlipidemia. 6. Anemia. 7. Thrombocytopenia. 8. Type 2 diabetes. 9. Obesity. 10.Parkinson's. 11.Mild cognitive dysfunction. 12.Non-Hodgkin's lymphoma. BRIEF HISTORY AND HOSPITAL COURSE: This is a 75-year-old female admitted from the [facility] floor with weakness, debility, after she had a bout of CHF, anemia and pneumonia. She was admitted for rehab and physical therapy. Initially doing well, but over the last 2 to 3 days, she showed increasing delirium, low- grade fever, weakness, and a UTI. She was given 2 units of blood to bring up her hemoglobin to 10.2 from 7.9. There was only minimal improvement in her symptoms and the family requested a transfer to [place]. This was done today, December 21. I spent more than 35 minutes in the discharge. /[id number] JAYDA/JOANA
== END 2020-12-21 16:25 | DRG 948 ==
LOC: FB.MS 09:00
PROVIDERS: ADMIT Family Medicine; ATTEND Family Medicine
PROC: 30233N1 Transfusion of Nonautologous Red Blood Cells into Peripheral Vein, Percutaneous Approach (ICD-10-PCS; principal; 2020-12-16)
DX: R53.1 Weakness (principal); C85.90 Non-Hodgkin lymphoma, unspecified, unspecified site; N39.0 Urinary tract infection, site not specified; F33.9 Major depressive disorder, recurrent, unspecified; F05 Delirium due to known physiological condition; I50.9 Heart failure, unspecified; E78.5 Hyperlipidemia, unspecified; I11.0 Hypertensive heart disease with heart failure; D64.9 Anemia, unspecified; D69.6 Thrombocytopenia, unspecified; Z51.5 Encounter for palliative care; Z66 Do not resuscitate; Z20.822 Contact with and (suspected) exposure to COVID-19; E66.9 Obesity, unspecified; G20 Parkinson's disease; H91.90 Unspecified hearing loss, unspecified ear; H54.7 Unspecified visual loss; E78.00 Pure hypercholesterolemia, unspecified; G47.30 Sleep apnea, unspecified; M19.90 Unspecified osteoarthritis, unspecified site; M54.2 Cervicalgia; G89.29 Other chronic pain; M79.7 Fibromyalgia; E11.42 Type 2 diabetes mellitus with diabetic polyneuropathy; F02.80 Dementia in other diseases classified elsewhere, unspecified severity, without behavioral disturbance, psychotic disturbance, mood disturbance, and anxiety; Z96.653 Presence of artificial knee joint, bilateral; D70.9 Neutropenia, unspecified; R27.0 Ataxia, unspecified; R41.82 Altered mental status, unspecified; Z87.01 Personal history of pneumonia (recurrent); Z88.0 Allergy status to penicillin; Z88.8 Allergy status to other drugs, medicaments and biological substances; Z88.2 Allergy status to sulfonamides; Z88.1 Allergy status to other antibiotic agents; Z79.4 Long term (current) use of insulin; Z79.82 Long term (current) use of aspirin; Z98.49 Cataract extraction status, unspecified eye; Z90.710 Acquired absence of both cervix and uterus; Z90.49 Acquired absence of other specified parts of digestive tract; Z86.73 Personal history of transient ischemic attack (TIA), and cerebral infarction without residual deficits; Z68.36 Body mass index [BMI] 36.0-36.9, adult
CPT/HCPCS: 36410; 36415; 36430; 70450; 71045; 80048; 80053; 81001; 82272; 82947; 83880; 84484; 85025; 86140; 86850; 86900; 86901; 86920; 86922; 87040; 87086; 87088; 87186; 93005; 94150; 97110-GO; 97116-GP; 97530-GO; 97530-GP; 97535-GO; A9270-GY; J1650; J1815; J1815-GY; J1956; J3490; J7050; P9016; U0002